=== PATIENT | male | born 1955 | race Caucasian/White ===

== ENCOUNTER 2017-10-08 16:11 | Emergency (ER) | payer MEDICAID, SELFPAY ==
[2017-10-08 16:13] VITALS: BP 161/89; PULSE 81; RESP 14; TEMP 36.9; O2SAT 96; BMI 25.0
--- NOTE | 2017-10-08 17:02 | ED.DCSUM_ITS ---
- ER Visit Summary Date of Service: 10/08/17 Chief Complaint: Wound check History of Present Illness: The patient is a 61 M evaluation of bump lateral to left nose yesterday, enlarging, tender. No drainage. No fevers. No history of diabetes. Concerned due to history of MRSA to his right arm in the past. Penicillin allergy. No other complaints. Physical Examination: General: Alert and oriented ?3, no acute distress HEENT: Normocephalic, atraumatic. His redness throughout his face with sparing around ocular region scaly lesions which is chronic per patient. There is a nodule fluctuance 1 cm lateral left nasal region, tender to palpation. Moist mucosa membranes Neck: supple, nontender. Cardiovascular: Regular rate and rhythm, no murmurs Respiratory: Normal breath sounds, symmetric, no distress Abdomen: Soft, nontender, nondistended Extremities: Nontender, no edema, pulses intact ?4 Neuro: no focal neurological deficits. Test Results: [] Emergency Department Course and Treatment: Patient chronic erythema of his face. Nodule is new with fluctuance. History of MRSA, started on Bactrim. Due to flexion discuss needle decompression for which she agreed. 18-gauge was used and sterile conditions, start blood return with no exudates. He tolerated it well. Wound care discussed. He will continue Bactrim and follow-up with his PCP. Return if any worsening symptoms. All questions were answered. Treatment Plan: [] Disposition: Discharge Impression: 1. Facial boil status post needle decompression This note was generated with [employer] dictation software. It may contain incorrect words, spelling, and punctuation that were not noted in review of the chart prior to signing ED Disposition - Plan for ED Patient: Disposition: Home or Assisted Living Chief Complaint: Wound Check Diagnosis: Boil Instructions: ED Abscess IandD Prescriptions: Smz/Tmp Ds [Bactrim Ds] 1 tablet PO BID #20 tablet Referrals: David Garvin [Primary Care Provider] - 3-5 Days
[2017-10-08] MEDS: Smz/Tmp Ds Tablet 1 TABLET PO (17:24)
[2017-10-08] MEDS: Lidocaine/Epi/Tetracaine 50 ML 1 APPLIC TOPICAL (17:24)
[2017-10-08 18:03] VITALS: BP 147/89; PULSE 91; RESP 16; O2SAT 99
== END 2017-10-08 18:04 | disposition home or self-care (01) ==
PROVIDERS: Emergency Provider Emergency Medicine; Family Provider Physician Assistant; PCP Physician Assistant
DX: J34.0 Abscess, furuncle and carbuncle of nose (principal); Z98.890 Other specified postprocedural states; Z86.14 Personal history of Methicillin resistant Staphylococcus aureus infection; J44.9 Chronic obstructive pulmonary disease, unspecified; Z72.0 Tobacco use
CPT/HCPCS: 10060; 99283

== ENCOUNTER 2017-12-21 14:42 | Emergency (ER) | payer MEDICAID, SELFPAY ==
[2017-12-21 14:43] VITALS: BP 179/100; PULSE 76; RESP 16; TEMP 36.7; O2SAT 97; BMI 24.4
--- NOTE | 2017-12-21 15:01 | ED.VISSUMM ---
- ER Visit Summary Date of Service: 12/21/17 Chief Complaint: Atraumatic bilateral low back pain History of Present Illness: The patient is a 62 M who presents with atraumatic bilateral low back pain that started 3 days ago. He denies bowel bladder dysfunction. Denies radicular pain. No saddle anesthesia or paresthesia. Denies foot drop or weakness in his thigh muscles going up or down steps. Any type of movement exacerbates his pain. He has no preference regarding sitting or standing. He commented that rising from a sitting position or going to a sitting position or standing position cause some discomfort. He denies fever, chills night sweats. He denies any GI symptoms. He denies any symptoms. Please read written note for complete detail Physical Examination: Blood pressure is elevated 179 100. HEENT exam is unremarkable. Heart is regular without murmur, gallop or rub. S1 and S2 are normal. Lungs are clear to auscultation with good movement of air bilaterally. Abdomen is soft nontender no palpable cell mass or abdominal bruit. There is no guarding or rebound tenderness. There is no CVA tenderness noted. There is no evident patient of the pelvis. There is no inguinal lymphadenopathy. There is no evidence of hernia. Straight leg test is negative bilaterally. DTRs of the patella and ankle are 2+ and symmetric. There is no clonus or Babinski sign noted. EHL is intact. He has normal sensation. Movement exacerbates his pain. He has palpable DP and PT pulse, 2+. Test Results: None are indicated Emergency Department Course and Treatment: Rest, ice, NSAID and short course of [place]. Treatment Plan: Prescription for [place] and follow-up with his primary care provider Danielito Cedillo for blood pressure reading assessment since it is elevated and he has no history of blood pressure and the fact that he is asymptomatic. Disposition: Discharged to home Impression: 1. Bilateral low back pain lumbar sacral strain 2. History of degenerative disc disease 3. Elevated blood pressure asymptomatic in nonhypertensive patient This note was generated with [employer] dictation software. It may contain incorrect words, spelling, and punctuation that were not noted in review of the chart prior to signing ED Disposition - Plan for ED Patient: Disposition: Home or Assisted Living Chief Complaint: Back Instructions: ED Sprain Strain Lumbar, ED Hypertension Poss Prescriptions: Hydrocodone Bitart/Apap 5-325 [[place] 5MG-325MG] 1 tab PO Q6H PRN PRN 3 Days #10 tab PRN Reason: Pain Referrals: Danielito Dowd [Primary Care Provider] - 1 Week
[2017-12-21 15:11] VITALS: BP 149/89; RESP 16
--- NOTE | 2017-12-21 15:16 | ED.RN ---
REVIEWED D/C INSTRUCTIONS, FOLLOW UP CARE, PRESCRIPTION, AND S/S THAT WOULD WARRANT RETURN TO THE ED WITH PT. PT VERBALIZED AN UNDERSTANDING AND DENIES FURTHER QUESTIONS FOR THIS RN. PT SKIN P/W/D, RESP EVEN AND UNLABORED, PT A&O X 3, NO DISTRESS NOTED. PT AMBULATED OUT OF ED, GAIT STEADY.
== END 2017-12-21 15:17 | disposition home or self-care (01) ==
PROVIDERS: Emergency Provider Emergency Medicine; Family Provider Nurse Practitioner Family; PCP Nurse Practitioner Family
DX: S39.012A Strain of muscle, fascia and tendon of lower back, initial encounter (principal); X58.XXXA Exposure to other specified factors, initial encounter; Y93.9 Activity, unspecified; Y92.9 Unspecified place or not applicable; R03.0 Elevated blood-pressure reading, without diagnosis of hypertension; E78.00 Pure hypercholesterolemia, unspecified; J44.9 Chronic obstructive pulmonary disease, unspecified; Z87.891 Personal history of nicotine dependence
CPT/HCPCS: 99282

== ENCOUNTER 2018-01-01 19:58 | Emergency (ER) | payer MEDICAID, SELFPAY ==
[2018-01-01 19:59] VITALS: BP 132/87; PULSE 80; RESP 16; TEMP 36.7; O2SAT 97; BMI 23.7
--- NOTE | 2018-01-01 20:16 | ED.RN ---
WHILE IN TRIAGE PT BECAME PALE AND DIAPHORETIC, C/O LIGHTHEADEDNESS, RINGING IN EARS, THEN PASSED OUT. PT WAS OUT FOR ABOUT 1 MIN, AND HAS AUDIBLE RESPIRATIONS WITH CHEST RISE. PT THEN WOKE. PT THEN ASSISTED TO BED IN 2ND TRIAGE ROOM. O2 APPLIED. PT ORIENTED x3, DROWSY.
[2018-01-01 20:40] VITALS: BP 129/99; PULSE 68; RESP 20; O2SAT 93
--- NOTE | 2018-01-01 22:02 | ED.DCSUM_ITS ---
- ER Visit Summary Date of Service: 01/01/18 Chief Complaint: Left thumb laceration History of Present Illness: The patient is a 62 M sizes left thumb on a knife while trying to repair his motorcycle. Notes his last tetanus was 7 years ago. He is right-handed. Physical Examination: Afebrile vital signs are stable He is neurovascular intact distal to the injury of the left thumb. There is a 1.5 cm linear laceration of the lateral aspect of the thumb. There is a 2.5 cm laceration over the medial aspect of the left thumb. The medial laceration demonstrates a arterial on the skin that is having arterial bleeding. Emergency Department Course and Treatment: The small arterial was tied off using 5-0 Vicryl suture. Once bleeding control was obtained the thumb was digitally blocked using 1% lidocaine. The lateral laceration was washed with Shur-Clens and explored. This was closed using 3 simple interrupted 4-0 simple interrupted Ethilon sutures. The medial laceration was irrigated and explored and washed. It was closed using 5 4-0 simple interrupted Ethilon sutures. Post suturing the thumb was reassessed he continues to be neurovascularly intact distally. There is no obvious joint or bone involvement that I could see. Tendon function is normal. Patient will follow up with primary care 10- 14 days for suture removal. Return if worsening or concerns Impression: 1. 2.5 cm and 1.5 cm left thumb laceration with repair This note was generated with [employer] dictation software. It may contain incorrect words, spelling, and punctuation that were not noted in review of the chart prior to signing ED Disposition - Plan for ED Patient: Disposition: Home or Assisted Living Chief Complaint: Laceration Instructions: ED Laceration Hand Prescriptions: Cephalexin [Keflex] 500 mg PO Q6 #28 cap Referrals: Danielito Dowd, HAF[employer]-C [Primary Care Provider] - 10-14 Days suture removal Additional Instructions: Return if worsening or concerns.
[2018-01-01 22:12] VITALS: BP 127/71; PULSE 84; RESP 16; O2SAT 98
== END 2018-01-01 22:14 | disposition home or self-care (01) ==
PROVIDERS: Emergency Provider Emergency Medicine; Family Provider Nurse Practitioner Family; PCP Nurse Practitioner Family
DX: S61.012A Laceration without foreign body of left thumb without damage to nail, initial encounter (principal); W26.0XXA Contact with knife, initial encounter; Y93.89 Activity, other specified; Y92.9 Unspecified place or not applicable; E78.00 Pure hypercholesterolemia, unspecified; J44.9 Chronic obstructive pulmonary disease, unspecified; Z72.0 Tobacco use; Z79.899 Other long term (current) drug therapy
CPT/HCPCS: 12002; 99284

== ENCOUNTER → 2018-02-08 20:04 | Outpatient (CLI) | payer MEDICAID, SELFPAY | PROVIDERS: Family Provider Nurse Practitioner Family; PCP Nurse Practitioner Family; Visit Provider Nurse Practitioner Family | DX: G47.10 Hypersomnia, unspecified (principal); J43.9 Emphysema, unspecified | CPT/HCPCS: 95810 ==

== ENCOUNTER → 2018-03-03 19:56 | Outpatient (CLI) | payer MEDICAID, SELFPAY | PROVIDERS: Family Provider Nurse Practitioner Family; PCP Nurse Practitioner Family; Visit Provider Nurse Practitioner Family | DX: G47.33 Obstructive sleep apnea (adult) (pediatric) (principal) | CPT/HCPCS: 95811 ==

== ENCOUNTER 2018-05-18 16:44 | Emergency (ER) | payer MEDICAID, SELFPAY ==
[2018-05-18 16:45] VITALS: BP 167/107; PULSE 90; RESP 18; TEMP 37.1; O2SAT 98; BMI 23.1
--- NOTE | 2018-05-18 17:26 | ED.VISSUMM ---
- ER Visit Summary Date of Service: 05/18/18 Chief Complaint: [Back pain] History of Present Illness: The patient is a 62 M [presents the emergency department complaint of back pain that started this morning around 9 AM. Patient does have a history of chronic back pain issues that he has had for years. Patient states that about 3 times a year he will get a flareup but for the most part typically he can manage his pain at home with Tylenol. Patient denies any pain radiating down his legs. He denies any change in bowel or bladder function. He denies any weakness in extremities. He denies any fall or trauma. He is not on any heavy lifting. Patient denies urinary symptoms. He denies any fever.] Physical Examination: [HEENT-PERRLA, EOMI. Cranial nerves II through XII grossly intact. TMs clear. Mucous membranes moist. No adenopathy. Cardiovascular-regular rate and rhythm without murmur or ectopy Lungs-clear to auscultation, chest wall stable without crepitus or subcu emphysema Abdomen-normoactive bowel sounds, soft, nontender, no rebound or rigidity, no peritoneal signs. Back exam-patient does have tenderness palpation over the left lower lumbar paraspinal musculature into the left iliac crest. Patient also has some mild tenderness over the right lumbar paraspinal musculature. No significant tenderness in the midline of the lumbar spine. Patient has negative straight leg raises. Deep tendon reflexes are plus 2 out of 4 bilaterally at the patella and Achilles. Patient has normal L5 extension bilaterally. Extremities-intact ?4, normal range of motion, normal pulses, atraumatic] Test Results: [None indicated] Emergency Department Course and Treatment: [Patient was given a prescription for [place] and Flexeril. Patient advised to follow-up with his primary care physician.] Treatment Plan: [Follow-up with primary care physician and given a prescription for [place] and Flexeril.] Disposition: [Discharged home in stable condition] Impression: [Acute exacerbation of chronic back pain] This note was generated with [employer] software. It may contain incorrect words, spelling, and punctuation that were not noted in review of the chart prior to signing ED Disposition - Plan for ED Patient: Chief Complaint: Back Referrals: Danielito Dowd, H[facility]-C [Primary Care Provider] -
--- NOTE | 2018-05-18 17:28 | ED.DEP ---
ED Disposition - Plan for ED Patient: Chief Complaint: Back Instructions: ED Spasm Back No Trauma, ED Neck Back Pain General Prescriptions: Hydrocodone/Acetaminophen [[place] 5-325 Tablet] 1 - 2 ea PO 4X/DAY PRN PRN 3 Days #12 tab PRN Reason: Pain Cyclobenzaprine [Flexeril] 10 mg PO TID PRN #20 tab PRN Reason: Muscle Spasm Referrals: Danielito Dowd, [employer] [Primary Care Provider] - 3-5 Days
[2018-05-18 17:40] VITALS: BP 167/107; PULSE 70; RESP 16; O2SAT 99
== END 2018-05-18 17:43 | disposition home or self-care (01) ==
LOC: ED 17:32
PROVIDERS: Emergency Provider Emergency Medicine; Family Provider Nurse Practitioner Family; PCP Nurse Practitioner Family
DX: M54.5 Low back pain (principal); G89.29 Other chronic pain; F32.9 Major depressive disorder, single episode, unspecified; F41.9 Anxiety disorder, unspecified; J44.9 Chronic obstructive pulmonary disease, unspecified; Z79.899 Other long term (current) drug therapy; Z72.0 Tobacco use
CPT/HCPCS: 99282

== ENCOUNTER → 2018-05-27 13:04 | Outpatient (CLI) | payer MEDICAID, SELFPAY | PROVIDERS: Family Provider Nurse Practitioner Family; PCP Nurse Practitioner Family; Visit Provider Nurse Practitioner Family | DX: G47.33 Obstructive sleep apnea (adult) (pediatric) (principal) | CPT/HCPCS: 98960; G0463 ==

== ENCOUNTER → 2018-06-01 16:04 | Outpatient (CLI) | payer MEDICAID, SELFPAY ==
--- NOTE | 2018-06-01 16:16 | RAD_ITS ---
STUDY: X-RAY - LUMBAR SPINE REASON FOR EXAM: Male, 62 years old. Pain. TECHNIQUE: 3 view(s) of the lumbar spine were obtained. COMPARISON: 12/16/2016 FINDINGS: Normal lumbar lordosis. There is no substantial scoliosis. There is a normal alignment of the vertebrae. Spondylosis and degenerative disc disease especially at L4-L5 and L5-S1. Findings have progressed since 12/16/2016. There is no demonstrated fracture. The soft tissue structures are unremarkable. RAD/Lumbar Spine 2 or 3 Views IMPRESSION: No acute abnormality. Multilevel lower lumbar spine degenerative changes worse than 12/16/2016. Electronically Signed: Lalit Phan MD at 23:58 EDT , Service support ,
--- NOTE | 2018-06-01 16:23 | RAD_ITS ---
STUDY: X-RAY - THORACIC SPINE REASON FOR EXAM: Male, 62 years old. Pain. TECHNIQUE: 3 view(s) of the thoracic spine were obtained. COMPARISON: None. FINDINGS: Normal kyphosis of the thoracic spine. There is no substantial scoliosis. Normal thoracic vertebrae and endplates. Normal disc space heights. The soft tissue structures are unremarkable. RAD/Thoracic Spine 2 Views IMPRESSION: Unremarkable for age. Electronically Signed: Lalit Phan MD at 23:57 EDT , Service support ,
== END ==
PROVIDERS: Family Provider Nurse Practitioner Family; PCP Nurse Practitioner Family; Referring Provider Nurse Practitioner Family; Visit Provider Nurse Practitioner Family
DX: M47.897 Other spondylosis, lumbosacral region (principal); M51.37 Other intervertebral disc degeneration, lumbosacral region
CPT/HCPCS: 72070; 72100

== ENCOUNTER → 2018-06-08 08:49 | Outpatient (CLI) | payer MEDICAID, SELFPAY ==
--- NOTE | 2018-06-08 14:11 | PFTCOMP_ITS ---
COMPLETE PULMONARY FUNCTION TEST INTERPRETATION Brief HPI: Patient is a 62 year old male, currently under the care of Elida Hoyos, who presents to [facility] for complete pulmonary function tests secondary to diagnosis of dyspnea. Respiratory therapist reports good effort and reproducible results. Patient did take maintenance medication 5 hours before testing. Interpretation: Forced expiration spirometry shows no large airways obstructive ventilatory defect with an FEV1 of 82% predicted. There is no significant bronchodilator response by strict ATS criteria. Spirograms are of good quality and plateau slowly, indicating slowly emptying areas of the lungs. The respiratory flow volume loop shows decreased expiratory flow rates at high lung volumes consistent with small airways obstruction. Lung volumes by body plethysmography show a normal total lung capacity at 6.99 L, 96% predicted. All other lung volumes are within normal limits. Diffusion capacity by carbon monoxide is normal at 103% predicted. The airway resistance is normal. No previous pulmonary function tests were available for review. Impression: These pulmonary function tests are grossly within normal limits. There are some subtle signs of possible small airways obstruction.
== END ==
PROVIDERS: Family Provider Nurse Practitioner Family; PCP Nurse Practitioner Family; Referring Provider Nurse Practitioner Acute Care; Visit Provider Nurse Practitioner Acute Care
DX: R06.00 Dyspnea, unspecified (principal)
CPT/HCPCS: 94060; 94726; 94729

== ENCOUNTER 2018-06-10 15:55 | Outpatient (CLI) | payer MEDICAID, SELFPAY ==
[2018-06-10 16:38] LABS: Absolute Lymphocyte Count 2.67 X10^3/ul (0.83-4.51); Absolute Neutrophil Count 4.4 X10^3/uL (2.0-7.7); Basophil# 0.03 X10^3/uL; Basophil% 0.4 % (0-1); Eosinophil# 0.19 X10^3/uL; Eosinophils% 2.3 % (0-5); Hematocrit 44.1 % (40-54); Hemoglobin 15.3 g/dl (13.0-16.5); Lymphocyte # 2.67 X10^3/ul (4.0); Lymphocyte % 32.9 % (19-41); Mean Corp Hgb Conc 34.7 g/gl (32-36); Mean Corpuscular Hgb 34.9 pg (27.0-32.0); Mean Corpuscular Volume 100.5 fL (80-94); Mean Platelet Vol. 8.8 fl (6.2-12.0); Monocyte# 0.83 X10^3/uL; Monocyte% 10.2 % (0-10); Neutrophil # 4.38 X10^3/uL (2.7-7.7); Platelet Count 255 K/mm3 (150-450); RBC Distribution Width CV 12.3 % (11.6-14.6); RBC Distribution Width SD 44.8 fl (35.1-43.9); Red Blood Count 4.39 M/mm3 (4.6-6.2); White Blood Count 8.1 K/mm3 (4.4-11.0)
[2018-06-10 16:45] LABS: AST(SGOT) 22 U/L (15-37); Alanine Aminotransfer ALT/SGPT 37 U/L (16-61); Albumin, Serum 3.8 g/dL (3.2-5.0); Alkaline Phosphatase 99 U/L (45-117); Anion Gap 6 (5-15); BUN 16 mg/dL (7-18); BUN/Creat Ratio 19.8 RATIO (10-20); Calcium,Total 8.8 mg/dL (8.5-10.1); Chloride 105 mmol/L (98-107); Creatinine, Serum 0.81 mg/dL (0.70-1.30); EST Glomerular Filtration Rate 102 mL/min (>60); Est Glom Filt Rate - Afr Amer 123 mL/min (>60); Globulin 3.7 g/dL (2.2-4.2); Glucose 86 mg/dL (74-106); Potassium 3.9 mmol/L (3.5-5.1); Protein, Total 7.5 g/dL (6.4-8.2); Sodium Level 139 mmol/L (136-145)
[2018-06-10 16:46] LABS: POSITIVE COUNT NO; POSITIVE DIFFERENTIAL NO; POSITIVE MORPHOLOGY NO
== END 2018-07-09 12:24 ==
DX: I10 Essential (primary) hypertension (principal)
CPT/HCPCS: 36415; 80053; 85025

== ENCOUNTER 2018-07-03 18:25 | Emergency (ER) | payer MEDICAID, SELFPAY ==
[2018-07-03 18:26] VITALS: BP 140/76; PULSE 79; RESP 14; TEMP 36.4; O2SAT 98; BMI 11.2
--- NOTE | 2018-07-03 18:58 | ED.VISSUMM ---
- ER Visit Summary Date of Service: 07/03/18 Chief Complaint: Right thumb wound History of Present Illness: The patient is a 62 M who noted a small area of skin avulsion of the proximal right thumb couple days ago. Patient denies known injury. He has had some serosanguineous type drainage from the area. His primary concern is that he had a similar lesion that appeared on his left hand a couple years ago that turned into MRSA infection and required surgical debridement. He has not had fever or chills. Physical Examination: Vital signs unremarkable. Patient sitting upright in bed no acute distress. He is nontoxic appearing. Heart is regular rate and rhythm without murmur. Lung sounds are clear. The right upper extremity examination was a 3 mm round area of skin avulsion on the proximal right thumb with serosanguineous drainage. No palpable abscess is noted. There is no tenderness along the tendon. Full range of motion is noted. Normal cap refill and sensation are noted. Test Results: [] Emergency Department Course and Treatment: Wound culture was obtained. Patient be treated with Bactrim and Keflex. Treatment Plan: [] Disposition: Discharge Impression: Right thumb wound with history of MRSA This note was generated with [employer] dictation software. It may contain incorrect words, spelling, and punctuation that were not noted in review of the chart prior to signing ED Disposition - Plan for ED Patient: Disposition: Home or Assisted Living Chief Complaint: Wound Check Instructions: ED Wound Check Laceration FU Infec Prescriptions: Cephalexin [Keflex] 500 mg PO Q6 #40 capsule Smz/Tmp Ds [Bactrim Ds] 1 tablet PO BID #20 tablet Referrals: Danielito Dowd NP-C [Primary Care Provider] - 5-7 Days
[2018-07-03 19:10] VITALS: RESP 18
[2018-07-03] MEDS: Smz/Tmp Ds Tablet 1 TABLET PO (19:10)
[2018-07-03] MEDS: Cephalexin 250 MG Capsule 500 MG PO (19:10)
== END 2018-07-03 19:11 | disposition home or self-care (01) ==
PROVIDERS: Emergency Provider Emergency Medicine; PCP Nurse Practitioner Family
DX: S60.391A Other superficial injuries of right thumb, initial encounter (principal); X58.XXXA Exposure to other specified factors, initial encounter; Y93.9 Activity, unspecified; Z86.14 Personal history of Methicillin resistant Staphylococcus aureus infection; J44.9 Chronic obstructive pulmonary disease, unspecified; Z72.0 Tobacco use
CPT/HCPCS: 87070; 87205; 99283

== ENCOUNTER 2018-07-06 10:19 | Inpatient (IN) | payer MEDICAID, SELFPAY ==
[2018-07-06] VITALS (8 sets, daily range): BP systolic 128–161; BP diastolic 77–93; PULSE 84–119; RESP 16–18; TEMP 36.6–37.7; O2SAT 93–98; BMI 24.4
--- NOTE | 2018-07-06 10:20 | TISS_PTH ---
PATIENT: YUNG VILA LOC: MS2 U#:[id number] AGE/SX: 62/M ROOM: [id number] RE07/06/[address]: Dr. Oliver Murillo MD : [id number] BED: 1 DIS: 07/08/2018 SPEC #: [id number] RECD: 07/07/18 09:17 STATUS: MARÍA NOLAN #: [id number] PIOTR: 07/06/18 10:[address]: Oliver Murillo DEPT: SURGICAL PATHOLOGY RECD BY: Nataliia Stoddard ENTERED: 07/07/18 11:19 SP TYPE: Tissue Bx SARAH DR: MD Danielito Navas, [employer] Tissues: Skin of thumb, NOS Procedures: Special Stain Group I Surgery Specimen Level IV AFB Stain (control) GMS Stain (control) HEADER OPERATION: Incision, drainage MRSA abscess, thumb PRE-OP DIAGNOSIS: Proximal right thumb MRSA abscess TISSUE SUBMITTED: Tissue, right thumb MICROSCOPIC DIAGNOSIS Tissue right thumb: Pieces of skin with underlying tissue with acute and chronic inflammation and abscess formation. Special stains for acid fast bacilli and fungi are negative for organisms; matched controls are appropriate. AGA:lance 07/08/18 MICROSCOPIC DESCRIPTION Slides are reviewed. GROSS DESCRIPTION Received in fixative is one container labeled with the patient's name and designated tissue right thumb. The specimen consists of four variable size pieces of lopez-brown skin with underlying tissue measuring in aggregate 3.5 x 3.5 x 0.5 cm. A focal area of ulceration is noted. No mass lesion is identified. The entire specimen is submitted in two cassettes. / AGA:lance 07/07/18 TC:2 CPT: 54763, 41384 x2
--- NOTE | 2018-07-06 10:51 | EKG12_ITS ---
Test Reason : CELLULITIS Blood Pressure : / mmHG Vent. Rate : 087 BPM Atrial Rate : 087 BPM P-R Int : 172 ms QRS Dur : 086 ms QT Int : 330 ms P-R-T Axes : 080 -30 078 degrees QTc Int : 397 ms Normal sinus rhythm with sinus arrhythmia Left axis deviation Septal infarct (cited on or before 07-APR-2015) Abnormal ECG Confirmed by PILLO RM, JAKE ([id number]), communications editor JULISA WEN ([id number]) on 07/09/2018 2:24:33 PM Referred By: Oliver Murillo Confirmed By:JAKE FERRO MD
--- NOTE | 2018-07-06 10:53 | RAD_ITS ---
STUDY: X-RAY - RIGHT HAND REASON FOR EXAM: Male, 62 years old. Cellulitis. TECHNIQUE: 3 view(s) of the hand. COMPARISON: None. FINDINGS: Normal radiocarpal articulation. Normal distal radioulnar joint. Normal visualized carpal bones. Normal carpal articulations Normal carpometacarpal articulation of the thumb. Normal second through fifth carpometacarpal joints. Normal metacarpi. Normal metacarpophalangeal joint of the thumb. Normal interphalangeal joint of the thumb. Normal proximal and distal phalanges of the thumb. Normal metacarpophalangeal joints of the second through fifth fingers. Normal proximal and distal interphalangeal joints of the second through fifth fingers. Normal phalanges of the second through fifth fingers. Soft tissue swelling. RAD/Hand Min 3 Views IMPRESSION: Soft tissue swelling. Electronically Signed: Alex Salcedo MD at 11:37 EST Tel [phone], Service support ,
[2018-07-06] MEDS: 0.9% Normal Saline 1,000 ML 150 ML IV (11:16)
[2018-07-06 11:25] LABS: Absolute Lymphocyte Count 1.51 X10^3/ul (0.83-4.51); Absolute Neutrophil Count 11.4 X10^3/uL (2.0-7.7); Basophil# 0.02 X10^3/uL; Basophil% 0.1 % (0-1); Eosinophil# 0.07 X10^3/uL; Eosinophils% 0.5 % (0-5); Hematocrit 42.3 % (40-54); Hemoglobin 14.9 g/dl (13.0-16.5); Lymphocyte # 1.51 X10^3/ul (4.0); Lymphocyte % 10.5 % (19-41); Mean Corp Hgb Conc 35.2 g/gl (32-36); Mean Corpuscular Hgb 35.1 pg (27.0-32.0); Mean Corpuscular Volume 99.8 fL (80-94); Mean Platelet Vol. 8.6 fl (6.2-12.0); Monocyte# 1.39 X10^3/uL; Monocyte% 9.6 % (0-10); Neutrophil # 11.41 X10^3/uL (2.7-7.7); Neutrophil % 79.2 % (47-70); Platelet Count 246 K/mm3 (150-450); RBC Distribution Width CV 12.8 % (11.6-14.6); RBC Distribution Width SD 46.2 fl (35.1-43.9); Red Blood Count 4.24 M/mm3 (4.6-6.2); White Blood Count 14.4 K/mm3 (4.4-11.0)
[2018-07-06 11:27] LABS: POSITIVE COUNT NO; POSITIVE DIFFERENTIAL NO; POSITIVE MORPHOLOGY NO
[2018-07-06 11:35] LABS: Anion Gap 9 (5-15); BUN 18 mg/dL (7-18); BUN/Creat Ratio 22.9 RATIO (10-20); Calcium,Total 9.1 mg/dL (8.5-10.1); Chloride 106 mmol/L (98-107); Creatinine, Serum 0.79 mg/dL (0.70-1.30); EST Glomerular Filtration Rate 105 mL/min (>60); Est Glom Filt Rate - Afr Amer 127 mL/min (>60); Estimated Creatinine Clearance 106.76 ml/min; Glucose 94 mg/dL (74-106); Potassium 4.4 mmol/L (3.5-5.1); Sodium Level 138 mmol/L (136-145)
--- NOTE | 2018-07-06 11:59 | ED.VISSUMM ---
- ER Visit Summary Date of Service: 07/06/18 Chief Complaint: Right thumb pain and swelling in spite of outpatient treatment History of Present Illness: The patient is a 62 M who is right-handed. Was seen on July 03 for injury that occurred June 30 dorsal surface right thumb. He was treated with cephalexin and Bactrim. He states he missed 1 dose of cephalexin otherwise he is taking all the medicines prescribed. He presents because of increased pain, swelling and pain with movement. He has history of extensor tenosynovitis left hand. Dr. Murillo care for him at that time. He does report drainage from the thumb. There is no history rheumatic fever, heart murmur, SPE or mitral valve prolapse. He is on no immunosuppressive medication. He is a smoker. He does not have history of diabetes. He reports he had a half a sandwich and a couple coffee at 8 AM. He has had nothing to eat or drink since. Physical Examination: Vital signs noted and remarkable for elevated blood pressure 147/92 and heart rate of 113. HEENT exam is unremarkable. Heart is regular without murmur, gallop or rub. S1 and S2 are normal. Lungs are clear to auscultation with good movement of air bilaterally. Examination of the right upper extremity reveals mucopurulent erythematous abscess/cellulitis dorsal surface of the right thumb over the proximal phalanx, distal phalanx and part of the distal first metacarpal bone. There is no lymphangitis. There is no epitrochlear excellent lymphadenopathy. The thumb is swollen limited range of motion and passive flexion causes exquisite pain. There is pain to palpation over the extensor pollicis longus tendon. Sensations intact. Capillary refill is normal. Test Results: X-ray of the hand was obtained to evaluate for foreign body. None was noted and there is no evidence of osteomyelitis. White count is 14.4 thousand with 79 segs no bands. Basic metabolic panel is unremarkable. Emergency Department Course and Treatment: Blood work was obtained EKG for preoperative clearance. EKG reveals a sinus rhythm with respiratory variance. AR interval is normal. QRS durations normal. [place] to left. Decreased anterior force. Concerned this represents MRSA patient was treated with 25 mg/kg of vancomycin and Case was discussed with Dr. salgado who plans to take patient to the operating room later today. He requested admission to the hospitalist service since he has older with medical problems. Treatment Plan: IV antibiotics and incision and drainage in the OR Disposition: MedSurg/OR Impression: 1. Tenosynovitis extensor pollicis longus 2. Abscess/cellulitis right thumb and hand failed outpatient therapy 3. History of hypertension 4. History of obstructive sleep apnea This note was generated with [employer] software. It may contain incorrect words, spelling, and punctuation that were not noted in review of the chart prior to signing ED Disposition - Plan for ED Patient: Chief Complaint: Cellulitis Referrals: Danielito Dowd, HAFSA-C [Primary Care Provider] -
--- NOTE | 2018-07-06 16:24 | PCM.HP.BLA ---
History and Physical Date of Admission: 07/06/18 This is a 62-year-old gentleman who presented to the ED with a 4-5 day history of increasing redness, pain, and swelling and skin compromise with some necrosis on the dorsal proximal aspect right thumb and some purulent drainage. He initially came to the ED on 07/03/18. The symptoms were less. He was given Keflex and Bactrim antibiotics. When the symptoms worsened, he came to the ED today. He had a similar abscess three years ago on the dorsum of his left hand that I drained. It showed MRSA at that time. His abscess today is suspicious for MRSA. His WBC was 14.4. He was given a dose of Vancomycin in the ED. It was recommended to the patient to be admitted to the hospital for IV antibiotics and to proceed with operative intervention with incision and drainage and excisional debridement of this abscess. PAST MEDICAL HISTORY: Coronary artery disease, hypertension, back pain, anxiety, depression, COPD, osteoporosis, hyperlipidemia, kidney stones, MRSA. SURGICAL HISTORY: Includes multiple laparotomies for adhesions as well as for intestinal perforation with bowel resection. Incision and drainage and excisional debridement abscess dorsum left hand with involvement of extensor tendon sheaths index finger, long finger, and ring finger - 06/28/15. MEDICATIONS: Metoprolol, Losartan, Keflex, Bactrim. ALLERGIES: Penicillin. SOCIAL HISTORY: The patient is a smoker. The patient drinks occasionally. He had alcohol abuse in the past. FAMILY HISTORY: Positive for alcoholism, lung disease, anxiety, depression, cancer and suicide. REVIEW OF SYSTEMS: GENERAL: Has some fatigue. Denies fevers, denies weight loss, had alcohol abuse in the past. Has history of MRSA. EARS, NOSE AND THROAT: Denies nasal congestion, denies sore throat. EYES: Denies cataracts, denies glaucoma. ENDOCRINE: Denies excessive thirst, urination. Has hyperlipidemia. INTEGUMENTARY: Has worsening abscess dorsum of right thumb at proximal aspect with skin compromise with necrosis. MUSCULOSKELETAL: Has osteoporosis. Has joint pain, joint stiffness, muscle weakness, back pain and arthritis. NEUROLOGICAL: Denies headaches, denies lightheadedness. Denies numbness in his fingers. CARDIOVASCULAR: Has some chest pain, has heart disease, has hypertension. Denies shortness of breath with exertion. Denies lightheadedness. Has some fatigue. PSYCHIATRIC: Has some anxiety, has some depression. RESPIRATORY: Has some shortness of breath, has COPD. The patient is a smoker. Denies cough. GASTROINTESTINAL: Denies nausea, vomiting, diarrhea or constipation. Had intestinal perforation in the with bowel resection. Has multiple surgeries for adhesions. HEMATOLOGIC: Has anemia. Denies abnormal bruising. GENITOURINARY: Denies hematuria. Denies urinary frequency. Has history of kidney stones. PHYSICAL EXAMINATION: HEENT: Pupils are equal, round and reactive to light. Extraocular muscles are intact. Throat is clear. NECK: Supple and nontender. No cervical adenopathy. LUNGS: Clear to auscultation. HEART: Regular rate and rhythm. ABDOMEN: Soft and nontender. EXTREMITIES: Full range of motion. No axillary adenopathy. The patient is right hand dominant. On the dorsal proximal aspect right thumb is an area of redness, swelling, tenderness. There is an opening proximally at the level of the MP joint with purulent drainage. There is surrounding skin compromise with some skin necrosis. Measures 5 x 2 cm. Patient can flex and extend his thumb but with some difficulty secondary to pain and swelling. The patient is able to oppose his thumb to the index and long fingers. There is difficulty with the ring and small fingers secondary to pain and swelling. No sensory deficits noted. Fingers are warm with good capillary refill. Radial pulses are palpable. No axillary adenopathy noted. NEUROLOGICAL: Cranial nerves II through XII are grossly intact. IMPRESSION: 1. 5 cm abscess dorsal proximal aspect right thumb. 2. Skin compromise and necrosis. 3. Methicillin-resistant Staphylococcus aureus. 4. Smoker. PLAN: Recommend incision and drainage and excisional debridement of this abscess dorsum of right thumb. If it extends down to the tendon, then drainage of the tendon sheath may be necessary as well. Surgery is recommended to be done urgently today to minimize worsening of the infection. Some of the compromised and necrotic skin will be debrided. The wound will be left open and pack with a Silver dressing. We will encourage range of motion exercises to minimize stiffness. At the time of surgery, we will send tissue to microbiology for culture as well as to pathology for analysis to rule out carcinoma. With his history of MRSA, I suspect MRSA and will continue Vancomycin. The patient was encouraged to stop smoking as it may have deleterious effects on wound healing. The patient was informed of the risks and complications of the procedure including alternatives of surgery. These were discussed with him personally. He voices understanding and wishes to proceed with the surgery urgently today to minimize worsening of the infection that could involve the whole hand and forearm. Some of the risks that were discussed included, but were not inclusive of failure to diagnose including symptom relief, pain, infection, numbness, stiffness, loss of digit, RSD, need for further surgery, contracture and wound healing problems. He is aware of these possibilities and wishes to proceed. If there is a delay in the healing process postoperatively then we can consider delayed closure with skin grafting. Surgery will be done under general anesthesia and tourniquet control. Code Visit Inpatient E&M: 70866 Init Hosp L3 - -57 ICD-10 - L02.511, I96, A49.02, F17.200
[2018-07-06] MEDS: oxyCODONE 5 MG Tablet 10 MG PO ×2 (17:27→21:43)
[2018-07-06] MEDS: Lactated Ringers 1,000 ML 60 ML IV (17:27)
[2018-07-06] MEDS: HYDROmorphone 1 MG/ML Syringe IV (18:33)
--- NOTE | 2018-07-06 19:37 | PCM.RX.CS ---
Consult Pharmacy has been consulted to manage selected antiobiotic: Vancomycin Type of Consult: New start Suspected Infection: Skin/Soft tissue Labs: Sodium 138 mmol/L (136-145) 07/06/18 11:16 Potassium 4.4 mmol/L (3.5-5.1) 07/06/18 11:16 Chloride 106 mmol/L (98-107) 07/06/18 11:16 Carbon Dioxide 23.0 mmol/L (21.0-32.0) 07/06/18 11:16 Anion Gap 9 (5-15) 07/06/18 11:16 BUN 18 mg/dL (7-18) 07/06/18 11:16 Creatinine 0.79 mg/dL (0.70-1.30) 07/06/18 11:16 Est GFR (MDRD) Af Amer 127 mL/min (>60) 07/06/18 11:16 Est GFR (MDRD) Non-Af 105 mL/min (>60) 07/06/18 11:16 BUN/Creatinine Ratio 22.9 RATIO (10-20) H 07/06/18 11:16 Glucose 94 mg/dL (74-106) 07/06/18 11:16 Weight used for dosin.9 kg Estimated Creatinine Clearance: 107 ML/MIN Goal Trough: 15-20 mcg/mL Pharmacy Plan for Drug Dosing: Load with vancomycin 2000mg IV x1, then continue with 1000mg IV q8h (per [facility] Pharmacist-Managed IV Vancomycin Dosing Protocol). Obtain trough before the 4th total dose. Pharmacy Service will continue to monitor and adjust dosing as required. Follow-Up Labs: Trough Vancomycin Labs to be done on [date and time ordered]: 07/07/18 at 17:30
--- NOTE | 2018-07-06 19:40 | PHA.PHARE_ITS ---
Consult Pharmacy has been consulted to manage selected antiobiotic: Vancomycin Type of Consult: New start Suspected Infection: Skin/Soft tissue Labs: Sodium 138 mmol/L (136-145) 07/06/18 11:16 Potassium 4.4 mmol/L (3.5-5.1) 07/06/18 11:16 Chloride 106 mmol/L (98-107) 07/06/18 11:16 Carbon Dioxide 23.0 mmol/L (21.0-32.0) 07/06/18 11:16 Anion Gap 9 (5-15) 07/06/18 11:16 BUN 18 mg/dL (7-18) 07/06/18 11:16 Creatinine 0.79 mg/dL (0.70-1.30) 07/06/18 11:16 Est GFR (MDRD) Af Amer 127 mL/min (>60) 07/06/18 11:16 Est GFR (MDRD) Non-Af 105 mL/min (>60) 07/06/18 11:16 BUN/Creatinine Ratio 22.9 RATIO (10-20) H 07/06/18 11:16 Glucose 94 mg/dL (74-106) 07/06/18 11:16 Weight used for dosin.9 kg Estimated Creatinine Clearance: 107 ML/MIN Goal Trough: 15-20 mcg/mL Pharmacy Plan for Drug Dosing: Load with vancomycin 2000mg IV x1, then continue with 1000mg IV q8h (per [facility] Pharmacist-Managed IV Vancomycin Dosing Protocol). Obtain trough before the 4th total dose. Pharmacy Service will continue to monitor and adjust dosing as required. Follow-Up Labs: Trough Vancomycin Labs to be done on [date and time ordered]: 07/07/18 at 17:30
[2018-07-06] MEDS: Docusate Sodium 100 MG Capsule PO (21:43)
[2018-07-06 21:51] LABS: Probe Check PASS; Staph aureus DNA By PCR POSITIVE (Negative)
[2018-07-06 21:52] LABS: M R Staph aureus DNA By PCR POSITIVE (Negative)
[2018-07-07] VITALS (7 sets, daily range): BP systolic 129–167; BP diastolic 66–97; PULSE 91–103; RESP 16–18; TEMP 36.4–37; O2SAT 94–98
[2018-07-07] MEDS: Vancomycin IV 1,000 MG/200 ML BAG 200 MG IV ×3 (02:15→17:36)
[2018-07-07] MEDS: HYDROmorphone 1 MG/ML Syringe IV ×4 (02:15→19:46)
[2018-07-07 06:09] LABS: Hematocrit 37.6 % (40-54); Hemoglobin 12.5 g/dl (13.0-16.5); Mean Corp Hgb Conc 33.2 g/gl (32-36); Mean Corpuscular Hgb 33.5 pg (27.0-32.0); Mean Corpuscular Volume 100.8 fL (80-94); Mean Platelet Vol. 8.7 fl (6.2-12.0); Platelet Count 233 K/mm3 (150-450); RBC Distribution Width CV 13.1 % (11.6-14.6); RBC Distribution Width SD 48.2 fl (35.1-43.9); Red Blood Count 3.73 M/mm3 (4.6-6.2); White Blood Count 12.1 K/mm3 (4.4-11.0)
[2018-07-07 06:18] LABS: Anion Gap 8 (5-15); BUN 19 mg/dL (7-18); BUN/Creat Ratio 23.1 RATIO (10-20); Calcium,Total 8.8 mg/dL (8.5-10.1); Chloride 103 mmol/L (98-107); Creatinine, Serum 0.82 mg/dL (0.70-1.30); EST Glomerular Filtration Rate 100 mL/min (>60); Est Glom Filt Rate - Afr Amer 121 mL/min (>60); Estimated Creatinine Clearance 102.85 ml/min; Glucose 153 mg/dL (74-106); Potassium 4.2 mmol/L (3.5-5.1); Sodium Level 137 mmol/L (136-145)
[2018-07-07 06:24] LABS: Scan Indicated on CBC? Y/N NO
[2018-07-07] MEDS: oxyCODONE 5 MG Tablet 10 MG PO ×4 (06:25→22:26)
[2018-07-07] MEDS: Lactated Ringers 1,000 ML 60 ML IV (06:26)
[2018-07-07] MEDS: Metoprolol(XL)Succ 25 MG Tablet PO (08:24)
[2018-07-07] MEDS: Docusate Sodium 100 MG Capsule PO ×2 (08:24→20:53)
--- NOTE | 2018-07-07 09:09 | NURSING ---
PATIENT STATED HE HAD OWN MEDS IN ROOM AND TOOK IS COREG 25MG THIS MORNING. EDUCATED PT TO NOT TAKE HOME MEDS DUE TO NURSES WILL BE ADMINISTERING, PT STATES UNDERSTANDING.
--- NOTE | 2018-07-07 09:51 | OP.PN_ITS ---
Immediate Post-Op Note Date of Procedure: 07/06/18 Primary Surgeon/Physician: Oliver Murillo unarmed security officer: None Pre-Operative Diagnosis: 1. 5 cm abscess dorsal proximal aspect right thumb. 2. Skin compromise and necrosis. 3. Methicillin-resistant Staphylococcus aureus. 4. Smoker. Post-Operative Diagnosis: 1. 5 cm necrotizinig abscess dorsal proximal aspect right thumb. 2. Skin compromise and necrosis. 3. Methicillin-resistant Staphylococcus aureus. 4. Smoker. 5. Early tenosynovitis extensor pollicis longus (EPL) tendon right thumb. Surgery/Procedure Performed:: Surgical preparation dorsal proximal aspect right thumb with incision and drainage and excisional debridement necrotizing MRSA abscess with some skin necrosis and extensor tenosynovitis (13.75 cm2). Description of Surgical Findings:: This is a 62-year-old gentleman who presented to the ED with a 4-5 day history of increasing redness, pain, and swelling and skin compromise with some necrosis on the dorsal proximal aspect right thumb and some purulent drainage. He initially came to the ED on 07/03/18. The symptoms were less. He was given Keflex and Bactrim antibiotics. When the symptoms worsened, he came to the ED today. He had a similar abscess three years ago on the dorsum of his left hand that I drained. It showed MRSA at that time. His abscess today is suspicious for MRSA. His WBC was 14.4. He was given a dose of Vancomycin in the ED. It was recommended to the patient to be admitted to the hospital for IV antibiotics and to proceed with operative intervention with incision and drainage and excisional debridement of this abscess. Urgent operative intervention today was recommended to minimize worsening of the infection. Today the patient underwent surgical preparation dorsal proximal aspect right thumb with incision and drainage and excisional debridement MRSA abscess with some skin necrosis and extensor tenosynovitis (13.75 cm2). Size of defect dorsal proximal aspect right thumb - 5.5 x 2.5 x 1 cm. Estimated Blood Loss: 25 ml. Specimen's removed: 1. Abscess dorsal proximal aspect right thumb to Pathology and Microbiology. 2. MRSA Wound DNA by PCR. Drains: None. Type of Anesthesia:: General - Admit VTE Documentation VTE Present on Admission: No VTE Mechan Device Prophylaxis: SCD's VTE Pharm Prophylaxis ordered?: No
--- NOTE | 2018-07-07 10:15 | CASEMGMT ---
RN SHAYY Face to Face with patient for initial transition planning/care coordination assessment. RN CM introduced self and role at [facility]. Patient lying in bed, alert and oriented. Patient willing to participate in assessment and is able to answer all questions appropriately. Care providers, pharmacy, and demographics verified. Patient wishes to discharge home, depending on course of treatment may need HHC. Patient states he has no further needs or concerns at this time. CM to follow for discharge planning needs that may arise. PCP: Ivone Specialists: Gonzalo covering and lining supervisor Preferred Pharmacy: [facility] Insurance: [facility] Community plan Prescription Benefit: [facility] Community Plan Living Will/HPOA: None LNOK: Friends Living Arrangements: Patient lives alone in 2nd floor apt. Independent at home and able to navigate stairs. 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 Transportation: Self DME/HHC: Patient has CPap at home. Disposition Plan: Patient to discharge home with follow-up plans in place. States he thinks he can do IV ATBs himself if needed. Will monitor for need for HHC and IV ATBs Abby KELLEY, RN, CM
--- NOTE | 2018-07-07 11:07 | NURSING ---
call placed to access rep to notify of need for picc line placement
[2018-07-07] MEDS: proMETHazine 25 MG Tablet PO (12:42)
--- NOTE | 2018-07-07 14:59 | PCM.PN.SRG ---
Subjective: Postop #1 Patient is resting comfortably. Had some discomfort with the dressing change. Needed IV analgesia. - Physical Exam General: Alert, Oriented x3 HEENT: PERRLA, EOMI Oral: Moist Mucosa Neck: Supple Abdomen: Soft, Non-Distended Skin: Ulcer/ Wound - right thumb wound is stable. No bleeding. Mild swelling. No further evidence of infection. Redressed with Aquacel Silver. Needed IV analgesia. Neurological: Cranial nerves II-XII grossly intact Psych/Mental Status: Normal Affect, Appropriate Vital Signs Temp Pulse Resp BP Pulse Ox 98.6 F 91 18 164/86 H 96 07/07/18 13:54 07/07/18 13:54 07/07/18 13:54 07/07/18 13:54 07/07/18 13:54 Oxygen Delivery Method Room Air Weight: 185 lb 0.014 oz Body Mass Index (BMI) 24.4 Intake and Output for Last 24 Hours 07/05/18 07/06/18 07/07/18 23:59 23:59 23:59 Intake Total 1018 / 1018 3074 / 3074 Balance 1018 / 1018 3074 / 3074 Microbiology Past 72 Hours 07/06/18 17:43 Gram Stain - Final Tissue - Other Wound Culture - Preliminary No growth-Final to follow Laboratory Tests Past 24 Hrs 07/06/18 07/07/18 07/07/18 17:43 05:25 05:25 WBC 12.1 H RBC 3.73 L Hgb 12.5 L Hct 37.6 L MCV 100.8 H MCH 33.5 H MCHC 33.2 RDW 13.1 RDW Differential 48.2 H Plt Count 233 MPV 8.7 Sodium 137 Potassium 4.2 Chloride 103 Carbon Dioxide 26.0 Anion Gap 8 BUN 19 H Creatinine 0.82 Estim Creat Clear Calc 102.85 Est GFR (MDRD) Af Amer 121 Est GFR (MDRD) Non-Af 100 BUN/Creatinine Ratio 23.1 H Glucose 153 H Calcium 8.8 Prealbumin 17.0 L S.aureus Protein A PCR POSITIVE H MRSA (PCR) POSITIVE H Medical Necessity - Tobacco Use Smoking Status: Current every day smoker Assessment/Plan All Active Problems (Last Reviewed 06/23/18 @ 07:54 by Rozina Fischer) Tenosynovitis of thumb (Acute) Skin necrosis (Acute) Abscess of right thumb (Acute) SANDRITA (obstructive sleep apnea) (Acute) Chest pain (Acute) Abnormal ECG (Acute) MRSA (methicillin resistant Staphylococcus aureus) (Acute) tenosynovitis left hand (Acute) Cutaneous abscess of left hand (Acute) Dyspnea (Acute) 1. 5 cm necrotizing abscess dorsal proximal aspect right thumb. 2. Skin compromise and necrosis. 3. Methicillin-resistant Staphylococcus aureus. 4. Smoker. 5. Early tenosynovitis extensor pollicis longus (EPL) tendon right thumb. 6. s/p surgical preparation dorsal proximal aspect right thumb with incision and drainage and excisional debridement necrotizing MRSA abscess with some skin necrosis and extensor tenosynovitis (13.75 cm2). Continue IV Vanconycin. Operative cultures are negative thus far. MRSA Wound DNA by PCR was positive for MRSA. Continue daily dressing changes with Aquacel Silver. 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 Prealbumin was 17.0. Encourage nutrtional supplementation with protein to help the healing process. Depending on the wound and the cultures, may need IV antibiotics. At discharge, followup in my office next week. If there is a plateau in the healing process may proceed with delayed closure with skin grafting. Encourage range of motion exercises to minimize stiffness.
--- NOTE | 2018-07-07 15:00 | OP.PCM_ITS ---
Report of Operation Date of Procedure: 07/06/18 Pre-Operative Diagnosis: 1. 5 cm abscess dorsal proximal aspect right thumb. 2. Skin compromise and necrosis. 3. Methicillin-resistant Staphylococcus aureus. 4. Smoker. Post-Operative Diagnosis: 1. 5 cm necrotizing abscess dorsal proximal aspect right thumb. 2. Skin compromise and necrosis. 3. Methicillin-resistant Staphylococcus aureus. 4. Smoker. 5. Early tenosynovitis extensor pollicis longus (EPL) tendon right thumb. Surgery/Procedure Performed:: Surgical preparation dorsal proximal aspect right thumb with incision and drainage and excisional debridement necrotizing MRSA abscess with some skin necrosis and extensor tenosynovitis (13.75 cm2). Description of Surgical Findings:: This is a 62-year-old gentleman who presented to the ED with a 4-5 day history of increasing redness, pain, and swelling and skin compromise with some necrosis on the dorsal proximal aspect right thumb and some purulent drainage. He initially came to the ED on 07/03/18. The symptoms were less. He was given Keflex and Bactrim antibiotics. When the symptoms worsened, he came to the ED today. He had a similar abscess three years ago on the dorsum of his left hand that I drained. It showed MRSA at that time. His abscess today is suspicious for MRSA. His WBC was 14.4. He was given a dose of Vancomycin in the ED. It was recommended to the patient to be admitted to the hospital for IV antibiotics and to proceed with operative intervention with incision and drainage and excisional debridement of this abscess. Urgent operative intervention today was recommended to minimize worsening of the infection. Patient was informed of the risks and complications of the procedure including alternatives to surgery. These were discussed with the patient personally. Patient voices understanding and wishes to proceed. Some of the risks and complications that were discussed included but were not inclusive of failure to diagnose including symptom relief, pain, infection, numbness, stiffness, loss of digit, RSD (CRPS), need for further surgery, contracture, and wound healing problems. Size of defect dorsal proximal aspect right thumb - 5.5 x 2.5 x 1 cm. licensing engineer: None Type of Anesthesia:: General Specimen's removed: 1. Abscess dorsal proximal aspect right thumb to Pathology and Microbiology. 2. MRSA Wound DNA by PCR. Drains: None. Estimated Blood Loss (mL): 25 ml. Description of Procedure: Patient was taken to OR in supine position and was placed under general anesthesia. The right hand and forearm were prepped and draped in the usual fashion. A tourniquet was placed on the forearm in case it needs to be elevated. Initially during drainage of infection, I leave the tourniquet down. SCD's were placed for DVT prophylaxis. Perioperative antibiotics were given intravenously. Using xylocaine with epinephrine, the base of the right thumb was infiltrated for postop pain relief. After waiting 5 minutes for the anesthetic to take effect, I proceeded with incision and drainage under loupe magnification. I made a zig zag incision on the dorsum right thumb extending from distal aspect of proximal phalanx down to the distal aspect of the metacarpal. Dissection was carried down to the tendon sheath. Extensive necrotizing process was seen in the subcutaneous tissue. Widespread thickened pus was seen throughout the incision area. Some of the overlying skin flaps were necrotic from the pressure from the infection and excisional debridement was done until bleeding skin edges were seen. The necrotizing process extended down to the tendon sheath. Incision was made and the underlying extensor tendon (EPL) was seen and there was no evidence of purulence in the tendon sheath area. The surrounding tissue was inflamed and not purulent. I extended the incision proximally onto the metacarpal level and no pus was seen at this level. The wound was then copiously irrigated with saline. The tissue appeared clean and viable after irrigation. The necrotic tissue and skin and the purulence was sent to Pathology for analysis to rule out carcinoma and to Microbiology for culture. A positive culture may necessitate antibiotic modification. Will also send MRSA Wound DNA by PCR to look for MRSA which I suspect. The proximal incision at the metacarpal level at the intersection of the zig and the zag was approximated with 5-0 Nylon vertical mattress interrupted sutures. The size of the defect dorsum right thumb after incision and drainage and excisional debridement was 5.5 x 2.5 x 1 cm or 13.75 cm2. The incision proximal to the sutures was 1.5 cm. Hemostasis was obtained with electrocautery. I didn't have to elevate the tourniquet for the drainage of the infection. I dressed the wound with Mepitel nonadherent dressing followed by 4x4 gauze and Betadine followed by dry gauze and 2 inch Hans wrap followed by a compression DERIC wrap. Patient tolerated the procedure well and was sent to PACU in satisfactory condition. Patient will be sent upstairs for continued postop care. Will begin Aquacel Silver dressings tomorrow. I suspect MRSA. He may need senior care IV antibiotics based on the healing of the wound. If there is a plateau in the healing process, can proceed with delayed closure with skin grafting. Encourage range of motion exercises to minimize stiffness. Grafts/Implants Used: None. - Complications None. - Admit VTE Documentation VTE Present on Admission: No VTE Mechan Device Prophylaxis: SCD's VTE Pharm Prophylaxis ordered?: No Code Visit Surgery Charges CPT - 78553 ICD-10 - L02.511, I96, M79.89, M65.9, A49.02, F17.200 35359 S61.001A, I96, M79.89, L02.511, M65.9, A49.02, F17.200
[2018-07-07 18:14] LABS: Vancomycin, Trough Level 10.3 ug/mL (5.0-15.0)
--- NOTE | 2018-07-07 20:13 | PHA.PHARE_ITS ---
Consult Pharmacy has been consulted to manage selected antiobiotic: Vancomycin Type of Consult: Follow-up Suspected Infection: Skin/Soft tissue Prior Doses of Antibiotics Received/Current Regimen: VANCOMYCIN 1000MG IV Q8HRS: 07/07 @0215, 1001, 1736 Labs: Sodium 137 mmol/L (136-145) 07/07/18 05:25 Potassium 4.2 mmol/L (3.5-5.1) 07/07/18 05:25 Chloride 103 mmol/L (98-107) 07/07/18 05:25 Carbon Dioxide 26.0 mmol/L (21.0-32.0) 07/07/18 05:25 Anion Gap 8 (5-15) 07/07/18 05:25 BUN 19 mg/dL (7-18) H 07/07/18 05:25 Creatinine 0.82 mg/dL (0.70-1.30) 07/07/18 05:25 Est GFR (MDRD) Af Amer 121 mL/min (>60) 07/07/18 05:25 Est GFR (MDRD) Non-Af 100 mL/min (>60) 07/07/18 05:25 BUN/Creatinine Ratio 23.1 RATIO (10-20) H 07/07/18 05:25 Glucose 153 mg/dL (74-106) H 07/07/18 05:25 Vancomycin Trough 10.3 ug/mL (5.0-15.0) 07/07/18 17:30 Microbiology: Microbiology 07/06/18 17:43 Tissue - Other Gram Stain - Final 07/06/18 17:43 Tissue - Other Wound Culture - Preliminary No growth-Final to follow Goal Trough: 15-20 mcg/mL Pharmacy Plan for Drug Dosing: The patient had a trough drawn prior to the 4th total dose of vancomycin which resulted in a value of 10.3 (drawn 7.5hrs from last dose). The patient's cultures show no growth to date, WBC count is decreasing, and the patient has remained afebrile since starting vancomycin. With that in mind, as well as the patient being older and already being on a q8h frequency, would hesitate to increase his vancomycin at this time, since his trough is above 10 after only 3 doses of vancomycin. Will plan on drawing another trough in 24hours. If the trou gh is still low at that time, would consider increasing the dose then. PLAN/RECOMMENDATIONS 1. Continue vancomycin 1000mg IV Q8hrs 2. Trough scheduled 07/08 @1730 to reassess dosing at that time 3. Pharmacy will continue to monitor and make changes as needed
[2018-07-07] MEDS: hydrALAZINE 20 MG/ML Vial 5 MG IV (20:54)
[2018-07-08] MEDS: Ondansetron 4 MG/2 ML Vial IV ×2 (01:17→11:38)
[2018-07-08] MEDS: 0.9% NaCl Peripheral Flush Adult/Peds IV ×4 (01:18→11:38)
[2018-07-08] MEDS: Vancomycin IV 1,000 MG/200 ML BAG 200 MG IV ×2 (01:22→09:34)
[2018-07-08 02:08] VITALS: BP 159/83; PULSE 84; RESP 18; TEMP 36.4; O2SAT 97
[2018-07-08] MEDS: oxyCODONE 5 MG Tablet 10 MG PO ×3 (02:39→11:38)
[2018-07-08] MEDS: proMETHazine 25 MG Tablet PO ×2 (02:44→08:14)
[2018-07-08 06:12] LABS: Hematocrit 38.4 % (40-54); Hemoglobin 12.8 g/dl (13.0-16.5); Mean Corp Hgb Conc 33.3 g/gl (32-36); Mean Corpuscular Hgb 34.3 pg (27.0-32.0); Mean Corpuscular Volume 102.9 fL (80-94); Mean Platelet Vol. 8.9 fl (6.2-12.0); Platelet Count 274 K/mm3 (150-450); RBC Distribution Width CV 12.8 % (11.6-14.6); RBC Distribution Width SD 47.3 fl (35.1-43.9); Red Blood Count 3.73 M/mm3 (4.6-6.2); White Blood Count 11.9 K/mm3 (4.4-11.0)
[2018-07-08 06:17] LABS: Anion Gap 8 (5-15); BUN 21 mg/dL (7-18); BUN/Creat Ratio 32.9 RATIO (10-20); Calcium,Total 8.9 mg/dL (8.5-10.1); Chloride 102 mmol/L (98-107); Creatinine, Serum 0.64 mg/dL (0.70-1.30); EST Glomerular Filtration Rate 134 mL/min (>60); Est Glom Filt Rate - Afr Amer 162 mL/min (>60); Estimated Creatinine Clearance 131.78 ml/min; Glucose 111 mg/dL (74-106); Potassium 4.1 mmol/L (3.5-5.1); Sodium Level 138 mmol/L (136-145)
[2018-07-08 06:36] LABS: Scan Indicated on CBC? Y/N NO
[2018-07-08 07:53] VITALS: BP 160/99; PULSE 85; RESP 16; TEMP 36.5; O2SAT 96
[2018-07-08 07:56] VITALS: PULSE 85
[2018-07-08] MEDS: Docusate Sodium 100 MG Capsule PO (07:56)
[2018-07-08] MEDS: Losartan Potassium 25 MG Tablet PO (07:56)
[2018-07-08] MEDS: Gabapentin 300 MG Capsule PO (07:56)
[2018-07-08] MEDS: Metoprolol(XL)Succ 25 MG Tablet PO (07:56)
--- NOTE | 2018-07-08 12:49 | PCM.PN.SRG ---
Subjective: Postop #2 Patient is resting comfortably. Tolerated the Silver dressing change without problem. - Physical Exam General: Alert, Oriented x3 HEENT: PERRLA, EOMI Oral: Moist Mucosa Neck: Supple Abdomen: Soft, Non-Distended Skin: Ulcer/ Wound - right thumb wound is stable. Swelling slowly resolving. No further evidence of infection. Redressed with Aquacel Silver. Lymphatic: - - no axillary adenopathy. Neurological: Cranial nerves II-XII grossly intact Psych/Mental Status: Normal Affect, Appropriate Vital Signs Temp Pulse Resp BP Pulse Ox 97.7 F L 85 16 160/99 H 96 07/08/18 07:53 07/08/18 07:56 07/08/18 07:53 07/08/18 07:53 07/08/18 07:53 Oxygen Delivery Method Room Air Weight: 185 lb 0.014 oz Body Mass Index (BMI) 24.4 Intake and Output for Last 24 Hours 07/06/18 07/07/18 07/08/18 23:59 23:59 23:59 Intake Total 1018 / 1018 4407 / 4407 1749 / 1749 Balance 1018 / 1018 4407 / 4407 1749 / 1749 Microbiology Past 72 Hours 07/06/18 17:43 Gram Stain - Final Tissue - Other Wound Culture - Preliminary No growth-Final to follow Laboratory Tests Past 24 Hrs 07/07/18 07/08/18 07/08/18 17:30 05:18 05:18 WBC 11.9 H RBC 3.73 L Hgb 12.8 L Hct 38.4 L MCV 102.9 H MCH 34.3 H MCHC 33.3 RDW 12.8 RDW Differential 47.3 H Plt Count 274 MPV 8.9 Sodium 138 Potassium 4.1 Chloride 102 Carbon Dioxide 28.0 Anion Gap 8 BUN 21 H Creatinine 0.64 L Estim Creat Clear Calc 131.78 Est GFR (MDRD) Af Amer 162 Est GFR (MDRD) Non-Af 134 BUN/Creatinine Ratio 32.9 H Glucose 111 H Calcium 8.9 Vancomycin Trough 10.3 Medical Necessity - Tobacco Use Smoking Status: Current every day smoker Assessment/Plan All Active Problems (Last Reviewed 06/23/18 @ 07:54 by Rozina Fischer) Open wound of right thumb (Acute) Tenosynovitis of thumb (Acute) Skin necrosis (Acute) Abscess of right thumb (Acute) SANDRITA (obstructive sleep apnea) (Acute) Chest pain (Acute) Abnormal ECG (Acute) MRSA (methicillin resistant Staphylococcus aureus) (Acute) tenosynovitis left hand (Acute) Cutaneous abscess of left hand (Acute) Dyspnea (Acute) 1. 5 cm necrotizing abscess dorsal proximal aspect right thumb. 2. Skin compromise and necrosis. 3. Methicillin-resistant Staphylococcus aureus. 4. Smoker. 5. Early tenosynovitis extensor pollicis longus (EPL) tendon right thumb. 6. s/p surgical preparation dorsal proximal aspect right thumb with incision and drainage and excisional debridement necrotizing MRSA abscess with some skin necrosis and extensor tenosynovitis (13.75 cm2). Operative cultures are negative thus far. MRSA Wound DNA by PCR was positive for MRSA. Wound looks clean after the operative debridement. Will send home on Doxycycline. Continue daily dressing changes with Aquacel Silver. 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 Prealbumin was 17.0. Encourage nutritional supplementation with protein to help the healing process. Discharge home today. Followup office Thursday for a dressing change. If there is a plateau in the healing process may proceed with delayed closure with skin grafting. Encourage range of motion exercises to minimize stiffness. May set up OT at discharge for range of motion exercises, strengthening, and edema management. Thumb splinting with abduction may be necessary as well. Wrote script for Doxycycline for 14 days and 2 refills. Wrote script for Percocet for pain (40 tabs) and Neurontin for burning nerve pain, twice a day (60 tabs). Wrote script for Phenergan for nausea (30 tabs) and a refill.
--- NOTE | 2018-07-08 13:25 | PCM.DC ---
You will use the following diet at home:: No restrictions, Other - encourage nutritional supplementation with protein to help the healing process. Discharge Activity: May not drive while taking narcotic pain medications., May Shower - at the time of the silver dressing changes., - - keep right hand elevated. no heavy lifting with right hand. encourage range of motion exercises to minimize stiffness. May shower in (days): 1 - at the time of the dressing changes. May resume sexual activity in: No Restrictions Weight Bearing Status: Weight bearing as tolerated Lifting Restrictions: 10 lbs. Keep extremity elevated above heart level: Right Arm Call your doctor if your incision/area has: Continuous Slow Oozing, Sudden Increased Bleeding, Increased Pain/ Swelling, Increased Redness, Foul Smelling Discharge, Swelling at the incision site Call your doctor if you observe: Fever of 101 or Higher, Coldness, Increased Pain, Shortness of breath, Chest pain, Calf discomfort, Uncontrolled pain Suture Line Care: - - daily Aquacel Silver dressing changes. Change Dressing in (Days):: 1 - daily Aquacel silver dressing changes followed by gauze and eleanor wrap. Cleanse incision/area with: Soap & Water - may cleanse the wound with soap and water at the time of the dressing change. Allergies/Adverse Reactions: Allergies Penicillins Allergy (Verified 07/06/18 10:20) Shortness of breath Medications to take at Discharge Metoprolol(XL)Succ [Toprol Xl (Beta Eufemia)] 25 mg PO DAILY 01/01/18 Losartan Potassium 25 mg PO DAILY 07/03/18 Doxycycline [Vibramycin] 100 mg PO BID #28 cap 07/08/18 Gabapentin [Neurontin] 300 mg PO BIDCM #60 cap 07/08/18 Gauze Bandage [Band-Aid Rolled Gauze] 1 ea TP .QDAILY #30 bandage 07/08/18 Gauze Bandage [Gauze Pad] 1 ea TP .QDAILY #30 bandage 07/08/18 Oxycodone HCl/Acetaminophen [Percocet 5/325] 1 - 2 tab PO 4X/DAY PRN PRN 5 Days #40 tab 07/08/18 Silver/Hydrocolloid Dressing [Aquacel-Ag W-Hydrofiber Dress] 1 ea TP .QDAILY #15 bandage 07/08/18 proMETHazine tablet [Phenergan tablet] 25 mg PO 4X/DAY PRN PRN #30 tab 07/08/18 The following prescriptions were given: Gauze Bandage [Band-Aid Rolled Gauze] 1 ea TP .QDAILY #30 bandage Gauze Bandage [Gauze Pad] 1 ea TP .QDAILY #30 bandage Oxycodone HCl/Acetaminophen [Percocet 5/325] 1 - 2 tab PO 4X/DAY PRN PRN 5 Days #40 tab PRN Reason: Pain proMETHazine tablet [Phenergan tablet] 25 mg PO 4X/DAY PRN PRN #30 tab PRN Reason: NAUSEA/VOMITING Silver/Hydrocolloid Dressing [Aquacel-Ag W-Hydrofiber Dress] 1 ea TP .QDAILY #15 bandage Doxycycline [Vibramycin] 100 mg PO BID #28 cap Gabapentin [Neurontin] 300 mg PO BIDCM #60 cap Primary Care Physician: Danielito Dowd, DEICER TESTER-C [Primary Care Provider] - Test Results: Test results from this visit will be discussed in further detail at your follow-up appointment, if applicable. Please Follow Up With: Oliver Murillo MD When: thursday07/12/18. call [phone] for appt. Proposed Discharge Date: 07/08/18
--- NOTE | 2018-07-08 13:29 | DCINST_ITS ---
You will use the following diet at home:: No restrictions, Other - encourage nutritional supplementation with protein to help the healing process. Discharge Activity: May not drive while taking narcotic pain medications., May Shower - at the time of the silver dressing changes., - - keep right hand elevated. no heavy lifting with right hand. encourage range of motion exercises to minimize stiffness. May shower in (days): 1 - at the time of the dressing changes. May resume sexual activity in: No Restrictions Weight Bearing Status: Weight bearing as tolerated Lifting Restrictions: 10 lbs. Keep extremity elevated above heart level: Right Arm Call your doctor if your incision/area has: Continuous Slow Oozing, Sudden Increased Bleeding, Increased Pain/ Swelling, Increased Redness, Foul Smelling Discharge, Swelling at the incision site Call your doctor if you observe: Fever of 101 or Higher, Coldness, Increased Pain, Shortness of breath, Chest pain, Calf discomfort, Uncontrolled pain Suture Line Care: - - daily Aquacel Silver dressing changes. Change Dressing in (Days):: 1 - daily Aquacel silver dressing changes followed by gauze and eleanor wrap. Cleanse incision/area with: Soap & Water - may cleanse the wound with soap and water at the time of the dressing change. Allergies/Adverse Reactions: Allergies Penicillins Allergy (Verified 07/06/18 10:20) Shortness of breath Medications to take at Discharge Metoprolol(XL)Succ [Toprol Xl (Beta Eufemia)] 25 mg PO DAILY 01/01/18 Losartan Potassium 25 mg PO DAILY 07/03/18 Doxycycline [Vibramycin] 100 mg PO BID #28 cap 07/08/18 Gabapentin [Neurontin] 300 mg PO BIDCM #60 cap 07/08/18 Gauze Bandage [Band-Aid Rolled Gauze] 1 ea TP .QDAILY #30 bandage 07/08/18 Gauze Bandage [Gauze Pad] 1 ea TP .QDAILY #30 bandage 07/08/18 Oxycodone HCl/Acetaminophen [Percocet 5/325] 1 - 2 tab PO 4X/DAY PRN PRN 5 Days #40 tab 07/08/18 Silver/Hydrocolloid Dressing [Aquacel-Ag W-Hydrofiber Dress] 1 ea TP .QDAILY #15 bandage 07/08/18 proMETHazine tablet [Phenergan tablet] 25 mg PO 4X/DAY PRN PRN #30 tab 07/08/18 The following prescriptions were given: Gauze Bandage [Band-Aid Rolled Gauze] 1 ea TP .QDAILY #30 bandage Gauze Bandage [Gauze Pad] 1 ea TP .QDAILY #30 bandage Oxycodone HCl/Acetaminophen [Percocet 5/325] 1 - 2 tab PO 4X/DAY PRN PRN 5 Days #40 tab PRN Reason: Pain proMETHazine tablet [Phenergan tablet] 25 mg PO 4X/DAY PRN PRN #30 tab PRN Reason: NAUSEA/VOMITING Silver/Hydrocolloid Dressing [Aquacel-Ag W-Hydrofiber Dress] 1 ea TP .QDAILY #15 bandage Doxycycline [Vibramycin] 100 mg PO BID #28 cap Gabapentin [Neurontin] 300 mg PO BIDCM #60 cap Primary Care Physician: Danielito Dowd, OCEANOGRAPHIC METEOROLOGIST-C [Primary Care Provider] - Test Results: Test results from this visit will be discussed in further detail at your follow- up appointment, if applicable. Please Follow Up With: Olievr Murillo MD When: thursday07/12/18. call [phone] for appt. Proposed Discharge Date: 07/08/18
[2018-07-08 14:28] VITALS: BP 127/71; PULSE 87; RESP 18; TEMP 36.8; O2SAT 94
--- NOTE | 2018-07-08 21:43 | PCM.DC.SUM ---
Discharge Date and Diagnosis Date of Admission: 07/06/18 Date of Discharge: 07/08/18 - Primary Discharge Diagnosis Necrotizing abscess dorsal proximal aspect right thumb. Skin compromise and necrosis. MRSA infection. Early tenosynovitis extensor pollicis longus (EPL) tendon right thumb. - Secondary Discharge Diagnosis Nephrolithiasis COPD (chronic obstructive pulmonary disease) HLD (hyperlipidemia) Back pain Smoker Anxiety and depression Hospital Course and Treatment Imaging Results: Hand X-Ray 07/06/18 10:53 IMPRESSION: Soft tissue swelling. Electronically Signed: Alex Salcedo MD at 11:37 EST Tel [phone], Service support , CONSULTATIONS None. Operations: - - 07/06/18 - Surgical preparation dorsal proximal aspect right thumb with incision and drainage and excisional debridement necrotizing MRSA abscess with some skin necrosis and extensor tenosynovitis (13.75 cm2). Procedures: None Summary of Care Provided: This is a 62-year-old gentleman who presented to the ED with a 4-5 day history of increasing redness, pain, and swelling and skin compromise with some necrosis on the dorsal proximal aspect right thumb and some purulent drainage. He initially came to the ED on 07/03/18. The symptoms were less. He was given Keflex and Bactrim antibiotics. When the symptoms worsened, he came to the ED today. He had a similar abscess three years ago on the dorsum of his left hand that I drained. It showed MRSA at that time. His abscess today is suspicious for MRSA. His WBC was 14.4. He was given a dose of Vancomycin in the ED. It was recommended to the patient to be admitted to the hospital for IV antibiotics and to proceed with operative intervention with incision and drainage and excisional debridement of this abscess. Urgent operative intervention today was recommended to minimize worsening of the infection. Today the patient underwent surgical preparation dorsal proximal aspect right thumb with incision and drainage and excisional debridement MRSA abscess with some skin necrosis and extensor tenosynovitis (13.75 cm2). He tolerated the procedure well. Postop the wound looked good with healthy tissue and no further evidence of infection. The WBC improved from 14.4 to 11.9. He was able to tolerate the Silver dressing change with po analgesia on the second postop day. Initial MRSA Wound DNA by PCR was positive for MRSA. He was treated perioperatively with Vancomycin. With the improvement in the wound and after aggressive operative debridement, it was felt he could be discharged on po Doxycycline for the MRSA. Will followup in the office in 1-2 weeks. If the wound clinically looks worse at that time, would readmit him for IV antibiotics in preparation for a [facility] since it would be difficult for him to give himself the antibiotics because the wound is on his right thumb and he lives alone. He is aware of that possibility. He will try the Silver dressing changes himself at discharge. If he has trouble, he would come to the office three times a week and the dressing changes would be done at the office. On the second postop day he was tolerating po analgesia and was discharged home. Wrote script for Doxycycline for 14 days (28 tabs) and 2 refills. Wrote scripts for Neurontin for nerve pain (60 tabs) and for Phenergan for nausea (30 tabs) and a refill. Wrote script for Percocet for pain (40 tabs). - Physical Exam Vital Signs Temp Pulse Resp BP Pulse Ox 98.2 F 87 18 127/71 H 94 07/08/18 14:28 07/08/18 14:28 07/08/18 14:28 07/08/18 14:28 07/08/18 14:28 Oxygen Delivery Method Room Air Weight: 185 lb 0.014 oz Body Mass Index (BMI) 24.4 Intake and Output for Last 24 Hours 07/06/18 07/07/18 07/08/18 23:59 23:59 23:59 Intake Total 1018 / 1018 4407 / 4407 1749 / 1749 Balance 1018 / 1018 4407 / 4407 1749 / 1749 Microbiology Past 72 Hours 07/06/18 17:43 Gram Stain - Final Tissue - Other Wound Culture - Preliminary No growth-Final to follow Laboratory Tests Past 24 Hrs 07/08/18 07/08/18 05:18 05:18 WBC 11.9 H RBC 3.73 L Hgb 12.8 L Hct 38.4 L MCV 102.9 H MCH 34.3 H MCHC 33.3 RDW 12.8 RDW Differential 47.3 H Plt Count 274 MPV 8.9 Sodium 138 Potassium 4.1 Chloride 102 Carbon Dioxide 28.0 Anion Gap 8 BUN 21 H Creatinine 0.64 L Estim Creat Clear Calc 131.78 Est GFR (MDRD) Af Amer 162 Est GFR (MDRD) Non-Af 134 BUN/Creatinine Ratio 32.9 H Glucose 111 H Calcium 8.9 Discharge Diet: No Restrictions, - - encourage nutritional supplementation with protein to help the healing process. Discharge Activity: May not drive while taking narcotic pain medications., May Shower - at the time of the silver dressing changes., - - keep right hand elevated. no heavy lifting with right hand. encourage range of motion exercises to minimize stiffness. May shower in (days): 1 - at the time of the dressing changes. May resume sexual activity in: No Restrictions Weight Bearing Status: Weight bearing as tolerated Keep extremity elevated above heart level: Right Arm Call your doctor if your incision/area has: Continuous Slow Oozing, Sudden Increased Bleeding, Increased Pain/ Swelling, Increased Redness, Foul Smelling Discharge, Swelling at the incision site Call your doctor if you observe: Fever of 101 or Higher, Coldness, Increased Pain, Shortness of breath, Chest pain, Calf discomfort, Uncontrolled pain Suture Line Care: - - daily Aquacel Silver dressing changes. Change Dressing in (Days):: 1 - daily Aquacel silver dressing changes followed by gauze and eleanor wrap. Cleanse incision/area with: Soap & Water - may cleanse the wound with soap and water at the time of the dressing change. Home Medications: Medications to take at Discharge Metoprolol(XL)Succ [Toprol Xl (Beta Eufemia)] 25 mg PO DAILY 01/01/18 Losartan Potassium 25 mg PO DAILY 07/03/18 Doxycycline [Vibramycin] 100 mg PO BID #28 cap 07/08/18 Gabapentin [Neurontin] 300 mg PO BIDCM #60 cap 07/08/18 Gauze Bandage [Band-Aid Rolled Gauze] 1 ea TP .QDAILY #30 bandage 07/08/18 Gauze Bandage [Gauze Pad] 1 ea TP .QDAILY #30 bandage 07/08/18 Oxycodone HCl/Acetaminophen [Percocet 5/325] 1 - 2 tab PO 4X/DAY PRN PRN 5 Days #40 tab 07/08/18 Silver/Hydrocolloid Dressing [Aquacel-Ag W-Hydrofiber Dress] 1 ea TP .QDAILY #15 bandage 07/08/18 proMETHazine tablet [Phenergan tablet] 25 mg PO 4X/DAY PRN PRN #30 tab 07/08/18 Following Prescrptions Were Given to Patient: Gauze Bandage [Band-Aid Rolled Gauze] 1 ea TP .QDAILY #30 bandage Gauze Bandage [Gauze Pad] 1 ea TP .QDAILY #30 bandage Oxycodone HCl/Acetaminophen [Percocet 5/325] 1 - 2 tab PO 4X/DAY PRN PRN 5 Days #40 tab PRN Reason: Pain proMETHazine tablet [Phenergan tablet] 25 mg PO 4X/DAY PRN PRN #30 tab PRN Reason: NAUSEA/VOMITING Silver/Hydrocolloid Dressing [Aquacel-Ag W-Hydrofiber Dress] 1 ea TP .QDAILY #15 bandage Doxycycline [Vibramycin] 100 mg PO BID #28 cap Gabapentin [Neurontin] 300 mg PO BIDCM #60 cap Primary Care Physician: Danielito Dowd, CONCRETE MIXER LOADER TRUCK MOUNTED-C [Primary Care Provider] - Please Follow Up With: Oliver Murillo MD When: thursday07/12/18. call [phone] for appt. Disposition: Home Minutes spent on discharge:: 35 Patient Condition:: Stable Medical Necessity - Tobacco Use Smoking Status: Current every day smoker Meaningful Use Info Meaningful Use Diagnoses (Choose all that apply): None applicable
--- NOTE | 2018-07-09 16:39 | CASEMGMT ---
RN CM Discharge Follow-up Phone Call: AUGUSTIN: Yevgeniy Strata: 4 Call Date: 07/09/18 Discharge Date: 07/08/18 Time of Call: [id number] Duration: 0 ? Admitting Diagnosis: Finger abscess This RN CM attempted to contact pt for discharge follow-up. No answer received and voicemail not set up. Elijah Sampson RN
--- OUTSIDE RECORDS SUMMARY | 2018-08-18 02:56 | XMS RPT_ITS ---
:1955 Author Organization OH[employer] Support Name Relationship Address Phone [address] [employer] Unavailable [address] + [place] [address] [address] + [place] [address] + [place] [address] Un[address] + [place] [address] Unavailable [address] + [place] [address] [address] + [place] [address] + [place] [address] + [place] [address] + [place] [address] + [place] [address] + [place] [address] + [place] [address] + [place] [address] + [place] [address] + [place] [address] + [place] [address] + [place] [address] + [place] [address] + [place] [address] + [place] [address] [address] + [place] [address] Care Team Providers Name Role Phone DANIELITO DOWD CNP Attending Unavailable DANIELITO DOWD CNP Primary Care Unavailable Oliver Murillo Attending Unavailable Danielito Dowd AIRCRAFT ENGINE [employer]LINDER MECHANIC-C Referring Unavailable Fabiola Flynn Attending Unavailable Danielito Dowd AIRCRAFT ENGINE [employer]LIND[employer] MECH[employer]IC-C Referring Unavailable David Garvin Primary Care Unavailable Mike Angela Attending Unavailable Tremayne Irvin Attending Unavailable DANIELITO DOWD Primary Care Unavailable James Diamond Attending Unavailable Danielito Dowd AIRCRAFT ENGINE [employer]LIND[employer] MECHANIC-C Primary Care Unavailable Danielito Dowd AIRCRAFT ENGINE CYLINDER MECHANIC-C Attending Unavailable Danielito Dowd AIRCRAFT ENGINE CYLINDER MECHANIC-C Primary Care Unavailable Danielito Dowd AIRCRAFT ENGINE CYLINDER MECHANIC-C Attending Unavailable Danielito Dowd AIRCRAFT ENGINE CYLINDER MECHANIC-C Primary Care Unavailable Elida Hoyos Attending Unavailable Danielito Dowd AIRCRAFT ENGINE CYLINDER MECHANIC-C Referring Unavailable Danielito Dowd AIRCRAFT ENGINE CYLINDER MECHANIC-C Primary Care Unavailable Luis Miguel Herron Attending Unavailable Danielito Dowd AIRCRAFT ENGINE CYLINDER MECHANIC-C Attending Unavailable Danielito Dowd AIRCRAFT ENGINE CYLINDER MECHANIC-C Primary Care Unavailable Danielito Dowd AIRCRAFT ENGINE CYLINDER MECHANIC-C Attending Unavailable Danielito Dowd AIRCRAFT ENGINE CYLINDER MECHANIC-C Referring Unavailable Danielito Dowd AIRCRAFT ENGINE CYLINDER MECHANIC-C Primary Care Unavailable Elida Hoyos Attending Unavailable Elida Hoyos Referring Unavailable Danielito Dowd AIRCRAFT ENGINE CYLINDER MECHANIC-C Primary Care Unavailable Danielito Wiseman Attending Unavailable Danielito Wiseman Referring Unavailable Danielito Wiseman Primary Care Unavailable Octaviano Matthews Attending Unavailable Elida Hoyos Referring Unavailable Jadiel Sánchez D.O. Attending Unavailable Danielito Dowd AIRCRAFT ENGINE [employer]INDER MECHANIC-C Referring Unavailable Tomkins, Danielito Primary Care Unavailable Karli Dinero Attending Unavailable Tomkins, Danielito Primary Care Unavailable Slaby, Oliver Attending Unavailable Slaby, Oliver Referring Unavailable Slaby, Oliver Admitting Unavailable Slaby, Oliver Admitting Unavailable Slaby, Oliver Attending Unavailable Slaby, Oliver Referring Unavailable Tomkins, Danielito Primary Care Unavailable Slaby, Oliver Consulting Unavailable Slaby, Oliver Admitting Unavailable Slaby, Oliver Attending Unavailable Slaby, Oliver Referring Unavailable Tomkins, Danielito Primary Care Unavailable Slaby, Oliver Consulting Unavailable Slaby, Oliver Attending Unavailable [place], Danielito Beck AIRCRAFT ENGINE CYLINDER MECHANIC-C Referring Unavailable Slaby, Oliver Admitting Unavailable Slaby, Oliver Attending Unavailable Slaby, Oliver Referring Unavailable Tomkins, Danielito Primary Care Unavailable Slaby, Oliver Consulting Unavailable PROBLEMS PROBLEMS DATE TYPE CONDITION / CODE ATTENDING STATUS SOURCE 07/20/2018 Unknown L02.511 - Cutaneous Slabivis Oliver Active [facility] abscess of right Community hand / Hospital L02.511(ICD-10) Repository 07/20/2018 Unknown S61.001A - SlabyOliver Active [facility] Unspecified open Community wound of right thumb Hospital without damage to Repository nail, initial encounter / S61.001A(ICD-10) 07/20/2018 Unknown I96 - Gangrene, not SlabOliver langston Active [facility] elsewhere classified Community / I96(ICD-10) Hospital Repository 07/20/2018 Unknown M79.89 - Other Slabivis Oliver Active [facility] specified soft Community tissue disorders / Hospital M79.89(ICD-10) Repository 07/20/2018 Unknown M65.9 - Synovitis SlabivisOliver Active [facility] and tenosynovitis, Community unspecified / Hospital M65.9(ICD-10) Repository 07/20/2018 Unknown A49.02 - Methicillin SlabyOliver Active [facility] resistant [facility] Staphylococcus Hospital aureus infection, Repository unspecified site / A49.02(ICD-10) 07/20/2018 Unknown F17.200 - Nicotine Slaby, Oliver Active [facility] dependence, Community unspecified, Hospital uncomplicated / Repository F17.200(ICD-10) 07/13/2018 Unknown G89.18 - Other acute SlabivisOliver Active [facility] postprocedural pain Community / G89.18(ICD-10) Hospital Repository 07/12/2018 Unknown I10 - Essential Tomkins, Active [facility] (primary) Danielito [facility] hypertension / Hospital I10(ICD-10) Repository 06/18/2018 Unknown R06.00 - Dyspnea, ByronOctaviano jackson Active [facility] unspecified / [facility] R06.00(ICD-10) Hospital Repository 06/01/2018 Unknown M54.9 - Dorsalgia, [place], Active [facility] unspecified / Danielito Bcek AIRCRAFT ENGINE CYLINDER MECHANIC-Treasure [facility] M54.9(ICD-10) Hospital Repository 03/16/2018 Unknown G47.33 - Obstructive Hoyos, Active [facility] sleep apnea (adult) [facility] (pediatric) / Hospital G47.33(ICD-10) Repository 12/21/2017 Unknown M54.5 - Low back Irvin, Tremayne Active [facility] pain / M54.5(ICD-10) [facility] Repository PROCEDURES PROCEDURES No Procedure Records FoundRESULTS RESULTS OPERATIVE REPORT Observed: 07/15/2018 Status: F Source: [place] 11:59 AM [facility] REPOSITORY [facility] Medical Records Department [address] [place] [address] Operative Report 07/06/18 1900 MR#: [id number] Acct: [id number] Name: GENE VILA Rep #: [id number] : 1955 62 From: Oliver Murillo MD PCP: DAVIS Bruce Status: DIS IN Y [place] [id number] Report of Operation Date of Procedure: 07/06/18 Pre-Operative Diagnosis: 1. 5 cm abscess dorsal proximal aspect right thumb. 2. Skin compromise and necrosis. 3. Methicillin-resistant Staphylococcus aureus. 4. Smoker. Post-Operative Diagnosis: 1. 5 cm necrotizing abscess dorsal proximal aspect right thumb. 2. Skin compromise and necrosis. 3. Methicillin-resistant Staphylococcus aureus. 4. Smoker. 5. Early tenosynovitis extensor pollicis longus (EPL) tendon right thumb. Surgery/Procedure Performed:: Surgical preparation dorsal proximal aspect right thumb with incision and drainage and excisional debridement necrotizing MRSA abscess with some skin necrosis and extensor tenosynovitis (13.75 cm2). Description of Surgical Findings:: This is a 62-year-old gentleman who presented to the ED with a 4-5 day history of increasing redness, pain, and swelling and skin compromise with some necrosis on the dorsal proximal aspect right thumb and some purulent drainage. He initially came to the ED on 07/03/18. The symptoms were less. He was given Keflex and Bactrim antibiotics. When the symptoms worsened, he came to the ED today. He had a similar abscess three years ago on the dorsum of his left hand that I drained. It showed MRSA at that time. His abscess today is suspicious for MRSA. His WBC was 14.4. He was given a dose of Vancomycin in the ED. It was recommended to the patient to be admitted to the hospital for IV antibiotics and to proceed with operative intervention with incision and drainage and excisional debridement of this abscess. Urgent operative intervention today was recommended to minimize worsening of the infection. Patient was informed of the risks and complications of the procedure including alternatives to surgery. These were discussed with the patient personally. Patient voices understanding and wishes to proceed. Some of the risks and complications that were discussed included but were not inclusive of failure to diagnose including symptom relief, pain, infection, numbness, stiffness, loss of digit, RSD (CRPS), need for further surgery, contracture, and wound healing problems. Size of defect dorsal proximal aspect right thumb - 5.5 x 2.5 x 1 cm. 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 Abscess dorsal proximal aspect right thumb to Pathology and Microbiology. 2. MRSA Wound DNA by PCR. Drains: None. Estimated Blood Loss (mL): 25 ml. Description of Procedure: Patient was taken to OR in supine position and was placed under general anesthesia. The right hand and forearm were prepped and draped in the usual fashion. A tourniquet was placed on the forearm in case it needs to be elevated. Initially during drainage of infection, I leave the tourniquet down. SCD's were placed for DVT prophylaxis. Perioperative antibiotics were given intravenously. Using xylocaine with epinephrine, the base of the right thumb was infiltrated for postop pain relief. After waiting 5 minutes for the anesthetic to take effect, I proceeded with incision and drainage under loupe magnification. I made a zig zag incision on the dorsum right thumb extending from distal aspect of proximal phalanx down to the distal aspect of the metacarpal. Dissection was carried down to the tendon sheath. Extensive necrotizing process was seen in the subcutaneous tissue. Widespread thickened pus was seen throughout the incision area. Some of the overlying skin flaps were necrotic from the pressure from the infection and excisional debridement was done until bleeding skin edges were seen. The necrotizing process extended down to the tendon sheath. Incision was made and the underlying extensor tendon (EPL) was seen and there was no evidence of purulence in the tendon sheath area. The surrounding tissue was inflamed and not purulent. I extended the incision proximally onto the metacarpal level and no pus was seen at this level. The wound was then copiously irrigated with saline. The tissue appeared clean and viable after irrigation. The necrotic tissue and skin and the purulence was sent to Pathology for analysis to rule out carcinoma and to Microbiology for culture. A positive culture may necessitate antibiotic modification. Will also send MRSA Wound DNA by PCR to look for MRSA which I suspect. The proximal incision at the metacarpal level at the intersection of the zig and the zag was approximated with 5-0 Nylon vertical mattress interrupted sutures. The size of the defect dorsum right thumb after incision and drainage and excisional debridement was 5.5 x 2.5 x 1 cm or 13.75 cm2. The incision proximal to the sutures was 1.5 cm. Hemostasis was obtained with electrocautery. I didn't have to elevate the tourniquet for the drainage of the infection. I dressed the wound with Mepitel nonadherent dressing followed by 4x4 gauze and Betadine followed by dry gauze and 2 inch Hans wrap followed by a compression DERIC wrap. Patient tolerated the procedure well and was sent to PACU in satisfactory condition. Patient will be sent upstairs for continued postop care. Will begin Aquacel Silver dressings tomorrow. I suspect MRSA. He may need halfway IV antibiotics based on the healing of the wound. If there is a plateau in the healing process, can proceed with delayed closure with skin grafting. Encourage range of motion exercises to minimize stiffness. Grafts/Implants Used: None. - Complications None. - Admit VTE Documentation VTE Present on Admission: No VTE Mechan Device Prophylaxis: SCD's VTE Pharm Prophylaxis ordered?: No Code Visit Surgery Charges CPT - 31052 ICD-10 - L02.511, I96, M79.89, M65.9, A49.02, F17.200 61221 S61.001A, I96, M79.89, L02.511, M65.9, A49.02, F17.200 07/15/18 1159 <Electronically signed by Oliver Murillo MD> Date Oliver Murillo MD CC: AIRCRAFT ENGINE CYLINDER MECHANIC-C Danielito Dowd; Oliver Murillo MD; Danielito Wiseman MD Signed PLASTIC SURGERY Observed: 07/15/2018 Status: F Source: [place] VISIT REPORT 11:03 AM [facility] REPOSITORY [facility]astic [facility] Re[facility] Surgery [address] [place] [address] OFFICE VISIT Date of Service: 07/12/18 MR#: [id number] Acct: [id number] Name: GENE VILA Rep #: [id number] : 1955 Provider: Oliver Murillo MD Age/Sex: 62/M Location: [facility] Status: Signed Intake Vital Signs07/12/18 Body Mass Index (BMI) 24.4 07/12/18 Height 6 ft 1 in 07/12/18 Weight: 187 lb 6 oz Intake Visit Reasons: post op surgery 07/06/18 Windows Architect Required: No Accompanied by: None Is patient in pain?: Yes (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,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 ) Pain scale (1-10): 6 Allergies Penicillins Allergy (Verified 07/06/18 10:20) Shortness of breath Medications Metoprolol(XL)Succ [Toprol Xl (Beta Eufemia)] 25 mg PO DAILY 01/01/18 [History Confirmed 07/06/18] Losartan Potassium 25 mg PO DAILY 07/03/18 [History Confirmed 07/06/18] Doxycycline [Vibramycin] 100 mg PO BID #28 cap 07/08/18 [Rx] Gabapentin [Neurontin] 300 mg PO BIDCM #60 cap 07/08/18 [Rx] Gauze Bandage [Band-Aid Rolled Gauze] 1 ea TP .QDAILY #30 bandage 07/08/18 [Rx] Gauze Bandage [Gauze Pad] 1 ea TP .QDAILY #30 bandage 07/08/18 [Rx] Silver/Hydrocolloid Dressing [Aquacel-Ag W-Hydrofiber Dress] 1 ea TP .QDAILY #15 bandage 07/08/18 [Rx] proMETHazine tablet [Phenergan tablet] 25 mg PO 4X/DAY PRN PRN #30 tab 07/08/18 [Rx] oxycodone-acetaminophen 5 mg-325 mg tablet 1 tab PO 4X/DAY PRN 7 Days #30 tab 07/12/18 [Rx Confirmed 07/12/18] PFSH Medical History Chest pain (Acute) Nephrolithiasis (Chronic) COPD (chronic obstructive pulmonary disease) (Chronic) Smoking greater than 30 pack years (Chronic) HLD (hyperlipidemia) (Chronic) Back pain (Chronic) Abnormal ECG (Acute) MRSA (methicillin resistant Staphylococcus aureus) (Acute) Smoker (Chronic) tenosynovitis left hand (Acute) Cutaneous abscess of left hand (Acute) Dyspnea (Acute) Anxiety and depression (Chronic) Depression (Acute) Diverticulitis (Acute) Osteoarthritis (Acute) Osteoporosis (Acute) Sleep apnea (Acute) HTN (hypertension) (Chronic) Surgical History History of cataract surgery (Acute) History of gastrointestinal surgery (Acute) Family History Father COPD (chronic obstructive pulmonary disease) Alcoholism Mother Cancer Social History Smoking Status: Current every day smoker alcohol intake: never substance use type: does not use HPI post op surgery 07/06/18: Details: Postop visit from his recent surgery on 07/06/18 where he underwent surgical preparation dorsal proximal aspect right thumb with incision and drainage and excisional debridement necrotizing MRSA abscess with some skin necrosis and extensor tenosynovitis (13.75 cm2). Comes in today with complaints of right thumb pain. Right thumb wound is clean. No evidence of further infection. Some granulation tissue seen. Measures little smaller at 5 x 2 cm. Using a #3 curette, I sharply debrided the wound down into the subcutaneous tissue as an excisional debridement. Good bleeding seen. He tolerated it well. Hemostasis obtained with gentle pressure. Wound was redressed with Silver dressing. He can make a fist. He can oppose his thumb with some difficulty to the small finger. Encouraged him to do range of motion exercises to minimize stiffness. Wound cultures were positive for MRSA. Continue Doxycycline. Continue daily silver dressing changes. Wear DERIC wrap, especially while at work. Will order OT for silastic splint (thumb abduction) and range of motion exercises, strengthening, and edema management. Discussed with the patient the importance of thumb range of motion to minimize risk of adduction contracture of the thumb. Preventative OT will help to minimize that risk. Renewed his Percocet for pain (30 tabs). Followup one week. Assessment AND Plan Problems 1. Abscess of right thumb L02.511 2. Open wound of right thumb S61.001A 3. Necrotizing soft tissue infection M79.89 4. Skin necrosis I96 5. MRSA (methicillin resistant Staphylococcus aureus) A49.02 6. Tenosynovitis of thumb M65.9 7. Smoker F17.200 Orders Referrals: Medications New: oxycodone-acetaminophen 5-325 mg 1 tab PO 4X/DAY 7 days PRN 30 ta DAVIS Headley (Percocet) bs 0RF pain Coding Level of Care Code Global Post Op Diagnoses Abscess of right thumb L02.511 Open wound of right thumb S61.001A Necrotizing soft tissue infection M79.89 Skin necrosis I96 MRSA (methicillin resistant Staphylococcus aureus) A49.02 Tenosynovitis of thumb M65.9 Smoker F17.200 07/14/18 2121 <Electronically signed by Oliver Murillo MD> Date Oliver Murillo MD 07/15/18 1103<Electronically signed by Fabiola CANNNO> Cosigner Signature: Date (if applicable) Fabiola Flynn CC: DISCHARGE SUMMARY Observed: 07/12/2018 Status: F Source: [place] 12:33 AM [facility] REPOSITORY [facility] Medical Records Department [address] [place] [address] Discharge Summary 07/08/18 2143 MR#: [id number] Acct: [id number] Name: GENE VILA Rep #: [id number] : 1955 62 From: Oliver Murillo MD PCP: Danielito Dowd, AIRCRAFT ENGINE CYLINDER MECHANIC-C Status: DIS IN Y Location: [facility] [id number] Discharge Date and Diagnosis Date of Admission: 07/06/18 Date of Discharge: 07/08/18 - Primary Discharge Diagnosis Necrotizing abscess dorsal proximal aspect right thumb. Skin compromise and necrosis. MRSA infection. Early tenosynovitis extensor pollicis longus (EPL) tendon right thumb. - Secondary Discharge Diagnosis Nephrolithiasis COPD (chronic obstructive pulmonary disease) HLD (hyperlipidemia) Back pain Smoker Anxiety and depression Hospital Course and Treatment Imaging Results: Hand X-Ray 07/06/18 10:53 IMPRESSION: Soft tissue swelling. Electronically Signed: Alex Salcedo MD at 11:37 EST Tel [phone], Service support , CONSULTATIONS None. Operations: - - 07/06/18 - Surgical preparation dorsal proximal aspect right thumb with incision and drainage and excisional debridement necrotizing MRSA abscess with some skin necrosis and extensor tenosynovitis (13.75 cm2). Procedures: None Summary of Care Provided: This is a 62-year-old gentleman who presented to the ED with a 4-5 day history of increasing redness, pain, and swelling and skin compromise with some necrosis on the dorsal proximal aspect right thumb and some purulent drainage. He initially came to the ED on 07/03/18. The symptoms were less. He was given Keflex and Bactrim antibiotics. When the symptoms worsened, he came to the ED today. He had a similar abscess three years ago on the dorsum of his left hand that I drained. It showed MRSA at that time. His abscess today is suspicious for MRSA. His WBC was 14.4. He was given a dose of Vancomycin in the ED. It was recommended to the patient to be admitted to the hospital for IV antibiotics and to proceed with operative intervention with incision and drainage and excisional debridement of this abscess. Urgent operative intervention today was recommended to minimize worsening of the infection. Today the patient underwent surgical preparation dorsal proximal aspect right thumb with incision and drainage and excisional debridement MRSA abscess with some skin necrosis and extensor tenosynovitis (13.75 cm2). He tolerated the procedure well. Postop the wound looked good with healthy tissue and no further evidence of infection. The WBC improved from 14.4 to 11.9. He was able to tolerate the Silver dressing change with po analgesia on the second postop day. Initial MRSA Wound DNA by PCR was positive for MRSA. He was treated perioperatively with Vancomycin. With the improvement in the wound and after aggressive operative debridement, it was felt he could be discharged on po Doxycycline for the MRSA. Will followup in the office in 1-2 weeks. If the wound clinically looks worse at that time, would readmit him for IV antibiotics in preparation for a short stay at an [facility] for the antibiotics since it would be difficult for him to give himself the antibiotics because the wound is on his right thumb and he lives alone. He is aware of that possibility. He will try the Silver dressing changes himself at discharge. If he has trouble, he would come to the office three times a week and the dressing changes would be done at the office. On the second postop day he was tolerating po analgesia and was discharged home. Wrote script for Doxycycline for 14 days (28 tabs) and 2 refills. Wrote scripts for Neurontin for nerve pain (60 tabs) and for Phenergan for nausea (30 tabs) and a refill. Wrote script for Percocet for pain (40 tabs). - Physical Exam Vital Signs Temp Pulse Resp BP Pulse Ox 98.2 F 87 18 127/71 H 94 07/08/18 14:28 07/08/18 14:28 07/08/18 14:28 07/08/18 14:28 07/08/18 14:28 Oxygen Delivery Method Room Air Weight: 185 lb 0.014 oz Body Mass Index (BMI) 24.4 Intake and Output for Last 24 Hours Intake Total 1018 / 1018 4407 / 4407 1749 / 1749 Balance 1018 / 1018 4407 / 4407 1749 / 1749 Microbiology Past 72 Hours 07/06/18 17:43 Gram Stain - Final Tissue - Other Wound Culture - Preliminary Laboratory Tests Past 24 Hrs WBC 11.9 H RBC 3.73 L Hgb 12.8 L Hct 38.4 L MCV 102.9 H Discharge Diet: No Restrictions, - - encourage nutritional supplementation with protein to help the healing process. Discharge Activity: May not drive while taking narcotic pain medications., May Shower - at the time of the silver dressing changes., - - keep right hand elevated. no heavy lifting with right hand. encourage range of motion exercises to minimize stiffness. May shower in (days): 1 - at the time of the dressing changes. May resume sexual activity in: No Restrictions Weight Bearing Status: Weight bearing as tolerated Keep extremity elevated above heart level: Right Arm Call your doctor if your incision/area has: Continuous Slow Oozing, Sudden Increased Bleeding, Increased Pain/ Swelling, Increased Redness, Foul Smelling Discharge, Swelling at the incision site Call your doctor if you observe: Fever of 101 or Higher, Coldness, Increased Pain, Shortness of breath, Chest pain, Calf discomfort, Uncontrolled pain Suture Line Care: - - daily Aquacel Silver dressing changes. Change Dressing in (Days):: 1 - daily Aquacel silver dressing changes followed by gauze and deric wrap. Cleanse incision/area with: Soap AND Water - may cleanse the wound with soap and water at the time of the dressing change. Home Medications: Medications to take at Discharge Metoprolol(XL)Succ [Toprol Xl (Beta Eufemia)] 25 mg PO DAILY 01/01/18 Losartan Potassium 25 mg PO DAILY 07/03/18 Doxycycline [Vibramycin] 100 mg PO BID #28 cap 07/08/18 Gabapentin [Neurontin] 300 mg PO BIDCM #60 cap 07/08/18 Gauze Bandage [Band-Aid Rolled Gauze] 1 ea TP .QDAILY #30 bandage 07/08/18 Gauze Bandage [Gauze Pad] 1 ea TP .QDAILY #30 bandage 07/08/18 Oxycodone HCl/Acetaminophen [Percocet 5/325] 1 - 2 tab PO 4X/DAY PRN PRN 5 Days #40 tab 07/08/18 Silver/Hydrocolloid Dressing [Aquacel-Ag W-Hydrofiber Dress] 1 ea TP .QDAILY #15 bandage 07/08/18 proMETHazine tablet [Phenergan tablet] 25 mg PO 4X/DAY PRN PRN #30 tab 07/08/18 Following Prescrptions Were Given to Patient: Gauze Bandage [Band-Aid Rolled Gauze] 1 ea TP .QDAILY #30 bandage Gauze Bandage [Gauze Pad] 1 ea TP .QDAILY #30 bandage Oxycodone HCl/Acetaminophen [Percocet 5/325] 1 - 2 tab PO 4X/DAY PRN PRN 5 Days #40 tab PRN Reason: Pain proMETHazine tablet [Phenergan tablet] 25 mg PO 4X/DAY PRN PRN #30 tab PRN Reason: NAUSEA/VOMITING Silver/Hydrocolloid Dressing [Aquacel-Ag W-Hydrofiber Dress] 1 ea TP .QDAILY #15 bandage Doxycycline [Vibramycin] 100 mg PO BID #28 cap Gabapentin [Neurontin] 300 mg PO BIDCM #60 cap Primary Care Physician: Danielito Dowd, AIRCRAFT ENGINE [employer]LIND[employer] MECHANIC-C [Primary Care Provider] - Please Follow Up With: Oliver Murillo MD When: thursday07/12/18. call [phone] for appt. Disposition: Home Minutes spent on discharge:: 35 Patient Condition:: Stable Medical Necessity - Tobacco Use Smoking Status: Current every day smoker Meaningful Use Info Meaningful Use Diagnoses (Choose all that apply): None applicable 07/12/18 0033 <Electronically signed by Oliver Murillo MD> Date Oliver Murillo MD Cosigner Signature (if applicable): Date CC: AIRCRAFT ENGINE [employer]LIND[employer] MECHANIC-C Danielito Dowd; Oliver Murillo MD; Danielito Wiseman MD Signed 12 LEAD ELECTROCARDIOGRAM Observed: 07/09/2018 Status: F Source: [place] 2:24 PM [facility] REPOSITORY [facility] [address] [place] [address] 12 Lead EKG 07/06/18 1108 MR#: [id number] Acct: [id number] Name: GENE VILA Denys Rep #: [id number] : 1955 62 From: Dawit Bradley MD Attending Dr: Oliver Murillo MD Status: DIS IN Ordering Dr: Tremayne Irvin MD Date: 07/06/18 [place] [facility] [place] M C Admitted: 07/06/18 Test Reason : CELLULITIS Blood Pressure : / mmHG Vent. Rate : 087 BPM Atrial Rate : 087 BPM P-R Int : 172 ms QRS Dur : 086 ms QT Int : 330 ms P-R-T Axes : 080 -30 078 degrees QTc Int : 397 ms Normal sinus rhythm with sinus arrhythmia Left axis deviation Septal infarct (cited on or before 07-APR-2015) Abnormal ECG Confirmed by DAWIT BRADLEY MD ([id number]), greeting card editor JULISA WEN ([id number]) on 07/09/2018 2:24:33 PM Referred By: Oliver Murillo Confirmed By:DAWIT BRADLEY MD 07/09/18 1424 Date Dawit Bradley MD CC: AIRCRAFT ENGINE [employer]INDER MECH[employer]IC-C Danielito Dowd; Oliver Murillo MD; Danielito Wiseman MD; Tremayne Irvin MD Signed DISCHARGE INSTRUCTION Observed: 07/08/2018 Status: F Source: [place] 1:29 PM [facility] REPOSITORY [facility] Medical Records Department [address] [place] [address] Instructions for Home/Discharge Instructions 07/08/18 1325 MR#: [id number] Acct: [id number] Name: GENE VILA Rep #: [id number] : 1955 62 From: Oliver Murillo MD PCP: ROXANNA BruceC Status: ADM IN You will use the following diet at home:: No restrictions, Other - encourage nutritional supplementation with protein to help the healing process. Discharge Activity: May not drive while taking narcotic pain medications., May Shower - at the time of the silver dressing changes., - - keep right hand elevated. no heavy lifting with right hand. encourage range of motion exercises to minimize stiffness. May shower in (days): 1 - at the time of the dressing changes. May resume sexual activity in: No Restrictions Weight Bearing Status: Weight bearing as tolerated Lifting Restrictions: 10 lbs. Keep extremity elevated above heart level: Right Arm Call your doctor if your incision/area has: Continuous Slow Oozing, Sudden Increased Bleeding, Increased Pain/ Swelling, Increased Redness, Foul Smelling Discharge, Swelling at the incision site Call your doctor if you observe: Fever of 101 or Higher, Coldness, Increased Pain, Shortness of breath, Chest pain, Calf discomfort, Uncontrolled pain Suture Line Care: - - daily Aquacel Silver dressing changes. Change Dressing in (Days):: 1 - daily Aquacel silver dressing changes followed by gauze and deric wrap. Cleanse incision/area with: Soap AND Water - may cleanse the wound with soap and water at the time of the dressing change. Allergies/Adverse Reactions: Allergies Penicillins Allergy (Verified 07/06/18 10:20) Shortness of breath Medications to take at Discharge Metoprolol(XL)Succ [Toprol Xl (Beta Eufemia)] 25 mg PO DAILY 01/01/18 Losartan Potassium 25 mg PO DAILY 07/03/18 Doxycycline [Vibramycin] 100 mg PO BID #28 cap 07/08/18 Gabapentin [Neurontin] 300 mg PO BIDCM #60 cap 07/08/18 Gauze Bandage [Band-Aid Rolled Gauze] 1 ea TP .QDAILY #30 bandage 07/08/18 Gauze Bandage [Gauze Pad] 1 ea TP .QDAILY #30 bandage 07/08/18 Oxycodone HCl/Acetaminophen [Percocet 5/325] 1 - 2 tab PO 4X/DAY PRN PRN 5 Days #40 tab 07/08/18 Silver/Hydrocolloid Dressing [Aquacel-Ag W-Hydrofiber Dress] 1 ea TP .QDAILY #15 bandage 07/08/18 proMETHazine tablet [Phenergan tablet] 25 mg PO 4X/DAY PRN PRN #30 tab 07/08/18 The following prescriptions were given: Gauze Bandage [Band-Aid Rolled Gauze] 1 ea TP .QDAILY #30 bandage Gauze Bandage [Gauze Pad] 1 ea TP .QDAILY #30 bandage Oxycodone HCl/Acetaminophen [Percocet 5/325] 1 - 2 tab PO 4X/DAY PRN PRN 5 Days #40 tab PRN Reason: Pain proMETHazine tablet [Phenergan tablet] 25 mg PO 4X/DAY PRN PRN #30 tab PRN Reason: NAUSEA/VOMITING Silver/Hydrocolloid Dressing [Aquacel-Ag W-Hydrofiber Dress] 1 ea TP .QDAILY #15 bandage Doxycycline [Vibramycin] 100 mg PO BID #28 cap Gabapentin [Neurontin] 300 mg PO BIDCM #60 cap Primary Care Physician: Danielito Dowd, AIRCRAFT ENGINE CYLINDER MECHANIC-C [Primary Care Provider] - Test Results: Test results from this visit will be discussed in further detail at your follow-up appointment, if applicable. Please Follow Up With: Oliver Murillo MD When: thursday07/12/18. call [phone] for appt. Proposed Discharge Date: 07/08/18 07/08/18 1329 <Electronically signed by Oliver Murillo MD> Date Oliver Murillo MD CC: AIRCRAFT ENGINE [employer]INDER MECHANIC-C Danielito Dowd; Danielito Wiseman MD BASIC METABOLIC Collected: 07/08/2018 Status: F Source: [place] PROFILE (BMP) 5:18 AM [facility] REPOSITORY TYPE CODE TESTS RESULT OUT OF RANGE REFERENCE UNITS LAB L501.0100 74-106 mg/dL High GLU 111 Result Comment: Fasting Glucose result from 100 to 125 mg/dL suggests IMPAIRED HOMEOSTASIS per A.D.A. criteria. Please note revised GLUCOSE reference range effective 2017. LAB L501.1000 7-18 mg/dL High BUN 21 LAB L501.1100 0.70-1.30 mg/dL Low CREAT,SERUM 0.64 Result Comment: The validity of the calculated GFR AND GFRAA in patients over 70 years has not been determined. Clinical correlation is essential. LAB L501.1110 >60 mL/min Normal EST GFR 134 Result Comment: Non- GFR Calc LAB L501.1115 >60 mL/min Normal EST GFR - AA 162 Result Comment: GFR Calc LAB L501.1255 ml/min Normal Estimated CRCL 131.78 LAB L501.1300 10-20 RATIO High BUN/CRE 32.9 LAB L501.2200 8.5-10 mg/dL .1 CA Normal 8.9 LAB L501.5300 136-14 mmol/L 5 NA Normal 138 LAB L501.5600 3.5-5. mmol/L 1 K Normal 4.1 LAB L501.5900 98-107 mmol/L CL Normal 102 LAB L501.6100 21.0-3 mmol/L 2.0 CO2 Normal 28.0 LAB L501.6200 5-15 GAP Normal 8 Performed By: #### L500.2500 #### [facility] [address] [place], [address] CBC-COMPLETE BLOOD CNT Collected: 07/08/2018 Status: F Source: [place] NO DIFF 5:18 AM [facility] REPOSITORY TYPE CODE TESTS RESULT OUT OF RANGE REFERENCE UNITS LAB L100.1000 4.4-11.0 K/mm3 High WBC 11.9 LAB L100.1200 4.6-6.2 M/mm3 Low RBC 3.73 LAB L100.1300 13.0-16.5 g/dl Low HGB 12.8 LAB L100.1400 40-54 % Low HCT 38.4 LAB L100.1500 80-94 fL High MCV 102.9 LAB L100.1600 27.0-32.0 pg High MCH 34.3 LAB L100.1700 32-36 g/gl Normal MCHC 33.3 LAB L100.1810 11.6-14.6 % Normal RDW CV 12.8 LAB L100.1820 35.1-43.9 fl High RDW SD 47.3 LAB L100.1900 150-450 K/mm3 Normal PLT 274 LAB L100.2000 6.2-12.0 fl Normal MPV 8.9 Performed By: #### L100.0500 #### [facility] [address] [place], [place], [address] HISTORY AND PHYSICAL Observed: 07/08/2018 Status: F Source: [place] EXAM 12:51 AM [facility] REPOSITORY [facility] Medical Records Department [address] [place] [address] History and Physical 07/06/18 1624 MR#: [id number] Acct: [id number] Name: GENE VILA Rep #: [id number] : 1955 62 From: Oliver Murillo MD PCP: Danielito Dowd, AIRCRAFT ENGINE [employer]LINDER MECHANIC-C Status: ADM IN Y Location: MS2 AE352-4 History and Physical Date of Admission: 07/06/18 This is a 62-year-old gentleman who presented to the ED with a 4-5 day history of increasing redness, pain, and swelling and skin compromise with some necrosis on the dorsal proximal aspect right thumb and some purulent drainage. He initially came to the ED on 07/03/18. The symptoms were less. He was given Keflex and Bactrim antibiotics. When the symptoms worsened, he came to the ED today. He had a similar abscess three years ago on the dorsum of his left hand that I drained. It showed MRSA at that time. His abscess today is suspicious for MRSA. His WBC was 14.4. He was given a dose of Vancomycin in the ED. It was recommended to the patient to be admitted to the hospital for IV antibiotics and to proceed with operative intervention with incision and drainage and excisional debridement of this abscess. PAST MEDICAL HISTORY: Coronary artery disease, hypertension, back pain, anxiety, depression, COPD, osteoporosis, hyperlipidemia, kidney stones, MRSA. SURGICAL HISTORY: Includes multiple laparotomies for adhesions as well as for intestinal perforation with bowel resection. Incision and drainage and excisional debridement abscess dorsum left hand with involvement of extensor tendon sheaths index finger, long finger, and ring finger - 06/28/15. MEDICATIONS: Metoprolol, Losartan, Keflex, Bactrim. ALLERGIES: Penicillin. SOCIAL HISTORY: The patient is a smoker. The patient drinks occasionally. He had alcohol abuse in the past. FAMILY HISTORY: Positive for alcoholism, lung disease, anxiety, depression, cancer and suicide. REVIEW OF SYSTEMS: GENERAL: Has some fatigue. Denies fevers, denies weight loss, had alcohol abuse in the past. Has history of MRSA. EARS, NOSE AND THROAT: Denies nasal congestion, denies sore throat. EYES: Denies cataracts, denies glaucoma. ENDOCRINE: Denies excessive thirst, urination. Has hyperlipidemia. INTEGUMENTARY: Has worsening abscess dorsum of right thumb at proximal aspect with skin compromise with necrosis. MUSCULOSKELETAL: Has osteoporosis. Has joint pain, joint stiffness, muscle weakness, back pain and arthritis. NEUROLOGICAL: Denies headaches, denies lightheadedness. Denies numbness in his fingers. CARDIOVASCULAR: Has some chest pain, has heart disease, has hypertension. Denies shortness of breath with exertion. Denies lightheadedness. Has some fatigue. PSYCHIATRIC: Has some anxiety, has some depression. RESPIRATORY: Has some shortness of breath, has COPD. The patient is a smoker. Denies cough. GASTROINTESTINAL: Denies nausea, vomiting, diarrhea or constipation. Had intestinal perforation in the with bowel resection. Has multiple surgeries for adhesions. HEMATOLOGIC: Has anemia. Denies abnormal bruising. GENITOURINARY: Denies hematuria. Denies urinary frequency. Has history of kidney stones. PHYSICAL EXAMINATION: HEENT: Pupils are equal, round and reactive to light. Extraocular muscles are intact. Throat is clear. NECK: Supple and nontender. No cervical adenopathy. LUNGS: Clear to auscultation. HEART: Regular rate and rhythm. ABDOMEN: Soft and nontender. EXTREMITIES: Full range of motion. No axillary adenopathy. The patient is right hand dominant. On the dorsal proximal aspect right thumb is an area of redness, swelling, tenderness. There is an opening proximally at the level of the MP joint with purulent drainage. There is surrounding skin compromise with some skin necrosis. Measures 5 x 2 cm. Patient can flex and extend his thumb but with some difficulty secondary to pain and swelling. The patient is able to oppose his thumb to the index and long fingers. There is difficulty with the ring and small fingers secondary to pain and swelling. No sensory deficits noted. Fingers are warm with good capillary refill. Radial pulses are palpable. No axillary adenopathy noted. NEUROLOGICAL: Cranial nerves II through XII are grossly intact. IMPRESSION: 1. 5 cm abscess dorsal proximal aspect right thumb. 2. Skin compromise and necrosis. 3. Methicillin-resistant Staphylococcus aureus. 4. Smoker. PLAN: Recommend incision and drainage and excisional debridement of this abscess dorsum of right thumb. If it extends down to the tendon, then drainage of the tendon sheath may be necessary as well. Surgery is recommended to be done urgently today to minimize worsening of the infection. Some of the compromised and necrotic skin will be debrided. The wound will be left open and pack with a Silver dressing. We will encourage range of motion exercises to minimize stiffness. At the time of surgery, we will send tissue to microbiology for culture as well as to pathology for analysis to rule out carcinoma. With his history of MRSA, I suspect MRSA and will continue Vancomycin. The patient was encouraged to stop smoking as it may have deleterious effects on wound healing. The patient was informed of the risks and complications of the procedure including alternatives of surgery. These were discussed with him personally. He voices understanding and wishes to proceed with the surgery urgently today to minimize worsening of the infection that could involve the whole hand and forearm. Some of the risks that were discussed included, but were not inclusive of failure to diagnose including symptom relief, pain, infection, numbness, stiffness, loss of digit, RSD, need for further surgery, contracture and wound healing problems. He is aware of these possibilities and wishes to proceed. If there is a delay in the healing process postoperatively then we can consider delayed closure with skin grafting. Surgery will be done under general anesthesia and tourniquet control. Code Visit Inpatient E AND M: 58885 Init Hosp L3 - -57 ICD-10 - L02.511, I96, A49.02, F17.200 07/08/18 0051 <Electronically signed by Oliver Murillo MD> Date Oliver Murillo MD Cosigner Signature: Date (if applicable) CC: AIRCRAFT ENGINE CYLINDER MECHANIC-C Danielito Dowd; Oliver Murillo MD; Danielito Wiseman MD Signed VANCOMYCIN, TROUGH Collected: 07/07/2018 Status: F Source: [place] LEVEL 5:30 PM [facility] REPOSITORY Order Comment: Comments: DRAW TROUGH 30 MIN PRIOR TO DOSE AT 18:00 Time Medication is to be Given? 1800 TYPE CODE TESTS RESULT OUT OF RANGE REFERENCE UNITS LAB L501.8820 5.0-15.0 ug/mL Normal VANCO, TROUGH 10.3 Result Comment: VANCOMYCIN STANDARED DRUG THERAPY TROUGH LEVEL: 5.0 - 15.0 mg/L VANCOMYCIN HIGH INTENSITY THERAPY TROUGH LEVEL: 15.0 - 20.0 mg/L High Intensity therapy recommended for serious life threatening infections include: - Meningitis -Endocarditis -Pneumonia (Ventilator/Healtcare Associated) -Sepsis PLEASE CONTACT PHARMACY SERVICES (#[id number]) FOR INTERPRETATION OF RESULTS. Performed By: #### L501.8820 #### [facility] [address] [place], [place], [address] BASIC METABOLIC Collected: 07/07/2018 Status: F Source: [place] PROFILE (BMP) 5:25 AM [facility] REPOSITORY TYPE CODE TESTS RESULT OUT OF RANGE REFERENCE UNITS LAB L501.0100 74-106 mg/dL High GLU 153 Result Comment: Fasting Glucose result greater than or equal to 126 mg/dL suggests DIABETES MELLITUS per A.D.A. criteria. Please note revised GLUCOSE reference range effective 2017. LAB L501.1000 7-18 mg/dL High BUN 19 LAB L501.1100 0.70-1.30 mg/dL Normal CREAT,SERUM 0.82 Result Comment: The validity of the calculated GFR AND GFRAA in patients over 70 years has not been determined. Clinical correlation is essential. LAB L501.1110 >60 mL/min Normal EST GFR 100 Result Comment: Non- GFR Calc LAB L501.1115 >60 mL/min Normal EST GFR - AA 121 Result Comment: GFR Calc LAB L501.1255 ml/min Normal Estimated CRCL 102.85 LAB L501.1300 10-20 RATIO High BUN/CRE 23.1 LAB L501.2200 8.5-10 mg/dL .1 CA Normal 8.8 LAB L501.5300 136-14 mmol/L 5 NA Normal 137 LAB L501.5600 3.5-5. mmol/L 1 K Normal 4.2 LAB L501.5900 98-107 mmol/L CL Normal 103 LAB L501.6100 21.0-3 mmol/L 2.0 CO2 Normal 26.0 LAB L501.6200 5-15 GAP Normal 8 Performed By: #### L500.2500, L506.0500 #### [facility] [address] [place], [place], [address] PREALBUMIN Collected: 07/07/2018 Status: F Source: [place] 5:25 AM [facility] REPOSITORY TYPE CODE TESTS RESULT OUT OF REFERENCE UNITS RANGE LAB L506.0500 20.0-40.0 mg/dL Low PREALBUMIN 17.0 Performed By: #### L500.2500, L506.0500 #### [facility] [address] [place], [place], [address] CBC-COMPLETE BLOOD CNT Collected: 07/07/2018 Status: F Source: [place] NO DIFF 5:25 AM [facility] REPOSITORY TYPE CODE TESTS RESULT OUT OF RANGE REFERENCE UNITS LAB L100.1000 4.4-11.0 K/mm3 High WBC 12.1 LAB L100.1200 4.6-6.2 M/mm3 Low RBC 3.73 LAB L100.1300 13.0-16.5 g/dl Low HGB 12.5 LAB L100.1400 40-54 % Low HCT 37.6 LAB L100.1500 80-94 fL High MCV 100.8 LAB L100.1600 27.0-32.0 pg High MCH 33.5 LAB L100.1700 32-36 g/gl Normal MCHC 33.2 LAB L100.1810 11.6-14.6 % Normal RDW CV 13.1 LAB L100.1820 35.1-43.9 fl High RDW SD 48.2 LAB L100.1900 150-450 K/mm3 Normal PLT 233 LAB L100.2000 6.2-12.0 fl Normal MPV 8.7 Performed By: #### L100.0500 #### [facility] [address] [place], [place], [address] MRSA WOUND DNA BY Collected: 07/06/2018 Status: F Source: [place] PCR 5:43 PM [facility] REPOSITORY Order Comment: Has pt arrived? Y Comments: RIGHT THUMB Specimen Source? RIGHT THUMB TYPE CODE TESTS RESULT OUT OF REFERENCE UNITS RANGE LAB L8200.1100 Negative High MRSA POSITIVE RESULT Result Comment: RESULTS CALLED TO ASHLEY 07/06/18 Jeremias Strickland. REPORT READ BACK BY SAME. LAB L8200.1150 Negative High SA RESULT POSITIVE Performed By: #### L8200.1075 #### [facility] [address] [place], [place], [address] Observed: 07/06/2018 Status: F Source: [place] CULTURE, DEEP WOUND 5:43 PM [facility] REPOSITORY Order Date: 03/11/17 List Antibiotics Last 48 Hours? VANCOMYCIN Has pt arrived? Y Copy of report sent to Infection Control Printer [id number] 07/10/18 0710 TWYLA. Comments: RIGHT THUMB Gram Stain Gram Stain No organisms seen Wound Culture Isolated from broth media only. ORGANISM 1: Meth. resistant Staph. aureus Amount Growth Growth Meth. resistant Staph. aureus: REACTION Benzylpenicillin NF 0.25 R Cefoxitin *NF + Clindamycin $$ <=0.25 S Inducable Clindamycin Res[place] - Erythromycin $ <=0.25 S Gentamicin $ <=0.5 S Levofloxacin $ <=0.12 S Linezolid $$$$ 1 S Oxacillin NF >=4 R Tigecycline $$$$ <=0.12 S Rifampin $$ <=0.5 S Tetracycline NF <=1 S Trimethoprim/Sulfametho $ <=10 S Vancomycin $ 1 S (NF) indicates non-formulary drug at [facility]. Approval by Infectious Disease Specialist required before non-formulary drugs may be ordered and/or dispensed. * CLSI guidelines does not recommend testing of cephalosporins. This interpretation is deduced from Beta-lactam/penicillin results. Cult, Anaerobic No anaerobic bacteria isolated. Performed By: #### M100.1500 #### [facility] [address] [place], [address] EMERGENCY DEPARTMENT Observed: 07/06/2018 Status: F Source: [place] SUMMARY 12:05 PM [facility] REPOSITORY [facility] Medical Records Department [address] [place] [address] Emergency Department Summary 07/06/18 1159 MR#: [id number] Acct: [id number] Name: GENE VILA Rep #: [id number] : 1955 62 From: Tremayne Irvin MD PCP: DAVIS Bruce Status: REG ER - ER Visit Summary Date of Service: 07/06/18 Chief Complaint: Right thumb pain and swelling in spite of outpatient treatment History of Present Illness: The patient is a 62 M who is right- handed. Was seen on July 03 for injury that occurred June 30 dorsal surface right thumb. He was treated with cephalexin and Bactrim. He states he missed 1 dose of cephalexin otherwise he is taking all the medicines prescribed. He presents because of increased pain, swelling and pain with movement. He has history of extensor tenosynovitis left hand. Dr. Murillo care for him at that time. He does report drainage from the thumb. There is no history rheumatic fever, heart murmur, SPE or mitral valve prolapse. He is on no immunosuppressive medication. He is a smoker. He does not have history of diabetes. He reports he had a half a sandwich and a couple coffee at 8 AM. He has had nothing to eat or drink since. Physical Examination: Vital signs noted and remarkable for elevated blood pressure 147/92 and heart rate of 113. HEENT exam is unremarkable. Heart is regular without murmur, gallop or rub. S1 and S2 are normal. Lungs are clear to auscultation with good movement of air bilaterally. Examination of the right upper extremity reveals mucopurulent erythematous abscess/cellulitis dorsal surface of the right thumb over the proximal phalanx, distal phalanx and part of the distal first metacarpal bone. There is no lymphangitis. There is no epitrochlear excellent lymphadenopathy. The thumb is swollen limited range of motion and passive flexion causes exquisite pain. There is pain to palpation over the extensor pollicis longus tendon. Sensations intact. Capillary refill is normal. Test Results: X-ray of the hand was obtained to evaluate for foreign body. None was noted and there is no evidence of osteomyelitis. White count is 14.4 thousand with 79 segs no bands. Basic metabolic panel is unremarkable. Emergency Department Course and Treatment: Blood work was obtained EKG for preoperative clearance. EKG reveals a sinus rhythm with respiratory variance. AL interval is normal. QRS durations normal. [place] to left. Decreased anterior force. Concerned this represents MRSA patient was treated with 25 mg/kg of vancomycin and Case was discussed with Dr. salgado who plans to take patient to the operating room later today. He requested admission to the hospitalist service since he has older with medical problems. Treatment Plan: IV antibiotics and incision and drainage in the OR Disposition: MedSurg/OR Impression: 1. Tenosynovitis extensor pollicis longus 2. Abscess/cellulitis right thumb and hand failed outpatient therapy 3. History of hypertension 4. History of obstructive sleep apnea This note was generated with [employer] dictation software. It may contain incorrect words, spelling, and punctuation that were not noted in review of the chart prior to signing ED Disposition - Plan for ED Patient: Chief Complaint: Cellulitis Referrals: Danielito Dowd, AIRCRAFT ENGINE CYLINDER MECHANIC-C [Primary Care Provider] - What to do if you have Problems For any increased pain, shortness of breath, bleeding, nausea or vomiting, chest pain, or any unexpected problems, contact your Primary Care Provider. Call [facility] ([phone]) or report to the closest Emergency Room. Call 911 if necessary. 07/06/18 1205 <Electronically signed by Tremayne Irvin MD> Date Tremayne Irvin MD Cosigner Signature (If Indicated): Date CC: AIRCRAFT ENGINE CY[employer]IND[employer] MECHANIC-C Danielito Dowd; Oliver Murillo MD; Danielito Wiseman MD CBC W/DIFF, AUTOMATED Collected: 07/06/2018 Status: F Source: [place] 11:16 AM [facility] REPOSITORY TYPE CODE TESTS RESULT OUT OF RANGE REFERENCE UNITS LAB L100.1000 4.4-11.0 K/mm3 High WBC 14.4 LAB L100.1200 4.6-6.2 M/mm3 Low RBC 4.24 LAB L100.1300 13.0-16.5 g/dl Normal HGB 14.9 LAB L100.1400 40-54 % Normal HCT 42.3 LAB L100.1500 80-94 fL High MCV 99.8 LAB L100.1600 27.0-32.0 pg High MCH 35.1 LAB L100.1700 32-36 g/gl Normal MCHC 35.2 LAB L100.1810 11.6-14.6 % Normal RDW CV 12.8 LAB L100.1820 35.1-43.9 fl High RDW SD 46.2 LAB L100.1900 150-450 K/mm3 Normal PLT 246 LAB L100.2000 6.2-12.0 fl Normal MPV 8.6 LAB L100.2100 47-70 % High NEUT% 79.2 LAB L100.2200 19-41 % Low LY% 10.5 LAB L100.2300 0-10 % Normal MONO% 9.6 LAB L100.2400 0-5 % Normal EO% 0.5 LAB L100.2500 0-1 % Normal BASO% 0.1 LAB L100.2550 0.0-0.9 % Normal IM GRAN % 0.100 Result Comment: IG% - Immature Granulocytes (promyelocytes, myelocytes and metamyelocytes) > 1% indicates that a LEFT SHIFT is Present. LAB L100.2620 2.0-7.7 X10 3/uL High Absolute Neut 11.4 LAB L100.2720 0.83-4.51 X10 3/ul Normal Absolute Lymph 1.51 Performed By: #### L100.0100 #### [facility] Laboratory [address] [place], [address] BASIC METABOLIC Collected: 07/06/2018 Status: F Source: [place] PROFILE ([facility]) 11:16 AM [facility] REPOSITORY TYPE CODE TESTS RESULT OUT OF RANGE REFERENCE UNITS LAB L501.0100 74-106 mg/dL Normal GLU 94 Result Comment: Please note revised GLUCOSE reference range effective 2017. LAB L501.1000 7-18 mg/dL Normal BUN 18 LAB L501.1100 0.70-1.30 mg/dL Normal CREAT,SERUM 0.79 Result Comment: The validity of the calculated GFR AND GFRAA in patients over 70 years has not been determined. Clinical correlation is essential. LAB L501.1110 >60 mL/min Normal EST GFR 105 Result Comment: Non- GFR Calc LAB L501.1115 >60 mL/min Normal EST GFR - AA 127 Result Comment: GFR Calc LAB L501.1255 ml/min Normal Estimated CRCL 106.76 LAB L501.1300 10-20 RATIO High BUN/CRE 22.9 LAB L501.2200 8.5-10 mg/dL .1 CA Normal 9.1 LAB L501.5300 136-14 mmol/L 5 NA Normal 138 LAB L501.5600 3.5-5. mmol/L 1 K Normal 4.4 LAB L501.5900 98-107 mmol/L CL Normal 106 LAB L501.6100 21.0-3 mmol/L 2.0 CO2 Normal 23.0 LAB L501.6200 5-15 GAP Normal 9 Performed By: #### L500.2500 #### [facility] [address] [place], [address] HAND MIN 3 VIEWS Observed: 07/06/2018 Status: F Source: [place] 10:54 AM [facility] REPOSITORY [facility] Imaging Services [address] [place] [address] Hand Min 3 Views MR#: [id number] Acct: [id number] Name: GENE VILA Denys Rep #: [id number] : 1955 M 62 From: Alex Salcedo MD PCP: DAVIS Bruce Status: REG ER Study: Hand Min 3 Views Date of Exam: 07/06/18 Exam# [id number] Ordering Dr: Tremayne Irvin MD STUDY: X-RAY - RIGHT HAND REASON FOR EXAM: Male, 62 years old. Cellulitis. TECHNIQUE: 3 view(s) of the hand. COMPARISON: None. FINDINGS: Normal radiocarpal articulation. Normal distal radioulnar joint. Normal visualized carpal bones. Normal carpal articulations Normal carpometacarpal articulation of the thumb. Normal second through fifth carpometacarpal joints. Normal metacarpi. Normal metacarpophalangeal joint of the thumb. Normal interphalangeal joint of the thumb. Normal proximal and distal phalanges of the thumb. Normal metacarpophalangeal joints of the second through fifth fingers. Normal proximal and distal interphalangeal joints of the second through fifth fingers. Normal phalanges of the second through fifth fingers. Soft tissue swelling. RAD/Hand Min 3 Views IMPRESSION: Soft tissue swelling. Electronically Signed: Alex Salcedo MD at 11:37 EST Tel [phone], Service support , CC: DAVIS Dowd; Tremayne Irvin MD Heat And Vent Aircraft Mechanic: Signed TISSUE BIOPSY Observed: 07/06/2018 Status: F Source: [place] 10:20 AM [facility] REPOSITORY Patient: GENE VILA : 1955 (62/M) Acct Num: [id number] Phys: Chidi RM,Oliver Unit Num: [id number] Loc: MS2 [id number] Specimen: [id number] Received: 07/07/18916 Spec Type: Tissue Bx TISSUES 1 TISSUES: Skin of thumb, NOS GROSS DESCRIPTION Received in fixative is one container labeled with the patient's name and designated tissue right thumb. The specimen consists of four variable size pieces of lopez-brown skin with underlying tissue measuring in aggregate 3.5 x 3.5 x 0.5 cm. A focal area of ulceration is noted. No mass lesion is identified. The entire specimen is submitted in two cassettes. / SJ:lance 07/07/18 TC:2 CPT: 27935, 41585 x2 HEADER OPERATION: Incision, drainage MRSA abscess, thumb PRE-OP DIAGNOSIS: Proximal right thumb MRSA abscess TISSUE SUBMITTED: Tissue, right thumb MICROSCOPIC DESCRIPTION Slides are reviewed. MICROSCOPIC DIAGNOSIS Tissue right thumb: Pieces of skin with underlying tissue with acute and chronic inflammation and abscess formation. Special stains for acid fast bacilli and fungi are negative for organisms; matched controls are appropriate. SJ:lance 07/08/18 Signed Nima Abdi 07/08/18 <signature on file> Performed By: #### PTISS #### [facility] Laboratory [address] [place], [address] EMERGENCY DEPARTMENT Observed: 07/04/2018 Status: F Source: [place] SUMMARY 1:48 AM [facility] REPOSITORY [facility] Medical Records Department [address] [place] [address] Emergency Department Summary 07/03/18 1858 MR#: [id number] Acct: [id number] Name: GENE VILA Rep #: [id number] : 1955 62 From: Karli Dinero MD PCP: DAVIS Bruce Status: DEP ER - ER Visit Summary Date of Service: 07/03/18 Chief Complaint: Right thumb wound History of Present Illness: The patient is a 62 M who noted a small area of skin avulsion of the proximal right thumb couple days ago. Patient denies known injury. He has had some serosanguineous type drainage from the area. His primary concern is that he had a similar lesion that appeared on his left hand a couple years ago that turned into MRSA infection and required surgical debridement. He has not had fever or chills. Physical Examination: Vital signs unremarkable. Patient sitting upright in bed no acute distress. He is nontoxic appearing. Heart is regular rate and rhythm without murmur. Lung sounds are clear. The right upper extremity examination was a 3 mm round area of skin avulsion on the proximal right thumb with serosanguineous drainage. No palpable abscess is noted. There is no tenderness along the tendon. Full range of motion is noted. Normal cap refill and sensation are noted. Test Results: [] Emergency Department Course and Treatment: Wound culture was obtained. Patient be treated with Bactrim and Keflex. Treatment Plan: [] Disposition: Discharge Impression: Right thumb wound with history of MRSA This note was generated with [employer] dictation software. It may contain incorrect words, spelling, and punctuation that were not noted in review of the chart prior to signing ED Disposition - Plan for ED Patient: Disposition: Home or Assisted Living Chief Complaint: Wound Check Instructions: ED Wound Check Laceration FU Infec Prescriptions: Cephalexin [Keflex] 500 mg PO Q6 #40 capsule Smz/Tmp Ds [Bactrim Ds] 1 tablet PO BID #20 tablet Referrals: Danielito Dowd NP-C [Primary Care Provider] - 5- 7 Days What to do if you have Problems For any increased pain, shortness of breath, bleeding, nausea or vomiting, chest pain, or any unexpected problems, contact your Primary Care Provider. Call [facility] [employer] [facility] ([phone]) or report to the closest Emergency Room. Call 911 if necessary. 07/04/18 0148 <Electronically signed by Karli Dinero MD> Date Karli Dinero MD Cosigner Signature (If Indicated): Date CC: AIRCRAFT ENGINE CYLINDER MECHANIC-C Danielito Dowd; Danielito Wiseman MD DISCHARGE INSTRUCTION Observed: 07/03/2018 Status: F Source: [place] 7:00 PM [facility] REPOSITORY [facility] Medical Records Department [address] [place] [address] Discharge Instruction 07/03/18 1858 MR#: [id number] Acct: [id number] Name: GENE VILA Rep #: [id number] : 1955 62 From: Karli Dinero MD PCP: DAVIS Bruce Status: REG ER ED Disposition - Plan for ED Patient: Disposition: Home or Assisted Living Chief Complaint: Wound Check Instructions: ED Wound Check Laceration FU Infec Prescriptions: Cephalexin [Keflex] 500 mg PO Q6 #40 capsule Smz/Tmp Ds [Bactrim Ds] 1 tablet PO BID #20 tablet Referrals: Danielito Dowd NP-C [Primary Care Provider] - 5- 7 Days What to do if you have Problems For any increased pain, shortness of breath, bleeding, nausea or vomiting, chest pain, or any unexpected problems, contact your Primary Care Provider. Call [facility] ([phone]) or report to the closest Emergency Room. Call 911 if necessary. 07/03/18 1900 <Electronically signed by Karli Dinero MD> Date Karli Dinero MD Cosigner Signature (If Indicated): Date CC: DAVIS Dowd; Danielito Wiseman MD Observed: 07/03/2018 Status: F Source: [place] CULTURE, WOUND 7:00 PM [facility] REPOSITORY Gram Stain Gram Stain Rare White Blood Cells No Epithelial cells No organisms seen Wound Culture No growth aerobically. Performed By: #### M100.1400 #### [facility] [address] [place], [place], [address] NM MYOCARDIAL SPECT Observed: 06/29/2018 Status: F Source: [place] STRESS/REST 8:00 AM [facility] REPOSITORY ORIGINAL NM MYOCARDIAL SPECT STRESS/REST CLINICAL STATEMENT:CHEST PAIN TECHNIQUE: Stress Protocol:Octaviano Time Exercised:7:49minutes Predicted Max HR:156 Max HR Achieved:136 Percent Max HR:87% Peak Systolic BP:190/108 mmHg Rate-Pressure product: 37853 Radiopharmaceutical(rest): Tc-99m Sestamibi IV Dose:10.1 mCi Radiopharmaceutical(stress): Tc-99m Sestamibi IV Dose:28.4 mCi SPECT acquisition:SPECT reconstruction and reorientation into short axis, vertical and horizontal long axis planes Quantitative LVEF assessment COMPARISON:None REPORT:LEFT ventricle appears normal in size on both stress and rest images. On the resting images, there is reduced radiotracer uptake in the inferior, inferoseptal and apical region as well as mid to distal anteroseptal region. On the stress images, there is mild improvement i n the radiotracer uptake in the inferior, inferoseptal as well as basal to mid anteroseptal region as compared to the resting images. Rest of the myocardium has homogenous radiotracer uptake. Gated SPECT imaging reveal normal wall motion and normal end- systolic brightening and thickening of all myocardial segments. Calculated LVEF 60%. LEFT ventricle end-diastolic volume 100 mL. Tid ratio 0.88. IMPRESSION: 1. No evidence of inducible ischemia or prior myocardial infarction. 2. Normal wall motion and normal LEFT ventricle systolic function, calculated LVEF 60%. 3. Inferior diaphragmatic and soft tissue attenuation artifact noted. 4. No prior study available for comparison. Interpreted By: Sav Lan Preliminary Report By: Sav Lan Electronically Signed By: Sav Lan Dictated Date: 06/29/2018 1:46:59 PM Prelim Date: 06/29/2018 1:46:59 PM Sign Date: 06/29/2018 1:52:34 PM PULMONARY VISIT REPORT Observed: 06/23/2018 Status: F Source: [place] 8:40 AM [facility] REPOSITORY [facility] [address] [place] [address] OFFICE VISIT Date of Service: 06/23/18 MR#: [id number] Acct: [id number] Name: GENE VILA Rep #: [id number] : 1955 Provider: Jadiel Sánchez D.O. Age/Sex: 62/M Location: [facility] [place].PMW Status: Signed Assessment AND Plan 1. SANDRITA (obstructive sleep apnea) G47.33 Plan The patient's compliance with use of nocturnal CPAP therapy has been suboptimal at best. I spent a great deal of time discussing the importance of compliance with the use of nocturnal CPAP therapy. The patient is agreeable to the idea of increasing his compliance in the upcoming future. Recommend continuing to monitor the patient's nocturnal compliance report at his follow-up office visit. 2. Nicotine dependence, cigarettes, uncomplicated F17.210 Plan The patient continues to smoke cigarettes daily, but seems motivated to quit smoking. He is currently utilizing Chantix. His most recent pulmonary function testing was grossly within normal limits without evidence of COPD. Therefore, I recommended that the patient discontinue his Asmanex and Incruse, in order to evaluate his symptoms without the aforementioned medications being on board. His residual shortness of breath will be reassessed at his follow-up office visit off of his current maintenance inhalers. Plan Detail Other Medications Discontinued: Follow Up 6 Weeks (CSM) HPI HPI Comments Details: The patient is a 62-year-old male who presents to the clinic today for a routine scheduled follow-up office visit. If you recall, the patient initially presented to our office for evaluation of daytime hypersomnolence. The patient underwent a diagnostic polysomnogram in February 2018 which revealed evidence of obstructive sleep apnea with an overall apnea hypotonea index of 15 events per hour. A titration polysomnogram was then completed, for which it was recommended that the patient be placed on nasal CPAP with a pressure support of 8 cm of water. Pulmonary function testing was completed in May 2018 was grossly within normal limits. Patient does have a greater than 96-ujoy-maty smoking history and continues to smoke 0.75 packs of cigarettes daily. The patient's nocturnal compliance report was personally reviewed at today's office visit. Over the last 30 days, he has a demonstrated compliance rate of 53%. The patient has a residual AHI noted to be 0.9 without significant air leaks noted. Today, patient reports that he feels as if his breathing quality has improved in light of being started on antihypertensive medications by his primary care provider. He readily admits to poor compliance with the use of his nocturnal CPAP therapy. He states that he often falls asleep without turning on his CPAP and that his use has been inconsistent due to his erratic sleep pattern. However, he does report that when he utilizes his nocturnal Pap therapy several nights consistently, he does notice an appreciable difference upon awakening in the morning. He denies fevers, chills or night sweats. He does report an occasional morning cough that has been productive of clear sputum. He is currently prescribed Asmanex and Incruse. In addition, he is utilizing Chantix in an attempt to quit smoking completely. Intake Vital Signs06/23/18 Height 6 ft 1 in 06/23/18 Weight: 185 lb Intake Visit Reasons: 3 M FU [facility] Vendor: DEMETRIUS Accompanied by: Self Allergies Penicillins Allergy (Verified 06/23/18 07:53) Shortness of breath Medications Albuterol Inhaler [Ventolin Hfa (SP)] 1 puff INHALATION Q6H PRN PRN 01/16/17 [History Confirmed 06/23/18] Umeclidinium Brm/Vilanterol Tr [Anoro Ellipta 62.5-25 Mcg INH] 1 puff INHALATION DAILY 12/21/17 [History Confirmed 06/23/18] Metoprolol(XL)Succ [Toprol Xl (Beta Eufemia)] 25 mg PO DAILY 01/01/18 [History Confirmed 06/23/18] duloxetine 30 mg capsule,delayed release 30 mg PO QDAY 03/16/18 [History Confirmed 06/23/18] mometasone 220 mcg (60 doses) breath activated powder inhaler INHALATION 60 Days #1 03/16/18 [History Confirmed 06/23/18] Cyclobenzaprine [Flexeril] 10 mg PO TID PRN #20 tab 05/18/18 [Rx Confirmed 06/23/18] varenicline 1 mg tablet 1 mg PO BID #56 tab 06/21/18 [Rx Confirmed 06/23/18] [facility] Medical History Chest pain (Acute) Nephrolithiasis (Chronic) COPD (chronic obstructive pulmonary disease) (Chronic) Smoking greater than 30 pack years (Chronic) HLD (hyperlipidemia) (Chronic) Back pain (Chronic) Abnormal ECG (Acute) MRSA (methicillin resistant Staphylococcus aureus) (Acute) Smoker (Chronic) tenosynovitis left hand (Acute) Cutaneous abscess of left hand (Acute) Dyspnea (Acute) Anxiety and depression (Chronic) Depression (Acute) Diverticulitis (Acute) Osteoarthritis (Acute) Osteoporosis (Acute) Sleep apnea (Acute) HTN (hypertension) (Chronic) Surgical History History of cataract surgery (Acute) History of gastrointestinal surgery (Acute) Family History Father COPD (chronic obstructive pulmonary disease) Alcoholism Mother Cancer Social History Smoking Status: Heavy Smoker (>10/day) alcohol intake: never substance use type: does not use Review of Systems Const CONSTITUTIONAL: Negative anorexia, body ache, chills, daytime sleepiness, fever(s), night sweats, oral thrush, stops breathing during sleep, weight loss, sleeping in chair, fatigue, weight loss, weight gain, frequent colds, seasonal allergies, other, headache(s) or orthopnea EETM Ear Nose Throat Mouth: Positive hearing normal; negative hard of hearing, hoarseness, dry mouth in morning, change in vision, itchy eyes, eye pain, swallowing Difficulty, ear pain, nose bleed, headache(s), mouth pain, nasal congestion, nasal discharge, post nasal drip, sinus pain, sinus pressure, sore throat or other Cardio Cardiovascular: Negative chest pain, chest pain at rest, chest pain with activity, irregular heart rhythm, edema, shortness of breath when lying down, palpitations, murmur or other Resp Respiratory: Positive as per HPI, shortness of breath shortness of breath: Positive with activity and cough cough: Positive productive color: Positive thick and white; negative pain with cough, wheezing, chest congestion, chest tightness, pain on inspiration, inhalers, increase use of rescue inhalers, snoring, apnea or other Gastro Gastrointestional: Negative bloody stools, change in appetite, difficulty swallowing, reflux, hematemesis, melena stool, loose stool, constipation or other Genitourinary: Negative blood in urine, nocturia, pain with urination or other Musc Musculoskeletal: Negative body pain, back pain, neck pain or other Skin/Breast Skin/Breast: Negative dry skin, itching, rash, unusual bruising, breast lump or other Neuro Neurological: Negative restless legs, confusion, weakness or other Psych Psychocological: Negative abnormal sleep pattern, anxiety, thoughts of hurting self/others, hopelessness or other Lymph Lymphatic: Negative easy bleeding, easy bruising, swollen lymph nodes or other Exam Const Constitutional: Positive conversant, cooperative, in no acute respiratory distress, well developed, well nourished, good hygiene and smells of smoke Head Head: Positive normocephalic and atraumatic; negative cyanosis of lips/distal nose Eyes Eye: Positive clear conjunctiva; negative nystagmus or scleral abnormality Ears Ear: Positive hearing normal and external ears normal; negative hard of hearing Nose Nose: Positive external nose normal; negative epistaxis Mouth Mouth: Positive oral mucosae normal and posterior oropharynx is adequate; negative no lesions or post nasal drip Mallampati Score: II: Mallampati Score Neck Neck: Positive normal visual inspection and trachea midline; negative lymphadenopathy Chest Wall Chest: Positive symmetric chest movement Normal AP diameter. Resp lung sounds: Positive clear to auscultation and good air exchange; negative wheezes, rhonchi or rales Cardio Cardiac: Positive regular rate, regular rhythm, S1 normal and S2 normal; negative rub, gallop or murmur GI GI: Positive normal bowel sounds Soft without distention Genitourinary: Positive deferred Musc Musculoskeletal: Positive steady gait Skin Pulmonary Skin Exam: Positive intact; negative lesion, ulcers, dermal atrophy or rash Pulses Pulse: Yes Pedal pulses present: Extremities Extremities: No clubbing, No cyanosis, No edema Neuro Neurologic: Yes conversant, Yes no focal neuro deficits, Yes cooperative Lymph Lymphatic: No lymphadenopathy Psych Appearance: Positive grossly normal Mental Status: Positive mental status grossly normal Mood: Positive congruent mood Affect: Positive normal affect Coding Level of Care Code Off vis,est,level 3 Diagnoses SANDRITA (obstructive sleep apnea) G47.33 Nicotine dependence, cigarettes, uncomplicated F17.210 06/23/18 0840 <Electronically signed by Jadiel Sánchez DO> Date Jadiel Sánchez DO Cosigner Signature: Date (if applicable) CC: AIRCRAFT ENGINE CYLINDER MECHANIC-C Danielito Dowd COMPREHENSIVE METABOLIC Collected: 06/10/2018 Status: F Source: [place] 4:04 PM [facility] REPOSITORY TYPE CODE TESTS RESULT OUT OF RANGE REFERENCE UNITS LAB L501.0100 74-106 mg/dL Normal GLU 86 Result Comment: Please note revised GLUCOSE reference range effective 2017. LAB L501.1000 7-18 mg/dL Normal BUN 16 LAB L501.1100 0.70-1.30 mg/dL Normal CREAT,SERUM 0.81 Result Comment: The validity of the calculated GFR AND GFRAA in patients over 70 years has not been determined. Clinical correlation is essential. LAB L501.1110 >60 mL/min Normal EST GFR 102 Result Comment: Non- GFR Calc LAB L501.1115 >60 mL/min Normal EST GFR - AA 123 Result Comment: GFR Calc LAB L501.1300 10-20 RATIO Normal BUN/CRE 19.8 LAB L501.1500 6.4-8.2 g/dL T Normal PROT 7.5 LAB L501.1800 3.2-5.0 g/dL Normal ALB 3.8 LAB L501.1950 2.2-4.2 g/dL Normal GLOB 3.7 LAB L501.2000 0.9-2.4 RATIO Normal A/G 1.0 LAB L501.2200 8.5-10.1 mg/dL CA Normal 8.8 LAB L501.4100 15-37 U/L Normal AST 22 LAB L501.4305 45-117 U/L Normal ALK P 99 LAB L501.4405 16-61 U/L Normal ALT 37 LAB L501.4600 0.20-1.00 mg/dL T Normal BILI 0.50 LAB L501.5300 136-145 mmol/L NA Normal 139 LAB L501.5600 3.5-5.1 mmol/L K Normal 3.9 LAB L501.5900 98-107 mmol/L CL Normal 105 LAB L501.6100 21.0-32.0 mmol/L Normal CO2 28.0 LAB L501.6200 5-15 Normal GAP 6 Performed By: #### L500.4050 #### [facility] [address] [place], [address] CBC W/DIFF, AUTOMATED Collected: 06/10/2018 Status: F Source: [place] 4:04 PM [facility] REPOSITORY TYPE CODE TESTS RESULT OUT OF RANGE REFERENCE UNITS LAB L100.1000 4.4-11.0 K/mm3 Normal WBC 8.1 LAB L100.1200 4.6-6.2 M/mm3 Low RBC 4.39 LAB L100.1300 13.0-16.5 g/dl Normal HGB 15.3 LAB L100.1400 40-54 % Normal HCT 44.1 LAB L100.1500 80-94 fL High MCV 100.5 LAB L100.1600 27.0-32.0 pg High MCH 34.9 LAB L100.1700 32-36 g/gl Normal MCHC 34.7 LAB L100.1810 11.6-14.6 % Normal RDW CV 12.3 LAB L100.1820 35.1-43.9 fl High RDW SD 44.8 LAB L100.1900 150-450 K/mm3 Normal PLT 255 LAB L100.2000 6.2-12.0 fl Normal MPV 8.8 LAB L100.2100 47-70 % Normal NEUT% 54.0 LAB L100.2200 19-41 % Normal LY% 32.9 LAB L100.2300 0-10 % High MONO% 10.2 LAB L100.2400 0-5 % Normal EO% 2.3 LAB L100.2500 0-1 % Normal BASO% 0.4 LAB L100.2550 0.0-0.9 % Normal IM GRAN % 0.200 Result Comment: IG% - Immature Granulocytes (promyelocytes, myelocytes and metamyelocytes) > 1% indicates that a LEFT SHIFT is Present. LAB L100.2620 2.0-7.7 X10 3/uL Normal Absolute Neut 4.4 LAB L100.2720 0.83-4.51 X10 3/ul Normal Absolute Lymph 2.67 Performed By: #### L100.0100 #### [facility] [address] [facility] [place], [address] PULMONARY FUNCTION Observed: 06/08/2018 Status: F Source: [place] REPORT COMP 3:05 PM [facility] REPOSITORY [facility] Pulmonary Services/Neurology [address] [place] [address] MR#: [id number] Acct: [id number] Name: CADENCEGENE Rep #: [id number] : 1955 62 From: Octaviano Matthews MD Referring Dr: Elida Hoyos AIRCRAFT ENGINE CYLINDER MECHANIC Status: REG CLI Ordering Dr: Date: Location: [facility] Sex: M C COMPLETE PULMONARY FUNCTION TEST INTERPRETATION Brief HPI: Patient is a 62 year old male, currently under the care of Elida Hoyos, who presents to [facility] for complete pulmonary function tests secondary to diagnosis of dyspnea. Respiratory therapist reports good effort and reproducible results. Patient did take maintenance medication 5 hours before testing. Interpretation: Forced expiration spirometry shows no large airways obstructive ventilatory defect with an FEV1 of 82% predicted. There is no significant bronchodilator response by strict ATS criteria. Spirograms are of good quality and plateau slowly, indicating slowly emptying areas of the lungs. The respiratory flow volume loop shows decreased expiratory flow rates at high lung volumes consistent with small airways obstruction. Lung volumes by body plethysmography show a normal total lung capacity at 6.99 L, 96% predicted. All other lung volumes are within normal limits. Diffusion capacity by carbon monoxide is normal at 103% predicted. The airway resistance is normal. No previous pulmonary function tests were available for review. Impression: These pulmonary function tests are grossly within normal limits. There are some subtle signs of possible small airways obstruction. 06/08/18 4482 <Electronically signed by Octaviano Matthews MD> Date Octaviano Matthews MD CC: AIRCRAFT ENGINE CYLINDER MECHANICWendy Dowd; Octaviano Matthews MD; Elida Hoyos Date Dictated: 06/08/181408 Date Transcribed: 06/08/181408 Heat And Vent Aircraft Mechanic: FEDERICO Signed THORACIC SPINE 2 Observed: 06/01/2018 Status: F Source: [place] VIEWS 4:16 PM [facility] REPOSITORY [facility] Imaging Services [address] [place] [address] Thoracic Spine 2 Views MR#: [id number] Acct: [id number] Name: CADENCEGENE Mcfarlane Rep #: [id number] : 1955 M 62 From: Lalit Phan MD PCP: DAVIS Bruce Status: REG CLI Study: Thoracic Spine 2 Views Date of Exam: 06/01/18 Exam# [id number] Ordering Dr: Danielito Dowd STUDY: X-RAY - THORACIC SPINE REASON FOR EXAM: Male, 62 years old. Pain. TECHNIQUE: 3 view(s) of the thoracic spine were obtained. COMPARISON: None. FINDINGS: Normal kyphosis of the thoracic spine. There is no substantial scoliosis. Normal thoracic vertebrae and endplates. Normal disc space heights. The soft tissue structures are unremarkable. RAD/Thoracic Spine 2 Views IMPRESSION: Unremarkable for age. Electronically Signed: Lalit Phan MD at 23:57 EDT , Service support , CC: AIRCRAFT ENGINE CYLINDER MECHANICWendy Dowd Heat And Vent Aircraft Mechanic: Signed LUMBAR SPINE 2 OR 3 Observed: 06/01/2018 Status: F Source: [place] VIEWS 4:16 PM [facility] REPOSITORY [facility] Imaging Services [address] [place] [address] Lumbar Spine 2 or 3 Views MR#: [id number] Acct: [id number] Name: CADENCEGENE Denys Rep #: [id number] : 1955 M 62 From: Lalit Phan MD PCP: DAVIS Bruce Status: REG CLI Study: Lumbar Spine 2 or 3 Views Date of Exam: 06/01/18 Exam# [id number] Ordering Dr: Danielito Dowd AIRCRAFT ENGINE CYLINDER MECHANIC-C STUDY: X-RAY - LUMBAR SPINE REASON FOR EXAM: Male, 62 years old. Pain. TECHNIQUE: 3 view(s) of the lumbar spine were obtained. COMPARISON: 12/16/2016 FINDINGS: Normal lumbar lordosis. There is no substantial scoliosis. There is a normal alignment of the vertebrae. Spondylosis and degenerative disc disease especially at L4- L5 and L5-S1. Findings have progressed since 12/16/2016. There is no demonstrated fracture. The soft tissue structures are unremarkable. RAD/Lumbar Spine 2 or 3 Views IMPRESSION: No acute abnormality. Multilevel lower lumbar spine degenerative changes worse than 12/16/2016. Electronically Signed: Lalit Phan MD at 23:58 EDT , Service support , CC: AIRCRAFT ENGINE CYLINDER MECHANIC-C Danielito Dowd Heat And Vent Aircraft Mechanic: Signed DISCHARGE INSTRUCTION Observed: 05/18/2018 Status: F Source: [place] 5:29 PM [facility] REPOSITORY [facility] Medical Records Department [address] [place] [address] Discharge Instruction 05/18/18 1728 MR#: [id number] Acct: [id number] Name: GENE VILA Rep #: [id number] : 1955 62 From: Luis Miguel Herron DO PCP: DAVIS Bruce Status: PRE ER ED Disposition - Plan for ED Patient: Chief Complaint: Back Instructions: ED Spasm Back No Trauma, ED Neck Back Pain General Prescriptions: Hydrocodone/Acetaminophen [Blue [place] 5-325 Tablet] 1 - 2 ea PO 4X/DAY PRN PRN 3 Days #12 tab PRN Reason: Pain Cyclobenzaprine [Flexeril] 10 mg PO TID PRN #20 tab PRN Reason: Muscle Spasm Referrals: Danielito Dowd NP-C [Primary Care Provider] - 3- 5 Days What to do if you have Problems For any increased pain, shortness of breath, bleeding, nausea or vomiting, chest pain, or any unexpected problems, contact your Primary Care Provider. Call [facility] ([phone]) or report to the closest Emergency Room. Call 911 if necessary. 05/18/18 1729 <Electronically signed by Luis Miguel Herron DO> Date Luis Miguel Herron DO Cosigner Signature (If Indicated): Date CC: DAVIS Dowd EMERGENCY DEPARTMENT Observed: 05/18/2018 Status: F Source: [place] SUMMARY 5:28 PM [facility] Medical Records Department [address] [place] [address] Emergency Department Summary 05/18/18 1726 MR#: [id number] Acct: [id number] Name: GENE VILA Rep #: [id number] : 1955 62 From: Luis Miguel Herron DO PCP: DAVIS Bruce Status: PRE ER - ER Visit Summary Date of Service: 05/18/18 Chief Complaint: [Back pain] History of Present Illness: The patient is a 62 M [presents the emergency department complaint of back pain that started this morning around 9 AM. Patient does have a history of chronic back pain issues that he has had for years. Patient states that about 3 times a year he will get a flareup but for the most part typically he can manage his pain at home with Tylenol. Patient denies any pain radiating down his legs. He denies any change in bowel or bladder function. He denies any weakness in extremities. He denies any fall or trauma. He is not on any heavy lifting. Patient denies urinary symptoms. He denies any fever.] Physical Examination: [HEENT-PERRLA, EOMI. Cranial nerves II through XII grossly intact. TMs clear. Mucous membranes moist. No adenopathy. Cardiovascular-regular rate and rhythm without murmur or ectopy Lungs-clear to auscultation, chest wall stable without crepitus or subcu emphysema Abdomen-normoactive bowel sounds, soft, nontender, no rebound or rigidity, no peritoneal signs. Back exam-patient does have tenderness palpation over the left lower lumbar paraspinal musculature into the left iliac crest. Patient also has some mild tenderness over the right lumbar paraspinal musculature. No significant tenderness in the midline of the lumbar spine. Patient has negative straight leg raises. Deep tendon reflexes are plus 2 out of 4 bilaterally at the patella and Achilles. Patient has normal L5 extension bilaterally. Extremities-intact 4, normal range of motion, normal pulses, atraumatic] Test Results: [None indicated] Emergency Department Course and Treatment: [Patient was given a prescription for Blue [place] and Flexeril. Patient advised to follow-up with his primary care physician.] Treatment Plan: [Follow-up with primary care physician and given a prescription for [place] and Flexeril.] Disposition: [Discharged home in stable condition] Impression: [Acute exacerbation of chronic back pain] This note was generated with [employer] dictation software. It may contain incorrect words, spelling, and punctuation that were not noted in review of the chart prior to signing ED Disposition - Plan for ED Patient: Chief Complaint: Back Referrals: Danielito Dowd, HAFSA-C [Primary Care Provider] - What to do if you have Problems For any increased pain, shortness of breath, bleeding, nausea or vomiting, chest pain, or any unexpected problems, contact your Primary Care Provider. Call [employer] [facility] ([phone]) or report to the closest Emergency Room. Call 911 if necessary. 05/18/18 1728 <Electronically signed by Luis Miguel Herron DO> Date Luis Miguel Herron DO Cosigner Signature (If Indicated): Date CC: DAVIS Dowd PULMONARY VISIT REPORT Observed: 03/16/2018 Status: F Source: [place] 10:01 AM [facility] REPOSITORY [facility] [address] [place] [address] OFFICE VISIT Date of Service: 03/16/18 MR#: [id number] Acct: [id number] Name: GENE VILA Rep #: [id number] : 1955 Provider: Elida Hoyos Age/Sex: 62/M Location: [facility] [place].[facility] Status: Signed Assessment AND Plan 1. SANDRITA (obstructive sleep apnea) G47.33 Plan New. Titration study completed but therapy has yet to be initiated. Lengthy discussion about the pathophysiology of obstructive sleep apnea. The patient understands that initially the goal is to wear the device at least 4 hours nightly. He also understands that ultimately he is to wear it any time spent sleeping. He has been encouraged to contact the office with any difficulties acclimating to the device. Follow-up with Dr. Sánchez in 3 months. Orders Orders: 2. Chronic obstructive pulmonary disease, unspecified COPD type J44.9 Plan Plan for complete pulmonary function test to accurately identify and quantify COPD. Patient's inhaler regimen may need altered slightly, this was discussed and anticipate changes after PFTs are obtained. He has been encouraged to contact the office with any symptoms of a COPD exacerbation. 3. Smoking greater than 30 pack years F17.210 Plan Continues to smoke 1 pack per day. 12 minute [id number]-oc-loar conversation regarding smoking cessation. The patient is agreeable to trying Chantix again. After discussing the psychological addiction to cigarettes and the need for developing a plan, the patient reports that he feels as though he may be able to be successful this time. Plan to use Chantix and tootsie pops/dum dum suckers when triggers occur. Follow- up in 3 months. Orders Orders: Plan Detail Other Orders Orders: Other Medications New: Follow Up 3 Months (DMBinh) HPI Sleep concern: Chief Complaint: Daytime hypersomnia HPI Comments Details: This patient presents to the office today for initial consultation regarding newly identified obstructive sleep apnea. The patient is ambulatory and currently on room air. Currently, he experiences persistent daytime hypersomnia. He is not feeling rested. He naps daily for anywhere between 30 minutes and 2 hours. He has episodes of nocturia. He has a dry mouth in the morning. He has been noted to snore. He reports that his primary care physician was concerned about hypertension and the link between obstructive sleep apnea, therefore sent him for a polysomnogram. He also reports that he has had spirometry done in the office in the past. He has been diagnosed with COPD and continues to smoke 1 pack per day. He is currently on in Marvin daily, Asmanex twice daily and is using his rescue inhaler several times each day. He does report that the use of the rescue inhaler does provide him with temporary relief of his shortness of breath. He is experiencing shortness of breath on exertion, and reports that he is more short of breath when working outdoors. He has occasional wheezing and chest tightness. He denies any cough, sputum production or hemoptysis. He denies any chest pain or palpitations. He also denies any lower extremity edema. He has not experienced any fever, chills or body aches. See complete review of systems. He reports that in the past he has tried cold turkey to quit smoking. That lasted about 48 hours. He has also tried Chantix, which was unsuccessful. He did not have any ill side effects from the Chantix, did report vivid dreams but did not have nightmares. Polysomnogram completed on February 08, 2018 is interpreted as showing mild to moderate obstructive sleep apnea. The overall AHI was found to be 15 events per hour, noted to be 11.9 events in the REM stage of sleep a significantly higher with an average of 94.3 events per hour in the supine position. A CPAP titration was recommended. 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 Required: No Accompanied by: None Is patient in pain?: No Allergies Penicillins Allergy (Verified 01/01/18 20:00) Shortness of breath Medications Albuterol Inhaler [Ventolin Hfa (SP)] 1 puff INHALATION Q6H PRN PRN 01/16/17 [History Confirmed 01/01/18] Umeclidinium Brm/Vilanterol Tr [Anoro Ellipta 62.5-25 Mcg INH] 1 puff INHALATION DAILY 12/21/17 [History Confirmed 01/01/18] Cephalexin [Keflex] 500 mg PO Q6 #28 cap 01/01/18 [Rx] Metoprolol(XL)Succ [Toprol Xl (Beta Eufemia)] 25 mg PO DAILY 01/01/18 [History Confirmed 01/01/18] duloxetine 30 mg capsule,delayed release 30 mg PO QDAY 03/16/18 [History Confirmed 03/16/18] mometasone 220 mcg (60 doses) breath activated powder inhaler INHALATION 60 Days #1 03/16/18 [History Confirmed 03/16/18] varenicline 0.5 mg (11)-1 mg (42) tablets in a dose pack See Label Instructions PO PER PKG DIR #53 tab 03/16/18 [Rx Confirmed 03/16/18] PFSH Medical History Chest pain (Acute) Nephrolithiasis (Chronic) COPD (chronic obstructive pulmonary disease) (Chronic) Smoking greater than 30 pack years (Chronic) HLD (hyperlipidemia) (Chronic) Back pain (Chronic) Abnormal ECG (Acute) MRSA (methicillin resistant Staphylococcus aureus) (Acute) Smoker (Chronic) tenosynovitis left hand (Acute) Cutaneous abscess of left hand (Acute) Dyspnea (Acute) Anxiety and depression (Chronic) Depression (Acute) Diverticulitis (Acute) Osteoarthritis (Acute) Osteoporosis (Acute) Sleep apnea (Acute) HTN (hypertension) (Chronic) Surgical History History of cataract surgery (Acute) History of gastrointestinal surgery (Acute) Family History Father COPD (chronic obstructive pulmonary disease) Alcoholism Mother Cancer Social History Smoking Status: Heavy Smoker (>10/day) alcohol intake: never substance use type: does not use Review of Systems Const CONSTITUTIONAL: Positive fatigue; negative anorexia, body ache, chills, daytime sleepiness, fever(s), night sweats, oral thrush, stops breathing during sleep, weight loss, sleeping in chair, weight loss, weight gain, frequent colds, seasonal allergies, other, headache(s) or orthopnea EETM Ear Nose Throat Mouth: Positive hearing normal; negative hard of hearing, hoarseness, dry mouth in morning, change in vision, itchy eyes, eye pain, swallowing Difficulty, ear pain, nose bleed, headache(s), mouth pain, nasal congestion, nasal discharge, post nasal drip, sinus pain, sinus pressure, sore throat or other Cardio Cardiovascular: Negative chest pain, chest pain at rest, chest pain with activity, irregular heart rhythm, edema, shortness of breath when lying down, palpitations, murmur or other Resp Respiratory: Positive shortness of breath shortness of breath: Positive with activity, wheezing (occasional wheezing) and apnea; negative as per HPI, pain with cough, chest congestion, cough, chest tightness, pain on inspiration, inhalers, increase use of rescue inhalers, snoring or other Gastro Gastrointestional: Positive reflux; negative bloody stools, change in appetite, difficulty swallowing, hematemesis, melena stool, loose stool, constipation or other Genitourinary: Negative blood in urine, nocturia, pain with urination or other Musc Musculoskeletal: Negative body pain, back pain, neck pain or other Skin/Breast Skin/Breast: Negative dry skin, itching, rash, unusual bruising, breast lump or other Neuro Neurological: Negative restless legs, confusion, weakness or other Psych Psychocological: Negative abnormal sleep pattern, anxiety, thoughts of hurting self/others, hopelessness or other Lymph Lymphatic: Negative easy bleeding, easy bruising, swollen lymph nodes or other Exam Const Constitutional: Positive conversant, cooperative, in no acute respiratory distress, healthy appearing, well developed, well nourished and good hygiene Head Head: Positive normocephalic, atraumatic and other; negative cyanosis of lips/distal nose Eyes Eye: Positive clear conjunctiva; negative nystagmus or scleral abnormality Ears Ear: Positive hearing normal and external ears normal; negative hard of hearing Nose Nose: Negative epistaxis Mouth Mouth: Positive other (micronathy), oral mucosae normal and no lesions; negative post nasal drip or malodorous breath Mallampati Score: I: Mallampati Score Neck Neck: Positive normal visual inspection, full ROM and trachea midline; negative lymphadenopathy, JVD or tender Chest Wall Chest: Positive normal inspection of the chest and symmetric chest movement; negative increased A/P diameter Resp lung sounds: Positive clear to auscultation, good air exchange, normal expiratory time and normal respiratory effort; negative diminished, wheezes, rhonchi, rales, dullness to percussion or wheeze present on forced exhalation Cardio Cardiac: Negative murmur GI GI: Positive normal to inspection and normal bowel sounds; negative distended Genitourinary: Positive deferred Musc Musculoskeletal: Positive steady gait and ROM normal; negative kyphosis or scoliosis Skin Pulmonary Skin Exam: Negative rash Neuro Neurologic: Yes conversant Lymph Lymphatic: No lymphadenopathy Psych Appearance: Positive grossly normal, eye contact and well kempt Mental Status: Positive mental status grossly normal Affect: Positive normal affect Office Procedures Smoking Cessation Time Spent greater than 10 minutes: Yes Coding Level of Care Code Off vis,new,level 4 Diagnoses SANDRITA (obstructive sleep apnea) G47.33 Chronic obstructive pulmonary disease, unspecified COPD type J44.9 COPD type: unspecified COPD Smoking greater than 30 pack years F17.210 Additional Codes Time Spent - greater than 10 minutes: Yes ([id number]) 03/16/18 1001 <Electronically signed by Elida CANNON> Date Elida CANNON Cosigner Signature: Date (if applicable) CC: DAVIS Dowd EMERGENCY DEPARTMENT Observed: 01/02/2018 Status: F Source: [place] SUMMARY 1:26 AM [facility] REPOSITORY [facility] Medical Records Department [address] [place] [address] Emergency Department Summary 01/01/18 2201 MR#: [id number] Acct: [id number] Name: GENE VILA Rep #: [id number] : 1955 62 From: James Diamond DO PCP: DAVIS Bruce Status: DEP ER - ER Visit Summary Date of Service: 01/01/18 Chief Complaint: Left thumb laceration History of Present Illness: The patient is a 62 M sizes left thumb on a knife while trying to repair his motorcycle. Notes his last tetanus was 7 years ago. He is right-handed. Physical Examination: Afebrile vital signs are stable He is neurovascular intact distal to the injury of the left thumb. There is a 1.5 cm linear laceration of the lateral aspect of the thumb. There is a 2.5 cm laceration over the medial aspect of the left thumb. The medial laceration demonstrates a arterial on the skin that is having arterial bleeding. Emergency Department Course and Treatment: The small arterial was tied off using 5-0 Vicryl suture. Once bleeding control was obtained the thumb was digitally blocked using 1% lidocaine. The lateral laceration was washed with Shur-Clens and explored. This was closed using 3 simple interrupted 4-0 simple interrupted Ethilon sutures. The medial laceration was irrigated and explored and washed. It was closed using 5 4-0 simple interrupted Ethilon sutures. Post suturing the thumb was reassessed he continues to be neurovascularly intact distally. There is no obvious joint or bone involvement that I could see. Tendon function is normal. Patient will follow up with primary care 10-14 days for suture removal. Return if worsening or concerns Impression: 1. 2.5 cm and 1.5 cm left thumb laceration with repair This note was generated with [employer] dictation software. It may contain incorrect words, spelling, and punctuation that were not noted in review of the chart prior to signing ED Disposition - Plan for ED Patient: Disposition: Home or Assisted Living Chief Complaint: Laceration Instructions: ED Laceration Hand Prescriptions: Cephalexin [Keflex] 500 mg PO Q6 #28 cap Referrals: Danielito Dowd NP-C [Primary Care Provider] - 10- 14 Days suture removal Additional Instructions: Return if worsening or concerns. What to do if you have Problems For any increased pain, shortness of breath, bleeding, nausea or vomiting, chest pain, or any unexpected problems, contact your Primary Care Provider. Call [facility] ([phone]) or report to the closest Emergency Room. Call 911 if necessary. 01/02/18 0126 <Electronically signed by James Diamond DO> Date James Diamond DO Cosigner Signature (If Indicated): Date CC: DAVIS Dowd EMERGENCY DEPARTMENT Observed: 12/21/2017 Status: F Source: [place] SUMMARY 3:06 PM [facility] REPOSITORY [facility] Medical Records Department [address] [place] [address] Emergency Department Summary 12/21/17 1501 MR#: [id number] Acct: [id number] Name: CADENCEGENE Rep #: [id number] : 1955 62 From: Tremayne Irvin MD PCP: Danielito Dowd Status: REG ER - ER Visit Summary Date of Service: 12/21/17 Chief Complaint: Atraumatic bilateral low back pain History of Present Illness: The patient is a 62 M who presents with atraumatic bilateral low back pain that started 3 days ago. He denies bowel bladder dysfunction. Denies radicular pain. No saddle anesthesia or paresthesia. Denies foot drop or weakness in his thigh muscles going up or down steps. Any type of movement exacerbates his pain. He has no preference regarding sitting or standing. He commented that rising from a sitting position or going to a sitting position or standing position cause some discomfort. He denies fever, chills night sweats. He denies any GI symptoms. He denies any symptoms. Please read written note for complete detail Physical Examination: Blood pressure is elevated 179 100. HEENT exam is unremarkable. Heart is regular without murmur, gallop or rub. S1 and S2 are normal. Lungs are clear to auscultation with good movement of air bilaterally. Abdomen is soft nontender no palpable cell mass or abdominal bruit. There is no guarding or rebound tenderness. There is no CVA tenderness noted. There is no evident patient of the pelvis. There is no inguinal lymphadenopathy. There is no evidence of hernia. Straight leg test is negative bilaterally. DTRs of the patella and ankle are 2+ and symmetric. There is no clonus or Babinski sign noted. EHL is intact. He has normal sensation. Movement exacerbates his pain. He has palpable DP and PT pulse, 2+. Test Results: None are indicated Emergency Department Course and Treatment: Rest, ice, NSAID and short course of Blue Springs. Treatment Plan: Prescription for Blue [place] and follow-up with his primary care provider Danielito Cedillo for blood pressure reading assessment since it is elevated and he has no history of blood pressure and the fact that he is asymptomatic. Disposition: Discharged to home Impression: 1. Bilateral low back pain lumbar sacral strain 2. History of degenerative disc disease 3. Elevated blood pressure asymptomatic in nonhypertensive patient This note was generated with [employer] dictation software. It may contain incorrect words, spelling, and punctuation that were not noted in review of the chart prior to signing ED Disposition - Plan for ED Patient: Disposition: Home or Assisted Living Chief Complaint: Back Instructions: ED Sprain Strain Lumbar, ED Hypertension Poss Prescriptions: Hydrocodone Bitart/Apap 5-325 [Blue [place] 5MG-325MG] 1 tab PO Q6H PRN PRN 3 Days #10 tab PRN Reason: Pain Referrals: Danielito Dowd [Primary Care Provider] - 1 Week What to do if you have Problems For any increased pain, shortness of breath, bleeding, nausea or vomiting, chest pain, or any unexpected problems, contact your Primary Care Provider. Call [facility] ([phone]) or report to the closest Emergency Room. Call 911 if necessary. 12/21/17 1508 <Electronically signed by Tremayne Irvin MD> Date Tremayne Irvin MD Cosigner Signature (If Indicated): Date CC: Danielito Dowd EMERGENCY DEPARTMENT Observed: 10/08/2017 Status: F Source: [place] SUMMARY 5:54 PM [facility] REPOSITORY [facility] Medical Records Department [address] [place] [address] Emergency Department Summary 10/08/17 1701 MR#: [id number] Acct: [id number] Name: GENE VILA Rep #: [id number] : 1955 61 From: Mike Pradhan PCP: David Garvin Status: REG ER - ER Visit Summary Date of Service: 10/08/17 Chief Complaint: Wound check History of Present Illness: The patient is a 61 M evaluation of bump lateral to left nose yesterday, enlarging, tender. No drainage. No fevers. No history of diabetes. Concerned due to history of MRSA to his right arm in the past. Penicillin allergy. No other complaints. Physical Examination: General: Alert and oriented 3, no acute distress HEENT: Normocephalic, atraumatic. His redness throughout his face with sparing around ocular region scaly lesions which is chronic per patient. There is a nodule fluctuance 1 cm lateral left nasal region, tender to palpation. Moist mucosa membranes Neck: supple, nontender. Cardiovascular: Regular rate and rhythm, no murmurs Respiratory: Normal breath sounds, symmetric, no distress Abdomen: Soft, nontender, nondistended Extremities: Nontender, no edema, pulses intact 4 Neuro: no focal neurological deficits. Test Results: [] Emergency Department Course and Treatment: Patient chronic erythema of his face. Nodule is new with fluctuance. History of MRSA, started on Bactrim. Due to flexion discuss needle decompression for which she agreed. 18-gauge was used and sterile conditions, start blood return with no exudates. He tolerated it well. Wound care discussed. He will continue Bactrim and follow-up with his PCP. Return if any worsening symptoms. All questions were answered. Treatment Plan: [] Disposition: Discharge Impression: 1. Facial boil status post needle decompression This note was generated with [employer] software. It may contain incorrect words, spelling, and punctuation that were not noted in review of the chart prior to signing ED Disposition - Plan for ED Patient: Disposition: Home or Assisted Living Chief Complaint: Wound Check Diagnosis: Boil Instructions: ED Abscess IandD Prescriptions: Smz/Tmp Ds [Bactrim Ds] 1 tablet PO BID #20 tablet Referrals: David Garvin [Primary Care Provider] - 3-5 Days What to do if you have Problems For any increased pain, shortness of breath, bleeding, nausea or vomiting, chest pain, or any unexpected problems, contact your Primary Care Provider. Call [facility] ([phone]) or report to the closest Emergency Room. Call 911 if necessary. 10/08/17 9626 <Electronically signed by Mike Pradhan> Date Mike Pradhan Cosigner Signature (If Indicated): Date CC: David Garvin ALLERGIES ALLERGIES DATE TYPE / CODE NAME / CODE REACTION SEVERITY SOURCE 07/22/2018 Drug Penicillins/ Shortness of Unknown [facility] Allergy/4160 [id number]([facility] [address]36(SNOMED XNORM) Repository CT) ENCOUNTERS ENCOUNTERS ADMIT/DISCHARGE ACCOUNT NUMBER ADMITTING ENCOUNTER LOCATION SOURCE CLASS 07/22/2018/07/22/20 [id number] Ambulatory BMSBuilding: Adrian 18 BMS.[facility] Repository 07/12/2018/07/12/20 [id number] Ambulatory BMSBuilding: Adrian 18 [facility] Repository 07/06/2018/07/08/20 [id number] Ambulatory BMSBuilding: Adrian 18 [facility] Repository 07/06/2018/07/08/20 [id number] Oliver Murillo Inpatient Avery Adrian 18 Encounter [facility] ding:JN1Drle Repository : TV056Jqh: 1 07/06/2018 [id number] Oliver Murillo Ambulatory BMSBuilding: Avery BMS.[facility] Repository 07/06/2018 [id number] Oliver Murillo Ambulatory BMSBuilding: Adrian BMS.[facility] Repository 07/06/2018 [id number] Oliver Murillo [facility] 07/03/2018/07/03/20 [id number] Emergency [address] ding:ED Repository 06/29/2018/06/29/20 [id number] Ambulatory BBuilding:CV [address] Repository 06/23/2018/06/23/20 [id number] Ambulatory BMSBuilding: Avery 18 BMS.[facility] Repository 06/10/2018/07/09/20 [id number] Ambulatory [address] ding:LAB Repository 06/08/2018 [id number] Ambulatory [facility] ding:PSN Repository 06/08/2018 [id number] Ambulatory BMSBuilding: Avery [facility] Repository 06/01/2018 [id number] Ambulatory [facility] ding:RAD Repository 05/27/2018 [id number] Ambulatory [facility] ding:SL Repository 05/18/2018/05/18/20 [id number] Emergency [address] ding:ED Repository 03/16/2018/03/16/20 [id number] Ambulatory BMSBuilding: Adrian 18 BMS.[facility] Repository 03/03/2018 [id number] Ambulatory [facility] ding:SL Repository 02/08/2018 [id number] Ambulatory [facility] ding:SL Repository 01/01/2018/01/02/20 [id number] Emergency [address] ding:ED Repository 12/21/2017/12/22/19 [id number] Emergency [address] ding:ED Repository 10/08/2017/10/09/19 [id number] Emergency Adrian Adrian 18 [facility] ding:ED Repository PAYERS PAYERS ENCOUNTER GUARANTOR PAYER 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 SOURCE 07/22/2018 GENE Mcfarlane Primary Insurance:[facility] GENE D Avery [id number] E COMMUNITY PLANPolicy MELLINGERDOB: [facility] NO STAPT Number: [id number] [id number] Repository [address]Egx: (330) Date:3696-35-15NO [phone] () [address] [place], [place] [address]WP: 07/22/2018 Secondary NOT GIVENUNK Avery Insurance:SELF PAY [facility] Number: Effective Repository Date:2018-07-22 07/12/2018 GENE Mcfarlane Primary Insurance:[facility] GENE D Avery [id number] E [facility] PLANPolicy [facility] Number: [id number], [place] [id number] Repository 95[address]Dno: (330) Date:8398-75-41UR [phone] () [address] [place] [address] 10969YD: 07/12/2018 Secondary NOT GIVENUNK Adrian Insurance:SELF PAY [facility] Number: Effective Repository Date:2018-07-12 07/06/2018 GENE Mcfarlane Primary Insurance:[facility] GENE Mcfarlane Adrian [id number] E [facility] PLANPolicy MELLINGERDOB: [facility] NO STAPT Number: [id number], [place] [id number] Repository [address]Ome: (330) Date:8255-32-21HV [phone] () [address] [place] [address] 61277OF: 07/06/2018 Secondary NOT GIVENUNK Avery Insurance:SELF PAY [facility] Number: Effective Repository Date:2018-07-06 07/06/2018 GENE Mcfarlane Primary Insurance:[facility] GENE D Adrian [id number] E [facility] PLANPolicy MELLINGERDOB: [facility] NO STAPT Number: [id number], [place] [id number] Repository 44793Qxu: (330) Date:1936-24-75RX [phone] () [address] [place] [address] 71940HG: 07/06/2018 Secondary NOT GIVENUNK Avery Insurance:SELF PAY [facility] Effective Repository Date:2018-07-06 07/06/2018 GENE Mcfarlane Primary Insurance:[facility] GENE D Adrian [id number] E COMMUNITY PLANPolicy MELLINGERDOB: Community NO STAPT Number: [id number], [place] [id number] Repository 06612Xkk: (330) Date:2881-23-37UV [phone] () [address] [place] [address] 61880LM: 07/06/2018 Secondary NOT GIVENUNK Avery Insurance:SELF PAY [facility] Number: Effective Repository Date:2018-07-06 07/06/2018 GENE Mcfarlane Primary Insurance:[facility] GENE D Adrian [id number] E COMMUNITY PLANPolicy MELLINGERDOB: Community NO STAPT Number: [id number], [place] [id number] Repository 32075Rrr: (330) Date:1505-58-75UQ [phone] () [address] [place] [address] 22190YC: 07/06/2018 Secondary NOT GIVENUNK Avery Insurance:SELF PAY [facility] Number: Effective Repository Date:2018-07-06 07/06/2018 GENE Mcfarlane Primary Insurance:[facility] GENE D Adrian [id number] E COMMUNITY PLANPolicy MELLINGERDOB: Community NO STAPT Number: [id number], [place] [id number] Repository 71397Vko: (330) Date:0984-50-24QI [phone] () [address] [place] [address] 74428BI: 07/06/2018 Secondary NOT GIVENUNK Adrian Insurance:SELF PAY [facility] Number: Effective Repository Date:2018-07-06 07/03/2018 GENE Mcfarlane Primary Insurance:[facility] GENE D Adrian [id number] E COMMUNITY PLANPolicy MELLINGERDOB: William MCDOWELL Number: [id number], [place] [id number] Repository 89784Mpx: (330) Date:9113-45-65HK [phone] () [address] [place] [address] 24522DP: 07/03/2018 Secondary NOT GIVENUNK Adrian Insurance:SELF PAY [facility] Number: Effective Repository Date:2018-07-03 06/29/2018 GENE Primary [facility] MELLINGERDOB: [facility] [id number] [facility] [id number] Repository ROSA NO [facility] Number: [place] [id number] [place], [place] [address]Kbn: (330) Date:2018-06-29 67603Dqg: () 0172-50-23Qifl [phone] Name:HARSHAO Olivia ()Tel: [address] [place] [address] [phone] () 76956SG: 06/23/2018 GENE Mcfarlane Primary Insurance:[facility] GENE Denys PRICEINGER353 E [facility] MELLINGERDOB: William MCDOWELL Number: [id number], [place] [id number] Repository 31155Khi: (330) Date:3812-93-34ZR [phone] () [address] [place] [address] 47496GB: 06/23/2018 Secondary NOT GIVENUNK Avery Insurance:SELF PAY [facility] Number: Effective Repository Date:2018-06-16 06/10/2018 GENE D Primary Insurance:[facility] GENE D Avery [id number] E [facility] PLANPolicy MELLINGERDOB: William MCDOWELL Number: [id number], [place] [id number] Repository 51365Kdn: (330) Date:7166-73-32KG [phone] () [address] [place] [address] 41131MB: 06/10/2018 Secondary NOT GIVENUNK Adrian Insurance:SELF PAY [facility] Number: Effective Repository Date:2018-06-10 06/08/2018 GENE Mcfarlane Primary Insurance:[facility] GENE D Adrian [id number] E COMMUNITY PLANPolicy MELLINGERDOB: Community NO STAPT Number: [id number], [place] [id number] Repository 28540Xsg: (330) Date:3101-59-26EY [phone] () [address] [place] [address] 63947RE: 06/08/2018 Secondary NOT GIVENUNK Avery Insurance:SELF PAY [facility] Number: Effective Repository Date:2018-03-16 06/08/2018 GENE Mcfarlane Primary Insurance:[facility] GENE D Avery [id number] E COMMUNITY PLANPolicy MELLINGERDOB: [facility] NO STAPT Number: [id number], [place] [id number] Repository 62035Ubr: 330) Date:9707-44-08CK [phone] () [address] [place] [address] 61560WW: 06/08/2018 Secondary NOT GIVENUNK Avery Insurance:SELF PAY [facility] Number: Effective Repository Date:2018-06-08 06/01/2018 GENE Mcfarlane Primary Insurance:[facility] GENE D Adrian [id number] 1/2 COMMUNITY PLANPolicy MELLINGERDOB: Community E [address] STAPT Number: [id number], [place] [id number] Repository 37854Lgf: 330) Date:5349-77-85NC [phone] () [address] [place] [address] 17096QJ: 06/01/2018 Secondary NOT GIVENUNK Adrian Insurance:SELF PAY [facility] Number: Effective Repository Date:2018-06-01 05/27/2018 GENE Mcfarlane Primary Insurance:[facility] GENE D Avery [id number] 1/2 COMMUNITY PLANPolicy MELLINGERDOB: Community E [address]APT Number: [id number], [place] [id number] Repository 45041Baj: (330) Date:3190-72-98HZ [phone] () [address] [place] [address] 67558ON: 05/27/2018 Secondary NOT GIVENUNK Adrian Insurance:SELF PAY [facility] Number: Effective Repository Date:2018-05-19 05/18/2018 GENE D Primary Insurance:[facility] GENE D Avery [id number] 1/2 COMMUNITY PLANPolicy MELLINGERDOB: Community E [address]APT Number: [id number], [place] [id number] Repository 20163Lca: (330) Date:8557-82-73ZV [phone] () [address] [place] [address] 16993IY: 05/18/2018 Secondary NOT GIVENUNK Avery Insurance:SELF PAY [facility] Number: Effective Repository Date:2018-05-18 03/16/2018 GENE D Primary Insurance:[facility] GENE D Avery [id number] 1/2 COMMUNITY PLANPolicy MELLINGERDOB: Community E [address]APT Number: [id number], [place] [id number] Repository 87780Yqv: (330) Date:8771-96-25SG [phone] () [address] [place] [address] 43873KT: 03/16/2018 Secondary NOT GIVENUNK Adrian Insurance:SELF PAY [facility] Number: Effective Repository Date:2018-03-09 03/03/2018 GENE D Primary Insurance:[facility] GENE D Avery [id number] 1/2 COMMUNITY PLANPolicy MELLINGERDOB: Community E [address]APT Number: [id number], [place] [id number] Repository 87624Avq: (330) Date:7393-47-34EM [phone] () [address] [place] [address] 24376CI: 03/03/2018 Secondary NOT GIVENUNK Adrian Insurance:SELF PAY [facility] Number: Effective Repository Date:2018-02-22 02/08/2018 GENE Mcfarlane Primary Insurance:[facility] GENE D Avery [id number] 1/2 COMMUNITY PLANPolicy MELLINGERDOB: Community E [address]APT Number: [id number], [place] [id number] Repository 71971Uhq: (330) Date:3098-60-44JX [phone] () [address] [place], [place] [address]757[address]WP: 02/08/2018 Secondary NOT GIVENUNK Avery Insurance:SELF PAY [facility] Number: Effective Repository Date:2018-01-26 01/01/2018 Gene Mcfarlane Primary Insurance:[facility] Gene D Adrian [id number] COMMUNITY PLANPolicy MellingerDOB: [facility] E NO STAPT Number: [id number], [place] [id number] Repository 80169Uuj: (330) Date:5471-80-63DE [phone] () [address] [place], [place] [address]WP: 01/01/2018 Secondary NOT GIVENUNK Adrian Insurance:SELF PAY [facility] Number: Effective Repository Date:2018-01-01 12/21/2017 Gene Mcfarlane Primary Insurance:[facility] Gene D Avery [id number] 1/2 COMMUNITY PLANPolicy MellingerDOB: Community E [address] Number: [id number], [place] [id number] Repository 25097Nrp: (330) Date:5439-77-77HW [phone] () [address] [place] [address] 41462FL: 12/21/2017 Secondary NOT GIVENUNK Adrian Insurance:SELF PAY [facility] Number: Effective Repository Date:2017-12-21 10/08/2017 Gene Mcfarlane Primary Insurance:[facility] Gene D Avery [id number] 1/2 COMMUNITY PLANPolicy MellingerDOB: Community E [address]APT Number: [id number], [place] [id number] Repository 27825Uvl: (330) Date:7062-96-42BL [phone] () [place], [place] [address]UA: 10/08/2017 Secondary NOT GIVENUNK Avery Insurance:SELF PAY [facility]: Effective Repository Date:2017-10-08
--- OUTSIDE RECORDS SUMMARY | 2018-08-18 05:09 | XMS RPT_ITS ---
:1955 Author Organization OHIP Support Name Relationship Address Phone [address] Unavailable [address] + [place] [address] + [place] [address] + [place] [address] Un[address] + [place] [address] Un[address] + [place] [address] + [place] [address] + [place] [address] + [place] [address] Un[address] + [place] [address]available [address] + [place] [address] Un[address] + [place] [address] + [place] [address] + [place] [address] + [place] [address] + [place] [address] + [place] [address] + [place] [address] + [place] [address] + [place] [address] + [place] [address] + [place] [address] Care Team Providers Name Role Phone DANIELITO DOWD CNP Attending Unavailable DANIELITO DOWD CNP Primary Care Unavailable Oliver Murillo Attending Unavailable Danielito Dowd MECHANICAL ORDNANCE ASSEMBLER-C Referring Unavailable Fabiola Flynn Attending Unavailable Danielito oDwd MECHANICAL ORDNANCE ASSEMBLER-C Referring Unavailable David Garvin Primary Care Unavailable Mike Angela Attending Unavailable Tremayne Irvin Attending Unavailable DANIELITO DOWD Primary Care Unavailable James Diamond Attending Unavailable Danielito Dowd MECHANICAL ORDNANCE ASSEMBLER-C Primary Care Unavailable Danielito Dowd MECHANICAL ORDNANCE ASSEMBLER-C Attending Unavailable Danielito Dowd MECHANICAL ORDNANCE ASSEMBLER-C Primary Care Unavailable Danielito Dowd MECHANICAL ORDNANCE ASSEMBLER-C Attending Unavailable Danielito Dowd MECHANICAL ORDNANCE ASSEMBLER-C Primary Care Unavailable Elida Hoyos Attending Unavailable Danielito Dowd MECHANICAL ORDNANCE ASSEMBLER-C Referring Unavailable Danielito Dowd MECHANICAL ORDNANCE ASSEMBLER-C Primary Care Unavailable Luis Miguel Herron Attending Unavailable Danielito Dowd MECHANICAL ORDNANCE ASSEMBLER-C Attending Unavailable Danielito Dowd MECHANICAL ORDNANCE ASSEMBLER-C Primary Care Unavailable Danielito Dowd MECHANICAL ORDNANCE ASSEMBLER-C Attending Unavailable Danielito Dowd MECHANICAL ORDNANCE ASSEMBLER-C Referring Unavailable Danielito Dowd MECHANICAL ORDNANCE ASSEMBLER-C Primary Care Unavailable Elida Hoyos Attending Unavailable Elida Hoyos Referring Unavailable Danielito Dowd MECHANICAL ORDNANCE ASSEMBLER-C Primary Care Unavailable Danielito Wiseman Attending Unavailable Danielito Wiseman Referring Unavailable Danielito Wiseman Primary Care Unavailable Octaviano Matthews Attending Unavailable Elida Hoyos Referring Unavailable Jadiel Sánchez D.O. Attending Unavailable Danielito Dowd MECHANICAL ORDNANCE ASSEMBLER-C Referring Unavailable Tomkins, Danielito Primary Care Unavailable [...] Oliver Consulting Unavailable Slaby, Oliver Attending Unavailable [place], Danielito Beck MECHANICAL ORDNANCE ASSEMBLER-C Referring Unavailable Slaby, Oliver Admitting Unavailable Slaby, Oliver Attending Unavailable Slaby, Oliver Referring Unavailable Tomkins, Danielito Primary Care Unavailable Slaby, Oliver Consulting Unavailable PROBLEMS PROBLEMS DATE TYPE CONDITION / CODE ATTENDING STATUS SOURCE 07/20/2018 Unknown L02.511 - Cutaneous Slabivis Oliver Active [place] abscess of right Community hand / Hospital L02.511(ICD-10) Repository 07/20/2018 Unknown S61.001A - SlabyOliver Active [place] Unspecified open Community wound of right thumb Hospital without damage to Repository nail, initial encounter / S61.001A(ICD-10) 07/20/2018 Unknown I96 - Gangrene, not SlabOliver langston Active [place] elsewhere classified Community / I96(ICD-10) Hospital Repository 07/20/2018 Unknown M79.89 - Other Slabivis Oliver Active [place] specified soft Community tissue disorders / Hospital M79.89(ICD-10) Repository 07/20/2018 Unknown M65.9 - Synovitis SlabivisOliver Active [place] and tenosynovitis, Community unspecified / Hospital M65.9(ICD-10) Repository 07/20/2018 Unknown A49.02 - Methicillin SlabyOliver Active [place] resistant Community Staphylococcus Hospital aureus infection, Repository unspecified site / A49.02(ICD-10) 07/20/2018 Unknown F17.200 - Nicotine Slaby, Oliver Active [place] dependence, Community unspecified, Hospital uncomplicated / Repository F17.200(ICD-10) 07/13/2018 Unknown G89.18 - Other acute SlabivisOliver Active [place] postprocedural pain Community / G89.18(ICD-10) Hospital Repository 07/12/2018 Unknown I10 - Essential Tomkins, Active [place] (primary) Danielito [facility] hypertension / Hospital I10(ICD-10) Repository 06/18/2018 Unknown R06.00 - Dyspnea, ByronOctaviano jackson Active [place] unspecified / [facility] R06.00(ICD-10) Hospital Repository 06/01/2018 Unknown M54.9 - Dorsalgia, [place], Active [facility] unspecified / Danielito Beck MECHANICAL ORDNANCE ASSEMBLER-Treasure [facility] M54.9(ICD-10) Hospital Repository 03/16/2018 Unknown G47.33 - Obstructive Hoyos, Active [place] sleep apnea (adult) [facility] (pediatric) / Hospital G47.33(ICD-10) Repository 12/21/2017 Unknown M54.5 - Low back Irvin, Tremayne Active [place] pain / M54.5(ICD-10) [facility] Repository PROCEDURES PROCEDURES No Procedure Records FoundRESULTS RESULTS OPERATIVE REPORT Observed: 07/15/2018 Status: F Source: [place] 11:59 AM [facility] Medical Records Department [address] [place] [address] Operative Report 07/06/18 1900 MR#: [id number] Acct: [id number] Name: GENE VILA Rep #: [id number] : 1955 62 From: Oliver Murillo MD PCP: DAVIS Bruce Status: DIS IN Y Location: [facility] DR834-6 Report of Operation Date of Procedure: 07/06/18 [...] - 5.5 x 2.5 x 1 cm. drag seiner: None Type of Anesthesia:: General Specimen's removed: [...] tomorrow. I suspect MRSA. He may need assisted IV antibiotics based on the healing of [...] No Code Visit Surgery Charges CPT - 90884 ICD-10 - L02.511, I96, M79.89, M65.9, A49.02, F17.200 85607 S61.001A, I96, M79.89, L02.511, M65.9, A49.02, F17.200 07/15/18 1159 <Electronically signed by Oliver Murillo MD> Date Oliver Murillo MD CC: MECHANICAL ORDNANCE ASSEMBLER-C Danielito Dowd; Oliver Murillo MD; Danielito Wiseman MD Signed PLASTIC SURGERY Observed: 07/15/2018 Status: F Source: [place] VISIT REPORT 11:03 AM [facility] [address] [place] [address] OFFICE VISIT Date of Service: 07/12/18 MR#: [id number] Acct: [id number] Name: GENE VILA Rep #: [id number] : 1955 Provider: Oliver Murillo MD Age/Sex: 62/M Location: [facility] Status: Signed Intake Vital Signs07/12/18 Body Mass Index (BMI) 24.4 07/12/18 Height 6 ft 1 in 07/12/18 Weight: 187 lb 6 oz Intake Visit Reasons: post op surgery 07/06/18 Embroidery Assistant Required: No Accompanied by: None Is patient [...] Murillo MD 07/15/18 1103<Electronically signed by Fabiola CANNON> Cosigner Signature: Date (if applicable) Fabiola Flynn CC: DISCHARGE SUMMARY Observed: 07/12/2018 Status: F Source: [place] 12:33 AM [facility] Medical Records Department [address] [place] [address] Discharge Summary 07/08/18 2143 MR#: [id number] Acct: [id number] Name: GENE VILA Rep #: [id number] : 1955 62 From: Oliver Murillo MD PCP: Danielito Dowd, MECHANICAL ORDNANCE ASSEMBLER-C Status: DIS IN Y Location: MS2 IC793-5 Discharge Date and Diagnosis Date of Admission: [...] Alex Salcedo MD at 11:37 EST Tel [phone], Service support , CONSULTATIONS None. Operations: - [...] preparation for a short stay at an [facility] for the antibiotics since it would be [...] #60 cap Primary Care Physician: Danielito Dowd, MECHANICAL ORDNANCE ASSEMBLER-C [Primary Care Provider] - Please Follow Up With: Oliver Murillo MD When: thursday07/12/18. call [phone] for appt. Disposition: Home Minutes spent on discharge:: 35 Patient Condition:: Stable Medical Necessity - Tobacco Use Smoking Status: Current every day smoker Meaningful Use Info Meaningful Use Diagnoses (Choose all that apply): None applicable 07/12/18 0033 <Electronically signed by Oliver Murillo MD> Date Oliver Murillo MD Cosigner Signature (if applicable): Date CC: MECHANICAL ORDNANCE ASSEMBLER-C Danielito Dowd; Oliver Murillo MD; Danielito Wiseman MD Signed 12 LEAD ELECTROCARDIOGRAM Observed: 07/09/2018 Status: F Source: [place] 2:24 PM [facility] Cardiovascular Services [address] [place] [address] 12 Lead EKG 07/06/18 1108 MR#: [id number] Acct: [id number] Name: GENE VILA Denys Rep #: [id number] : 1955 62 From: Dawit Bradley MD Attending Dr: Oliver Murillo MD Status: DIS IN Ordering Dr: Tremayne Irvin MD Date: 07/06/18 Location: [facility] Sex: M C Admitted: 07/06/18 Test Reason [...] ECG Confirmed by DAWIT BRADLEY MD ([id number]), editor news JULISA WEN ([id number]) on 07/09/2018 2:24:33 PM Referred By: Oliver Murillo Confirmed By:DAWIT BRADLEY MD 07/09/18 1424 Date Dawit Bradley MD CC: MECHANICAL ORDNANCE ASSEMBLER-C Danielito Dowd; Oliver Murillo MD; Danielito Wiseman MD; Tremayne Irvin MD Signed DISCHARGE INSTRUCTION Observed: 07/08/2018 Status: F Source: [place] 1:29 PM [facility] Medical Records Department [address] [place] [address] Instructions for Home/Discharge Instructions 07/08/18 1325 MR#: [id number] Acct: [id number] Name: GENE VILA Rep #: [id number] : 1955 62 From: Oliver Murillo MD [...] #60 cap Primary Care Physician: Danielito Dowd, MECHANICAL ORDNANCE ASSEMBLER-C [Primary Care Provider] - Test Results: Test results from this visit will be discussed in further detail at your follow-up appointment, if applicable. Please Follow Up With: Oliver Murillo MD When: thursday07/12/18. call [phone] for appt. Proposed Discharge Date: 07/08/18 07/08/18 1329 <Electronically signed by Oliver Murillo MD> Date Oliver Murillo MD CC: MECHANICAL ORDNANCE ASSEMBLER-C Danielito Dowd; Danielito Wiseman MD BASIC METABOLIC Collected: 07/08/2018 Status: F Source: [place] PROFILE (BMP) 5:18 AM [facility] TYPE CODE TESTS RESULT OUT OF [...] Normal 8 Performed By: #### L500.2500 #### [facility] [address] [place], [address] CBC-COMPLETE BLOOD CNT Collected: 07/08/2018 Status: F Source: [place] NO DIFF 5:18 AM [facility] TYPE CODE TESTS RESULT OUT OF [...] MPV 8.9 Performed By: #### L100.0500 #### [facility] [address] [facility] [address] [place], [place], [address] HISTORY AND PHYSICAL Observed: 07/08/2018 Status: F Source: [place] EXAM 12:51 AM [facility] Medical Records Department [address] [place] [address] History and Physical 07/06/18 1624 MR#: [id number] Acct: [id number] Name: GENE VILA Rep #: [id number] : 1955 62 From: Oliver Murillo MD PCP: Danielito Dowd, MECHANICAL ORDNANCE ASSEMBLER-C Status: ADM IN Y Location: MS2 WI530-9 History and Physical Date of Admission: 07/06/18 [...] control. Code Visit Inpatient E AND M: 66044 Init Hosp L3 - -57 ICD-10 - L02.511, I96, A49.02, F17.200 07/08/18 0051 <Electronically signed by Oliver Murillo MD> Date Oliver Murillo MD Cosigner Signature: Date (if applicable) CC: MECHANICAL ORDNANCE ASSEMBLER-C Danielito Dowd; Oliver Murillo MD; Danielito Wiseman MD Signed VANCOMYCIN, TROUGH Collected: 07/07/2018 Status: F Source: [place] LEVEL 5:30 PM [facility] Order Comment: Comments: DRAW TROUGH 30 [...] (Ventilator/Healtcare Associated) -Sepsis PLEASE CONTACT PHARMACY SERVICES (#[id number]) FOR INTERPRETATION OF RESULTS. Performed By: #### L501.8820 #### [facility] [address] [place], [place], [address] BASIC METABOLIC Collected: 07/07/2018 Status: F Source: [place] PROFILE (BMP) 5:25 AM [facility] TYPE CODE TESTS RESULT OUT OF [...] 8 Performed By: #### L500.2500, L506.0500 #### [facility] [address] [place], [place], [address] PREALBUMIN Collected: 07/07/2018 Status: F Source: [place] 5:25 AM [facility] TYPE CODE TESTS RESULT OUT OF REFERENCE UNITS RANGE LAB L506.0500 20.0-40.0 mg/dL Low PREALBUMIN 17.0 Performed By: #### L500.2500, L506.0500 #### [facility] [address] [place], [place], [address] CBC-COMPLETE BLOOD CNT Collected: 07/07/2018 Status: F Source: [place] NO DIFF 5:25 AM [facility] TYPE CODE TESTS RESULT OUT OF [...] MPV 8.7 Performed By: #### L100.0500 #### [facility] [address] [place], [place], [address] MRSA WOUND DNA BY Collected: 07/06/2018 Status: F Source: [place] PCR 5:43 PM [facility] Order Comment: Has pt arrived? Y Comments: RIGHT THUMB Specimen Source? RIGHT THUMB TYPE CODE TESTS RESULT OUT OF REFERENCE UNITS RANGE LAB L8200.1100 Negative High MRSA POSITIVE RESULT Result Comment: RESULTS CALLED TO ASHLEY 07/06/18 Jeremias Strickland. REPORT READ BACK BY SAME. LAB L8200.1150 Negative High SA RESULT POSITIVE Performed By: #### L8200.1075 #### [facility] [address] [place], [place], [address] Observed: 07/06/2018 Status: F Source: [place] CULTURE, DEEP WOUND 5:43 PM [facility] REPOSITORY Order Date: 03/11/17 List Antibiotics Last 48 Hours? VANCOMYCIN Has pt arrived? Y Copy of report sent to Infection Control Printer [id number] 07/10/18 0707 TWYLA. Comments: RIGHT THUMB Gram Stain Gram [...] 1 S (NF) indicates non-formulary drug at [facility]. Approval by Infectious Disease Specialist required before non-formulary drugs may be ordered and/or dispensed. * CLSI guidelines does not recommend testing of cephalosporins. This interpretation is deduced from Beta-lactam/penicillin results. Cult, Anaerobic No anaerobic bacteria isolated. Performed By: #### M100.1500 #### [facility] [address] [place], [address] EMERGENCY DEPARTMENT Observed: 07/06/2018 Status: F Source: [place] SUMMARY 12:05 PM [facility] Medical Records Department [address] [place] [address] Emergency Department Summary 07/06/18 1159 MR#: [id number] Acct: [id number] Name: GENE VILA Rep #: [id number] : 1955 62 From: Tremayne Irvin MD [...] reveals a sinus rhythm with respiratory variance. WA interval is normal. QRS durations normal. Onida to left. Decreased anterior force. Concerned this [...] sleep apnea This note was generated with Groopt dictation software. It may contain incorrect words, spelling, and punctuation that were not noted in review of the chart prior to signing ED Disposition - Plan for ED Patient: Chief Complaint: Cellulitis Referrals: Danielito Dowd, MECHANICAL ORDNANCE ASSEMBLER-C [Primary Care Provider] - What to do if you have Problems For any increased pain, shortness of breath, bleeding, nausea or vomiting, chest pain, or any unexpected problems, contact your Primary Care Provider. Call [facility] ([phone]) or report to the closest Emergency Room. Call 911 if necessary. 07/06/18 1205 <Electronically signed by Tremayne Irvin MD> Date Tremayne Irvin MD Cosigner Signature (If Indicated): Date CC: MECHANICAL ORDNANCE ASSEMBLER-C Danielito Dowd; Oliver Murillo MD; Danielito Wiseman MD CBC W/DIFF, AUTOMATED Collected: 07/06/2018 Status: F Source: [place] 11:16 AM [facility] TYPE CODE TESTS RESULT OUT OF [...] Lymph 1.51 Performed By: #### L100.0100 #### [facility] [address] [place], [address] BASIC METABOLIC Collected: 07/06/2018 Status: F Source: [place] PROFILE ([facility]) 11:16 AM [facility] TYPE CODE TESTS RESULT OUT OF [...] Normal 9 Performed By: #### L500.2500 #### [facility] [address] [place], [address] HAND MIN 3 VIEWS Observed: 07/06/2018 Status: F Source: [place] 10:54 AM [facility] Imaging Services [address] [place] [address] Hand Min 3 Views MR#: [id number] Acct: [id number] Name: GENE VILA Denys Rep #: [id number] : 1955 M 62 From: Alex Salcedo MD PCP: DAVIS Bruce Status: REG ER Study: Hand Min 3 Views Date of Exam: 07/06/18 Exam# [id number] Ordering Dr: Tremayne Irvin MD STUDY: X-RAY [...] Alex Salcedo MD at 11:37 EST Tel [phone], Service support , CC: DAVIS Dowd; Tremanye Irvin MD Manager Security And Safety: Signed TISSUE BIOPSY Observed: 07/06/2018 Status: F Source: [place] 10:20 AM [facility] Patient: GENE VILA : 1955 (62/M) Acct Num: [id number] Phys: Chidi RM,Oliver Unit Num: [id number] Loc: MS2 DR591-3 Specimen: [id number] Received: 07/07/18916 Spec Type: Tissue Bx TISSUES [...] two cassettes. / SJ:lance 07/07/18 TC:2 CPT: 53746, 48246 x2 HEADER OPERATION: Incision, drainage MRSA abscess, [...] on file> Performed By: #### PTISS #### [facility] [address] [place], [address] EMERGENCY DEPARTMENT Observed: 07/04/2018 Status: F Source: [place] SUMMARY 1:48 AM [facility] Medical Records Department [address] [place] [address] Emergency Department Summary 07/03/18 1858 MR#: [id number] Acct: [id number] Name: GENE VILA Rep #: [id number] : 1955 62 From: Karli Dinero MD [...] of MRSA This note was generated with Groopt dictation software. It may contain incorrect words, [...] problems, contact your Primary Care Provider. Call [employer] [facility] ([phone]) or report to the closest Emergency Room. Call 911 if necessary. 07/04/18 0148 <Electronically signed by Karli Dinero MD> Date Karli Dinero MD Cosigner Signature (If Indicated): Date CC: MECHANICAL ORDNANCE ASSEMBLER-C Danielito Dowd; Danielito Wiseman MD DISCHARGE INSTRUCTION Observed: 07/03/2018 Status: F Source: [place] 7:00 PM [facility] Medical Records Department [address] [place] [address] Discharge Instruction 07/03/18 1858 MR#: [id number] Acct: [id number] Name: GENE VILA Rep #: [id number] : 1955 62 From: Karli Dinero MD [...] your Primary Care Provider. Call [facility] ([phone]) or report to the closest Emergency Room. Call 911 if necessary. 07/03/18 1900 <Electronically signed by Karli Dinero MD> Date Karli Dinero MD Cosigner Signature (If Indicated): Date CC: DAVIS Dowd; aDnielito Wiseman MD Observed: 07/03/2018 Status: F Source: [place] CULTURE, WOUND 7:00 PM [facility] Gram Stain Gram Stain Rare White Blood Cells No Epithelial cells No organisms seen Wound Culture No growth aerobically. Performed By: #### M100.1400 #### [facility] [address] [place], [place], [address] NM MYOCARDIAL SPECT Observed: 06/29/2018 Status: F Source: [place] STRESS/REST 8:00 AM [facility] REPOSITORY ORIGINAL NM MYOCARDIAL SPECT STRESS/REST CLINICAL STATEMENT:CHEST PAIN TECHNIQUE: Stress Protocol:Octaviano Time Exercised:7:49minutes Predicted Max HR:156 Max HR Achieved:136 Percent Max HR:87% Peak Systolic BP:190/108 mmHg Rate-Pressure product: 47523 Radiopharmaceutical(rest): Tc-99m Sestamibi IV Dose:10.1 mCi Radiopharmaceutical(stress): [...] VISIT REPORT Observed: 06/23/2018 Status: F Source: [place] 8:40 AM [facility] [address] [place] [address] OFFICE VISIT Date of Service: 06/23/18 MR#: [id number] Acct: [id number] Name: GENE VILA Rep #: [id number] : 1955 Provider: Jadiel Sánchez D.O. Age/Sex: 62/M Location: [facility] Status: Signed Assessment AND Plan 1. SANDRITA [...] limits. Patient does have a greater than 43-iyqh-vifq smoking history and continues to smoke 0.75 [...] Intake Visit Reasons: 3 M [place] [facility] [place]: DEMETRIUS Accompanied by: Self Allergies Penicillins [...] BID #56 tab 06/21/18 [Rx Confirmed 06/23/18] [facility] Medical History Chest pain (Acute) Nephrolithiasis (Chronic) [...] DO Cosigner Signature: Date (if applicable) CC: MECHANICAL ORDNANCE ASSEMBLER-C Danielito Dowd COMPREHENSIVE METABOLIC Collected: 06/10/2018 Status: F Source: [place] FERRARO 4:04 PM [facility] TYPE CODE TESTS RESULT OUT OF [...] GAP 6 Performed By: #### L500.4050 #### [facility] [address] [place], [address] CBC W/DIFF, AUTOMATED Collected: 06/10/2018 Status: F Source: [place] 4:04 PM [facility] TYPE CODE TESTS RESULT OUT OF [...] Lymph 2.67 Performed By: #### L100.0100 #### [facility] [address] [place], [address] PULMONARY FUNCTION Observed: 06/08/2018 Status: F Source: [place] REPORT COMP 3:05 PM [facility] Pulmonary Services/Neurology [address] [place] [address] MR#: [id number] Acct: [id number] Name: CADENCEGENE Rep #: [id number] : 1955 62 From: Octaviano Matthews MD Referring Dr: Elida Hoyos MECHANICAL ORDNANCE ASSEMBLER Status: REG CLI Ordering Dr: Date: Location: [facility] Sex: M C COMPLETE PULMONARY FUNCTION TEST INTERPRETATION Brief HPI: Patient is a 62 year old male, currently under the care of Elida Hoyos, who presents to [facility] for complete pulmonary function tests secondary to [...] signs of possible small airways obstruction. 06/08/18 5851 <Electronically signed by Octaviano Matthews MD> Date Octaviano Matthews MD CC: MECHANICAL ORDNANCE ASSEMBLERWendy oDwd; Octaviano Matthews MD; Elida Hoyos Date Dictated: 06/08/181408 Date Transcribed: 06/08/181408 Manager Security And Safety: FEDERICO Signed THORACIC SPINE 2 Observed: 06/01/2018 Status: F Source: [place] VIEWS 4:16 PM [facility] Imaging Services [address] [place] [address] Thoracic Spine 2 Views MR#: [id number] Acct: [id number] Name: CADENCEGENE Mcfarlane Rep #: [id number] : 1955 M 62 From: Lalit Phan MD PCP: DAVIS Bruce Status: REG CLI Study: Thoracic Spine 2 Views Date of Exam: 06/01/18 Exam# [id number] Ordering Dr: Danielito Dowd STUDY: X-RAY - [...] 23:57 EDT , Service support , CC: MECHANICAL ORDNANCE ASSEMBLERWendy Dowd Manager Security And Safety: Signed LUMBAR SPINE 2 OR 3 Observed: 06/01/2018 Status: F Source: [place] VIEWS 4:16 PM [facility] REPOSITORY [facility] Imaging Services [address] [place] [address] Lumbar Spine 2 or 3 Views MR#: [id number] Acct: [id number] Name: CADENCEGENE Denys Rep #: [id number] : 1955 M 62 From: Lalit Phan MD PCP: DAVIS Bruce Status: REG CLI Study: Lumbar Spine 2 or 3 Views Date of Exam: 06/01/18 Exam# [id number] Ordering Dr: Danielito Dowd MECHANICAL ORDNANCE ASSEMBLER-C STUDY: X-RAY - LUMBAR SPINE REASON FOR [...] 23:58 EDT , Service support , CC: MECHANICAL ORDNANCE ASSEMBLER-C Danielito Dowd Manager Security And Safety: Signed DISCHARGE INSTRUCTION Observed: 05/18/2018 Status: F Source: [place] 5:29 PM [facility] REPOSITORY [facility] Medical Records Department [address] [place] [address] Discharge Instruction 05/18/18 1728 MR#: [id number] Acct: [id number] Name: GENE VILA Rep #: [id number] : 1955 62 From: Luis Miguel Herron DO PCP: DAVIS Bruce Status: PRE ER ED Disposition - Plan for ED Patient: Chief Complaint: Back Instructions: ED Spasm Back No Trauma, ED Neck Back Pain General Prescriptions: Hydrocodone/Acetaminophen [Ple[place]ville 5-325 Tablet] 1 - 2 ea PO [...] your Primary Care Provider. Call [facility] ([phone]) or report to the closest Emergency Room. Call 911 if necessary. 05/18/18 1729 <Electronically signed by Luis Miguel Herron DO> Date Luis Miguel Herron DO Cosigner Signature (If Indicated): Date CC: DAVIS Dowd EMERGENCY DEPARTMENT Observed: 05/18/2018 Status: F Source: [place] SUMMARY 5:28 PM [facility] Medical Records Department [address] [place] [address] Emergency Department Summary 05/18/18 1726 MR#: [id number] Acct: [id number] Name: GENE VILA Rep #: [id number] : 1955 62 From: Luis Miguel Herron [...] Treatment: [Patient was given a prescription for [place] and Flexeril. Patient advised to follow-up with his primary care physician.] Treatment Plan: [Follow-up with primary care physician and given a prescription for [place] and Flexeril.] Disposition: [Discharged home in stable condition] Impression: [Acute exacerbation of chronic back pain] This note was generated with Groopt dictation software. It may contain incorrect words, [...] problems, contact your Primary Care Provider. Call [employer] [facility] ([phone]) or report to the closest Emergency Room. Call 911 if necessary. 05/18/18 1728 <Electronically signed by Luis Miguel Herron DO> Date Luis Miguel Herron DO Cosigner Signature (If Indicated): Date CC: DAVIS Dowd PULMONARY VISIT REPORT Observed: 03/16/2018 Status: F Source: [place] 10:01 AM [facility] [address] [place] [address] OFFICE VISIT Date of Service: 03/16/18 MR#: [id number] Acct: [id number] Name: GENE VILA Rep #: [id number] : 1955 Provider: Elida Hoyos Age/Sex: 62/M Location: [facility] Status: Signed Assessment AND Plan 1. SANDRITA [...] smoke 1 pack per day. 12 minute [id number] conversation regarding smoking cessation. The patient is [...] 4 oz Intake Visit Reasons: Sleep problems Embroidery Assistant Required: No Accompanied by: None Is patient [...] Spent - greater than 10 minutes: Yes ([id number]) 03/16/18 1001 <Electronically signed by Elida CANNON> Date Elida CANNON Cosigner Signature: Date (if applicable) CC: DAVIS Dowd EMERGENCY DEPARTMENT Observed: 01/02/2018 Status: F Source: [place] SUMMARY 1:26 AM [facility] Medical Records Department [address] [place] [address] Emergency Department Summary 01/01/18 2201 MR#: [id number] Acct: [id number] Name: GENE VILA Rep #: [id number] : 1955 62 From: James Diamond DO [...] with repair This note was generated with Groopt dictation software. It may contain incorrect words, [...] your Primary Care Provider. Call [facility] ([phone]) or report to the closest Emergency Room. Call 911 if necessary. 01/02/18 0126 <Electronically signed by James Diamond DO> Date James Daimond DO Cosigner Signature (If Indicated): Date CC: DAVIS Dowd EMERGENCY DEPARTMENT Observed: 12/21/2017 Status: F Source: [place] SUMMARY 3:06 PM [facility] Medical Records Department [address] [place] [address] Emergency Department Summary 12/21/17 1501 MR#: [id number] Acct: [id number] Name: CADENCEGENE Rep #: [id number] : 1955 62 From: Tremayne Irvin MD [...] Rest, ice, NSAID and short course of Pleasantville. Treatment Plan: Prescription for Ple[place]ville and follow-up with his primary care provider [...] nonhypertensive patient This note was generated with Groopt dictation software. It may contain incorrect words, spelling, and punctuation that were not noted in review of the chart prior to signing ED Disposition - Plan for ED Patient: Disposition: Home or Assisted Living Chief Complaint: Back Instructions: ED Sprain Strain Lumbar, ED Hypertension Poss Prescriptions: Hydrocodone Bitart/Apap 5-325 [Pleasantville 5MG-325MG] 1 tab PO Q6H PRN PRN 3 Days #10 tab PRN Reason: Pain Referrals: Danielito Dowd [Primary Care Provider] - 1 Week What to do if you have Problems For any increased pain, shortness of breath, bleeding, nausea or vomiting, chest pain, or any unexpected problems, contact your Primary Care Provider. Call [facility] ([phone]) or report to the closest Emergency Room. Call 911 if necessary. 12/21/17 1503 <Electronically signed by Tremayne Irvin MD> Date Tremayne Irvin MD Cosigner Signature (If Indicated): Date CC: Danielito Dowd EMERGENCY DEPARTMENT Observed: 10/08/2017 Status: F Source: [place] SUMMARY 5:54 PM [facility] Medical Records Department [address] [place] [address] Emergency Department Summary 10/08/17 1701 MR#: [id number] Acct: [id number] Name: GENE VILA Rep #: [id number] : 1955 61 From: Mike Pradhan PCP: [...] needle decompression This note was generated with Verve Mobileation software. It may contain incorrect words, spelling, [...] your Primary Care Provider. Call [facility] ([phone]) or report to the closest Emergency Room. Call 911 if necessary. 10/08/17 1332 <Electronically signed by Mike Pradhan> Date Mike Pradhan Cosigner Signature (If Indicated): Date CC: David Garvin ALLERGIES ALLERGIES DATE TYPE / CODE NAME / CODE REACTION SEVERITY SOURCE 07/22/2018 Drug Penicillins/ Shortness of Unknown [facility] Allergy/4160 [id number]([facility] 71958(SNOMED XNORM) Repository CT) ENCOUNTERS ENCOUNTERS ADMIT/DISCHARGE ACCOUNT NUMBER ADMITTING ENCOUNTER LOCATION SOURCE CLASS 07/22/2018/07/22/20 [id number] Ambulatory BMSBuilding: [place] 18 [facility] Repository 07/12/2018/07/12/20 [id number] Ambulatory BMSBuilding: [place] 18 [facility] Repository 07/06/2018/07/08/20 [id number] Ambulatory BMSBuilding: [place] 18 [facility] Repository 07/06/2018/07/08/20 [id number] Oliver Murillo Inpatient [place] 18 Encounter [facility] ding:[id number] Repository : QH609Syl: 1 07/06/2018 [id number] Oliver Murillo Ambulatory BMSBuilding: [place] BMS.CF.[facility] Repository 07/06/2018 [id number] Oliver Murillo Ambulatory BMSBuilding: [place] BMS.CF.[facility] Repository 07/06/2018 [id number] Oliver Murillo [facility]MS[facility] [place] [facility] 07/03/2018/07/03/20 [id number] Emergency [address] ding:ED Repository 06/29/2018/06/29/20 [id number] Ambulatory BBuilding:CV [address] Repository 06/23/2018/06/23/20 [id number] Ambulatory BMSBuilding: [place] 18 [facility] Repository 06/10/2018/07/09/20 [id number] Ambulatory [address] ding:LAB Repository 06/08/2018 [id number] Ambulatory [facility] ding:PSN Repository 06/08/2018 [id number] Ambulatory BMSBuilding: [place] [facility] Repository 06/01/2018 [id number] Ambulatory [facility] ding:RAD Repository 05/27/2018 [id number] Ambulatory [facility] ding:SL Repository 05/18/2018/05/18/20 [id number] Emergency [address] ding:ED Repository 03/16/2018/03/16/20 [id number] Ambulatory BMSBuilding: [place] 18 BMS[facility] Repository 03/03/2018 [id number] Ambulatory [facility] ding:SL Repository 02/08/2018 [id number] Ambulatory [facility] ding:SL Repository 01/01/2018/01/02/20 [id number] Emergency [address] ding:ED Repository 12/21/2017/12/22/19 [id number] Emergency [address] ding:ED Repository 10/08/2017/10/09/19 [id number] Emergency [place] [facility] ding:ED Repository PAYERS PAYERS ENCOUNTER GUARANTOR PAYER SUBSCRIBER SOURCE 07/22/2018 GENE Mcfarlane Primary Insurance:[facility] GENE D [place] [id number] E COMMUNITY PLANPolicy MELLINGERDOB: [facility] NO STAPT Number: [id number], [place] [id number] Repository 912[address]Bwt: (330) Date:0785-68-46GF [phone] () [address] [place], [place] [address]WP: 07/22/2018 Secondary NOT GIVENUNK [place] Insurance:SELF PAY [facility] Number: Effective Repository Date:2018-07-22 07/12/2018 GENE Mcfarlane Primary Insurance:[facility] GENE D [place] [id number] E [facility] PLANPolicy [facility]ERD[facility] Number: [id number], [place] [id number] Repository 15703Eno: (330) Date:6251-41-26WN [phone] () [address] [place] [address] 24607ZV: 07/12/2018 Secondary NOT GIVENUNK [place] Insurance:SELF PAY [facility] Number: Effective Repository Date:2018-07-12 07/06/2018 GENE Mcfarlane Primary Insurance:[facility] GENE Mcfarlane [place] [id number] E [facility] PLANPolicy MELLINGERDOB: [facility] NO STAPT Number: [id number], [place] [id number] Repository 25[address]Uqf: (330) Date:5057-39-91AR [phone] () [address] [place] [address] 49435UD: 07/06/2018 Secondary NOT GIVENUNK [place] Insurance:SELF PAY [facility] Number: Effective Repository Date:2018-07-06 07/06/2018 GENE Mcfarlane Primary Insurance:[facility] GENE D [place] [id number] E [facility] PLANPolicy MELLINGERDOB: [facility] NO STAPT Number: [id number], [place] [id number] Repository 6[address]Ttg: (330) Date:2172-71-66BQ [phone] () [address] [place] [address] 67833WI: 07/06/2018 Secondary NOT GIVENUNK [place] Insurance:SELF PAY [facility] Number: Effective Repository Date:2018-07-06 07/06/2018 GENE Mcfarlane Primary Insurance:[facility] GENE D [place] [id number] E COMMUNITY PLANPolicy MELLINGERDOB: Community NO STAPT Number: [id number], [place] [id number] Repository 07939Lhl: (330) Date:8591-19-40MP [phone] () [address] [place] [address] 90840YX: 07/06/2018 Secondary NOT GIVENUNK [place] Insurance:SELF PAY [facility] Number: Effective Repository Date:2018-07-06 07/06/2018 GENE Mcfarlane Primary Insurance:[facility] GENE D [place] [id number] E COMMUNITY PLANPolicy MELLINGERDOB: Community NO STAPT Number: [id number], [place] [id number] Repository 388[address]Qkn: (330) Date:8990-93-13YN [phone] () [address] [place] [address] 77959LH: 07/06/2018 Secondary NOT GIVENUNK [place] Insurance:SELF PAY [facility] Number: Effective Repository Date:2018-07-06 07/06/2018 GENE Mcfarlane Primary Insurance:[facility] GENE D [place] [id number] E COMMUNITY PLANPolicy MELLINGERDOB: Community NO STAPT Number: [id number], [place] [id number] Repository 54907Sfo: (330) Date:8356-47-00SE [phone] () [address] [place] [address] 57746XS: 07/06/2018 Secondary NOT GIVENUNK [place] Insurance:SELF PAY [facility] Number: Effective Repository Date:2018-07-06 07/03/2018 GENE Mcfarlane Primary Insurance:[facility] GENE D [place] [id number] E COMMUNITY PLANPolicy MELLINGERDOB: William MCDOWELL Number: [id number], [place] [id number] Repository 57571Ssx: (330) Date:0883-36-15OX [phone] () [address] [place] [address] 22933ZZ: 07/03/2018 Secondary NOT GIVENUNK [place] Insurance:SELF PAY [facility] Number: Effective Repository Date:2018-07-03 06/29/2018 GENE Primary [facility] MELLINGERDOB: Insurance:[facility] [id number] [facility] [id number] Repository ROS[place] NO [facility] Number: [place] [id number] [place], [place] [address]Baz: (330) Date:2018-06-29 53468Faz: () [id number] [phone] Name:HARSHAO Olivia ()Tel: [address] [place] [address] [phone] () 68237KC: 06/23/2018 GENE Mcfarlane Primary Insurance:[facility] GNEE Denys PRICEINGER353 E [facility] MELLINGERDOB: William MCDOWELL Number: [id number], [place] [id number] Repository 6[address]Afa: (330) Date:5110-00-27IN [phone] () [address] [place] [address] 23169GI: 06/23/2018 Secondary NOT GIVENUNK [place] Insurance:SELF PAY [facility] Number: Effective Repository Date:2018-06-16 06/10/2018 GENE D Primary Insurance:[facility] GENE D [place] [id number] E [facility] PLANPolicy MELLINGERDOB: William MCDOWELL Number: [id number], [place] [id number] Repository 116[address]Pzp: (330) Date:0821-26-81ZT [phone] () [address] [place] [address] 15052AF: 06/10/2018 Secondary NOT GIVENUNK [place] Insurance:SELF PAY [facility] Number: Effective Repository Date:2018-06-10 06/08/2018 GENE Mcfarlane Primary Insurance:[facility] GENE D [place] [id number] E COMMUNITY PLANPolicy MELLINGERDOB: Community NO STAPT Number: [id number], [place] [id number] Repository 515[address]Xkd: (330) Date:6084-06-62KE [phone] () [address] [place] [address] 70319DS: 06/08/2018 Secondary NOT GIVENUNK [place] Insurance:SELF PAY [facility] Number: Effective Repository Date:2018-03-16 06/08/2018 GENE Mcfarlane Primary Insurance:[facility] GEEN D [place] [id number] E COMMUNITY PLANPolicy MELLINGERDOB: [facility] NO STAPT Number: [id number], [place] [id number] Repository 24472Pzw: 330) Date:3254-29-22DG [phone] () [address] [place] [address] 08135MN: 06/08/2018 Secondary NOT GIVENUNK [place] Insurance:SELF PAY [facility] Number: Effective Repository Date:2018-06-08 06/01/2018 GENE Mcfarlane Primary Insurance:[facility] GENE D [place] [id number] 1/2 COMMUNITY PLANPolicy MELLINGERDOB: Community E [address]T Number: [id number], [place] [id number] Repository 336[address]Tbw: 330) Date:5712-52-80NS [phone] () [address] [place] [address] 44018HL: 06/01/2018 Secondary NOT GIVENUNK [place] Insurance:SELF PAY [facility] Number: Effective Repository Date:2018-06-01 05/27/2018 GENE Mcfarlane Primary Insurance:[facility] GENE D [place] [id number] 1/2 COMMUNITY PLANPolicy MELLINGERDOB: Community E [address] Number: [id number], [place] [id number] Repository 97[address]Ggy: (330) Date:2512-01-02IP [phone] () [address] [place] [address] 71135DD: 05/27/2018 Secondary NOT GIVENUNK [place] Insurance:SELF PAY [facility] Number: Effective Repository Date:2018-05-19 05/18/2018 GENE D Primary Insurance:[facility] GENE D [place] [id number] 1/2 COMMUNITY PLANPolicy MELLINGERDOB: Community E [address] Number: [id number], [place] [id number] Repository 60188Zlb: (330) Date:0736-55-33RM [phone] () [address] [place] [address] 25888LR: 05/18/2018 Secondary NOT GIVENUNK [place] Insurance:SELF PAY [facility] Number: Effective Repository Date:2018-05-18 03/16/2018 GENE D Primary Insurance:[facility] GENE D [place] [id number] 1/2 COMMUNITY PLANPolicy MELLINGERDOB: Community E [address] Number: [id number], [place] [id number] Repository 22281Grx: (330) Date:9537-90-31IY [phone] () [address] [place] [address] 47666LI: 03/16/2018 Secondary NOT GIVENUNK [place] Insurance:SELF PAY [facility] Number: Effective Repository Date:2018-03-09 03/03/2018 GENE D Primary Insurance:[facility] GENE D [place] [id number] 1/2 COMMUNITY PLANPolicy MELLINGERDOB: Community E [address] Number: [id number], [place] [id number] Repository 31261Jms: (330) Date:1110-15-17KP [phone] () [address] [place] [address] 61385YB: 03/03/2018 Secondary NOT GIVENUNK [place] Insurance:SELF PAY [facility] Number: Effective Repository Date:2018-02-22 02/08/2018 GENE Mcfarlane Primary Insurance:[facility] GENE D [place] [id number] 1/2 COMMUNITY PLANPolicy MELLINGERDOB: Community E [address] Number: [id number], [place] [id number] Repository 615[address]Jxm: (330) Date:7914-83-12EB [phone] () [address] [place], [place] [address]WP: 02/08/2018 Secondary NOT GIVENUNK [place] Insurance:SELF PAY [facility] Number: Effective Repository Date:2018-01-26 01/01/2018 Gene Mcfarlane Primary Insurance:[facility] Gene D [place] [id number] COMMUNITY PLANPolicy MellingerDOB: [facility] E NO STAPT Number: [id number], [place] [id number] Repository 060[address]Bhh: (330) Date:2821-37-23SK [phone] () [address] [place], [place] [address]WP: 01/01/2018 Secondary NOT GIVENUNK [place] Insurance:SELF PAY [facility] Number: Effective Repository Date:2018-01-01 12/21/2017 Gene Mcfarlane Primary Insurance:[facility] Gene D [place] [id number] 1/2 COMMUNITY PLANPolicy MellingerDOB: Community E [address] Number: [id number], [place] [id number] Repository 384[address]Tfv: (330) Date:3500-57-74QQ [phone] () [address] [place] [address] 98872WB: 12/21/2017 Secondary NOT GIVENUNK [place] Insurance:SELF PAY [facility] Number: Effective Repository Date:2017-12-21 10/08/2017 Gene Mcfarlane Primary Insurance:[facility] Gene D [place] [id number] 1/2 COMMUNITY PLANPolicy MellingerDOB: Community E [address] Number: [id number], [place] [id number] Repository 65[address]Ctb: (330) Date:5971-54-35MI [phone] () [address], [place] [address]SP: 10/08/2017 Secondary NOT GIVENUNK [place] Insurance:SELF PAY [facility] Number: Effective Repository Date:2017-10-08
== END 2018-07-08 15:00 | disposition home or self-care (01) | DRG 361 ==
LOC: ED 12:10 → SDC 12:43 → MS2 12:46 → SDC 16:52
PROVIDERS: Admitting Provider Surgery; Emergency Provider Emergency Medicine; PCP Nurse Practitioner Family; Referring Provider Surgery; Visit Provider Surgery
PROC: 0J9J0ZZ Drainage of Right Hand Subcutaneous Tissue and Fascia, Open Approach (ICD-10-PCS; principal; 2018-07-06 10:10)
DX: L02.511 Cutaneous abscess of right hand (principal); B95.62 Methicillin resistant Staphylococcus aureus infection as the cause of diseases classified elsewhere; I96 Gangrene, not elsewhere classified; M65.841 Other synovitis and tenosynovitis, right hand; J44.9 Chronic obstructive pulmonary disease, unspecified; E78.5 Hyperlipidemia, unspecified; F17.200 Nicotine dependence, unspecified, uncomplicated; F41.9 Anxiety disorder, unspecified; F32.9 Major depressive disorder, single episode, unspecified; I25.10 Atherosclerotic heart disease of native coronary artery without angina pectoris; I10 Essential (primary) hypertension
CPT/HCPCS: 36415; 73130; 80048; 80202; 84134; 85025; 85027; 87070; 87075; 87077; 87102; 87186; 87205; 87206; 87640; 88305; 88312; 93005; 97802; 99281; 99283; 99406; J7030; J7040; J7120; A4216; J2405

== ENCOUNTER 2018-07-28 14:20 | Outpatient (RCR) | payer MEDICAID, SELFPAY ==
[2018-07-22 16:04] VITALS: BMI 24.4
--- NOTE | 2018-07-28 15:26 | HP.OTEVAL_ITS ---
Patient's Visit Information YUNG VILA is a 62 year old M, referred to Occupational Therapy by Oliver Murillo MD, with a diagnosis of Cutaneous Abscess, synovitis, thumb wound. Date of Evaluation: 07/28/18 Occupational Therapist: Migdalia Garica, MARIA TERESA/Andrew, CHT - Subjective Subjective: pt. arrives and states that he had a pall point size swelling in thumb around thanksgiving 07/01/2018. pt. was admitted for sx the thursday after thanksgiving 07/06/2018. pt. arrives wearing wound wrapping over the wound on dorsal aspect of R thumb. - Pain R hand 4 Pain Intensity Range: 0, 1, 2, 3, 4, 5, 6, 7 - Objective Objective/Observation: pt. has wound on the dorsal aspec of the thumb that is 3 in. long and 1 in. wide. pt. has silver dressing resting on top of the wound. Edges of wound clean - ROM IP: 0/32 R Radial Abduction: WNL Palmar Abduction: WNL ROM Comments: pt. had some pain during the ROM measurements. client demo good ROM with open wound. Pain with ROM - Strength Quill Machine Tender: NT d/t wound on the dorsal aspect of thumb Lateral Pinch: NT d/t wound on the dorsal aspect of thumb Tripod Pinch: NT d/t wound on the dorsal aspect of thumb - Quick DASH-Disab of Arm,Shoulder& Hand Quick DASH Score: 31.6650 - Goals Goal:: Patient will increase overall regulator assembler strength by 20 lbs. by completing strengthening exercises and stretches in order to complete BADL?s and IADL?s. Patient will improve lateral and tripod grasps by 10 lbs. by completing strengthening and stretching exercises in order to complete BADL?s and IADL?s. Goal:: Patient will increase ROM in IP joint of R thumb by 10 degrees by completing strengthening and stretching exercises in order to complete BADL?s and IADL?s. Goal:: Patient will have decreased swelling and report overall decrease in pain of <4 in order to complete BADL?s and IADL?s. Goal:: patient will report completion of and demo understanding of HEP for increased I with BADL's and IADL's. - Rehabilitation General Assessment: patient presents today with cutaneous abscess, synovitis, th umb wound after having spontaneous swelling in the R hand. pt. had sx to remove the abscess on 07/05/2018. requested that pt. complete ROM exercises to prevent thumb from having a adduction contracture. pt. presents with decreased strength, ROM, increased swelling/pain, healing wound, and decreased ability to complete BADL's and IADL's. pt. will benefit from OT services 1x/wk for 5 wks. to monitor healing of the wound and cont. ROM and start strengthening. Today, pt. educated about ROM exercises to complete at home, debridement of the wound and edema management. Rehabilitation Potential: Good - Anticipated Interventions Anticipated Interventions: A/AAROM/PROM, Strengthening, Edema Control, Scar Care, Triggerpoint Release, Modalities, Orthoses, ADL Training, Home Program - Visit Plan Frequency: 1x/Week Duration: 5 weeks TEXT: Thank you for the opportunity to evaluate your patient. For Medicare and Medicare HMO plans, please review the plan of care and approve it. It will need to be FAXED BACK to us at [phone] for Medicare purposes. Please let me know if there are questions or concerns regarding this plan of care. Physician Signature: _Date:
--- NOTE | 2018-12-01 14:41 | HP.OTDCNRP_ITS ---
HP - Discharge Summary - Patient Information YUNG VILA was seen in my office for initial evaluation on 07/28/18. The following Plan of Care was established for this patient: Initial Frequency: 1x/Week Initial Duration: 5 weeks - Anticipated Interventions Anticipated Interventions: A/AAROM/PROM, Strengthening, Edema Control, Scar Care, Triggerpoint Release, Modalities, Orthoses, ADL Training, Home Program This patient was last seen in our office 07/28/18. Pertinent comments regarding their Occupational therapy will appear below: pt seen for initial OT eval only- pt did not schedule any further apts and is d /c at this time. At this point I will be discontinuing this patient from occupational therapy. I would be happy to see this patient again in the future if found appropriate by the physician. Thank you! Migdalia Garcia, OTR/L, CHT
== END 2018-07-28 19:00 | disposition home or self-care (01) ==
LOC: OT 14:20
PROVIDERS: PCP Nurse Practitioner Family; Referring Provider Surgery; Visit Provider Surgery
DX: L02.511 Cutaneous abscess of right hand (principal); M65.9 Synovitis and tenosynovitis, unspecified; S61.001D Unspecified open wound of right thumb without damage to nail, subsequent encounter; A49.02 Methicillin resistant Staphylococcus aureus infection, unspecified site
CPT/HCPCS: 97166

== ENCOUNTER 2018-09-23 22:27 | Emergency (ER) | payer MEDICAID, SELFPAY ==
[2018-09-09 15:33] VITALS: BMI 24.4
[2018-09-23 22:28] VITALS: BP 188/105; PULSE 84; RESP 14; TEMP 36.8; O2SAT 99; BMI 23.1
--- NOTE | 2018-09-23 22:46 | EKG12_ITS ---
Test Reason : HTN Blood Pressure : / mmHG Vent. Rate : 069 BPM Atrial Rate : 069 BPM P-R Int : 200 ms QRS Dur : 094 ms QT Int : 364 ms P-R-T Axes : 011 -31 041 degrees QTc Int : 390 ms Normal sinus rhythm Left axis deviation Septal infarct , age undetermined Abnormal ECG Confirmed by PILLO RM, JAKE ([id number]), assignment editor ROBERT OLMSTEAD ([id number]) on 09/28/2018 10:56:58 AM Referred By: AFSHAN Confirmed By:JAKE FERRO MD
--- NOTE | 2018-09-23 22:52 | ED.VISSUMM ---
- ER Visit Summary Date of Service: 09/23/18 Chief Complaint: Hypertension History of Present Illness: The patient is a 62 M with known history of hypertension on losartan and metoprolol XL. Patient states he had recent hand surgery with Dr. Murillo. When he was going for his appointments his systolic blood pressure was noted to be in the 150s. They would question whether he had any symptoms with this. Patient states tonight he checked his blood pressure local pharmacy it was in the 170s systolic. He reports having some mild lightheadedness. He had a headache earlier this morning that is now resolved. He did take an extra dose of his Toprol XL approximately an hour prior to arrival. Physical Examination: Vital signs include a blood pressure of 188/105. Heart rate is 84. Patient sitting upright in bed no acute distress. Head neck examination unremarkable. Heart is regular rate and rhythm without murmur. Lung sounds are clear. Abdomen is soft nontender. Extremity examination significant only for a healed recent surgical site to the right thumb. Neuro exam is unremarkable. Test Results: EKG is sinus at 69 with no sign of acute ischemia. CBC and chemistry studies normal. Urinalysis normal with no proteinuria. Two-view chest x-ray shows no active disease. Emergency Department Course and Treatment: Repeat blood pressure is 149/87. At this time patient has no complaints. He will keep track of his blood pressure throughout the weekend. He was advised that if his systolic pressure is over 170 he can go ahead and take another dose of his Toprol like he did this evening. He will follow-up with his doctor next week regarding his blood pressure. Treatment Plan: [] Disposition: Discharge Impression: Hypertension, improved This note was generated with oneDrum dictation software. It may contain incorrect words, spelling, and punctuation that were not noted in review of the chart prior to signing ED Disposition - Plan for ED Patient: Disposition: Home or Assisted Living Instructions: ED HTN Established Referrals: Danielito Dowd, HAFSA-C [Primary Care Provider] - 5-7 Days
[2018-09-23 23:00] VITALS: PULSE 72; RESP 18; O2SAT 97
[2018-09-23 23:01] VITALS: BP 149/87
[2018-09-23 23:02] LABS: Bacteria 0 SEEN /hpf (None Seen); Mucous, Urine 0 SEEN /hpf (<or=2+); Red Blood Cells-Urine 0 SEEN /hpf (0-5); Squamous Epithelial Cells - UA 0 SEEN /hpf (0-5); White Blood Cells 0 SEEN /hpf (0-5)
--- NOTE | 2018-09-23 23:05 | RAD_ITS ---
STUDY: X-RAY CHEST REASON FOR EXAM: Male, 62 years old. Hypertension and dizziness. TECHNIQUE: PA and lateral views of the chest. COMPARISON: 11/06/2016. FINDINGS: There is mild elevation of the right hemidiaphragm. The lungs are clear and expanded. There is no demonstrated pleural abnormality. Normal size heart. Normal mediastinum and farooq. Normal visualized pulmonary arteries. There is atherosclerotic tortuosity of the aortic arch and descending thoracic aorta. Normal visualized thoracic spine. Normal visualized ribs, clavicles, and shoulders. There is no demonstrated abnormality of the visualized soft tissue structures of the upper abdomen. RAD/Chest PA and Lateral IMPRESSION: No active pulmonary disease. Electronically Signed: Gumaro Benson MD at 23:20 EST Tel , Service support ,
[2018-09-23 23:06] LABS: Absolute Lymphocyte Count 2.47 X10^3/ul (0.83-4.51); Absolute Neutrophil Count 2.9 X10^3/uL (2.0-7.7); Basophil# 0.03 X10^3/uL; Basophil% 0.5 % (0-1); Eosinophils% 3.1 % (0-5); Hematocrit 40.8 % (40-54); Hemoglobin 14.1 g/dl (13.0-16.5); Lymphocyte # 2.47 X10^3/ul (4.0); Lymphocyte % 38.1 % (19-41); Mean Corp Hgb Conc 34.6 g/gl (32-36); Mean Corpuscular Hgb 34.1 pg (27.0-32.0); Mean Corpuscular Volume 98.8 fL (80-94); Mean Platelet Vol. 8.5 fl (6.2-12.0); Monocyte# 0.85 X10^3/uL; Monocyte% 13.1 % (0-10); Neutrophil # 2.93 X10^3/uL (2.7-7.7); Platelet Count 234 K/mm3 (150-450); RBC Distribution Width CV 12.4 % (11.6-14.6); RBC Distribution Width SD 43.9 fl (35.1-43.9); Red Blood Count 4.13 M/mm3 (4.6-6.2); White Blood Count 6.5 K/mm3 (4.4-11.0)
[2018-09-23 23:09] LABS: POSITIVE COUNT NO; POSITIVE DIFFERENTIAL NO; POSITIVE MORPHOLOGY NO
[2018-09-23 23:12] LABS: Color, Urine Yellow (Yellow); Glucose, Dipstick Normal (Normal); Ketone-Dipstick Negative (Negative); Leukocyte Esterase-Dipstick Negative /ul (Negative); Nitrite-Dipstick Negative (Negative); Occult Blood-Urine Negative /ul (Negative); Protein-Dipstick Negative (Negative); Urine Bilirubin Dipstick Negative (Negative); Urine Clarity Clear (Clear); Urine Urobilinogen Normal (Normal); Urine pH 6.5 (5.0 - 8.0)
[2018-09-23 23:27] LABS: Anion Gap 8 (5-15); BUN 14 mg/dL (7-18); BUN/Creat Ratio 20.9 RATIO (10-20); Calcium,Total 8.6 mg/dL (8.5-10.1); Chloride 107 mmol/L (98-107); Creatinine, Serum 0.67 mg/dL (0.70-1.30); EST Glomerular Filtration Rate 126 mL/min (>60); Est Glom Filt Rate - Afr Amer 153 mL/min (>60); Glucose 91 mg/dL (74-106); Potassium 3.5 mmol/L (3.5-5.1); Sodium Level 141 mmol/L (136-145)
[2018-09-23 23:45] VITALS: BP 164/96; PULSE 70; RESP 16; O2SAT 97
== END 2018-09-23 23:46 | disposition home or self-care (01) ==
PROVIDERS: Emergency Provider Emergency Medicine; Family Provider Nurse Practitioner Family; PCP Nurse Practitioner Family
DX: I10 Essential (primary) hypertension (principal); Z72.0 Tobacco use
CPT/HCPCS: 71046; 80048; 81001; 85025; 93005; 99283; A4216

== ENCOUNTER → 2019-02-04 06:48 | Outpatient (CLI) | payer MEDICAID, SELFPAY ==
[2018-10-27 08:24] VITALS: BMI 23.1
[2019-02-04 07:23] LABS: Absolute Lymphocyte Count 2.82 X10^3/ul (0.83-4.51); Absolute Neutrophil Count 3.2 X10^3/uL (2.0-7.7); Basophil# 0.05 X10^3/uL; Basophil% 0.7 % (0-1); Eosinophil# 0.46 X10^3/uL; Eosinophils% 6.5 % (0-5); Hemoglobin 14.3 g/dl (13.0-16.5); Lymphocyte # 2.82 X10^3/ul (4.0); Lymphocyte % 39.8 % (19-41); Mean Corpuscular Hgb 34.4 pg (27.0-32.0); Mean Platelet Vol. 8.7 fl (6.2-12.0); Monocyte% 8.5 % (0-10); Neutrophil # 3.15 X10^3/uL (2.7-7.7); Neutrophil % 44.4 % (47-70); Platelet Count 227 K/mm3 (150-450); RBC Distribution Width CV 12.7 % (11.6-14.6); RBC Distribution Width SD 46.2 fl (35.1-43.9); Red Blood Count 4.16 M/mm3 (4.6-6.2); White Blood Count 7.1 K/mm3 (4.4-11.0)
[2019-02-04 07:24] LABS: POSITIVE COUNT NO; POSITIVE DIFFERENTIAL NO; POSITIVE MORPHOLOGY NO
[2019-02-04 07:43] LABS: ALB/GLOB Ratio 1.1 RATIO (0.9-2.4); AST(SGOT) 21 U/L (15-37); Alanine Aminotransfer ALT/SGPT 34 U/L (16-61); Albumin, Serum 3.7 g/dL (3.2-5.0); Alkaline Phosphatase 101 U/L (45-117); Anion Gap 9 (5-15); BUN 21 mg/dL (7-18); BUN/Creat Ratio 26.8 RATIO (10-20); Calcium,Total 8.7 mg/dL (8.5-10.1); Chloride 109 mmol/L (98-107); Cholesterol 190 mg/dL (200); Creatinine, Serum 0.78 mg/dL (0.70-1.30); EST Glomerular Filtration Rate 106 mL/min (>60); Est Glom Filt Rate - Afr Amer 128 mL/min (>60); Globulin 3.4 g/dL (2.2-4.2); Glucose 94 mg/dL (74-106); High Density Lipoprotein 42 mg/dL; PSA,Total - Annual Screen 0.76 ng/mL (0.00-4.00); Potassium 3.8 mmol/L (3.5-5.1); Protein, Total 7.1 g/dL (6.4-8.2); Sodium Level 145 mmol/L (136-145); Triglycerides 173 mg/dL; Very Low Density Lipoprotein 35 mg/dL (5-40)
== END ==
PROVIDERS: Family Provider Nurse Practitioner Family; PCP Nurse Practitioner Family; Referring Provider Nurse Practitioner Family; Visit Provider Nurse Practitioner Family
DX: Z13.6 Encounter for screening for cardiovascular disorders (principal); Z12.5 Encounter for screening for malignant neoplasm of prostate; I10 Essential (primary) hypertension
CPT/HCPCS: 36415; 80053; 80061; 84153; 85025; G0103

== ENCOUNTER → 2019-10-28 06:47 | Outpatient (CLI) | payer MEDICARE, SELFPAY ==
[2018-10-27 08:24] VITALS: BMI 23.1
--- NOTE | 2019-10-29 05:31 | PFTCOMP_ITS ---
COMPLETE PULMONARY FUNCTION TEST INTERPRETATION Brief HPI: Patient is a 63 year old male, currently under the care of Danielito Dowd, who presents to [facility] for complete pulmonary function tests secondary to diagnosis of dyspnea. Respiratory therapist reports good effort and reproducible results. Interpretation: Forced expiration spirometry shows no large airways obstructive ventilatory defect with an FEV1 of 81% predicted. There is no significant bronchodilator response by strict ATS criteria. Spirograms are of good quality and plateau normally. The respiratory flow volume loop shows a normal pattern. Lung volumes by body plethysmography show a normal total lung capacity at 8.2 L, 112% predicted. All other lung volumes are within normal limits. Diffusion capacity by carbon monoxide is normal at 88% predicted. The airway resistance is elevated. Compared to previous pulmonary function tests from 06/08/2018, there is been a significant improvement in total lung capacity. Impression: These findings are grossly within normal limits and show improvement compared to 2018.
== END ==
PROVIDERS: PCP Nurse Practitioner Family; Referring Provider Nurse Practitioner Family; Visit Provider Nurse Practitioner Family
DX: J43.9 Emphysema, unspecified (principal); R06.02 Shortness of breath
CPT/HCPCS: 94060; 94726; 94729

== ENCOUNTER → 2020-05-04 08:29 | Outpatient (CLI) | payer MEDICARE, SELFPAY ==
[2018-10-27 08:24] VITALS: BMI 23.1
[2020-05-04 09:07] LABS: Hematocrit 40.9 % (40-54); Mean Corp Hgb Conc 34.2 g/dL (32-36); Mean Corpuscular Hgb 34.4 pg (27.0-32.0); Mean Corpuscular Volume 100.5 fL (80-94); Mean Platelet Vol. 8.8 fl (6.2-12.0); Platelet Count 249 K/mm3 (150-450); RBC Distribution Width SD 44.8 fl (35.1-43.9); Red Blood Count 4.07 M/mm3 (4.6-6.2); White Blood Count 6.3 K/mm3 (4.4-11.0)
[2020-05-04 09:44] LABS: ALB/GLOB Ratio 0.9 RATIO (0.9-2.4); AST(SGOT) 28 U/L (15-37); Alanine Aminotransfer ALT/SGPT 53 U/L (16-61); Albumin, Serum 3.6 g/dL (3.2-5.0); Alkaline Phosphatase 117 U/L (45-117); Anion Gap 5 (5-15); BUN 15 mg/dL (7-18); BUN/Creat Ratio 19.6 RATIO (10-20); Calcium,Total 8.9 mg/dL (8.5-10.1); Chloride 108 mmol/L (98-107); Cholesterol 199 mg/dL (200); Creatinine, Serum 0.77 mg/dL (0.70-1.30); EST Glomerular Filtration Rate 108 mL/min (>60); Est Glom Filt Rate - Afr Amer 130 mL/min (>60); Globulin 3.8 g/dL (2.2-4.2); Glucose 86 mg/dL (74-106); High Density Lipoprotein 43 mg/dL; PSA,Total - Annual Screen 0.83 ng/mL (0.00-4.00); Potassium 4.2 mmol/L (3.5-5.1); Protein, Total 7.4 g/dL (6.4-8.2); Sodium Level 139 mmol/L (136-145); Triglycerides 164 mg/dL; Very Low Density Lipoprotein 33 mg/dL (5-40)
== END ==
PROVIDERS: PCP Nurse Practitioner Family; Referring Provider Nurse Practitioner Family; Visit Provider Nurse Practitioner Family
DX: Z13.220 Encounter for screening for lipoid disorders (principal); Z12.5 Encounter for screening for malignant neoplasm of prostate; I10 Essential (primary) hypertension
CPT/HCPCS: 36415; 80053; 80061; 84153; 85027; G0103

== ENCOUNTER → 2020-10-31 08:08 | Outpatient (CLI) | payer MEDICARE, SELFPAY ==
[2018-10-27 08:24] VITALS: BMI 23.1
[2020-10-31 08:38] LABS: Hematocrit 41.3 % (40-54); Hemoglobin 14.3 g/dL (13.0-16.5); Mean Corp Hgb Conc 34.6 g/dL (32-36); Mean Corpuscular Hgb 35.5 pg (27.0-32.0); Mean Corpuscular Volume 102.5 fL (80-94); Platelet Count 230 K/mm3 (150-450); RBC Distribution Width CV 12.9 % (11.6-14.6); RBC Distribution Width SD 48.7 fl (35.1-43.9); Red Blood Count 4.03 M/mm3 (4.6-6.2); White Blood Count 5.8 K/mm3 (4.4-11.0)
[2020-10-31 10:03] LABS: ALB/GLOB Ratio 1.2 RATIO (0.9-2.4); AST(SGOT) 24 U/L (15-37); Alanine Aminotransfer ALT/SGPT 51 U/L (16-61); Alkaline Phosphatase 104 U/L (45-117); Anion Gap 4 (5-15); BUN 20 mg/dL (7-18); BUN/Creat Ratio 23.9 RATIO (10-20); Calcium,Total 9.1 mg/dL (8.5-10.1); Chloride 107 mmol/L (98-107); Cholesterol 196 mg/dL (200); Creatinine, Serum 0.84 mg/dL (0.70-1.30); EST Glomerular Filtration Rate 97 mL/min (>60); Est Glom Filt Rate - Afr Amer 118 mL/min (>60); Globulin 3.3 g/dL (2.2-4.2); Glucose 88 mg/dL (74-106); High Density Lipoprotein 47 mg/dL; Potassium 4.1 mmol/L (3.5-5.1); Protein, Total 7.3 g/dL (6.4-8.2); Sodium Level 138 mmol/L (136-145); Triglycerides 122 mg/dL; Very Low Density Lipoprotein 24 mg/dL (5-40)
== END ==
PROVIDERS: PCP Nurse Practitioner Family; Referring Provider Nurse Practitioner Family; Visit Provider Nurse Practitioner Family
DX: I10 Essential (primary) hypertension (principal); E78.5 Hyperlipidemia, unspecified
CPT/HCPCS: 36415; 80053; 80061; 85027

== ENCOUNTER 2020-11-25 13:24 | Emergency (ER) | payer MEDICARE, SELFPAY ==
[2018-10-27 08:24] VITALS: BMI 23.1
[2020-11-25 13:24] VITALS: BP 142/108; PULSE 69; RESP 14; TEMP 36.9; O2SAT 97; BMI 24.3
--- NOTE | 2020-11-25 13:38 | RAD_ITS ---
STUDY: X-RAY - RIGHT SHOULDER REASON FOR EXAM: Male, 64 years old. no trauma, pain x one week TECHNIQUE: 2 view(s) of the shoulder. COMPARISON: None. FINDINGS: There is mild degenerative arthrosis of the glenohumeral articulation. There is degenerative arthrosis of the acromioclavicular joint without inferior osseous spur formation. Normal acromion. Normal humeral head and visualized proximal humerus. The soft tissue structures are unremarkable. Normal visualized pulmonary apex. RAD/Shoulder min 2 Views IMPRESSION: Mild glenohumeral joint and AC joint arthrosis with no evidence of acute osseous injury. Electronically Signed: Arjun Awad DO at 14:03 EDT , Service support ,
--- NOTE | 2020-11-25 14:08 | ED.VISSUMM ---
- ER Visit Summary Date of Service: 11/25/20 Chief Complaint: Right shoulder pain History of Present Illness: The patient is a 64 M presenting with right shoulder pain. Patient states this started approximately 1 week ago. He states he lifts weights frequently at the [facility]. He does not recall a specific injury but believes he may have injured himself while lifting weights. He complains of persistent pain in his right shoulder with range of motion. He denies other complaints. Physical Examination: Vitals are stable. Patient is afebrile. Alert no acute distress. HEENT exam is unremarkable. Neck is supple. Lungs are clear and equal bilaterally. Heart is regular rate and rhythm. Abdomen is soft nontender nondistended. Extremities diffuse right shoulder tenderness with painful range of motion. No erythema or warmth. Neurovascularly intact distally. No focal neurologic deficit. Normal strength and sensation. Skin is warm and dry. Remainder of exam is unremarkable. Emergency Department Course and Treatment: Right shoulder x-ray shows mild glenohumeral joint and AC joint arthrosis with no evidence of acute osseous injury. Patient was given a sling and advised range of motion exercises. He was given prescription for Wiley. Advised to follow-up with his primary care physician. Advised return to the ED for worsening complaints. Disposition: Discharge home Impression: Right shoulder sprain This note was generated with [employer] dictation software. It may contain incorrect words, spelling, and punctuation that were not noted in review of the chart prior to signing ED Disposition - Plan for ED Patient: Instructions: ED Shoulder Sprain Prescriptions: Hydrocodone Bitart/Apap 5-325 [[place] 5MG-325MG] 1 tablet PO Q6H PRN PRN 3 Days #10 tab PRN Reason: Pain Prescription Printed Referrals: Danielito Dowd WELDING EQUIPMENT SALES REPRESENTATIVE, WELDING EQUIPMENT SALES REPRESENTATIVE-C [Primary Care Provider] -
--- NOTE | 2020-11-25 14:31 | DCINST.ED_ITS ---
ED Disposition - Plan for ED Patient: Instructions: ED Shoulder Sprain Prescriptions: Hydrocodone Bitart/Apap 5-325 [[place] 5MG-325MG] 1 tablet PO Q6H PRN PRN 3 Days #10 tab PRN Reason: Pain Prescription Printed Referrals: Danielito Dowd SACK FILLER, SACK FILLER-C [Primary Care Provider] -
--- NOTE | 2020-11-25 14:31 | ED.DEP ---
ED Disposition - Plan for ED Patient: Instructions: ED Shoulder Sprain Prescriptions: Hydrocodone Bitart/Apap 5-325 [[place] 5MG-325MG] 1 tablet PO Q6H PRN PRN 3 Days #10 tab PRN Reason: Pain Prescription Printed Referrals: Danielito Dowd REHABILITATION CENTER MANAGER, REHABILITATION CENTER MANAGER-C [Primary Care Provider] -
== END 2020-11-25 14:44 | disposition home or self-care (01) ==
LOC: ED 13:44
PROVIDERS: Emergency Provider Emergency Medicine; PCP Nurse Practitioner Family
DX: S43.401A Unspecified sprain of right shoulder joint, initial encounter (principal); X58.XXXA Exposure to other specified factors, initial encounter; Y93.9 Activity, unspecified; Y92.9 Unspecified place or not applicable; Y99.9 Unspecified external cause status; M19.011 Primary osteoarthritis, right shoulder
CPT/HCPCS: 73030; 99283

== ENCOUNTER 2021-04-01 15:45 | Emergency (ER) | payer MEDICARE, SELFPAY ==
[2021-04-01 15:47] VITALS: BP 140/84; PULSE 73; RESP 18; TEMP 36; O2SAT 98; BMI 24.9
--- NOTE | 2021-04-01 16:15 | RAD_ITS ---
STUDY: X-RAY - LUMBAR SPINE REASON FOR EXAM: Male, 65 years old. LIFTING INJURY TECHNIQUE: 3 view(s) of the lumbar spine were obtained. COMPARISON: None FINDINGS: Normal lumbar lordosis. There is no substantial scoliosis. There is a normal alignment of the vertebrae. There is multilevel endplate spondylosis of the lumbar vertebrae. There is multi-level degenerative disc disease with multi-level disc space narrowing. Findings most pronounced at L4-L5 and L5-S1. There is no demonstrated fracture. The soft tissue structures are unremarkable. RAD/Lumbar Spine 2 or 3 Views IMPRESSION: Prominent degenerative changes. No definite acute abnormality. Electronically Signed: Lalit Phan MD at 16:34 EDT , Service support ,
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
[2021-04-01 17:52] VITALS: BP 162/92; PULSE 63; RESP 16; O2SAT 99
[2021-04-01] MEDS: Ketorolac 30 MG/ML Syringe IM (17:52)
[2021-04-01] MEDS: predniSONE 20 MG Tablet 40 MG PO (17:53)
== END 2021-04-01 18:22 | disposition home or self-care (01) ==
PROVIDERS: Emergency Provider Emergency Medicine; PCP Nurse Practitioner Family
DX: M54.5 Low back pain (principal); I10 Essential (primary) hypertension; J44.9 Chronic obstructive pulmonary disease, unspecified; E78.5 Hyperlipidemia, unspecified; M81.0 Age-related osteoporosis without current pathological fracture; M19.90 Unspecified osteoarthritis, unspecified site; F17.210 Nicotine dependence, cigarettes, uncomplicated; Z79.899 Other long term (current) drug therapy
CPT/HCPCS: 72100; 96372; 99283

== ENCOUNTER → 2021-04-30 10:48 | Outpatient (CLI) | payer MEDICARE, SELFPAY ==
[2021-04-30 11:49] LABS: Hematocrit 45.5 % (40-54); Hemoglobin 15.4 g/dL (13.0-16.5); Mean Corp Hgb Conc 33.8 g/dL (32-36); Mean Corpuscular Volume 100.4 fL (80-94); Mean Platelet Vol. 8.7 fl (6.2-12.0); Platelet Count 264 K/mm3 (150-450); RBC Distribution Width CV 11.9 % (11.6-14.6); RBC Distribution Width SD 44.2 fl (35.1-43.9); Red Blood Count 4.53 M/mm3 (4.6-6.2); White Blood Count 7.2 K/mm3 (4.4-11.0)
[2021-04-30 12:18] LABS: ALB/GLOB Ratio 0.9 RATIO (0.9-2.4); AST(SGOT) 22 U/L (15-37); Alanine Aminotransfer ALT/SGPT 48 U/L (16-61); Albumin, Serum 3.6 g/dL (3.2-5.0); Alkaline Phosphatase 111 U/L (45-117); Anion Gap 3 (5-15); BUN 21 mg/dL (7-18); BUN/Creat Ratio 28.5 RATIO (10-20); Calcium,Total 8.7 mg/dL (8.5-10.1); Chloride 107 mmol/L (98-107); Cholesterol 243 mg/dL (200); Creatinine, Serum 0.74 mg/dL (0.70-1.30); EST Glomerular Filtration Rate 113 mL/min (>60); Est Glom Filt Rate - Afr Amer 136 mL/min (>60); Globulin 3.8 g/dL (2.2-4.2); Glucose 88 mg/dL (74-106); High Density Lipoprotein 47 mg/dL; Potassium 4.1 mmol/L (3.5-5.1); Protein, Total 7.4 g/dL (6.4-8.2); Sodium Level 138 mmol/L (136-145); Triglycerides 210 mg/dL; Very Low Density Lipoprotein 42 mg/dL (5-40)
[2021-04-30 12:46] LABS: Vitamin B12 > 2000 pg/mL (211-911)
== END ==
PROVIDERS: PCP Nurse Practitioner Family; Referring Provider Nurse Practitioner Family; Visit Provider Nurse Practitioner Family
DX: I10 Essential (primary) hypertension (principal); E78.5 Hyperlipidemia, unspecified; D53.9 Nutritional anemia, unspecified; E53.8 Deficiency of other specified B group vitamins
CPT/HCPCS: 36415; 80053; 80061; 82607; 85027

== ENCOUNTER 2021-11-24 22:25 | Inpatient (IN) | payer MEDICARE, SELFPAY ==
[2021-11-24] VITALS (7 sets, daily range): BP systolic 123–187; BP diastolic 81–113; PULSE 73–82; RESP 11–17; TEMP 36.4; O2SAT 97–100; BMI 24.5
--- NOTE | 2021-11-24 22:35 | RAD_ITS ---
STUDY: PORTABLE AP UPRIGHT CHEST X-RAY--2 VIEWS OF 2232 HOURS ON 11/24/2021 REASON FOR EXAM: 65-year-old male with chest pain. TECHNIQUE: 2 view portable AP upright chest x-ray series was performed to utilize all of this patient''s extensive chest. COMPARISON: None. FINDINGS: The lungs are clear and expanded. There is no demonstrated pleural abnormality. Mildly prominent costochondral cartilages. Normal size heart. Normal mediastinum and farooq. Normal visualized pulmonary arteries. Normal visualized aortic arch and descending thoracic aorta. Normal visualized thoracic spine. Normal visualized ribs, clavicles, and shoulders. There is no demonstrated abnormality of the visualized soft tissue structures of the upper abdomen. Air is noted in the stomach. There is no significant interval change since previous study of 09/23/2018. RAD/Chest 1 View (Portable) IMPRESSION: 1. No active cardiopulmonary disease. 2. No significant interval change since previous study of 09/23/2018 Electronically Signed: Celesitno Myers MD at 0:18 EDT ,
--- NOTE | 2021-11-24 22:35 | EKG12_ITS ---
Test Reason : CP Blood Pressure : / mmHG Vent. Rate : 076 BPM Atrial Rate : 076 BPM P-R Int : 220 ms QRS Dur : 118 ms QT Int : 376 ms P-R-T Axes : 071 065 100 degrees QTc Int : 423 ms Sinus rhythm with 1st degree A-V block Septal infarct , age undetermined Inferior injury pattern with possible posterior extension ACUTE ND / STEMI Consider right ventricular involvement in acute inferior infarct Abnormal ECG Confirmed by KAITLYN RM, RODERICK ([id number]), assistant production editor SILVIA GRADY ([id number]) on 11/27/2021 8:51:43 AM Referred By: Shanelle Puente Confirmed By:RODERICK SAHNI MD
--- NOTE | 2021-11-24 22:38 | ED.VIS.CHEST ---
HPI History of Present Illness Chief Complaint: Chest Pain Informant: patient Onset/Context/Timing Onset: Weeks Timing: Intermittent Quality: Positive for Pressure and Sharp Location: Substernal Worsened By: Breathing Relieved By: Nothing Associated Symptoms: Positive for Diaphoresis and Dyspnea; Negative for Nausea and Vomiting Narrative Narrative: Patient presents with chest pain that has been intermittent over the last week. Patient states it has been constant for the last hour to hour and a half. Patient states it is over the substernal area. Patient describes it as sharp and pressure-like. Patient denies any radiation of the pain. Patient admits to some diaphoresis. Patient admits to some pain with breathing. Patient denies any nausea or vomiting. Patient is a smoker. Patient has a history of hypertension. CVD Risk Factors: Positive for Hypertension, Hypercholesterolemia and Smoking; Negative for Diabetes and Family History 1' </=55 PFSH [facility] Medical History (Updated 11/24/21 @ 23:[address] Jalen Rios DO) Abnormal ECG Anxiety and depression Back pain Chest pain COPD (chronic obstructive pulmonary disease) Cutaneous abscess of left hand Depression Diverticulitis Dyspnea HLD (hyperlipidemia) HTN (hypertension) MRSA (methicillin resistant Staphylococcus aureus) Nephrolithiasis Osteoarthritis Osteoporosis Sleep apnea Smoker Smoking greater than 30 pack years tenosynovitis left hand Home Medications metoprolol succinate 50 mg PO DAILY 01/01/18 [History Last Taken 07/06/18 08:00 25 MG] losartan 25 mg PO DAILY 07/03/18 [History Last Taken 07/06/18 08:00 25 MG] albuterol sulfate 90 mcg/actuation aerosol inhaler 2 puff INHALATION Q4H PRN g 10/27/18 [History Last Taken Unknown] varenicline 1 mg tablet 1 mg PO BID #56 tab 01/14/19 [Rx Last Taken Unknown] Allergy/AdvReac Type Severity Reaction Status Date / Time Penicillins Allergy Shortness Verified 11/24/21 22:33 of breath Family History Father COPD (chronic obstructive pulmonary disease) Alcoholism Mother Cancer Surgical History History of cataract surgery History of gastrointestinal surgery Social History Smoking Status: Current every day smoker tobacco type: cigarettes Tobacco: How many years used: 40 alcohol intake: never substance use type: does not use ROS ROS ED Constitutional Constitutional ED: Denies chills or fever(s) Eyes Eyes: Denies blurry vision or change in vision ENT ENT ED: Denies rhinorrhea or sore throat Cardiovascular Cardiovascular: Reports chest pain; Denies palpitations Respiratory/Chest Respiratory/Chest: Reports dyspnea; Denies cough Gastrointestinal Gastrointestinal: Denies abdominal pain, nausea or vomiting Genitourinary Genitourinary ED: Denies dysuria or hematuria Musculoskeletal Musculoskeletal: Denies back pain or neck pain Integumentary Denies abscess or rash Neurologic Neurologic: Denies headache(s) or weakness Allergic/Immunologic Allergic/Immunologic ED: Denies mouth swelling or urticaria EXAM Physical Exam Const Vital Signs: 11/24/21 22:26 11/24/21 22:29 11/24/21 22:33 Temperature 97.6 F L Temperature Source Temporal Pulse Rate 77 75 Respiratory Rate 14 12 16 Blood Pressure 139/81 H 187/113 H 123/87 H Blood Pressure Mean 100 99 Pulse Ox 98 98 Oxygen Delivery Method Room Air Room Air Positive well nourished and well developed General Appearance ED: well developed HEENT normocephalic and atraumatic Eyes PERRL and EOMs intact bilaterally Neck supple and no JVD Chest Wall palpation of chest normal Resp normal respiratory effort and clear to auscultation bilaterally Effort and Inspection: Negative for respiratory distress Cardio regular rate, regular rhythm and no murmurs GI normal to inspection, nondistended, normoactive bowel sounds, soft to palpation, non-tender and non-distended Extremity normal to inspection General Extremety ED: Negative for edema or tenderness General Extremity: Negative for edema Neuro oriented x3, CN's II-XII intact bilaterally and no sensory deficits noted Sensorium / Orientation: awake and alert Motor Exam: strength 5/5 throughout Psych mental status grossly normal Heart Score History: Highly Suspicious ECG: Significant ST-Depression (There is ST elevation in the inferior leads with reciprocal ST depression in the anterior leads.) Age: >/= 65 years Risk Factors: 1 or 2 Risk Factors Score: 7 MDM MDM MDM Narrative Medical decision making narrative: EKG was obtained. On my interpretation, there is a sinus rhythm with a first-degree AV block. There is ST elevation in leads II, III, and aVF. There are reciprocal changes in leads I, aVL, V1, V2, V3, and V4. Because of this, STEMI alert was called. Case was discussed with Dr. Puente STEMI doctor on-call. He recommends giving the patient Brilinta and heparin. Patient was given aspirin as well. Patient was given a dose of morphine. Patient did develop ventricular fibrillation and was defibrillated at 200 J. CPR was initiated. Patient woke up after this. Patient will be transferred to the cardiac Room [facility]. Prior to transferring the patient to the cardiac [facility], patient had a second episode of ventricular fibrillation. Patient was defibrillated again with 200 J and immediately woke up. CBC shows a leukocytosis of 15.6. PT with INR and PTT were within normal limits. Basic metabolic profile was essentially within normal limits. High-sensitivity troponin was normal at 12. Portable chest x-ray was obtained. There is 1 view. On my interpretation, there is no acute cardiopulmonary process. Patient was transferred to the [facility] in stable condition. Patient understands and is agreeable with the plan. All questions were answered. Lab Data Attestation: I reviewed the patient's lab results. Labs: Laboratory Results - last 24 hr 11/24/21 11/24/21 11/24/21 22:30 22:30 22:30 WBC 15.6 H RBC 4.51 L Hgb 15.9 Hct 44.4 MCV 98.4 H MCH 35.3 H MCHC 35.8 RDW Std Deviation 46.4 H RDW Coeff of Eva 12.8 Plt Count 255 MPV 9.2 Immature Gran % (Auto) 0.300 Neut % (Auto) 66.6 Lymph % (Auto) 23.8 [place] % (Auto) 7.7 Eos % (Auto) 1.3 Baso % (Auto) 0.3 Absolute Neuts (auto) 10.4 H Absolute Lymphs (auto) 3.71 Nucleated RBC % 0 PT 13.1 INR 1.0 APTT 28.5 Sodium 136 Potassium 3.9 Chloride 106 Carbon Dioxide 21.0 Anion Gap 9 BUN 19 H Creatinine 0.82 Estim Creat Clear Calc 98.79 Est GFR (MDRD) Af Amer 121 Est GFR (MDRD) Non-Af 100 BUN/Creatinine Ratio 23.3 H Glucose 146 H Calcium 9.0 Troponin I High Sens 12 Radiography Chest X-Ray - ED: 1 View, Read by ED Physician and No Acute Disease EKG Initial EKG: Attestation: I personally reviewed and interpreted this EKG as follows: Interpretation: Sinus Rhythm (76), S-T Elevation (Leads II, III, and aVF) and S-T Depression (Leads I, aVL, V1 through V4) Critical Care Time Critical Care Time: Yes Critical care time (excluding procedures): 30-74 minutes (34), Discussing w/Patient &/or Family/Dockmaster, Discussing w/Consultants, Arranging Admission or Transfer and Performing Direct Patient Care at Bedside Discharge Plan Dx/Rx/DC Orders Clinical Impression: Acute ST elevation myocardial infarction (STEMI), Cardiac arrest Disposition Disposition: Acute Care Hospital [facility] Discharge Date/Time: 11/24/21 23:07
[2021-11-24] MEDS: Morphine 4 MG/ML Syringe IV (22:39)
[2021-11-24 22:41] LABS: Absolute Lymphocyte Count 3.71 X10^3/uL (0.83-4.51); Absolute Neutrophil Count 10.4 X10^3/uL (2.0-7.7); Basophil# 0.05 X10^3/uL; Basophil% 0.3 % (0-1); Eosinophil# 0.21 X10^3/uL; Eosinophils% 1.3 % (0-5); Hematocrit 44.4 % (40-54); Hemoglobin 15.9 g/dL (13.0-16.5); Lymphocyte # 3.71 X10^3/ul (0.83-4.51); Lymphocyte % 23.8 % (19-41); Mean Corp Hgb Conc 35.8 g/dL (32-36); Mean Corpuscular Hgb 35.3 pg (27.0-32.0); Mean Corpuscular Volume 98.4 fL (80-94); Mean Platelet Vol. 9.2 fl (6.2-12.0); Monocyte% 7.7 % (0-10); NRBC Flagged by Analyzer 0 % (0-5); Neutrophil # 10.37 X10^3/uL (2.7-7.7); Neutrophil % 66.6 % (47-70); Platelet Count 255 K/mm3 (150-450); RBC Distribution Width CV 12.8 % (11.6-14.6); RBC Distribution Width SD 46.4 fl (35.1-43.9); Red Blood Count 4.51 M/mm3 (4.6-6.2); White Blood Count 15.6 K/mm3 (4.4-11.0)
--- NOTE | 2021-11-24 22:42 | PCM.HP.STD ---
HPI - General General Date of Admission: 11/24/21 HPI Narrative YUNG VILA, is a 65 M with a significant history of hypertension; hyperlipidemia and tobacco abuse who presents to the emergency department with 1 week history of progressively worsening substernal chest pain that got worse on the day of presentation. His chest pain is substernal. He described it as burning. It radiates to bilateral arms. Associated with her symptoms is nausea; and diaphoresis. Taking a deep breath aggravates the chest pain. He denies any ameliorating factors to the chest pain. At the emergency department patient was found to have a STEMI. STEMI alert was called and patient was wheeled to this [facility] for vascularization of his coronary arteries. Whiles at the emergency department patient was defibrillated 2 times for cardiac arrest with ventricular fibrillation. With the first cardiac arrest he had about 3 chest compressions. [facility] Medical History Abnormal ECG Anxiety and depression Back pain Chest pain COPD (chronic obstructive pulmonary disease) Cutaneous abscess of left hand Depression Diverticulitis Dyspnea HLD (hyperlipidemia) HTN (hypertension) MRSA (methicillin resistant Staphylococcus aureus) Nephrolithiasis Osteoarthritis Osteoporosis Sleep apnea Smoker Smoking greater than 30 pack years tenosynovitis left hand Home Medications metoprolol succinate 50 mg PO DAILY 01/01/18 [History Last Taken 07/06/18 08:00 25 MG] losartan 25 mg PO DAILY 07/03/18 [History Last Taken 07/06/18 08:00 25 MG] albuterol sulfate 90 mcg/actuation aerosol inhaler 2 puff INHALATION Q4H PRN g 10/27/18 [History Last Taken Unknown] varenicline 1 mg tablet 1 mg PO BID #56 tab 01/14/19 [Rx Last Taken Unknown] Allergy/AdvReac Type Severity Reaction Status Date / Time Penicillins Allergy Shortness Verified 11/24/21 22:33 of breath Family History Father COPD (chronic obstructive pulmonary disease) Alcoholism Mother Cancer Surgical History History of cataract surgery History of gastrointestinal surgery Social History Smoking Status: Current every day smoker tobacco type: cigarettes Tobacco: How many years used: 40 alcohol intake: never substance use type: does not use ROS ROS Narrative Pertinent positives and pertinent negatives as noted in HPI. All other systems were reviewed and are negative. Vital Signs Vital Signs Vital Signs: 11/24/21 22:26 11/24/21 22:33 Temperature 97.6 F L Temperature Source Temporal Pulse Rate 77 75 Respiratory Rate 14 16 Blood Pressure 139/81 H 123/87 H Blood Pressure Mean 100 99 Pulse Ox 98 98 Oxygen Delivery Method Room Air Room Air Weight Weight: 84.3 kg Body Mass Index (BMI) 24.5 Physical Exam Narrative Physical exam: General: Patient in distress secondary to chest pain; diaphoretic Head: Normocephalic, atraumatic, no tenderness Eyes: Vision is grossly intact. EOMI ENT, no trauma, moist mucous membranes, no rhinorrhea Neck: Nontender, full range of motion, no spinal tenderness, deformities, step-off CVS: Regular rate and rhythm. S1-S2 present. No murmur, gallop or rub. Respiratory : clear to auscultation bilaterally, chest wall nontender, no wheezing Abdomen: Soft, nontender, nondistended, normal bowel sounds, no masses : Deferred Back: Nontender, no CVA tenderness, no midline spinal tenderness, deformities, step-offs Extremities: Nontender full range of motion, no trauma Skin: Normal color, no trauma, abrasions Neuro: Alert, oriented, cranial nerves II through XII grossly intact. Psychiatry: Appears anxious. Not depressed. Results Lab / Micro Data Result Diagrams: 11/24/21 22:30 11/24/21 22:30 Assessment & Plan Assessment/Plan (1) STEMI (ST elevation myocardial infarction): QUALIFIERS: Involved coronary artery: unspecified coronary artery Qualified Code(s): I21.3 - ST elevation (STEMI) myocardial infarction of unspecified site (2) Cardiac arrest: PLAN: STEMI Received a full dose aspirin; Brilinta at the emergency department. Actual CXR image was independently visualized. No acute cardiopulmonary process was noted. Actual EKG tracing was independently visualized. EKG tracing showed ST elevations in inferior leads and reciprocal changes. Initial Hyzine troponin the ED was 21. Received aspirin, Brilinta and heparin at the emergency department. Morphine as needed for pain ordered We will check lipid panel. Lipid panel on 04/30/2021 reviewed showed triglycerides of 210; cholesterol 243; LDL cholesterol of 154 and VDL cholesterol of 42; HDL cholesterol was 47. Taken to [facility] and revascularize. See notes from [facility]. Aspirin, and Brilinta ordered by sales advisor statin: Started on high intensity statin. Anti-P2Y12 Receptor antibody: Brilinta as above. Glycoprotein IIb/IIIa inhibitors: Integrilin per cardiology orders Home Cozaar continued. On home metoprolol 50 mg daily. Placed on metoprolol titrate 25 mg twice daily. Noted to have leukocytosis with white count of 15.6, likely reactive. Trend CBC and BMP Hypertension Blood pressure is not within goal Cozaar and metoprolol as above. Trend blood pressure and adjust blood pressure medications. Cardiac arrest Cardiac arrest x2 at emergency department. Status post about 3 chest compression and de-fibrillation for first cardiac arrest. Second cardiac arrest with only defibrillation. Taken to [facility] and revascularize. Admit to CCU on telemetry. Tobacco abuse Counseled DVT prophylaxis: Heparin per cardiology orders Charges/Coding Visit Charges Inpatient E&M: 87775 Init Hosp L3
--- NOTE | 2021-11-24 22:43 | ED.RN ---
Pt went into vfib at 2243, shocked at 200 immediately, 2 chest compressions, pt regained consciousness.
[2021-11-24] MEDS: Ondansetron 4 MG/2 ML Vial IV (22:44)
[2021-11-24 22:46] LABS: Prothrombin Time (Protime)PT. 13.1 SECONDS (11.7-14.9)
[2021-11-24] MEDS: Heparin Injection (Vial) 5,000 UNIT/ML VIAL 4000 UNIT IV (22:46)
[2021-11-24] MEDS: TICAGRELOR 90 MG TABLET 180 MG PO (22:46)
[2021-11-24 22:47] LABS: Partial Thromboplast Time 28.5 Seconds (24.1-36.2)
[2021-11-24] MEDS: Aspirin 81 MG TAB.CHEW 324 MG PO (22:47)
[2021-11-24] MEDS: fentaNYL 100 MCG/2 ML Ampul 25 MCG IV (22:53)
--- NOTE | 2021-11-24 22:56 | ED.RN ---
vfib 2253, shocked immediately at 200, pt regained consciousness.
--- NOTE | 2021-11-24 22:59 | ED.RN ---
3,581 dollars, deanna, luu locked in safe.
--- NOTE | 2021-11-24 23:00 | ED.RN ---
calls made to daughter Luz ElenaFLOR left to call ER
[2021-11-24 23:01] LABS: Anion Gap 9 (5-15); BUN 19 mg/dL (7-18); BUN/Creat Ratio 23.3 RATIO (10-20); Chloride 106 mmol/L (98-107); Creatinine, Serum 0.82 mg/dL (0.70-1.30); EST Glomerular Filtration Rate 100 mL/min (>60); Est Glom Filt Rate - Afr Amer 121 mL/min (>60); Estimated Creatinine Clearance 98.79 ml/min; Glucose 146 mg/dL (74-106); Potassium 3.9 mmol/L (3.5-5.1); Sodium Level 136 mmol/L (136-145); Troponin-I HS 12 pg/mL (3.0-78.0)
[2021-11-25] VITALS (32 sets, daily range): BP systolic 115–165; BP diastolic 56–111; PULSE 54–110; RESP 12–18; TEMP 36.3–36.8; O2SAT 94–100; BMI 23.9
--- NOTE | 2021-11-25 00:11 | CON.PCM.CA_ITS ---
Assessment & Plan Assessment/Plan (1) Acute ST elevation myocardial infarction (STEMI): QUALIFIERS: Involved coronary artery: right coronary artery Qualified Code(s): I21.11 - ST elevation (STEMI) myocardial infarction involving right coronary artery PLAN: Patient was treated with drug-eluting stents to the RCA. He is doing well at the end of the procedure. We will keep him on aspirin, Brilinta, beta-vernon and statin. He will be admitted to the CCU for further management (2) Cardiac arrest: PLAN: In the setting of an IN. He will be monitored in the CCU. HPI Consult Data Date of Consult: 11/25/21 HPI Narrative HPI Narrative: YUNG VILA, is a 65 M who presents with chest pain. Chest pain has been going on for about 2 days. Initially it was on and off and prior to presentation it became constant. In the emergency room he was found to have inferior ST elevation IN and a STEMI alert was called. He also had V. fib ar rest that responded to defibrillation. He did not have to be intubated and is alert and awake. He underwent emergent coronary angiography which revealed 99% stenosis in the mid RCA and an 80 to 90% stenosis in the distal RCA. Both of these were treated with drug-eluting stents. Patient's chest pain improved significantly at the end of the procedure. Review of systems: All systems reviewed. All else is negative except as in HPI. [facility] Medical History (Updated 11/25/21 @ 00:[address] Roxie Puente MD) Abnormal ECG Anxiety and depression Back pain Chest pain COPD (chronic obstructive pulmonary disease) Cutaneous abscess of left hand Depression Diverticulitis Dyspnea HLD (hyperlipidemia) HTN (hypertension) MRSA (methicillin resistant Staphylococcus aureus) Nephrolithiasis Osteoarthritis Osteoporosis Sleep apnea Smoker Smoking greater than 30 pack years tenosynovitis left hand Home Medications metoprolol succinate 50 mg PO DAILY 01/01/18 [History Last Taken 07/06/18 08:00 25 MG] losartan 25 mg PO DAILY 07/03/18 [History Last Taken 07/06/18 08:00 25 MG] albuterol sulfate 90 mcg/actuation aerosol inhaler 2 puff INHALATION Q4H PRN g 10/27/18 [History Last Taken Unknown] varenicline 1 mg tablet 1 mg PO BID #56 tab 01/14/19 [Rx Last Taken Unknown] Allergy/AdvReac Type Severity Reaction Status Date / Time Penicillins Allergy Shortness Verified 11/24/21 22:33 of breath Family History Father COPD (chronic obstructive pulmonary disease) Alcoholism Mother Cancer Surgical History History of cataract surgery History of gastrointestinal surgery Social History Smoking Status: Current every day smoker tobacco type: cigarettes Tobacco: How many years used: 40 alcohol intake: never substance use type: does not use Physical Exam Const alert and oriented x3 Orientation / Consciousness: awake HEENT normocephalic Eyes no scleral icterus Resp normal respiratory effort Cardio regular rate and regular rhythm Extremity no pedal edema Neuro oriented x3 Psych mental status grossly normal Risk Stratification Risk Stratification Applicable: No Charges/Coding Visit Charges Inpatient E&M: 56427 Init Hosp L3 Objective Data Vital Signs: Vital Signs Temp Pulse Resp BP Pulse Ox 97.6 F L 73 11 L 176/104 H 100 11/24/21 23:01 11/24/21 23:01 11/24/21 23:01 11/24/21 23:01 11/24/21 23:01 Oxygen Flow Rate (L/min) 15 Oxygen Delivery Method Non-Rebreather Weight: 185 lb 13.595 oz Body Mass Index (BMI) 24.5 Lab / Micro Data Result Diagrams: 11/24/21 22:30 11/24/21 22:30 Labs: Laboratory Results - last 24 hr 11/24/21 22:30: WBC 15.6 H, RBC 4.51 L, Hgb 15.9, Hct 44.4, MCV 98.4 H, MCH 35.3 H, MCHC 35.8, RDW Std Deviation 46.4 H, RDW Coeff of Eva 12.8, Plt Count 255, MPV 9.2, Immature Gran % (Auto) 0.300, Neut % (Auto) 66.6, Lymph % (Auto) 23.8, [place] % (Auto) 7.7, Eos % (Auto) 1.3, Baso % (Auto) 0.3, Absolute Neuts (auto) 10.4 H, Absolute Lymphs (auto) 3.71, Nucleated RBC % 0 04/17/22 22:30: PT 13.1, INR 1.0, APTT 28.5 11/24/21 22:30: Sodium 136, Potassium 3.9, Chloride 106, Carbon Dioxide 21.0, Anion Gap 9, BUN 19 H, Creatinine 0.82, Estim Creat Clear Calc 98.79, Est GFR (MDRD) Af Amer 121, Est GFR (MDRD) Non-Af 100, BUN/Creatinine Ratio 23.3 H, Glucose 146 H, Calcium 9.0, Troponin I High Sens 12 Cardiology Labs/Tests 11/24/21 22:30: WBC 15.6 H, RBC 4.51 L, Hgb 15.9, Hct 44.4, MCV 98.4 H, MCH 35.3 H, MCHC 35.8, Plt Count 255, MPV 9.2, Immature Gran % (Auto) 0.300, Neut % (Auto) 66.6, Lymph % (Auto) 23.8, [place] % (Auto) 7.7, Eos % (Auto) 1.3, Baso % (Auto) 0.3, Absolute Neuts (auto) 10.4 H, Nucleated RBC % 0 11/24/21 22:30: PT 13.1, INR 1.0, APTT 28.5 11/24/21 22:30: Sodium 136, Potassium 3.9, Chloride 106, Carbon Dioxide 21.0, Anion Gap 9, BUN 19 H, Creatinine 0.82, Est GFR (MDRD) Af Amer 121, Est GFR (MDRD) Non-Af 100, BUN/Creatinine Ratio 23.3 H, Glucose 146 H, Calcium 9.0 Rhythm: EKG: ECHO: Stress Test: Cardiac Cath: PCI: CT Surgery: Holter monitor: EPS: PPM: CXR: Chest CT Scan:
--- NOTE | 2021-11-25 00:30 | EKG12_ITS ---
Test Reason : POST PCI/STEMI Blood Pressure : / mmHG Vent. Rate : 083 BPM Atrial Rate : 083 BPM P-R Int : 210 ms QRS Dur : 094 ms QT Int : 366 ms P-R-T Axes : 086 026 -60 degrees QTc Int : 430 ms Sinus rhythm with 1st degree A-V block with Fusion complexes Low voltage QRS Septal infarct , age undetermined ST & T wave abnormality, consider inferior ischemia Abnormal ECG Confirmed by KAITLYN RM, RODERICK ([id number]), video editor SILVIA GRADY ([id number]) on 11/27/2021 9:01:52 AM Referred By: Shanelle Puente Confirmed By:RODERICK SAHNI MD
[2021-11-25] MEDS: 0.9% Normal Saline 1,000 ML 60 ML IV ×2 (00:40→03:47)
--- NOTE | 2021-11-25 00:46 | CL.I_ITS ---
Patient Name: YUNG VILA Study Date: 11/24/2021 Performing: Rojelio Puente MD Ht: 73 inches 185 cm : 1955 Wt: 185.4 lbs 84 kg Age: 65 Gender: male BSA: 2.08 PROCEDURE(S) PERFORMED [id number])[facility] [id number])AMI, ROBERTO OR PTCA, ARTERY/GRAFT, SINGLE VESSEL CLINICAL PROFILE AND CO-MORBIDITIES Indications: ACS <= 24 hrs Heart Failure: None Stress/Imaging Stress/Image Study Performed: No CAD Presentations: STEMI. Symptom onset Date/Time: 11/24/21 Time Not Available Other: cardiac arre st CONCLUSIONS CAD as described. Successful PCI of mid and distal RCA with ROBERTO RECOMMENDATIONS DESCRIPTION OF PROCEDURE The patient arrived to the procedure lab. The risks and benefits of the procedure as well as a full d escription of our services here and lack of surgical backup were fully explained to the patient and/o r their significant other prior to the catheterization. The Timeout was completed, verifying the lvei ect patient and procedure. The patient's procedural site was prepped and draped in the usual fashion. Local anesthetic was given subcutaneously to right radial region with Lidocaine 2%. Using a modified Seldinger technique, arterial access was obtained via the right radial artery, a 6Fr sheath was inse rted.. Left Coronary Artery selective angiography was performed in multiple views using a 5 Fr. JL3. 5 catheter JR4 Guide catheter was inserted and engaged into the RCA. BMW Guide wire was advanced to the RCA. Emerge 2.50x12 Balloon catheter was inserted. PTCA balloon inflated at 6 atms for 8 secs. PTCA ballo on inflated at 6 atms for 8 secs. Angiogram performed post balloon dilatation. Orsiro 3.5x30 Drug Elu ting stent was inserted. Angiogram performed post stent deployment. Orsiro 3.5x9 Drug Eluting stent w as inserted. Angiogram performed post stent deployment. The arterial sheath was pulled and a TR Ban d was applied for hemostasis w/11ml air CORONARY ANGIOGRAPHY DOMINANCE: Right Dominant LEFT MAIN: Mild luminal irregularities LEFT ANTERIOR DESCENDING ARTERY: MID LAD: 30 % Stenosis CIRCUMFLEX ARTERY: Mild luminal irregularities RIGHT CORONARY ARTERY: MID RCA: 99 % Stenosis DISTAL RCA: 80 % Stenosis INTERVENTION INFORMATION LESION SITE: RCA (Mid) Lesion Complexity: High/C, chronic total occlusion: No, lesion at bifurcation: No, thrombus present: Yes, lesion length: 27 mm, culprit lesion: Yes, Previously treated lesion: No Pre Stenosis: 99 % Pre intervention DANIEL flow: 2 PROCEDURE: Drug Eluting Stent with pre and post dilatation Post Stenosis: 0 % Post intervention DANIEL flow: 3 Lesion Devices: Cardinal 6 Fr JR4 100cm Guide Catheter [place] .014 BMW [place] Straight 190cm Felipe Sci EMERGE MR 2.50x12 BALLOON LESION SITE: RCA (Distal) Lesion Complexity: High/C, chronic total occlusion: No, lesion at bifurcation: No, thrombus present: No, lesion length: 7 mm, culprit lesion: Yes Pre Stenosis: 80 % Pre intervention DANIEL flow: 3 PROCEDURE: Drug Eluting Stent Post Stenosis: 0 % Post intervention DANIEL flow: 3 Lesion Devices: Cardinal 6 Fr JR4 100cm Guide Catheter [place] .014 [employer] [place] Straight 190cm [facility] MR ROBERTO 3.5x9 COMPLICATIONS No Complications PROCEDURE MEDICATIONS Oxygen: via non-rebreather mask Atropine 1mg/10ml 0.5 amp @ 11/24/2021 23:44:33 Heparin given IA 11/24/2021 23:32:36 Nitro 100 mcg IC 11/24/2021 23:48:42 Nitro 100 mcg IC 11/24/2021 23:48:42 Verapamil 2.5mg, Ntg 100mcgs, 3000 units of Heparin given IA 11/24/2021 23:32:36 IV Bolus: .9 NaCl 450 ml total 11/25/2021 00:08:36 SUMMARY OF HEMODYNAMIC DATA Time AIR REST ECG 23:17:30 AO 135/81 (104) SA 23:34:33 Signed By Rojelio Puente MD On 11/25/2021 00:44:54 Rojelio Puente MD
--- NOTE | 2021-11-25 01:00 | NURSING ---
Pt denies needing staff to call family. States he texted his daughter to let her know what is going on.
[2021-11-25] MEDS: Morphine 2 MG/ML Syringe IV ×4 (01:19→21:39)
[2021-11-25] MEDS: 0.9% Saline Lock 10 ML Syringe IV ×4 (01:20→21:41)
[2021-11-25 01:21] LABS: Hematocrit 41.3 % (40-54); Hemoglobin 14.5 g/dL (13.0-16.5); Mean Corp Hgb Conc 35.1 g/dL (32-36); Mean Corpuscular Hgb 34.4 pg (27.0-32.0); Mean Corpuscular Volume 97.9 fL (80-94); Mean Platelet Vol. 8.9 fl (6.2-12.0); Platelet Count 236 K/mm3 (150-450); RBC Distribution Width SD 46.2 fl (35.1-43.9); Red Blood Count 4.22 M/mm3 (4.6-6.2); White Blood Count 11.5 K/mm3 (4.4-11.0)
[2021-11-25 05:09] LABS: ALB/GLOB Ratio 1.1 RATIO (0.9-2.4); AST(SGOT) 123 U/L (15-37); Alanine Aminotransfer ALT/SGPT 45 U/L (16-61); Albumin, Serum 3.5 g/dL (3.2-5.0); Alkaline Phosphatase 84 U/L (45-117); Anion Gap 6 (5-15); BUN 14 mg/dL (7-18); Calcium,Total 8.3 mg/dL (8.5-10.1); Chloride 106 mmol/L (98-107); Creatinine, Serum 0.74 mg/dL (0.70-1.30); EST Glomerular Filtration Rate 113 mL/min (>60); Est Glom Filt Rate - Afr Amer 136 mL/min (>60); Estimated Creatinine Clearance 81.01 ml/min; Globulin 3.1 g/dL (2.2-4.2); Glucose 117 mg/dL (74-106); Potassium 3.9 mmol/L (3.5-5.1); Protein, Total 6.6 g/dL (6.4-8.2); Sodium Level 138 mmol/L (136-145)
[2021-11-25] MEDS: Acetaminophen 325 MG Tablet 650 MG PO ×3 (05:13→18:05)
[2021-11-25 05:17] LABS: Absolute Lymphocyte Count 1.54 X10^3/uL (0.83-4.51); Basophil# 0.02 X10^3/uL; Basophil% 0.2 % (0-1); Eosinophil# 0.02 X10^3/uL; Eosinophils% 0.2 % (0-5); Hemoglobin 14.2 g/dL (13.0-16.5); Lymphocyte # 1.54 X10^3/ul (0.83-4.51); Lymphocyte % 14.5 % (19-41); Mean Corp Hgb Conc 34.6 g/dL (32-36); Mean Corpuscular Volume 98.1 fL (80-94); Mean Platelet Vol. 9.3 fl (6.2-12.0); Monocyte# 1.02 X10^3/uL; Monocyte% 9.6 % (0-10); NRBC Flagged by Analyzer 0 % (0-5); Neutrophil % 75.1 % (47-70); Platelet Count 237 K/mm3 (150-450); RBC Distribution Width CV 12.9 % (11.6-14.6); RBC Distribution Width SD 46.2 fl (35.1-43.9); Red Blood Count 4.18 M/mm3 (4.6-6.2); White Blood Count 10.6 K/mm3 (4.4-11.0)
[2021-11-25 05:47] LABS: Cholesterol 131 mg/dL (200); High Density Lipoprotein 44 mg/dL; Triglycerides 152 mg/dL; Very Low Density Lipoprotein 30 mg/dL (5-40)
--- NOTE | 2021-11-25 07:22 | PCM.PN.HOSP ---
Subjective Subjective Patient is a 65-year-old who presented with chest pain EKG in the ED demonstrated acute inferior ST segment elevation [place]. Patient apparently went into V. fib arrest and did respond to defibrillation underwent emergency left catheterization with PCI with ROBERTO to the mid RCA lesion Objective Data Objective Data Vital Signs: Vital Signs Temp Pulse Resp BP Pulse Ox 98.2 F 61 16 115/71 98 11/25/21 04:00 11/25/21 07:00 11/25/21 07:00 11/25/21 07:00 11/25/21 07:08 Oxygen Flow Rate (L/min) 2 Oxygen Delivery Method Nasal Cannula Weight: 82.2 kg Body Mass Index (BMI) 23.9 Intake & Output: Intake and Output for Last 24 Hours 11/23/21 11/24/21 11/25/21 23:59 23:59 23:59 Intake Total 259 / 259 Output Total 935 / 935 Balance -676 / -676 Lab / Micro Data Result Diagrams: 11/25/21 04:35 11/25/21 04:35 Labs: Laboratory Results - last 24 hr 11/24/21 22:30: WBC 15.6 H, RBC 4.51 L, Hgb 15.9, Hct 44.4, MCV 98.4 H, MCH 35.3 H, MCHC 35.8, RDW Std Deviation 46.4 H, RDW Coeff of Eva 12.8, Plt Count 255, MPV 9.2, Immature Gran % (Auto) 0.300, Neut % (Auto) 66.6, Lymph % (Auto) 23.8, [place] % (Auto) 7.7, Eos % (Auto) 1.3, Baso % (Auto) 0.3, Absolute Neuts (auto) 10.4 H, Absolute Lymphs (auto) 3.71, Nucleated RBC % 0 11/24/21 22:30: PT 13.1, INR 1.0, APTT 28.5 11/24/21 22:30: Sodium 136, Potassium 3.9, Chloride 106, Carbon Dioxide 21.0, Anion Gap 9, BUN 19 H, Creatinine 0.82, Estim Creat Clear Calc 98.79, Est GFR (MDRD) Af Amer 121, Est GFR (MDRD) Non-Af 100, BUN/Creatinine Ratio 23.3 H, Glucose 146 H, Calcium 9.0, Troponin I High Sens 12 11/25/21 01:15: WBC 11.5 H, RBC 4.22 L, Hgb 14.5, Hct 41.3, MCV 97.9 H, MCH 34.4 H, MCHC 35.1, RDW Std Deviation 46.2 H, RDW Coeff of Eva 13.0, Plt Count 236, MPV 8.9 11/25/21 04:35: WBC Cancelled, Corrected WBC Cancelled, RBC Cancelled, Hgb Cancelled, Hct Cancelled, MCV Cancelled, MCH Cancelled, MCHC Cancelled, RDW Std Deviation Cancelled, RDW Coeff of Eva Cancelled, Plt Count Cancelled, MPV Cancelled, Diff Path Review Cancelled 11/25/21 04:35: Sodium 138, Potassium 3.9, Chloride 106, Carbon Dioxide 26.0, Anion Gap 6, BUN 14, Creatinine 0.74, Estim Creat Clear Calc 81.01, Est GFR (MDRD) Af Amer 136, Est GFR (MDRD) Non-Af 113, BUN/Creatinine Ratio 19.0, Glucose 117 H, Calcium 8.3 L, Total Bilirubin 0.60, AST 123 H, ALT 45, Alkaline Phosphatase 84, Total Protein 6.6, Albumin 3.5, Globulin 3.1, Albumin/Globulin Ratio 1.1 11/25/21 04:35: WBC 10.6, RBC 4.18 L, Hgb 14.2, Hct 41.0, MCV 98.1 H, MCH 34.0 H, MCHC 34.6, RDW Std Deviation 46.2 H, RDW Coeff of Eva 12.9, Plt Count 237, MPV 9.3, Immature Gran % (Auto) 0.400, Neut % (Auto) 75.1 H, Lymph % (Auto) 14.5 L, [place] % (Auto) 9.6, Eos % (Auto) 0.2, Baso % (Auto) 0.2, Absolute Neuts (auto) 8.0 H, Absolute Lymphs (auto) 1.54, Nucleated RBC % 0 11/25/21 04:35: Triglycerides 152, Cholesterol 131, LDL Cholesterol 57, VLDL Cholesterol 30, HDL Cholesterol 44 Radiography Diagnostic Testing: Radiology Impression Chest X-Ray 11/24/21 22:35 IMPRESSION: 1. No active cardiopulmonary disease. 2. No significant interval change since previous study of 09/23/2018 Electronically Signed: Celestino Myers MD at 0:18 EDT , Physical Exam Narrative GENERAL: cooperative HEENT: Atraumatic; EYES; Anicteric, Normal Conjunctiva NECK; supple, normal thyroid, RESPIRATORY: Diminished to auscultation CARDIOVASCULAR: Regular S1 S2, GI: soft, normoactive bowel sounds, : No Renal angle tenderness; EXTREMITIES: No edema, no clubbing, MUSCULOSKELETAL: no muscle wasting NEURO: Awake; no lateralizing signs. SKIN: No Rash PSYCH; Flat affect. Assessment & Plan Assessment/Plan (1) STEMI (ST elevation myocardial infarction): QUALIFIERS: Involved coronary artery: unspecified coronary artery Qualified Code(s): I21.3 - ST elevation (STEMI) myocardial infarction of unspecified site (2) Cardiac arrest: PLAN: Patient is a 65-year-old who presented with chest pain EKG in the ED demonstrated acute inferior ST segment elevation [place]. Patient apparently went into V. fib arrest and did respond to defibrillation underwent emergency left catheterization with PCI with ROBERTO to the mid RCA lesion 1. Acute STEMI ? EKG demonstrated inferior ST segment elevation [place]. Patient underwent emergency catheterization with PCI with ROBERTO to mid RCA lesion ? Patient currently on recommended medications including dual antiplatelet therapy beta-blockers, statin therapy with cardiology on consult 2. V. fib arrest ? Patient responded to defibrillation 3. Hypertension - Blood pressure controlled, home medications continued with dose adjustment as needed 4. Tobacco dependence - Counseled on cessation, offered nicotine patch for tobacco cravings 5. DVT prophylaxis ? SQ Lovenox Charges/Coding Visit Charges Inpatient E&M: 95559 Subs Hosp L3
[2021-11-25] MEDS: Aspirin 81 MG TAB.CHEW PO (08:53)
[2021-11-25] MEDS: TICAGRELOR 90 MG TABLET PO ×2 (08:54→21:37)
[2021-11-25] MEDS: Metoprolol Tartrate 25 MG Tablet 12.5 MG PO ×2 (08:54→21:37)
[2021-11-25] MEDS: Losartan Potassium 25 MG Tablet PO (08:54)
--- NOTE | 2021-11-25 08:54 | CRPHASE1 ---
Patient Communication PHII Cardiac Rehab Discussed with Patient:: Yes Guide to Cardiac Rehab Given to Patient:: Yes Cardiac Rehab Facility Choice List Given to Patient:: Yes Choice Program [facility] CR PHII:: Communication Given to CR Choice Program Other:: Communication Given to CR Uniform Attendant:: Roxie Puente Refer Phase II Cardiac Rehab:: Yes Sessions:: 36 sessions - 3 days/wk, 12 weeks Cardiac Rehabilitation Info Cardiac Rehabilitation Program Information: Cardiac Rehabilitation is important for patients like you who are recovering from a heart problem. Cardiac rehabilitation programs are recognized as integral to the continued care of the patient with coronary heart disease. The cardiac rehabilitation program is designed to optimize a patient's physical, psychological, and social functioning. Health post acute care nurse practitioner work in cardiac rehabilitation programs and assist you with getting the treatments you need to get stronger and healthier - like exercise, healthy eating habits, and medications. Cardiac rehabilitation has been show to help people with heart problems live longer and have better life enjoyment than people who do not go to cardiac rehabilitation. Please contact the Cardiac Rehabilitation Program at [facility] at in two weeks if you have not heard from them.
--- NOTE | 2021-11-25 08:55 | CRPH1.INST_ITS ---
General Education CAD and cardiac anatomy and function:: Patient communicates acknowledgment Explanation of diagnoses and procedures:: Patient communicates acknowledgment Sign/Symptoms of NV:: Patient communicates acknowledgment Antiplatelet therapy: Patient communicates acknowledgment Smoking Patient Nicotine/Smoking Risk Factors Are:: Cigarettes Recommendations Include:: Smoking cessation strategies/Smoking packet, Participation in a smoking cessation program Nicotine/Smoking Response Code:: Patient communicates acknowledgment Dyslipidemia Patient Dyslipidemia Risk Factors Are:: Total Cholesterol, Triglycerides, HDL, LDL Recommendations Include:: Lipid profile provided, Reviewed NCEP/ATP guidelines, Therapeutic Lifestyle Change dietary guidelines Dyslipidemia Response Code:: Patient communicates acknowledgment Overweight/Obesity Patient Overweight/Obesity Risk Factors Are:: BMI Normal [24-29 & > 65 years old] Recommendations Include:: Weight loss of 5-10%, Reduced calorie diet, Exercise 5-7 times/week Overweight/Obesity:: Patient communicates acknowledgment Hypertension Recommendations Include:: Maintain BP <130/85, DASH dietary guidelines, D ecrease/maintain normal body weight, Moderation of ETOH Hypertension:: Patient communicates acknowledgment Diabetes Patient Diabetes Risk Factors Are:: No documented hx of diabetes Metabolic Syndrome Patient Metabolic Syndrome Risk Factors Are [3 of 5]:: Fasting blood sugar > 100 mg/dL, Waist circumference > 35 [female] or 40 [male], Hypertension Recommendations Include:: Reinforce compliance to risk factor modifications, Encouraged follow-up with Primary Care Physician Metabolic Syndrome Response Code:: Patient communicates acknowledgment Sedentary Patient Sedentary Risk Factors Are:: Lack of regular exercise Recommendations Include:: Aerobic exercise 5-7 times/week for 20-30 minutes continuously, Benefits of regular exercise, Discussed home walking program, Monitored Outpatient Cardiac Rehab Sedentary Response Code:: Patient communicates acknowledgment Stress Recommendations Include:: Identification of stressors, and assessment of coping skills, Stress management techniques Stress Response Code:: Patient communicates acknowledgment
[2021-11-25] MEDS: Nitroglycerin (INPATIENT USE) 0.4 MG TAB.SUBL SL (08:56)
--- NOTE | 2021-11-25 08:59 | EKG12_ITS ---
Test Reason : DYSRHYTHMIA Blood Pressure : / mmHG Vent. Rate : 070 BPM Atrial Rate : 070 BPM P-R Int : 176 ms QRS Dur : 088 ms QT Int : 414 ms P-R-T Axes : 066 -55 -57 degrees QTc Int : 447 ms Normal sinus rhythm Left axis deviation Septal infarct , age undetermined Inferior infarct , age undetermined Nonspecific T wave abnormality Abnormal ECG Confirmed by KAITLYN RM, RODERICK ([id number]), news assignment editor SILVIA GRADY ([id number]) on 11/27/2021 9:05:01 AM Referred By: Shanelle Puente Confirmed By:RODERICK SAHNI MD
--- NOTE | 2021-11-25 09:10 | ECHOD_ITS ---
Reason For Study: S/P NJ Procedure This was a 2D Doppler, Color Flow transthoracic echocardiogram. POOR PARASTERNAL VIEWS. Exam performed portable in ICU/CCU. Left Ventricle Normal LV size. The estimated ejection fraction is 55 %. No evidence for diastolic dysfunction. Infero-Basal: Mildly hypokinetic. Right Ventricle Normal RV size. Normal systolic function. Atria Normal left atrium. Normal right atrium. No doppler evidence for ASD. Mitral Valve There is no mitral valve stenosis. Trivial mitral valve insufficiency. Tricuspid Valve There is no tricuspid stenosis. Unable to estimate RV systolic pressure due to insufficient tricuspid regurgitant envelope. Trivial tricuspid valve insufficiency. Aortic Valve Trisinus/trileaflet aortic valve. There is no aortic stenosis. Trivial aortic valve insufficiency. Pulmonic Valve There is no pulmonic valvular stenosis. No pulmonic valve insufficiency. Great Vessels Normal aortic root. Pericardium/Pleural No pericardial effusion. MMode/2D Measurements & Calculations LVIDd: 4.7 cm IVSd: 1.1 cm LAV(MOD-sp2): 65.1 ml LVIDs: 3.1 cm LVPWd: 0.95 cm RVDd: 2.7 cm FS: 32.6 % LVAd ap4: 33.4 cm2 LVAd ap2: 32.7 cm2 SV(MOD-sp4): 61.3 ml LVLd ap4: 8.1 cm LVLd ap2: 8.5 cm EDV(MOD-sp4): 112.4 ml EDV(MOD-sp2): 109.1 ml EDV(sp4-el): 116.7 ml EDV(sp2-el): 107.0 ml LVAs ap4: 20.0 cm2 LVAs ap2: 20.5 cm2 LVLs ap4: 6.3 cm LVLs ap2: 7.1 cm ESV(MOD-sp4): 51.1 ml ESV(MOD-sp2): 51.4 ml ESV(sp4-el): 53.8 ml ESV(sp2-el): 50.4 ml EF(MOD-sp4): 54.5 % EF(MOD-sp2): 52.8 % EF(sp4-el): 53.9 % SV(MOD-sp2): 57.6 ml SV(sp4-el): 62.9 ml RA A4 area: 12.4 cm2 Doppler Measurements & Calculations MV E max blane: 75.0 cm/sec Lat Peak E' Blane: 8.6 cm/sec Med Peak E' Blane: 6.5 cm/sec MV A max blane: 70.6 cm/sec E/E' lat: 8.7 E/E' med: 11.6 MV E/A: 1.1 Ao V2 max: 119.4 cm/sec LV V1 max: 89.0 cm/sec Ao max P.7 mmHg LV V1 max P.2 mmHg ECHO/Echo Complete Interpretation Summary The estimated ejection fraction is 55 %. No evidence for diastolic dysfunction. Trivial mitral valve insufficiency. Trivial aortic valve insufficiency. Ordering Physician: Roxie Puente Referring Physician: Rojelio Puente Performed By: SUZIE
--- NOTE | 2021-11-25 09:25 | CASEMGMT ---
RN CM Face to Face with patient for initial transition planning/care coordination assessment. RN CM introduced self and role at [facility]. Patient lying in bed, alert and oriented. Patient willing to participate in assessment and is able to answer all questions appropriately. Care providers, pharmacy, and demographics verified. Patient wishes to discharge home, denies need for home health at this time. Patient states he has no further needs or concerns at this time. CM to follow for discharge planning needs that may arise. PCP: Danielito Dowd CAGE CLERK Specialists: none [facility]erred [facility]acy[facility] Insurance: etrigg Prescription Benefit: yes, Brilinta savings card provided to patient. Living Will/HPOA: none LNOK: daughter Living Arrangements: Patient lives alone in a 2nd floor apartment. Patient states he is independent at home and able to ambulate stairs. Transportation: self, daughter DME/HHC: Patient states he has cpap and pulse ox at home. No previous HHC or SNF Disposition Plan: Patient to discharge home with family support and follow-up plans in place. Abby KELLEY, RN, CM
--- NOTE | 2021-11-25 10:00 | EKG12_ITS ---
Test Reason : AM EKG Blood Pressure : / mmHG Vent. Rate : 065 BPM Atrial Rate : 065 BPM P-R Int : 188 ms QRS Dur : 086 ms QT Int : 414 ms P-R-T Axes : 071 -48 -55 degrees QTc Int : 430 ms Sinus rhythm with frequent Premature ventricular complexes Left axis deviation Septal infarct , age undetermined ST & T wave abnormality, consider inferior ischemia Abnormal ECG Confirmed by KAITLYN RM, RODERICK ([id number]), editor managing director SILVIA GRADY ([id number]) on 11/25/2021 12:59:58 PM Referred By: Shanelle Puente Confirmed By:RODERICK SAHNI MD
[2021-11-25] MEDS: CHLORHEXIDINE GLUC 2% CLOTH 1 EACH TOWELETTE TOPICAL (11:03)
[2021-11-25] MEDS: Senna/Docusate Sodium 1 Tablet 2 TABLET PO (11:09)
--- NOTE | 2021-11-25 15:34 | PN.CARD_ITS ---
Subjective Subjective Patient still has chest pain that is reproducible. In addition he has some burning component to his chest pain. He did receive CPR and was defibrillated twice in the emergency room. His 2D echo was reviewed and was unremarkable. He has preserved EF. Objective Data Vital Signs: Vital Signs Temp Pulse Resp BP Pulse Ox 98.0 F 63 17 125/91 H 98 11/25/21 12:00 11/25/21 15:00 11/25/21 15:00 11/25/21 15:00 11/25/21 15:00 Oxygen Flow Rate (L/min) 2 Oxygen Delivery Method Room Air Weight: 181 lb 3.52 oz Body Mass Index (BMI) 23.9 Intake & Output: Intake and Output for Last 24 Hours 11/23/21 11/24/21 11/25/21 23:59 23:59 23:59 Intake Total 694 / 694 Output Total 1335 / 1335 Balance -641 / -641 Lab / Micro Data Result Diagrams: 11/25/21 04:35 11/25/21 04:35 Labs: Laboratory Results - last 24 hr 11/24/21 22:30: WBC 15.6 H, RBC 4.51 L, Hgb 15.9, Hct 44.4, MCV 98.4 H, MCH 35.3 H, MCHC 35.8, RDW Std Deviation 46.4 H, RDW Coeff of Eva 12.8, Plt Count 255, MPV 9.2, Immature Gran % (Auto) 0.300, Neut % (Auto) 66.6, Lymph % (Auto) 23.8, [place] % (Auto) 7.7, Eos % (Auto) 1.3, Baso % (Auto) 0.3, Absolute Neuts (auto) 10.4 H, Absolute Lymphs (auto) 3.71, Nucleated RBC % 0 11/24/21 22:30: PT 13.1, INR 1.0, APTT 28.5 11/24/21 22:30: Sodium 136, Potassium 3.9, Chloride 106, Carbon Dioxide 21.0, Anion Gap 9, BUN 19 H, Creatinine 0.82, Estim Creat Clear Calc 98.79, Est GFR (MDRD) Af Amer 121, Est GFR (MDRD) Non-Af 100, BUN/Creatinine Ratio 23.3 H, Glucose 146 H, Calcium 9.0, Troponin I High Sens 12 11/25/21 01:15: WBC 11.5 H, RBC 4.22 L, Hgb 14.5, Hct 41.3, MCV 97.9 H, MCH 34.4 H, MCHC 35.1, RDW Std Deviation 46.2 H, RDW Coeff of Eva 13.0, Plt Count 236, MPV 8.9 11/25/21 04:35: WBC Cancelled, Corrected WBC Cancelled, RBC Cancelled, Hgb Cancelled, Hct Cancelled, MCV Cancelled, MCH Cancelled, MCHC Cancelled, RDW Std Deviation Cancelled, RDW Coeff of Eva Cancelled, Plt Count Cancelled, MPV Can celled, Diff Path Review Cancelled 11/25/21 04:35: Sodium 138, Potassium 3.9, Chloride 106, Carbon Dioxide 26.0, Anion Gap 6, BUN 14, Creatinine 0.74, Estim Creat Clear Calc 81.01, Est GFR (MDRD) Af Amer 136, Est GFR (MDRD) Non-Af 113, BUN/Creatinine Ratio 19.0, Gl ucose 117 H, Calcium 8.3 L, Total Bilirubin 0.60, AST 123 H, ALT 45, Alkaline Phosphatase 84, Total Protein 6.6, Albumin 3.5, Globulin 3.1, Albumin/Globulin Ratio 1.1 11/25/21 04:35: WBC 10.6, RBC 4.18 L, Hgb 14.2, Hct 41.0, MCV 98.1 H, MCH 34.0 H , MCHC 34.6, RDW Std Deviation 46.2 H, RDW Coeff of Eva 12.9, Plt Count 237, MPV 9.3, Immature Gran % (Auto) 0.400, Neut % (Auto) 75.1 H, Lymph % (Auto) 14.5 L, [place] % (Auto) 9.6, Eos % (Auto) 0.2, Baso % (Auto) 0.2, Absolute Neuts (auto) 8.0 H, Absolute Lymphs (auto) 1.54, Nucleated RBC % 0 11/25/21 04:35: Triglycerides 152, Cholesterol 131, LDL Cholesterol 57, VLDL Cholesterol 30, HDL Cholesterol 44 Cardiology Labs/Tests 11/24/21 22:30: WBC 15.6 H, RBC 4.51 L, Hgb 15.9, Hct 44.4, MCV 98.4 H, MCH 35.3 H, MCHC 35.8, Plt Count 255, MPV 9.2, Immature Gran % (Auto) 0.300, Neut % (Auto) 66.6, Lymph % (Auto) 23.8, [place] % (Auto) 7.7, Eos % (Auto) 1.3, Baso % (Auto) 0.3, Absolute Neuts (auto) 10.4 H, Nucleated RBC % 0 11/24/21 22:30: PT 13.1, INR 1.0, APTT 28.5 11/24/21 22:30: Sodium 136, Potassium 3.9, Chloride 106, Carbon Dioxide 21.0, Anion Gap 9, BUN 19 H, Creatinine 0.82, Est GFR (MDRD) Af Amer 121, Est GFR (MDRD) Non-Af 100, BUN/Creatinine Ratio 23.3 H, Glucose 146 H, Calcium 9.0 11/25/21 01:15: WBC 11.5 H, RBC 4.22 L, Hgb 14.5, Hct 41.3, MCV 97.9 H, MCH 34.4 H, MCHC 35.1, Plt Count 236, MPV 8.9 11/25/21 04:35: WBC Cancelled, Corrected WBC Cancelled, RBC Cancelled, Hgb Cancelled, Hct Cancelled, MCV Cancelled, MCH Cancelled, MCHC Cancelled, Plt Count Cancelled, MPV Cancelled 11/25/21 04:35: Sodium 138, Potassium 3.9, Chloride 106, Carbon Dioxide 26.0, Anion Gap 6, BUN 14, Creatinine 0.74, Est GFR (MDRD) Af Amer 136, Est GFR (MDRD) Non-Af 113, BUN/Creatinine Ratio 19.0, Glucose 117 H, Calcium 8.3 L, Total Bilirubin 0.60 11/25/21 04:35: WBC 10.6, RBC 4.18 L, Hgb 14.2, Hct 41.0, MCV 98.1 H, MCH 34.0 H , MCHC 34.6, Plt Count 237, MPV 9.3, Immature Gran % (Auto) 0.400, Neut % (Auto) 75.1 H, Lymph % (Auto) 14.5 L, [place] % (Auto) 9.6, Eos % (Auto) 0.2, Baso % (Auto) 0.2, Absolute Neuts (auto) 8.0 H, Nucleated RBC % 0 11/25/21 04:35: Triglycerides 152, Cholesterol 131, LDL Cholesterol 57, VLDL Cholesterol 30, HDL Cholesterol 44 Rhythm: EKG: ECHO: Stress Test: Cardiac Cath: PCI: CT Surgery: Holter monitor: EPS: PPM: CXR: Chest CT Scan: Radiography Diagnostic Testing: Radiology Impression Chest X-Ray 11/24/21 22:35 IMPRESSION: 1. No active cardiopulmonary disease. 2. No significant interval change since previous study of 09/23/2018 Electronically Signed: Celestino Myers MD at 0:18 EDT , Echocardiogram 11/25/21 09:10 Interpretation Summary The estimated ejection fraction is 55 %. No evidence for diastolic dysfunction. Trivial mitral valve insufficiency. Trivial aortic valve insufficiency. Ordering Physician: Roxie Puente Referring Physician: Rojelio Puente Performed By: SUZIE Physical Exam Const alert and oriented x3 Orientation / Consciousness: awake HEENT normocephalic Eyes no scleral icterus Cardio regular rate Psych mental status grossly normal Assessment & Plan Assessment/Plan (1) Acute ST elevation myocardial infarction (STEMI): QUALIFIERS: Involved coronary artery: right coronary artery Qualified Code(s): I21.11 - ST elevation (STEMI) myocardial infarction involving right coronary artery PLAN: Patient was treated with drug-eluting stents to the RCA. His chest pain is likely from his CPR and defibrillation. Continue current medications. He can be transferred to the PCU. (2) Cardiac arrest: PLAN: In the setting of an OK. He will be monitored in the CCU. Charges/Coding Visit Charges Inpatient E&M: 70036 Subs Hosp L2
--- NOTE | 2021-11-25 16:44 | NURSING ---
Valuables envelope from hospital safe delivered to this RN sealed, returned to patient at this time, in which this RN witnessed patient give to daughter, Luz Elena Cortes, with envelope remaining sealed.
[2021-11-25] MEDS: Atorvastatin Calcium 40 MG Tablet PO (21:37)
[2021-11-26 01:21] VITALS: BP 117/88; PULSE 71; RESP 16; TEMP 36.7; O2SAT 97
[2021-11-26] MEDS: Morphine 2 MG/ML Syringe IV (01:25)
[2021-11-26 04:00] VITALS: PULSE 63
[2021-11-26 04:33] LABS: Hematocrit 38.8 % (40-54); Hemoglobin 13.8 g/dL (13.0-16.5); Mean Corp Hgb Conc 35.6 g/dL (32-36); Mean Corpuscular Hgb 34.7 pg (27.0-32.0); Mean Corpuscular Volume 97.5 fL (80-94); Mean Platelet Vol. 9.1 fl (6.2-12.0); Platelet Count 213 K/mm3 (150-450); RBC Distribution Width SD 46.3 fl (35.1-43.9); Red Blood Count 3.98 M/mm3 (4.6-6.2); White Blood Count 10.5 K/mm3 (4.4-11.0)
--- NOTE | 2021-11-26 07:22 | PN.HOSP_ITS ---
Subjective Subjective Patient seen complains of some residual discomfort in the chest. Echo obtained the day prior demonstrated EF of 55%. Plan is for patient to be transferred from ICU to PCU. Case will be discussed with cardiology for possible discharge. Objective Data Objective Data Vital Signs: Vital Signs Temp Pulse Resp BP Pulse Ox 98.1 F 63 16 117/88 H 97 11/26/21 01:21 11/26/21 04:00 11/26/21 01:21 11/26/21 01:21 11/26/21 01:21 Oxygen Flow Rate (L/min) 2 Oxygen Delivery Method Room Air Weight: 79.4 kg Body Mass Index (BMI) 23.9 Intake & Output: Intake and Output for Last 24 Hours 11/24/21 11/25/21 11/26/21 23:59 23:59 23:59 Intake Total 1074 / 1074 Output Total 1935 / 1935 Balance -861 / -861 Lab / Micro Data Result Diagrams: 11/26/21 04:20 11/25/21 04:35 Labs: Laboratory Results - last 24 hr 11/26/21 04:20: WBC 10.5, RBC 3.98 L, Hgb 13.8, Hct 38.8 L, MCV 97.5 H, MCH 34.7 H, MCHC 35.6, RDW Std Deviation 46.3 H, RDW Coeff of Eva 13.0, Plt Count 213, MPV 9.1 Radiography Diagnostic Testing: Radiology Impression Echocardiogram 11/25/21 09:10 Interpretation Summary The estimated ejection fraction is 55 %. No evidence for diastolic dysfunction. Trivial mitral valve insufficiency. Trivial aortic valve insufficiency. Ordering Physician: Roxie Puente Referring Physician: Rojelio Puente Performed By: SUZIE Physical Exam Narrative GENERAL: cooperative HEENT: Atraumatic; EYES; Anicteric, Normal Conjunctiva NECK; supple, normal thyroid, RESPIRATORY: Diminished to auscultation CARDIOVASCULAR: Regular S1 S2, GI: soft, normoactive bowel sounds, : No Renal angle tenderness; EXTREMITIES: No edema, no clubbing, MUSCULOSKELETAL: no muscle wasting NEURO: Awake; no lateralizing signs. SKIN: No Rash PSYCH; Flat affect. Assessment & Plan Assessment/Plan (1) STEMI (ST elevation myocardial infarction): QUALIFIERS: Involved coronary artery: unspecified coronary artery Qualified Code(s): I21.3 - ST elevation (STEMI) myocardial infarction of unspecified site (2) Cardiac arrest: PLAN: Patient is a 65-year-old who presented with chest pain EKG in the ED demonstrated acute inferior ST segment elevation MA. Patient apparently went into V. fib arrest and did respond to defibrillation underwent emergency left catheterization with PCI with ROBERTO to the mid RCA lesion 1. Acute STEMI ? EKG demonstrated inferior ST segment elevation MA. Patient underwent emergency catheterization with PCI with ROBERTO to mid RCA lesion ? Patient currently on recommended medications including dual antiplatelet therapy beta-blockers, statin therapy with cardiology on consult -11/26/2021; Patient seen complains of some residual discomfort in the chest. Echo obtained the day prior demonstrated EF of 55%. Plan is for patient to be transferred from ICU to PCU. Case will be discussed with cardiology for possible discharge. 2. V. fib arrest ? Patient responded to defibrillation 3. Hypertension - Blood pressure controlled, home medications continued with dose adjustment as needed 4. Tobacco dependence - Counseled on cessation, offered nicotine patch for tobacco cravings 5. DVT prophylaxis ? SQ Lovenox Charges/Coding Visit Charges Inpatient E&M: 88608 Subs Hosp L2
[2021-11-26 07:26] VITALS: O2SAT 96
[2021-11-26 07:50] VITALS: BP 113/65; PULSE 72; RESP 18; TEMP 36.3; O2SAT 96
[2021-11-26 07:57] VITALS: PULSE 66
[2021-11-26 08:32] VITALS: PULSE 72
[2021-11-26] MEDS: Acetaminophen 325 MG Tablet 650 MG PO (08:32)
[2021-11-26] MEDS: Metoprolol Tartrate 25 MG Tablet 12.5 MG PO (08:32)
[2021-11-26] MEDS: Aspirin 81 MG TAB.CHEW PO (08:32)
[2021-11-26] MEDS: TICAGRELOR 90 MG TABLET PO (08:32)
[2021-11-26] MEDS: Losartan Potassium 25 MG Tablet PO (08:33)
--- NOTE | 2021-11-26 10:00 | EKG12_ITS ---
Test Reason : AM EKG Blood Pressure : / mmHG Vent. Rate : 060 BPM Atrial Rate : 060 BPM P-R Int : 186 ms QRS Dur : 092 ms QT Int : 466 ms P-R-T Axes : -03 -54 -68 degrees QTc Int : 466 ms Normal sinus rhythm Left axis deviation Septal infarct , age undetermined Inferior infarct , age undetermined T wave abnormality, consider lateral ischemia Abnormal ECG Confirmed by KAITLYN RM, RODERICK ([id number]), supervising film or videotape editor SILVIA GRADY ([id number]) on 11/27/2021 9:03:45 AM Referred By: Shanelle Puente Confirmed By:RODERICK SAHNI MD
--- NOTE | 2021-11-26 11:15 | DS.PCM_ITS ---
Providers Date of Admission: 11/24/21 Primary Care Physician: Danielito Dowd, HAFSA-C Consultations 11/25/21 01:05 Consult: Cardiology Routine Consulting Provider: Roxie Puente Reason for Consult: stemi EMERGENT Consult: Yes MD Notified: Yes Date Notified: 11/24/21 Time Notified: 22:44 Method of Notification: ED Physician Initiated Method of Consult:: In-Person Comments:: Notified by ED doctor Reason For Visit: STEMI Diagnosis Discharge Diagnosis (1) STEMI (ST elevation myocardial infarction): Status: Acute Code(s): I21.3 - ST elevation (STEMI) myocardial infarction of unspecified site Qualifiers: Involved coronary artery: unspecified coronary artery Qualified Code(s): I21.3 - ST elevation (STEMI) myocardial infarction of unspecified site (2) Cardiac arrest: Status: Acute Code(s): I46.9 - Cardiac arrest, cause unspecified Medications at Discharge Home Medications albuterol sulfate 90 mcg/actuation aerosol inhaler 2 puff INHALATION Q4H PRN g 10/27/18 varenicline 1 mg tablet 1 mg PO BID #56 tab 01/14/19 acetaminophen [Tylenol] 650 mg PO Q6H PRN PRN #0 tab 11/26/21 aspirin 81 mg PO DAILY@0800 #90 tab 11/26/21 atorvastatin 40 mg PO QHS #60 tab 11/26/21 losartan 25 mg PO DAILY #90 tab 11/26/21 metoprolol succinate 25 mg PO DAILY #90 tab 11/26/21 ticagrelor [Brilinta] 90 mg PO BID #180 tab 11/26/21 Hospital Course Summary of Care Provided Minutes Spent on Discharge: 35 Hospital Course: Patient is a 65-year-old who presented with chest pain EKG in the ED demonstrated acute inferior ST segment elevation [place]. Patient apparently went into V. fib arrest and did respond to defibrillation underwent emergency left catheterization with PCI with ROBERTO to the mid RCA lesion 1. Acute STEMI ? EKG demonstrated inferior ST segment elevation NJ. Patient underwent emergency catheterization with PCI with ROBERTO to mid RCA lesion ? Patient currently on recommended medications including dual antiplatelet therapy beta-blockers, statin therapy with cardiology on consult -11/26/2021; Patient seen complains of some residual discomfort in the chest. Echo obtained the day prior demonstrated EF of 55%. Plan is for patient to be transferred from ICU to PCU. Case will be discussed with cardiology for possible discharge. 2. V. fib arrest ? Patient responded to defibrillation 3. Hypertension - Blood pressure controlled, home medications continued with dose adjustment as needed 4. Tobacco dependence - Counseled on cessation, offered nicotine patch for tobacco cravings 5. DVT prophylaxis ? SQ Lovenox Physical Exam Narrative GENERAL: cooperative HEENT: Atraumatic; EYES; Anicteric, Normal Conjunctiva NECK; supple, normal thyroid, RESPIRATORY: Diminished to auscultation CARDIOVASCULAR: Regular S1 S2, GI: soft, normoactive bowel sounds, : No Renal angle tenderness; EXTREMITIES: No edema, no clubbing, MUSCULOSKELETAL: no muscle wasting NEURO: Awake; no lateralizing signs. SKIN: No Rash PSYCH; Flat affect. Weight / BMI Weight Weight: 79.4 kg Body Mass Index (BMI) 23.9 ABG / Lab / Microbiology Data Result Diagrams: 11/26/21 04:20 11/25/21 04:35 Laboratory: Laboratory Results - last 24 hr 11/26/21 04:20: WBC 10.5, RBC 3.98 L, Hgb 13.8, Hct 38.8 L, MCV 97.5 H, MCH 34.7 H, MCHC 35.6, RDW Std Deviation 46.3 H, RDW Coeff of Eva 13.0, Plt Count 213, MPV 9.1 Radiography Diagnostic Testing: Radiology Impression Echocardiogram 11/25/21 09:10 Interpretation Summary The estimated ejection fraction is 55 %. No evidence for diastolic dysfunction. Trivial mitral valve insufficiency. Trivial aortic valve insufficiency. Ordering Physician: Roxie Puente Referring Physician: Rojelio Puente Performed By: D/C Instructions Discharge Diet: No restrictions Discharge Activity: Return to Normal Activity Call your doctor if you observe: Fever of 101 or Higher, Shortness of breath, Fainting spells and Chest pain Meaningful Use Info Meaningful Use Diagnoses (Choose all that apply): AMI AMI/Post PCI/Angioplasty Aspirin given w/in 24hrs of arrival?: Yes ASA at discharge?: Yes Antiplatelet Therapy at Discharge:: Yes Statins at discharge?: Yes Jony/ARB at discharge?: Yes Beta Eufemia at discharge?: Yes Done w/ Acute NJ measure.: Yes Documented LVEF (%): 55 Discharge Plan Admission Admit Date/Time: 11/24/21 22:36 Attending Provider: Yeison Ogden Primary Care Provider: Danielito Dowd NP Consulting Providers: Roxie Puente Discharge Orders/Prescriptions Prescriptions: New aspirin 81 mg Tablet,Chewable 81 mg PO DAILY@0800 Qty: 90 RF: 0 atorvastatin 40 mg Tablet 40 mg PO QHS Qty: 60 RF: 0 acetaminophen [Tylenol] 325 mg Tablet 650 mg PO Q6H PRN PRN (Reason: Pain Score 1-10/Temp > 100.7 F) Qty: 0 RF: 0 Brilinta 90 mg Tablet 90 mg PO BID Qty: 180 RF: 0 Continued albuterol sulfate [Ventolin HFA] 90 mcg/actuation HFA aerosol inhaler 2 puff INHALATION Q4H PRNRF: 0 losartan 25 MG tablet 25 mg PO DAILY Qty: 90 RF: 0 Chantix 1 mg tablet 1 mg PO BID Qty: 56 RF: 0 Changed metoprolol succinate 25 MG tablet 25 mg PO DAILY Qty: 90 RF: 0 Referrals / Follow Up: Roxie Puente MD [STAFF PHYSICIAN] - Within 2 Weeks Danielito Dowd NP, [employer] [Primary Care Provider] - In 1 Week Disposition Disposition (needs filled in before D/C Order can be placed): Home, Self Care Charges/Coding Visit Charges Inpatient E&M: 25653 Disch Hosp
== END 2021-11-26 12:20 | disposition home or self-care (01) | DRG 246 ==
LOC: ED 23:06 → ICU 23:07
PROVIDERS: Admitting Provider Hospitalist; Emergency Provider Emergency Medicine; PCP Nurse Practitioner Family; Referring Provider Specialist; Visit Provider Internal Medicine
DX: I21.11 ST elevation (STEMI) myocardial infarction involving right coronary artery (principal); I49.01 Ventricular fibrillation; I46.2 Cardiac arrest due to underlying cardiac condition; J44.9 Chronic obstructive pulmonary disease, unspecified; E78.5 Hyperlipidemia, unspecified; I10 Essential (primary) hypertension; I44.0 Atrioventricular block, first degree; M19.90 Unspecified osteoarthritis, unspecified site; F17.210 Nicotine dependence, cigarettes, uncomplicated; M81.0 Age-related osteoporosis without current pathological fracture; Z79.82 Long term (current) use of aspirin; Z79.899 Other long term (current) drug therapy
CPT/HCPCS: 71045; 80048; 80053; 80061; 84484; 85025; 85027; 85610; 85730; 92941; 93005; 93306; 93454; 99285; 99406; C1874; J7030; Q9967; A4216; C1725; C1769; C1887; C1894; C9606; J1327; J2405

== ENCOUNTER 2021-12-14 18:23 | Emergency (ER) | payer MEDICARE, SELFPAY ==
[2021-12-14 18:24] VITALS: BP 166/89; PULSE 69; RESP 16; TEMP 36.6; O2SAT 98; BMI 24.4
--- NOTE | 2021-12-14 18:41 | RAD_ITS ---
STUDY: X-RAY CHEST REASON FOR EXAM: Male, 66 years old. chest pain TECHNIQUE: 1 view COMPARISON: 11/24/2021 FINDINGS: Cardiomediastinal silhouette is unremarkable. Costophrenic angles are sharp. Lungs are hyperinflated but clear. The trachea is midline. There is no pneumothorax. The bones are grossly intact. RAD/Chest 1 View (Portable) IMPRESSION: No acute cardiopulmonary process. Electronically Signed: Zak Glass MD at 19:24 EDT ,
--- NOTE | 2021-12-14 18:41 | EKG12_ITS ---
Test Reason : CP Blood Pressure : / mmHG Vent. Rate : 067 BPM Atrial Rate : 067 BPM P-R Int : 196 ms QRS Dur : 088 ms QT Int : 386 ms P-R-T Axes : -12 -38 -49 degrees QTc Int : 407 ms Normal sinus rhythm Left axis deviation Septal infarct , age undetermined Inferior infarct , age undetermined Abnormal ECG Confirmed by PILLO MR, JAKE ([id number]), make up editor SILVIA GRADY ([id number]) on 12/16/2021 1:30:25 PM Referred By: BB Confirmed By:JAKE FERRO MD
--- NOTE | 2021-12-14 18:51 | EDS_ITS ---
HPI History of Present Illness Chief Complaint: Chest Pain Informant: patient Onset/Context/Timing Onset: Today (For about the past 6 or 7 hours intermittently) Activity at onset: gradual, onset, activity on onset and rest Timing: Intermittent and Lasts (Several minutes only) Quality: Positive for Heaviness Location: Substernal Current Severity: Gone Maximum Severity: Moderate Worsened By: Nothing Associated Symptoms: Positive for Nausea, Diaphoresis, Dyspnea and Lightheadedness; Negative for Vomiting, Cough, Fever and Palpitations Narrative Narrative: Episodes of lightheadedness, sweating, nausea, dyspnea and chest heaviness throughout the day. About a month ago he had different symptoms that led to a heart cath and stents being placed and he was told he had a heart attack. No recent illness, he was feeling well earlier in the day and yesterday. No palpitations or syncope. No pleuritic symptoms. Compliant with his aspirin and Brilinta. [facility] Medical History Abnormal ECG Anxiety and depression Atherosclerotic heart disease of [place] coronary artery without angina pectoris Back pain Chest pain COPD (chronic obstructive pulmonary disease) Cutaneous abscess of left hand Depression Diverticulitis Dyspnea HLD (hyperlipidemia) HTN (hypertension) MRSA (methicillin resistant Staphylococcus aureus) Nephrolithiasis Osteoarthritis Osteoporosis Presence of stent in coronary artery (~11/25/21) Sleep apnea Smoker Smoking greater than 30 pack years tenosynovitis left hand Home Medications albuterol sulfate 90 mcg/actuation aerosol inhaler 2 puff INHALATION Q4H PRN g 10/27/18 [History Last Taken Unknown] acetaminophen [Tylenol] 650 mg PO Q6H PRN PRN #0 tab 11/26/21 [Rx Last Taken Unknown] aspirin 81 mg PO DAILY@0800 #90 tab 11/26/21 [Rx Last Taken Unknown] atorvastatin 40 mg PO QHS #60 tab 11/26/21 [Rx Last Taken Unknown] losartan 25 mg PO DAILY #90 tab 11/26/21 [Rx Last Taken Unknown] metoprolol succinate 25 mg PO DAILY #90 tab 11/26/21 [Rx Last Taken Unknown] ticagrelor 90 mg tablet 90 mg PO BID #180 tab 12/11/21 [Rx Last Taken Unknown] varenicline 1 mg tablet 1 mg PO BID 12/11/21 [History Last Taken Unknown] vitamin B complex 1 tab PO DAILY 12/11/21 [History Last Taken Unknown] Allergy/AdvReac Type Severity Reaction Status Date / Time Penicillins Allergy Shortness Verified 12/14/21 18:26 of breath Family History (Reviewed 12/11/21 @ 14:18 by Kirstie Velazquez [employer], [employer]) Father COPD (chronic obstructive pulmonary disease) Alcoholism Mother Cancer Surgical History History of cataract surgery History of gastrointestinal surgery Presence of coronary angioplasty implant and graft (~11/25/21) Social History Smoking Status: Current every day smoker tobacco type: cigarettes Tobacco: How many years used: 40 alcohol intake: never substance use type: does not use ROS ROS ED Constitutional Constitutional ED: Denies chills or fever(s) Eyes Eyes: Denies change in vision or diplopia ENT ENT ED: Denies rhinorrhea or sore throat Cardiovascular Cardiovascular: Reports as per HPI, chest pain, diaphoresis and lightheadedness; Denies palpitations Respiratory/Chest Respiratory/Chest: Reports dyspnea; Denies cough Gastrointestinal Gastrointestinal: Reports nausea; Denies abdominal pain, diarrhea or vomiting Genitourinary Genitourinary ED: Denies dysuria or hematuria Musculoskeletal Musculoskeletal: Denies back pain or neck pain Integumentary Denies abscess or rash Neurologic Neurologic: Denies headache(s), paresthesias or weakness Psychiatric Psychiatric: Denies anxiety or suicidal thoughts EXAM Physical Exam Const Vital Signs: 12/14/21 18:24 12/14/21 19:07 12/14/21 19:08 Temperature 97.9 F Temperature Source Oral Pulse Rate 69 65 Respiratory Rate 16 16 Blood Pressure 166/89 H 132/74 H Blood Pressure Mean 114 93 Pulse Ox 98 96 Oxygen Delivery Method Room Air Room Air Room Air 12/14/21 20:46 Temperature Temperature Source Pulse Rate 68 Respiratory Rate 17 Blood Pressure 142/79 H Blood Pressure Mean 100 Pulse Ox 97 Oxygen Delivery Method Room Air Positive well nourished and well developed General Appearance ED: well developed and NAD HEENT Reports moist mucous membranes normocephalic and atraumatic Eyes PERRL and EOMs intact bilaterally Neck full ROM and supple Resp normal respiratory effort and clear to auscultation bilaterally Cardio regular rate, regular rhythm and no murmurs GI non-tender and non-distended Auscultation: normoactive bowel sounds Palpation: soft Back/Spine no CVA tenderness General Back: other FROM Extremity normal to inspection, no calf tenderness and no pedal edema General Extremety ED: Negative for edema, pulses abnormal or tenderness General Extremity: Negative for edema or pulses abnormal Neuro oriented x3, CN's II-XII intact bilaterally and no sensory deficits noted Sensorium / Orientation: awake and alert Motor Exam: strength 5/5 throughout Skin no rashes or lesions noted and no wounds Heart Score History: Moderately Suspicious ECG: Normal Age: >/= 65 years Risk Factors: >/= 3 Risk Factors or History of CAD Troponin: </= Normal Limit Score: 5 MDM MDM MDM Narrative Medical decision making narrative: Patient's EKG is unchanged, his troponin is negative and BNP is normal, the rest of his labs are also unremarkable. Monitored the patient here, he had no recurrent episodes or telemetry events. His blood pressure went up and down, between 140 and 166. He was having no symptoms with that. Certainly transient dysrhythmias, ectopy, hypertensive episode are all the differential here but he does not appear to be having acute coronary syndrome. I discussed with his section leader screen printing Dr. Bradley, he agreed with allowing the patient to be discharged home and requested a Holter monitor to be placed but the hospital does not have any available for the weekend. In that c ase he recommended having the patient follow-up on Thursday to get 1 from the office which I relayed to him and we discussed reasons to return. Lab Data Attestation: I reviewed the patient's lab results. Labs: Laboratory Results - last 24 hr 12/14/21 12/14/21 12/14/21 19:00 19:00 19:00 WBC 7.8 RBC 3.94 L Hgb 13.3 Hct 39.0 L MCV 99.0 H MCH 33.8 H MCHC 34.1 RDW Std Deviation 44.0 H RDW Coeff of Eva 12.0 Plt Count 305 MPV 8.4 Immature Gran % (Auto) 0.300 Neut % (Auto) 57.7 Lymph % (Auto) 27.4 [place] % (Auto) 11.5 H Eos % (Auto) 2.6 Baso % (Auto) 0.5 Absolute Neuts (auto) 4.5 Absolute Lymphs (auto) 2.13 Nucleated RBC % 0 Sodium 138 Potassium 4.4 Chloride 105 Carbon Dioxide 26.0 Anion Gap 7 BUN 22 H Creatinine 0.96 Estim Creat Clear Calc 83.23 Est GFR (MDRD) Af Amer 101 Est GFR (MDRD) Non-Af 83 BUN/Creatinine Ratio 23.0 H Glucose 93 Calcium 9.4 Troponin I High Sens 11 B-Natriuretic Peptide 96.7 12/14/21 21:00 WBC RBC Hgb Hct MCV MCH MCHC RDW Std Deviation RDW Coeff of Eva Plt Count MPV Immature Gran % (Auto) Neut % (Auto) Lymph % (Auto) [place] % (Auto) Eos % (Auto) Baso % (Auto) Absolute Neuts (auto) Absolute Lymphs (auto) Nucleated RBC % Sodium Potassium Chloride Carbon Dioxide Anion Gap BUN Creatinine Estim Creat Clear Calc Est GFR (MDRD) Af Amer Est GFR (MDRD) Non-Af BUN/Creatinine Ratio Glucose Calcium Troponin I High Sens 10 B-Natriuretic Peptide Radiography Diagnostic Testing: Clinical Impression(s) from Imaging Studies Chest X-Ray 12/14/21 18:41 IMPRESSION: No acute cardiopulmonary process. Electronically Signed: Zak Glass MD at 19:24 EDT Reading Location ID and State: [facility] / [place] Tel , Service support , Rhythm Strip Rhythm Strip: Sinus Rhythm Rate: 65 Ectopy: None EKG Initial EKG: Attestation: I personally reviewed and interpreted this EKG as follows: Interpretation: Sinus Rhythm, No Acute Injury Pattern and LAFB Prior EKG tracings: available for review Prior: Unchanged Discharge Plan Triage Chief Complaint: Chest Pain ED Provider: Quan Kinsey Dx/Rx/DC Orders Clinical Impression: Intermittent chest pain, Episodic lightheadedness, Accelerated hypertension Instructions: ED Chest Pain, Uncertain Cause Prescriptions: No Action albuterol sulfate [Ventolin HFA] 90 mcg/actuation HFA aerosol inhaler 2 puff INHALATION Q4H PRN (Reason: sob) RF: 0 vitamin B complex Tablet 1 tab PO DAILY RF: 0 Brilinta 90 mg tablet 90 mg PO BID Qty: 180 RF: 3 varenicline [Chantix] 1 mg tablet 1 mg PO BID RF: 0 aspirin 81 mg Tablet,Chewable 81 mg PO DAILY@0800 Qty: 90 RF: 0 atorvastatin 40 mg Tablet 40 mg PO QHS Qty: 60 RF: 0 acetaminophen [Tylenol] 325 mg Tablet 650 mg PO Q6H PRN PRN (Reason: Pain Score 1-10/Temp > 100.7 F) Qty: 0 RF: 0 losartan 25 MG tablet 25 mg PO DAILY Qty: 90 RF: 0 metoprolol succinate 25 MG tablet 25 mg PO DAILY Qty: 90 RF: 0 Primary Care Provider: Danielito Dowd NP Referrals: Dawit Bradley MD [STAFF PHYSICIAN] - (Call the office on Thursday to get fitted for a Holter monitor) Danielito Dowd NP, [employer] [Primary Care Provider] - Disposition Disposition: Home, Self Care
[2021-12-14 19:08] VITALS: BP 132/74; PULSE 65; RESP 16; O2SAT 96
[2021-12-14 19:11] LABS: Absolute Lymphocyte Count 2.13 X10^3/uL (0.83-4.51); Absolute Neutrophil Count 4.5 X10^3/uL (2.0-7.7); Basophil# 0.04 X10^3/uL; Basophil% 0.5 % (0-1); Eosinophils% 2.6 % (0-5); Hemoglobin 13.3 g/dL (13.0-16.5); Lymphocyte # 2.13 X10^3/ul (0.83-4.51); Lymphocyte % 27.4 % (19-41); Mean Corp Hgb Conc 34.1 g/dL (32-36); Mean Corpuscular Hgb 33.8 pg (27.0-32.0); Mean Platelet Vol. 8.4 fl (6.2-12.0); Monocyte# 0.89 X10^3/uL; Monocyte% 11.5 % (0-10); NRBC Flagged by Analyzer 0 % (0-5); Neutrophil # 4.49 X10^3/uL (2.7-7.7); Neutrophil % 57.7 % (47-70); Platelet Count 305 K/mm3 (150-450); Red Blood Count 3.94 M/mm3 (4.6-6.2); White Blood Count 7.8 K/mm3 (4.4-11.0)
[2021-12-14] MEDS: 0.9% Normal Saline 1,000 ML 150 ML IV (19:27)
[2021-12-14] MEDS: Ondansetron 4 MG/2 ML Vial IV (19:27)
[2021-12-14 19:28] LABS: BNP,B-Type NATRIURETIC PEPTIDE 96.7 pg/mL (0-100)
[2021-12-14 19:29] LABS: Anion Gap 7 (5-15); BUN 22 mg/dL (7-18); Calcium,Total 9.4 mg/dL (8.5-10.1); Chloride 105 mmol/L (98-107); Creatinine, Serum 0.96 mg/dL (0.70-1.30); EST Glomerular Filtration Rate 83 mL/min (>60); Est Glom Filt Rate - Afr Amer 101 mL/min (>60); Estimated Creatinine Clearance 83.23 ml/min; Glucose 93 mg/dL (74-106); Potassium 4.4 mmol/L (3.5-5.1); Sodium Level 138 mmol/L (136-145); Troponin-I HS (w/2H Reflex) 11 pg/mL (3.0-78.0)
[2021-12-14 20:46] VITALS: BP 142/79; PULSE 68; RESP 17; O2SAT 97
[2021-12-14 21:08] LABS: Reflex Troponin-HS? (from REC) Y
[2021-12-14 21:28] LABS: Troponin-I HS 10 pg/mL (3.0-78.0)
[2021-12-14 22:05] VITALS: BP 153/81; PULSE 64; RESP 13; TEMP 36.9; O2SAT 96
[2021-12-14 22:06] VITALS: RESP 17
== END 2021-12-14 22:06 | disposition home or self-care (01) ==
PROVIDERS: Emergency Provider Emergency Medicine; PCP Nurse Practitioner Family; Visit Provider Emergency Medicine
DX: R07.9 Chest pain, unspecified (principal); J44.9 Chronic obstructive pulmonary disease, unspecified; R42 Dizziness and giddiness; R06.00 Dyspnea, unspecified; I10 Essential (primary) hypertension; F17.210 Nicotine dependence, cigarettes, uncomplicated; I25.10 Atherosclerotic heart disease of native coronary artery without angina pectoris; E78.5 Hyperlipidemia, unspecified; M81.0 Age-related osteoporosis without current pathological fracture; Z95.5 Presence of coronary angioplasty implant and graft; Z79.82 Long term (current) use of aspirin; Z79.899 Other long term (current) drug therapy
CPT/HCPCS: 71045; 80048; 83880; 84484; 85025; 93005; 96361; 96374; 99284; J7030; A4216; J2405

== ENCOUNTER → 2021-12-19 | Outpatient (CLI) | payer MEDICARE, SELFPAY | END | disposition home or self-care (01) | LOC: PSN 09:19 | PROVIDERS: PCP Nurse Practitioner Family; Visit Provider Internal Medicine Cardiovascular Disease | DX: R07.9 Chest pain, unspecified (principal); R00.2 Palpitations | CPT/HCPCS: 93225; 93226 ==

== ENCOUNTER 2022-01-16 05:36 | Emergency (ER) | payer MEDICARE, SELFPAY ==
[2022-01-16] VITALS (12 sets, daily range): BP systolic 73–146; BP diastolic 53–77; PULSE 51–65; RESP 12–21; TEMP 36.3; O2SAT 93–99; BMI 23.6
--- NOTE | 2022-01-16 05:41 | EKG12_ITS ---
Test Reason : CP REPEAT Blood Pressure : / mmHG Vent. Rate : 060 BPM Atrial Rate : 060 BPM P-R Int : 180 ms QRS Dur : 094 ms QT Int : 412 ms P-R-T Axes : -24 -24 -51 degrees QTc Int : 412 ms Normal sinus rhythm Inferior infarct , age undetermined Anterior infarct , age undetermined Abnormal ECG Confirmed by PILLO RM, JAEK ([id number]), communications editor SILVIA GRADY ([id number]) on 01/20/2022 10:16:02 AM Referred By: GELACIO Confirmed By:JAKE FERRO MD
--- NOTE | 2022-01-16 05:45 | EDS_ITS ---
HPI <Dr. Tremayne Irvin MD - Last Filed: 01/19/22 07:05> History of Present Illness Chief Complaint: Chest Pain Detail of Chief Complaint: Diaphoresis preceding chest tightness and syncopal episode Informant: patient and EMS Onset/Context/Timing Onset: Today and Hours Activity at onset: sleep Timing: Continuous Quality: Positive for Pressure and Tightness Location: Substernal Current Severity: 4/10 Maximum Severity: 4/10 Worsened By: Nothing Relieved By: Nothing Associated Symptoms: Positive for Diaphoresis and Dyspnea; Negative for Nausea, Vomiting, Cough, Fever, Lightheadedness, Acid Reflux and Palpitations Narrative Narrative: Patient is a 66-year-old male with known history of coronary disease who had an inferior ST elevation [place] November 24. He was taken emergently to the cardiac pathology laboratory director and had drug-eluting stent placed in the mid and distal RCA for a 99% and 80-99% stenosis of the mid and distal RCA respectively. Patient states he was awake from sleep diaphoretic. This was followed by midsternal chest pressure that he rated a 4. He had a syncopal episode after using the restroom. He states he had a bowel movement. He fell striking his chin sustained laceration. He is on Plavix. He is not on an anticoagulant. He denies black or maroon-colored stool. He denies bleeding of his gums. [place] blood in his urine. He does report bruising easily. He reported a 50% reduction after 1 nitroglycerin tablet sublingual. He is still having discomfort at this time. He denies radiation of the discomfort, nausea or vomiting. He denies leg pain, swelling discoloration. He denies history of VTE. Patient states he is presently smoking 1/4 pack/day. 5 years ago he was smoking 1.5 packs/day. Cardiac catheterization results at time of myocardial infarction in November 25, 2021 Left main: Mild luminal irregularities Left anterior descending artery: Mid LAD: 30% stenosis Circumflex artery: Mild luminal irregularities Right coronary artery: Mid RCA: 99% stenosis Distal RCA: 80% stenosis Prior Similar Symptoms: No CVD Risk Factors: Positive for Hypertension, Diabetes, Family History 1' </=55 and Smoking PE Risk Factors: Negative for Recent Travel/Surgery, Recent Immobilization, Prior DVT or PE, Cancer and OCP + Smoking + >/=35 TAD Risk Factors: Positive for Hypertension; Negative for Marfan's Syndrome and Family History [facility] <Dr. Tremayne Irvin MD - Last Filed: 01/19/22 07:05> [facility] Medical History Abnormal ECG Anxiety and depression Atherosclerotic heart disease of [place] coronary artery without angina pectoris Back pain Chest pain COPD (chronic obstructive pulmonary disease) Cutaneous abscess of left hand Depression Diverticulitis Dyspnea HLD (hyperlipidemia) HTN (hypertension) MRSA (methicillin resistant Staphylococcus aureus) Nephrolithiasis Osteoarthritis Osteoporosis Presence of stent in coronary artery (~11/25/21) Sleep apnea Smoker Smoking greater than 30 pack years tenosynovitis left hand Home Medications albuterol sulfate 90 mcg/actuation aerosol inhaler 2 puff INHALATION Q4H PRN g 10/27/18 [History Last Taken Unknown] acetaminophen [Tylenol] 650 mg PO Q6H PRN PRN #0 tab 11/26/21 [Rx Last Taken Unknown] aspirin 81 mg PO DAILY@0800 #90 tab 11/26/21 [Rx Last Taken Unknown] losartan 25 mg PO DAILY #90 tab 11/26/21 [Rx Last Taken Unknown] metoprolol succinate 25 mg PO DAILY #90 tab 11/26/21 [Rx Last Taken Unknown] varenicline 1 mg tablet 1 mg PO BID 12/11/21 [History Last Taken Unknown] vitamin B complex 1 tab PO DAILY 12/11/21 [History Last Taken Unknown] clopidogrel 75 mg tablet 75 mg PO DAILY #94 tab 12/27/21 [Rx Last Taken Unknown] Allergy/AdvReac Type Severity Reaction Status Date / Time Penicillins Allergy Shortness Verified 01/16/22 05:46 of breath Family History Father COPD (chronic obstructive pulmonary disease) Alcoholism Mother Cancer Surgical History History of cataract surgery History of gastrointestinal surgery Presence of coronary angioplasty implant and graft (~11/25/21) Social History (Updated 01/16/22 @ 05:[address] Tremayne Irvin MD) household members: none Smoking Status: Current every day smoker tobacco type: cigarettes Tobacco: How many years used: 40 alcohol intake: never substance use type: does not use ROS <Dr. 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 ; Denies cough, dyspnea on exertion or sputum Gastrointestinal Gastrointestinal: Denies abdominal pain, constipation, diarrhea, melena or vomiting Genitourinary Genitourinary ED: Denies dysuria, hematuria or urinary frequency Musculoskeletal Musculoskeletal: Denies arthralgias, back pain, myalgias or neck pain Integumentary Denies abscess, Abrasions or rash Neurologic Neurologic: Denies headache(s), paresthesias or weakness Endocrine Endocrinology: Denies heat intolerance, polydipsia, polyphagia or polyuria Hematologic/Lymphatic Hematologic/Lymphatic: Denies easy bleeding or easy bruising EXAM <Dr. Tremayne Irvin MD - Last Filed: 01/19/22 07:05> Physical Exam Const Vital Signs: 01/16/22 05:37 01/16/22 05:44 01/16/22 05:45 Temperature 97.4 F L Temperature Source Temporal Pulse Rate 60 Respiratory Rate 17 Respiratory Effort Normal Non-Labored Blood Pressure 132/74 H Blood Pressure Mean 93 Pulse Ox 96 Oxygen Delivery Method Room Air Room Air 01/16/22 05:56 01/16/22 05:59 01/16/22 06:04 Temperature Temperature Source Pulse Rate 60 65 56 L Respiratory Rate 16 21 H Respiratory Effort Blood Pressure 126/75 H 109/65 73/53 L Blood Pressure Mean 79 59 Pulse Ox 95 Oxygen Delivery Method Room Air 01/16/22 06:10 01/16/22 06:22 01/16/22 06:37 Temperature Temperature Source Pulse Rate 60 59 L 55 L Respiratory Rate 15 14 12 Respiratory Effort Blood Pressure 88/59 L 107/63 107/72 Blood Pressure Mean 68 77 83 Pulse Ox 93 97 98 Oxygen Delivery Method Room Air Room Air Room Air 01/16/22 07:00 01/16/22 08:00 Temperature Temperature Source Pulse Rate 51 L 53 L Respiratory Rate 12 12 Respiratory Effort Blood Pressure 113/60 121/69 H Blood Pressure Mean 77 86 Pulse Ox 97 97 Oxygen Delivery Method Room Air Room Air Positive well nourished and well developed General Appearance ED: well developed and NAD; Negative for pallor HEENT Reports moist mucous membranes HEENT Narrative: There is a submental laceration that is 3 to 4 cm in length. This will require repair. There is no pain ovation over the TMJ joints. There is no evidence of malocclusion. There is no dental trauma. There is no trauma to the forehead or head. There is no clinical findings of basilar skull fracture. normocephalic, trauma and tenderness Eyes PERRL and EOMs intact bilaterally General Eye ED: Negative for pale conjunctiva or scleral icterus Neck no lymphadenopathy, supple and no JVD Chest Wall inspection of chest normal and palpation of chest normal Resp normal respiratory effort and clear to auscultation bilaterally Effort and Inspection: respiratory distress Cardio regular rate, regular rhythm, S1 normal heart sound, S2 normal heart sound and no murmurs GI normal to inspection, nondistended, normoactive bowel sounds, soft to palpation, non-tender and non-distended Back/Spine no CVA tenderness and no thoracic nor lumbar tenderness Extremity normal to inspection General Extremety ED: Negative for edema, pulses abnormal or tenderness General Extremity: Negative for edema or pulses abnormal Neuro oriented x3 and CN's II-XII intact bilaterally Sensorium / Orientation: awake and alert Motor Exam: strength abnormal; Negative for general weakness Psych mental status grossly normal Skin no rashes or lesions noted and no wounds General Skin Exam: other Patient is slightly diaphoretic. ; Negative for jaundice or pallor <Dr. Quan Kinsey MD - Last Filed: 01/16/22 10:27> Physical Exam Const Vital Signs: 01/16/22 05:37 01/16/22 05:44 01/16/22 05:45 Temperature 97.4 F L Temperature Source Temporal Pulse Rate 60 Respiratory Rate 17 Respiratory Effort Normal Non-Labored Blood Pressure 132/74 H Blood Pressure Mean 93 Pulse Ox 96 Oxygen Delivery Method Room Air Room Air 01/16/22 05:56 01/16/22 05:59 01/16/22 06:04 Temperature Temperature Source Pulse Rate 60 65 56 L Respiratory Rate 16 21 H Respiratory Effort Blood Pressure 126/75 H 109/65 73/53 L Blood Pressure Mean 79 59 Pulse Ox 95 Oxygen Delivery Method Room Air 01/16/22 06:10 01/16/22 06:22 01/16/22 06:37 Temperature Temperature Source Pulse Rate 60 59 L 55 L Respiratory Rate 15 14 12 Respiratory Effort Blood Pressure 88/59 L 107/63 107/72 Blood Pressure Mean 68 77 83 Pulse Ox 93 97 98 Oxygen Delivery Method Room Air Room Air Room Air 01/16/22 07:00 01/16/22 08:00 Temperature Temperature Source Pulse Rate 51 L 53 L Respiratory Rate 12 12 Respiratory Effort Blood Pressure 113/60 121/69 H Blood Pressure Mean 77 86 Pulse Ox 97 97 Oxygen Delivery Method Room Air Room Air <Dr. Tremayne Irvin MD - Last Filed: 01/19/22 07:05> Heart Score History: Moderately Suspicious ECG: Nonspecific Repolarization Age: >/= 65 years Risk Factors: >/= 3 Risk Factors or History of CAD Score: 6 MDM <Dr. Tremayne Irvin MD - Last Filed: 01/19/22 07:05> MDM MDM Narrative Medical decision making narrative: Suspect patient had a vasovagal single episode that resulted in his fall and chin laceration. Since patient states the diaphoresis similar to when he had his [place] that was then followed by chest tightness that initially improved with nitro concerned this may represent cardiac ischemia. Will review patient's cath report. Prehospital EKG revealed a sinus rhythm with left axis and decreased anterior force. There was flipped T waves in lead III and aVF. Patient was treated with aspirin. Since he was still experiencing chest tightness and had improvement with nitro in the field nitro series was ordered in the emergency department. Patient is complaining of cold sweat and significant chest midsternal tightness. Monitor reveals ST depression in lead II. Repeat EKG was ordered. I was informed at 0607 the patient's blood pressure is 73 systolic. 500 cc bolus was ordered. Patient's blood pressure improved after the 500 cc of normal saline. Care was transferred to the a.m. physician Dr. Darci Sánchez to make disposition once repeat troponin has been drawn and resulted and second EKG. Lab Data Attestation: I reviewed the patient's lab results. Lab results narrative: CBC reveals elevated MCV otherwise unremarkable. Basic metabolic panel is unremarkable. Glucose is slightly elevated 124. First high- sensitivity troponin is 12. Repeat has been scheduled for 2 hours. Labs: Laboratory Results - last 24 hr 01/16/22 01/16/22 01/16/22 05:25 05:25 07:30 WBC 7.7 RBC 4.11 L Hgb 13.9 Hct 41.1 MCV 100.0 H MCH 33.8 H MCHC 33.8 RDW Std Deviation 47.1 H RDW Coeff of Eva 12.8 Plt Count 246 MPV 8.8 Immature Gran % (Auto) 0.300 Neut % (Auto) 47.0 Lymph % (Auto) 35.3 [place] % (Auto) 13.8 H Eos % (Auto) 3.1 Baso % (Auto) 0.5 Absolute Neuts (auto) 3.6 Absolute Lymphs (auto) 2.71 Nucleated RBC % 0 Sodium 137 Potassium 3.3 L Chloride 103 Carbon Dioxide 29.0 Anion Gap 5 BUN 16 Creatinine 0.79 Estim Creat Clear Calc 79.90 Est GFR (MDRD) Af Amer 126 Est GFR (MDRD) Non-Af 104 BUN/Creatinine Ratio 20.3 H Glucose 124 H Calcium 9.2 Troponin I High Sens 12 11 Radiography Diagnostic Testing: Clinical Impression(s) from Imaging Studies Chest X-Ray 01/16/22 05:51 IMPRESSION: Stable exam with no radiographic evidence of acute cardiopulmonary disease. Electronically Signed: Sonu Cardoza MD at 6:14 EDT , Brain CT 01/16/22 09:23 IMPRESSION: Normal unenhanced CT scan of the brain. Electronically Signed: Alex Salcedo MD at 10:04 EDT , Rhythm Strip Rhythm Strip: Sinus Rhythm Rate: 60 Ectopy: None EKG Initial EKG: Attestation: I personally reviewed and interpreted this EKG as follows: Interpretation: No Acute Injury Pattern and Sinus Bradycardia (Rate is 59. PA interval is 184 ms. QS duration 96 ms. QT duration 402 ms. [place] is to the left. There is decreased anterior force. There is a slightly inverted T wave in 2 and a symmetrically inverted T wave in 3 and aVF. We will need to compare to prior. This may be due to recent ST elevatio) Comments: The flipped T waves in lead III were seen at last EKG dated December 14, 2021. They were more prominent at that time. The decreased anterior force was noted at that time as well. Prior EKG tracings: available for review Prior: Unchanged Follow-up EKG: Attestation: I personally reviewed and interpreted this EKG as follows: Interpretation: Sinus Rhythm (Rate is 60. PA interval is 180 ms. QS duration 94 ms. QT duration 412 ms. There are more prominent inverted T waves in the inferior leads, lead II, lead III and lead aVF. There is decreased anterior force which is unchanged. There is no ST elevation noted.) Prior EKG tracings: available for review Prior: Changed (Slightly more prominent inverted T waves compared to EKG upon presentation. There is no ST depression noted. There is no ST elevation noted.) <Dr. Quan Kinsey MD - Last Filed: 01/16/22 10:27> MDM MDM Narrative Medical decision making narrative: Took over care of this patient. He did not have any recurrent symptoms or episodes of chest discomfort, remained hemodynamically stable for me in the ED. His repeat troponin came back slightly lower than the initial 1 at 11. I discussed his concerning history with cardiology who agrees to admit him on heparin, and suspects he may cath him today later for further evaluation and risk stratification. Discussed with hospitalist. Lab Data Labs: Laboratory Results - last 24 hr 01/16/22 01/16/22 01/16/22 05:25 05:25 07:30 WBC 7.7 RBC 4.11 L Hgb 13.9 Hct 41.1 MCV 100.0 H MCH 33.8 H MCHC 33.8 RDW Std Deviation 47.1 H RDW Coeff of Eva 12.8 Plt Count 246 MPV 8.8 Immature Gran % (Auto) 0.300 Neut % (Auto) 47.0 Lymph % (Auto) 35.3 [place] % (Auto) 13.8 H Eos % (Auto) 3.1 Baso % (Auto) 0.5 Absolute Neuts (auto) 3.6 Absolute Lymphs (auto) 2.71 Nucleated RBC % 0 Sodium 137 Potassium 3.3 L Chloride 103 Carbon Dioxide 29.0 Anion Gap 5 BUN 16 Creatinine 0.79 Estim Creat Clear Calc 79.90 Est GFR (MDRD) Af Amer 126 Est GFR (MDRD) Non-Af 104 BUN/Creatinine Ratio 20.3 H Glucose 124 H Calcium 9.2 Troponin I High Sens 12 11 Radiography Diagnostic Testing: Clinical Impression(s) from Imaging Studies Chest X-Ray 01/16/22 05:51 IMPRESSION: Stable exam with no radiographic evidence of acute cardiopulmonary disease. Electronically Signed: Sonu Cardoza MD at 6:14 EDT , Brain CT 01/16/22 09:23 IMPRESSION: Normal unenhanced CT scan of the brain. Electronically Signed: Alex Salcedo MD at 10:04 EDT , Procedures <Dr. Tremayne Irvin MD - Last Filed: 01/19/22 07:05> Other Procedures Procedure(s): Length of laceration 3.0 cm. The wound was Nestabs by local infiltration. Wound was irrigated with normal saline, 150 cc total. The wound was approximated using 6-0 Ethilon. 9 simple interrupted sutures was placed. Patient tolerated procedure well. <Dr. Tremayne Irvin MD - Last Filed: 01/19/22 07:05> Critical Care Time Critical Care Time: Yes Critical care time (excluding procedures): 30-74 minutes (34), Including time spent: (History, physical, documentation,Review of prior records and cath report. Initiation of therapy and treatment for hypotension), Discussing w/Patient &/or Family/Literature Teacher, Discussing w/Consultants and Arranging Admission or Transfer (Arrangements for admission performed by Dr. Sánchez) Discharge Plan Triage Chief Complaint: Chest Pain ED Provider: Quan Kinsey Dx/Rx/DC Orders Clinical Impression: Pressure in chest, Vasovagal syncope, Chin laceration, Hypotension due to medication Prescriptions: No Action albuterol sulfate [Ventolin HFA] 90 mcg/actuation HFA aerosol inhaler 2 puff INHALATION Q4H PRN (Reason: sob) RF: 0 vitamin B complex Tablet 1 tab PO DAILY RF: 0 varenicline [Chantix] 1 mg tablet 1 mg PO BID RF: 0 aspirin 81 mg Tablet,Chewable 81 mg PO DAILY@0800 Qty: 90 RF: 0 acetaminophen [Tylenol] 325 mg Tablet 650 mg PO Q6H PRN PRN (Reason: Pain Score 1-10/Temp > 100.7 F) Qty: 0 RF: 0 losartan 25 MG tablet 25 mg PO DAILY Qty: 90 RF: 0 metoprolol succinate 25 MG tablet 25 mg PO DAILY Qty: 90 RF: 0 clopidogrel [Plavix] 75 mg tablet 75 mg PO DAILY Qty: 94 RF: 3 Primary Care Provider: Danielito Dowd NP Referrals: Oli Ndiaye MD [STAFF PHYSICIAN] - (3-5 days or after the weekend -- call for appt) Danielito Dowd NP, JUNIOR ESTIMATOR-C [Primary Care Provider] - Disposition Disposition: Home, Self Care Discharge Date/Time: 01/16/22 10:47
--- NOTE | 2022-01-16 05:51 | RAD_ITS ---
INDICATION: chest pain EXAMINATION/TECHNIQUE: X-RAY - XR Chest 1 View COMPARISON: Chest x-ray from 12/14/2021 FINDINGS: LINES/DEVICES: None. LUNGS: No pulmonary edema or focal airspace consolidation. No sizable pleural effusion. No pneumothorax detected. Chronically elevated right hemidiaphragm. MEDIASTINUM AND CARDIOVASCULAR STRUCTURES: Heart size within normal limits. Mediastinal contours unremarkable. BONES AND SOFT TISSUES: No acute findings. RAD/Chest 1 View (Portable) IMPRESSION: Stable exam with no radiographic evidence of acute cardiopulmonary disease. Electronically Signed: Sonu Cardoza MD at 6:14 EDT ,
[2022-01-16 05:55] LABS: Absolute Lymphocyte Count 2.71 X10^3/uL (0.83-4.51); Absolute Neutrophil Count 3.6 X10^3/uL (2.0-7.7); Basophil# 0.04 X10^3/uL; Basophil% 0.5 % (0-1); Eosinophil# 0.24 X10^3/uL; Eosinophils% 3.1 % (0-5); Hematocrit 41.1 % (40-54); Hemoglobin 13.9 g/dL (13.0-16.5); Lymphocyte # 2.71 X10^3/ul (0.83-4.51); Lymphocyte % 35.3 % (19-41); Mean Corp Hgb Conc 33.8 g/dL (32-36); Mean Corpuscular Hgb 33.8 pg (27.0-32.0); Mean Platelet Vol. 8.8 fl (6.2-12.0); Monocyte# 1.06 X10^3/uL; Monocyte% 13.8 % (0-10); NRBC Flagged by Analyzer 0 % (0-5); Platelet Count 246 K/mm3 (150-450); RBC Distribution Width CV 12.8 % (11.6-14.6); RBC Distribution Width SD 47.1 fl (35.1-43.9); Red Blood Count 4.11 M/mm3 (4.6-6.2); White Blood Count 7.7 K/mm3 (4.4-11.0)
[2022-01-16] MEDS: Lidocaine 1% (20 ml mdv) 20 ML Vial INFILT (05:55)
[2022-01-16] MEDS: Nitroglycerin SL (ED/IMG/CATH) 0.4 MG TABLET SL (05:56)
--- NOTE | 2022-01-16 06:05 | EKG12_ITS ---
Test Reason : CP Blood Pressure : / mmHG Vent. Rate : 059 BPM Atrial Rate : 059 BPM P-R Int : 184 ms QRS Dur : 096 ms QT Int : 402 ms P-R-T Axes : -24 -31 -26 degrees QTc Int : 397 ms Sinus bradycardia Left axis deviation Septal infarct , age undetermined Abnormal ECG Confirmed by PILLO RM, JAKE ([id number]), editor map SILVIA GRADY ([id number]) on 01/20/2022 10:15:47 AM Referred By: Confirmed By:JAKE FERRO MD
[2022-01-16 06:12] LABS: BUN 16 mg/dL (7-18); Creatinine, Serum 0.79 mg/dL (0.70-1.30); Glucose 124 mg/dL (74-106)
[2022-01-16 06:13] LABS: Anion Gap 5 (5-15); BUN/Creat Ratio 20.3 RATIO (10-20); Calcium,Total 9.2 mg/dL (8.5-10.1); Chloride 103 mmol/L (98-107); EST Glomerular Filtration Rate 104 mL/min (>60); Est Glom Filt Rate - Afr Amer 126 mL/min (>60); Potassium 3.3 mmol/L (3.5-5.1); Sodium Level 137 mmol/L (136-145); Troponin-I HS (w/2H Reflex) 12 pg/mL (3.0-78.0)
[2022-01-16 07:53] LABS: Reflex Troponin-HS? (from REC) Y
[2022-01-16 08:14] LABS: Troponin-I HS 11 pg/mL (3.0-78.0)
[2022-01-16 09:16] LABS: International Normalized Ratio 1.1
[2022-01-16 09:17] LABS: Partial Thromboplast Time 28.6 Seconds (24.1-36.2)
--- NOTE | 2022-01-16 09:23 | CT_ITS ---
STUDY: CT BRAIN WITHOUT CONTRAST REASON FOR EXAM: Male, 66 years old. Injury, headache RADIATION DOSAGE (If Supplied By Facility): CTDIvol = ( 44.99 ) mGy, DLP = ( 812.98 ) mGycm TECHNIQUE: Transaxial CT imaging of the brain was performed without administration of intravenous contrast material. Individualized dose optimization techniques were used for this CT. COMPARISON: No relevant priors. FINDINGS: Normal soft tissue structures. Normal calvarium. Normal size ventricles and extra-axial spaces for the patient''s age. Normal white matter tracts of the cerebral hemispheres. Normal basal ganglia and thalami. Normal brainstem. Normal cerebellum. There is no intracranial hemorrhage. There are no findings of an acute ischemic infarction. Atherosclerotic plaque formation of the cavernous portions of the internal carotid arteries bilaterally. Minimal degree of mucosal thickening of the ethmoid sinus. CT/Brain/Head without Contrast IMPRESSION: Normal unenhanced CT scan of the brain. Electronically Signed: Alex Salcedo MD at 10:04 EDT ,
--- NOTE | 2022-01-16 10:11 | CON.PCM.CA_ITS ---
HPI Consult Data Date of Consult: 01/16/22 HPI Narrative HPI Narrative: YUNG VILA, is a 66 M who presented to the ER for syncope. [facility] Medical History Abnormal ECG Anxiety and depression Atherosclerotic heart disease of [place] coronary artery without angina pectoris Back pain Chest pain COPD (chronic obstructive pulmonary disease) Cutaneous abscess of left hand Depression Diverticulitis Dyspnea HLD (hyperlipidemia) HTN (hypertension) MRSA (methicillin resistant Staphylococcus aureus) Nephrolithiasis Osteoarthritis Osteoporosis Presence of stent in coronary artery (~11/25/21) Sleep apnea Smoker Smoking greater than 30 pack years tenosynovitis left hand Home Medications albuterol sulfate 90 mcg/actuation aerosol inhaler 2 puff INHALATION Q4H PRN g 10/27/18 [History Last Taken Unknown] acetaminophen [Tylenol] 650 mg PO Q6H PRN PRN #0 tab 11/26/21 [Rx Last Taken Unknown] aspirin 81 mg PO DAILY@0800 #90 tab 11/26/21 [Rx Last Taken Unknown] losartan 25 mg PO DAILY #90 tab 11/26/21 [Rx Last Taken Unknown] metoprolol succinate 25 mg PO DAILY #90 tab 11/26/21 [Rx Last Taken Unknown] varenicline 1 mg tablet 1 mg PO BID 12/11/21 [History Last Taken Unknown] vitamin B complex 1 tab PO DAILY 12/11/21 [History Last Taken Unknown] clopidogrel 75 mg tablet 75 mg PO DAILY #94 tab 12/27/21 [Rx Last Taken Unknown] Allergy/AdvReac Type Severity Reaction Status Date / Time Penicillins Allergy Shortness Verified 01/16/22 05:46 of breath Family History Father COPD (chronic obstructive pulmonary disease) Alcoholism Mother Cancer Surgical History History of cataract surgery History of gastrointestinal surgery Presence of coronary angioplasty implant and graft (~11/25/21) Social History (Updated 01/16/22 @ 05:[address] Tremayne Irvin MD) household members: none Smoking Status: Current every day smoker tobacco type: cigarettes Tobacco: How many years used: 40 alcohol intake: never substance use type: does not use Objective Data Vital Signs: Vital Signs Temp Pulse Resp BP Pulse Ox 97.4 F L 54 L 14 137/77 H 97 01/16/22 05:37 01/16/22 09:00 01/16/22 09:00 01/16/22 09:00 01/16/22 09:00 Oxygen Delivery Method Room Air Weight: 178 lb 9.191 oz Body Mass Index (BMI) 23.6 Intake & Output: Intake and Output for Last 24 Hours 01/14/22 01/15/22 01/16/22 23:59 23:59 23:59 Intake Total 500 / 500 Balance 500 / 500 Lab / Micro Data Result Diagrams: 01/16/22 05:25 01/16/22 05:25 Labs: Laboratory Results - last 24 hr 01/16/22 05:25: WBC 7.7, RBC 4.11 L, Hgb 13.9, Hct 41.1, MCV 100.0 H, MCH 33.8 H , MCHC 33.8, RDW Std Deviation 47.1 H, RDW Coeff of Eva 12.8, Plt Count 246, MPV 8.8, Immature Gran % (Auto) 0.300, Neut % (Auto) 47.0, Lymph % (Auto) 35.3, [place] % (Auto) 13.8 H, Eos % (Auto) 3.1, Baso % (Auto) 0.5, Absolute Neuts (auto) 3.6, Absolute Lymphs (auto) 2.71, Nucleated RBC % 0 01/16/22 05:25: Sodium 137, Potassium 3.3 L, Chloride 103, Carbon Dioxide 29.0, Anion Gap 5, BUN 16, Creatinine 0.79, Estim Creat Clear Calc 79.90, Est GFR (MDRD) Af Amer 126, Est GFR (MDRD) Non-Af 104, BUN/Creatinine Ratio 20.3 H, Glucose 124 H, Calcium 9.2, Troponin I High Sens 12 01/16/22 07:30: Troponin I High Sens 01/16/22 08:55: PT 14.0, INR 1.1, APTT 28.6 Rhythm Strip Rhythm Strip: Sinus Rhythm Rate: 60 Ectopy: None Cardiology Labs/Tests 01/16/22 05:25: WBC 7.7, RBC 4.11 L, Hgb 13.9, Hct 41.1, MCV 100.0 H, MCH 33.8 H , MCHC 33.8, Plt Count 246, MPV 8.8, Immature Gran % (Auto) 0.300, Neut % (Auto) 47.0, Lymph % (Auto) 35.3, [place] % (Auto) 13.8 H, Eos % (Auto) 3.1, Baso % (Auto) 0.5, Absolute Neuts (auto) 3.6, Nucleated RBC % 0 01/16/22 05:25: Sodium 137, Potassium 3.3 L, Chloride 103, Carbon Dioxide 29.0, Anion Gap 5, BUN 16, Creatinine 0.79, Est GFR (MDRD) Af Amer 126, Est GFR (MDRD) Non-Af 104, BUN/Creatinine Ratio 20.3 H, Glucose 124 H, Calcium 9.2 01/16/22 08:55: PT 14.0, INR 1.1, APTT 28.6 Rhythm: EKG: ECHO: Stress Test: Cardiac Cath: PCI: CT Surgery: Holter monitor: EPS: PPM: CXR: Chest CT Scan: Radiography Diagnostic Testing: Radiology Impression Chest X-Ray 01/16/22 05:51 IMPRESSION: Stable exam with no radiographic evidence of acute cardiopulmonary disease. Electronically Signed: Sonu Cardoza MD at 6:14 EDT , Brain CT 01/16/22 09:23 IMPRESSION: Normal unenhanced CT scan of the brain. Electronically Signed: Alex Salcedo MD at 10:04 EDT ,
[2022-01-16] MEDS: Acetaminophen 500 MG Tablet 1000 MG PO (10:44)
--- NOTE | 2022-01-16 11:07 | CON.PCM.CA_ITS ---
Assessment & Plan Assessment/Plan (1) Vasovagal syncope: (2) Presence of stent in coronary artery: PLAN: Patient did not have any chest discomfort. His main concern for his trip to the emergency room was syncope. This could likely be vasovagal however with his recent STEMI would like to place patient on a 30-day event monitor to evaluate for any arrhythmias. We will follow-up with patient closely in the office. HPI Consult Data Date of Consult: 01/16/22 HPI Narrative HPI Narrative: YUNG VILA, is a 66 M who presented to the ER for syncope. Patient states that he woke up this morning on his way to the bathroom, little lightheaded, he did go to the bathroom, he did have a bowel movement, on his way back from the bathroom he felt more lightheaded and had a syncopal event. He did hit his chin and require stitches. He may have had some shortness of breath during this time. He states that he did not have any chest discomfort at all during this time. He was concerned about the lightheadedness and syncopal event, this is never happened to him before. Troponins have been negative x2. He does have a history of a recent STEMI in which he required stenting to his RCA. He also has a history of hypertension hyperlipidemia and COPD. Patient states that he is fairly active at home. He has not had any discomfort since his recent myocardial infarction. He is not participating in cardiac rehab due to cost. However with any activity he has not had any concerning symptoms such as chest discomfort, worsening shortness of breath, lightheadedness, palpitations. [facility] Medical History Abnormal ECG Anxiety and depression Atherosclerotic heart disease of [place] coronary artery without angina pectoris Back pain Chest pain COPD (chronic obstructive pulmonary disease) Cutaneous abscess of left hand Depression Diverticulitis Dyspnea HLD (hyperlipidemia) HTN (hypertension) MRSA (methicillin resistant Staphylococcus aureus) Nephrolithiasis Osteoarthritis Osteoporosis Presence of stent in coronary artery (~11/25/21) Sleep apnea Smoker Smoking greater than 30 pack years tenosynovitis left hand Home Medications albuterol sulfate 90 mcg/actuation aerosol inhaler 2 puff INHALATION Q4H PRN g 10/27/18 [History Last Taken Unknown] acetaminophen [Tylenol] 650 mg PO Q6H PRN PRN #0 tab 11/26/21 [Rx Last Taken Unknown] aspirin 81 mg PO DAILY@0800 #90 tab 11/26/21 [Rx Last Taken Unknown] losartan 25 mg PO DAILY #90 tab 11/26/21 [Rx Last Taken Unknown] metoprolol succinate 25 mg PO DAILY #90 tab 11/26/21 [Rx Last Taken Unknown] varenicline 1 mg tablet 1 mg PO BID 12/11/21 [History Last Taken Unknown] vitamin B complex 1 tab PO DAILY 12/11/21 [History Last Taken Unknown] clopidogrel 75 mg tablet 75 mg PO DAILY #94 tab 12/27/21 [Rx Last Taken Unknown] Allergy/AdvReac Type Severity Reaction Status Date / Time Penicillins Allergy Shortness Verified 01/16/22 05:46 of breath Family History Father COPD (chronic obstructive pulmonary disease) Alcoholism Mother Cancer Surgical History History of cataract surgery History of gastrointestinal surgery Presence of coronary angioplasty implant and graft (~11/25/21) Social History (Updated 01/16/22 @ 05:[address] Tremayne Irvin MD) household members: none Smoking Status: Current every day smoker tobacco type: cigarettes Tobacco: How many years used: 40 alcohol intake: never substance use type: does not use ROS Constitutional Constitutional: Denies change in weight, chills, fatigue, frequent falls, headache(s) or lethargy Eyes Eyes: Denies acute decrease in peripheral vision, blurry vision or change in vision ENT HEENT: Reports dizziness; Denies dry mouth, epistaxis, headache(s), tinnitus or vertigo Cardiovascular Cardiovascular: Denies chest pain at rest, chest pain with activity, claudication, dyspnea at rest, dyspnea on exertion, edema, irregular heart rhythm, lightheadedness, orthopnea, orthostatic symptoms, palpitations or pedal edema Respiratory/Chest Respiratory/Chest: Denies cough, dyspnea, dyspnea on exertion, tachypnea or wheezing Gastrointestinal Gastrointestinal: Denies abdominal pain, bloating, coffee ground emesis, diarrhea, heartburn, hematemesis, hematochezia, melena or nausea Genitourinary Genitourinary: Denies hematuria Musculoskeletal Musculoskeletal: Denies myalgias, numbness or tingling Neurologic Neurologic: Reports dizziness and syncope; Denies abnormal gait, abnormal speech, memory loss, paresthesias or weakness Physical Exam Const alert, oriented x3, no apparent distress and healthy appearing HEENT normocephalic, head/scalp atraumatic, hearing grossly normal bilaterally, external ears normal, external nose normal and moist oral mucous membranes Eyes PERRL, EOMs intact bilaterally, conjunctivae normal and no scleral icterus Neck no lymphadenopathy, supple and no JVD Cardio regular rate, regular rhythm, S1 normal heart sound, S2 normal heart sound, no murmurs, no rub, no gallops, no clicks, no JVD and peripheral pulses 2+ throughout GI normal to inspection, nondistended, normoactive bowel sounds, soft to palpation, non-tender and non-distended Extremity normal to inspection, normal capillary refill, no clubbing, cyanosis or edema and no pedal edema Neuro oriented x3, CN's II-XII intact bilaterally, moves all extremities and no focal motor deficits Psych cooperative and affect normal Risk Stratification Risk Stratification Applicable: No Charges/Coding Visit Charges Office Visits / Consults: 53869 IP Consult L3 Objective Data Vital Signs: Vital Signs Temp Pulse Resp BP Pulse Ox 97.4 F L 55 L 14 146/72 H 99 01/16/22 05:37 01/16/22 10:25 01/16/22 10:25 01/16/22 10:25 01/16/22 10:25 Oxygen Delivery Method Room Air Weight: 178 lb 9.191 oz Body Mass Index (BMI) 23.6 Intake & Output: Intake and Output for Last 24 Hours 01/14/22 01/15/22 01/16/22 23:59 23:59 23:59 Intake Total 500 / 500 Balance 500 / 500 Lab / Micro Data Result Diagrams: 01/16/22 05:25 01/16/22 05:25 Labs: Laboratory Results - last 24 hr 01/16/22 05:25: WBC 7.7, RBC 4.11 L, Hgb 13.9, Hct 41.1, MCV 100.0 H, MCH 33.8 H , MCHC 33.8, RDW Std Deviation 47.1 H, RDW Coeff of Eva 12.8, Plt Count 246, MPV 8.8, Immature Gran % (Auto) 0.300, Neut % (Auto) 47.0, Lymph % (Auto) 35.3, [place] % (Auto) 13.8 H, Eos % (Auto) 3.1, Baso % (Auto) 0.5, Absolute Neuts (auto) 3.6, Absolute Lymphs (auto) 2.71, Nucleated RBC % 0 01/16/22 05:25: Sodium 137, Potassium 3.3 L, Chloride 103, Carbon Dioxide 29.0, Anion Gap 5, BUN 16, Creatinine 0.79, Estim Creat Clear Calc 79.90, Est GFR (M DRD) Af Amer 126, Est GFR (MDRD) Non-Af 104, BUN/Creatinine Ratio 20.3 H, Glucose 124 H, Calcium 9.2, Troponin I High Sens 12 01/16/22 07:30: Troponin I High Sens 11 01/16/22 08:55: PT 14.0, INR 1.1, APTT 28.6 Rhythm Strip Rhythm Strip: Sinus Rhythm Rate: 60 Ectopy: None Cardiology Labs/Tests 01/16/22 05:25: WBC 7.7, RBC 4.11 L, Hgb 13.9, Hct 41.1, MCV 100.0 H, MCH 33.8 H , MCHC 33.8, Plt Count 246, MPV 8.8, Immature Gran % (Auto) 0.300, Neut % (Auto) 47.0, Lymph % (Auto) 35.3, Edmun[place] % (Auto) 13.8 H, Eos % (Auto) 3.1, Baso % (Auto) 0.5, Absolute Neuts (auto) 3.6, Nucleated RBC % 0 01/16/22 05:25: Sodium 137, Potassium 3.3 L, Chloride 103, Carbon Dioxide 29.0, Anion Gap 5, BUN 16, Creatinine 0.79, Est GFR (MDRD) Af Amer 126, Est GFR (MDRD) Non-Af 104, BUN/Creatinine Ratio 20.3 H, Glucose 124 H, Calcium 9.2 01/16/22 08:55: PT 14.0, INR 1.1, APTT 28.6 Rhythm: SR Radiography Diagnostic Testing: Radiology Impression Chest X-Ray 01/16/22 05:51 IMPRESSION: Stable exam with no radiographic evidence of acute cardiopulmonary disease. Electronically Signed: Sonu Cardoza MD at 6:14 EDT , Brain CT 01/16/22 09:23 IMPRESSION: Normal unenhanced CT scan of the brain. Electronically Signed: Alex Salcedo MD at 10:04 EDT ,
== END 2022-01-16 10:47 | disposition home or self-care (01) ==
LOC: ED 08:45 → PCU 10:28
PROVIDERS: Emergency Medicine; Emergency Provider Emergency Medicine; PCP Nurse Practitioner Family; Visit Provider Emergency Medicine
DX: R07.89 Other chest pain (principal); J44.9 Chronic obstructive pulmonary disease, unspecified; R55 Syncope and collapse; S01.81XA Laceration without foreign body of other part of head, initial encounter; W18.39XA Other fall on same level, initial encounter; Y93.89 Activity, other specified; I10 Essential (primary) hypertension; I95.2 Hypotension due to drugs; E78.5 Hyperlipidemia, unspecified; I25.10 Atherosclerotic heart disease of native coronary artery without angina pectoris; I25.2 Old myocardial infarction; F17.210 Nicotine dependence, cigarettes, uncomplicated; Z95.5 Presence of coronary angioplasty implant and graft; Z79.02 Long term (current) use of antithrombotics/antiplatelets; Z79.82 Long term (current) use of aspirin; Z79.899 Other long term (current) drug therapy
CPT/HCPCS: 12013; 70450; 71045; 80048; 84484; 85025; 85610; 85730; 93005; 96360; 96361; 99285; J7030; A4216

== ENCOUNTER → 2022-01-29 | Outpatient (CLI) | payer MEDICARE, SELFPAY ==
[2022-01-29 10:33] LABS: Anion Gap 6 (5-15); BUN 20 mg/dL (7-18); BUN/Creat Ratio 24.7 RATIO (10-20); Chloride 109 mmol/L (98-107); Creatinine, Serum 0.81 mg/dL (0.70-1.30); EST Glomerular Filtration Rate 101 mL/min (>60); Est Glom Filt Rate - Afr Amer 122 mL/min (>60); Glucose 112 mg/dL (74-106); Potassium 3.9 mmol/L (3.5-5.1); Sodium Level 141 mmol/L (136-145)
== END | disposition home or self-care (01) ==
LOC: LAB 09:10
PROVIDERS: PCP Nurse Practitioner Family; Referring Provider Nurse Practitioner Family; Visit Provider Nurse Practitioner Family
DX: I47.2 Ventricular tachycardia (principal)
CPT/HCPCS: 36415; 80048

== ENCOUNTER → 2022-02-28 | Outpatient (CLI) | payer MEDICARE, SELFPAY ==
[2022-02-28 11:59] LABS: Anion Gap 6 (5-15); BUN 17 mg/dL (7-18); Calcium,Total 9.4 mg/dL (8.5-10.1); Chloride 105 mmol/L (98-107); Creatinine, Serum 0.77 mg/dL (0.70-1.30); EST Glomerular Filtration Rate 106 mL/min (>60); Est Glom Filt Rate - Afr Amer 128 mL/min (>60); Glucose 111 mg/dL (74-106); Magnesium 2.4 mg/dL (1.6-2.6); Potassium 3.7 mmol/L (3.5-5.1); Sodium Level 139 mmol/L (136-145); T4 Total, Thyroxin 8.9 ug/dL (4.5-12.1); Thyroid Stim Hormone (TSH) 0.92 uIU/mL (0.358-3.74)
== END | disposition home or self-care (01) ==
LOC: LAB 10:41
PROVIDERS: PCP Nurse Practitioner Family; Referring Provider Nurse Practitioner Family; Visit Provider Nurse Practitioner Family
DX: I47.2 Ventricular tachycardia (principal); I49.1 Atrial premature depolarization; I25.10 Atherosclerotic heart disease of native coronary artery without angina pectoris; R00.2 Palpitations; Z95.5 Presence of coronary angioplasty implant and graft
CPT/HCPCS: 36415; 80048; 83735; 84436; 84443

== ENCOUNTER → 2022-03-20 | Outpatient (CLI) | payer MEDICARE, SELFPAY ==
--- NOTE | 2022-03-20 06:57 | ECHOD_ITS ---
Reason For Study: NONSUSTAINED VTACH Procedure This was a 2D Doppler, Color Flow transthoracic echocardiogram. The study was technically difficult. Exam performed in department. Left Ventricle Normal LV size. Left ventricular systolic function is normal. The estimated ejection fraction is 55 %. No evidence for diastolic dysfunction. No regional wall motion abnormalities noted. Right Ventricle Normal RV size. Normal systolic function. Atria Normal left atrium. Normal right atrium. Hypermobile atrial septum. No doppler evidence for ASD. Bubble contrast study negative for right to left interatrial shunt. Mitral Valve There is no mitral annular calcification. The mitral valve chordae are thickened and/or calcified. Mild (1+) mitral valve insufficiency. Tricuspid Valve Normal tricuspid valve. Mild tricuspid valve insufficiency. Right ventricular systolic pressure estimated to be 29 mmHg. Aortic Valve Trisinus/trileaflet aortic valve. Normal aortic valve. Trivial aortic valve insufficiency. Pulmonic Valve The pulmonic valve is not well visualized. Great Vessels Normal sized aortic root. Pericardium/Pleural No pericardial effusion. Medication Performed a rapid injection of agitated mix of 9 cc saline and 1cc air to assess for atrial septal defect. MMode/2D Measurements & Calculations LVIDd: 4.3 cm IVSd: 0.91 cm Ao root diam: 3.6 cm LVIDs: 2.9 cm LVPWd: 0.88 cm RVDd: 3.5 cm FS: 32.1 % LAV(MOD-bp): 36.9 ml LVAd ap4: 31.8 cm2 SV(MOD-sp4): 63.4 ml LAV(MOD-bp) Indexed: 18.8 ml/m2 LVLd ap4: 8.0 cm LAV(MOD-sp2): 33.1 ml EDV(MOD-sp4): 102.0 ml LAV(MOD-sp4): 38.9 ml EDV(sp4-el): 107.4 ml LVAs ap4: 17.7 cm2 LVLs ap4: 6.6 cm ESV(MOD-sp4): 38.6 ml ESV(sp4-el): 40.1 ml EF(MOD-sp4): 62.1 % EF(sp4-el): 62.7 % SV(sp4-el): 67.3 ml LA A4 area: 14.6 cm2 LA dimension(2D): 2.6 cm RA A4 area: 13.6 cm2 Time Measurements MV dec time: 0.26 sec Doppler Measurements & Calculations MV E max blane: 65.6 cm/sec Lat Peak E' Blane: 10.9 cm/sec Med Peak E' Blane: 8.3 cm/sec MV A max blane: 64.1 cm/sec E/E' lat: 6.0 E/E' med: 7.9 MV E/A: 1.0 MV dec slope: 251.5 cm/sec2 Ao V2 max: 121.1 cm/sec AI max blane: 471.9 cm/sec Ao max P.9 mmHg AI max P.1 mmHg AI dec slope: 217.2 cm/sec2 AI P1/2t: 636.5 msec LV V1 max: 85.1 cm/sec PA V2 max: 75.4 cm/sec TR max blane: 252.6 cm/sec LV V1 max P.9 mmHg TR max P.5 mmHg ECHO/Echo Complete Interpretation Summary Left ventricular systolic function is normal. The estimated ejection fraction is 55 %. The mitral valve chordae are thickened and/or calcified. Mild (1+) mitral valve insufficiency. Mild tricuspid valve insufficiency. Trivial aortic valve insufficiency. Right ventricular systolic pressure estimated to be 29 mmHg. No evidence for diastolic dysfunction. Hypermobile atrial septum. Bubble contrast study negative for right to left interatrial shunt. Ordering Physician: Vidal Cameron/Oli Ndiaye Referring Physician: JUNE RAMOS Performed By: Christen Kline RDCS
--- NOTE | 2022-03-20 09:17 | STRESSREP_ITS ---
Stress Test Report Date: 03-20-2022 Procedure: Exercise tolerance test/imaging study Indications: CAD; status post MN; status post PCI; ventricular tachycardia; s yncope Consent: Per the patient Procedure: The patient exercised on a Octaviano protocol for 9 minutes completing Stage III achieving a peak heart rate of 125 bpm (82% predicted maximal heart rate) with a peak blood pressure 160/70 mmHg and a peak MET capacity of 10 METs. The baseline ECG demonstrated normal sinus rhythm; poor R wave progression; anterior MN of indeterminate age cannot be excluded. The peak exercise ECG demonstrated somatic/motion artifact with no obvious ECG changes. There was a rare PAC during recovery. The functional capacity was considered good. There was no complaint of chest discomfort during exercise or recovery. The examination was discontinued secondary to dyspnea. Impression: 1. Technically adequate (percent predicted maximal heart rate greater than 85%) exercise tolerance test 2. Peak exercise ECG with somatic/motion artifact with no obvious ECG changes 3. There was a rare PAC during recovery 4. Nuclear images pending Myocardial perfusion imaging study: Technique: The patient was injected with 11.9 mCi of technetium 99m Cardiolite and subsequently rest SPECT Cardiolite nuclear imaging was obtained in the horizontal long, vertical long, and short axis views. The patient exercised on a Octaviano protocol for 9 minutes completing Stage III achieving a peak heart rate of 125 bpm (82% predicted maximal heart rate) with a peak blood pressure 160/70 mmHg and a peak MET capacity of 10 METs. The patient was injected with 33.6 mCi of technetium 99m Cardiolite and subsequently stress SPECT Cardiolite nuclear imaging was obtained in the horizontal long, vertical long, and short axis views. A gated Cardiolite study at peak stress was obtained. Interpretation: Rest and stress SPECT Cardiolite nuclear imaging status post realignment, normalization, and attenuation correction, demonstrates the appearance of extracardiac/gastrointestinal tracer uptake near the inferior segments and otherwise relative uniform tracer uptake and myocardial perfusion appearing within normal limits. There is end systolic thickening and brightening. The gated Cardiolite study demonstrates myocardial thickening and inward wall motion. The reported LVEF is 67%. Impression: 1. Rest and stress SPECT Cardiolite nuclear imaging demonstrate the appearance of extracardiac/gastrointestinal tracer uptake near the inferior segments and otherwise relative uniform tracer uptake and myocardial perfusion appearing within normal limits. 2. The gated Cardiolite study reports an LVEF of 67%. This note was generated with Dragon dictation software. It may contain incorrect words, spelling, and punctuation that were not noted in checking the note before signing.
== END | disposition home or self-care (01) ==
PROVIDERS: PCP Nurse Practitioner Family; Visit Provider Nurse Practitioner Family
DX: I25.10 Atherosclerotic heart disease of native coronary artery without angina pectoris (principal); I47.2 Ventricular tachycardia; I10 Essential (primary) hypertension; R06.00 Dyspnea, unspecified; Z95.5 Presence of coronary angioplasty implant and graft
CPT/HCPCS: 78452; 93017; 93306; A9500; A4216

== ENCOUNTER → 2022-05-09 | Outpatient (CLI) | payer MEDICARE, SELFPAY ==
[2022-05-09 10:33] LABS: Hematocrit 46.5 % (40-54); Mean Corp Hgb Conc 34.4 g/dL (32-36); Mean Corpuscular Volume 98.7 fL (80-94); Mean Platelet Vol. 9.1 fl (6.2-12.0); Platelet Count 218 K/mm3 (150-450); RBC Distribution Width CV 12.5 % (11.6-14.6); RBC Distribution Width SD 45.5 fl (35.1-43.9); Red Blood Count 4.71 M/mm3 (4.6-6.2); White Blood Count 7.7 K/mm3 (4.4-11.0)
[2022-05-09 10:56] LABS: ALB/GLOB Ratio 1.1 RATIO (0.9-2.4); AST(SGOT) 39 U/L (15-37); Alanine Aminotransfer ALT/SGPT 91 U/L (16-61); Albumin, Serum 3.7 g/dL (3.2-5.0); Alkaline Phosphatase 111 U/L (45-117); Anion Gap 6 (5-15); BUN 16 mg/dL (7-18); BUN/Creat Ratio 20.5 RATIO (10-20); Calcium,Total 8.9 mg/dL (8.5-10.1); Chloride 105 mmol/L (98-107); Cholesterol 123 mg/dL (200); Creatinine, Serum 0.78 mg/dL (0.70-1.30); EST Glomerular Filtration Rate 105 mL/min (>60); Est Glom Filt Rate - Afr Amer 127 mL/min (>60); Globulin 3.5 g/dL (2.2-4.2); Glucose 98 mg/dL (74-106); High Density Lipoprotein 49 mg/dL; PSA,Total - Annual Screen 0.62 ng/mL (0.00-4.00); Potassium 4.1 mmol/L (3.5-5.1); Protein, Total 7.2 g/dL (6.4-8.2); Sodium Level 141 mmol/L (136-145); Triglycerides 150 mg/dL; Very Low Density Lipoprotein 30 mg/dL (5-40)
== END | disposition home or self-care (01) ==
PROVIDERS: PCP Nurse Practitioner Family; Referring Provider Nurse Practitioner Family; Visit Provider Nurse Practitioner Family
DX: D51.9 Vitamin B12 deficiency anemia, unspecified (principal); J43.9 Emphysema, unspecified; I10 Essential (primary) hypertension; E78.5 Hyperlipidemia, unspecified; Z12.5 Encounter for screening for malignant neoplasm of prostate
CPT/HCPCS: 36415; 80053; 80061; 84153; 85027; G0103

== ENCOUNTER 2022-05-28 03:20 | Emergency (ER) | payer MEDICARE, SELFPAY ==
[2022-05-28 03:24] VITALS: BP 109/78; PULSE 71; RESP 12; TEMP 36.4; O2SAT 95; BMI 21.5
--- NOTE | 2022-05-28 03:59 | EKG12_ITS ---
Test Reason : CHEST PAIN Blood Pressure : / mmHG Vent. Rate : 061 BPM Atrial Rate : 061 BPM P-R Int : 202 ms QRS Dur : 100 ms QT Int : 394 ms P-R-T Axes : 067 -20 057 degrees QTc Int : 396 ms Normal sinus rhythm Septal infarct , age undetermined Abnormal ECG Confirmed by KAITLYN RM, RODERICK ([id number]), features editor SILVIA GRADY ([id number]) on 05/29/2022 12:42:12 PM Referred By: HERMINIA Confirmed By:RODERICK SAHNI MD
--- NOTE | 2022-05-28 03:59 | RAD_ITS ---
STUDY: X-RAY CHEST REASON FOR EXAM: Male, 66 years old. CHEST PAIN TECHNIQUE: PA and lateral views of the chest. COMPARISON: 01/16/2022 FINDINGS: The lungs are clear and expanded. There is no demonstrated pleural abnormality. Normal size heart. Normal mediastinum and farooq. Normal visualized pulmonary arteries. Normal visualized aortic arch and descending thoracic aorta. There is no demonstrated abnormality of the visualized soft tissue structures of the upper abdomen. RAD/Chest PA and Lateral IMPRESSION: No acute abnormal cardiopulmonary finding. Electronically Signed: Oli Parikh MD at 4:38 EDT ,
[2022-05-28 04:37] LABS: Absolute Lymphocyte Count 3.13 X10^3/uL (0.83-4.51); Absolute Neutrophil Count 3.3 X10^3/uL (2.0-7.7); Basophil# 0.05 X10^3/uL; Basophil% 0.7 % (0-1); Eosinophil# 0.17 X10^3/uL; Eosinophils% 2.3 % (0-5); Hematocrit 44.5 % (40-54); Lymphocyte # 3.13 X10^3/ul (0.83-4.51); Lymphocyte % 41.7 % (19-41); Mean Corp Hgb Conc 33.7 g/dL (32-36); Mean Corpuscular Hgb 33.6 pg (27.0-32.0); Mean Corpuscular Volume 99.8 fL (80-94); Monocyte# 0.85 X10^3/uL; Monocyte% 11.3 % (0-10); NRBC Flagged by Analyzer 0 % (0-5); Neutrophil % 43.9 % (47-70); Platelet Count 217 K/mm3 (150-450); RBC Distribution Width CV 12.2 % (11.6-14.6); RBC Distribution Width SD 44.9 fl (35.1-43.9); Red Blood Count 4.46 M/mm3 (4.6-6.2); White Blood Count 7.5 K/mm3 (4.4-11.0)
[2022-05-28 04:51] LABS: Anion Gap 6 (5-15); BUN 21 mg/dL (7-18); BUN/Creat Ratio 26.4 RATIO (10-20); Calcium,Total 9.3 mg/dL (8.5-10.1); Chloride 104 mmol/L (98-107); EST Glomerular Filtration Rate 103 mL/min (>60); Est Glom Filt Rate - Afr Amer 124 mL/min (>60); Estimated Creatinine Clearance 92.63 ml/min; Glucose 114 mg/dL (74-106); Magnesium 2.2 mg/dL (1.6-2.6); Potassium 3.6 mmol/L (3.5-5.1); Sodium Level 139 mmol/L (136-145); Troponin-I HS 6 pg/mL (3.0-78.0)
[2022-05-28 05:20] VITALS: BP 121/104; PULSE 57; RESP 17; O2SAT 96
[2022-05-28 05:57] LABS: Troponin-I HS 8 pg/mL (3.0-78.0)
--- NOTE | 2022-05-28 06:47 | EDS_ITS ---
HPI History of Present Illness Chief Complaint: Chest Pain Narrative Narrative: Patient is a 66-year-old male with history of hypertension hyperlipidemia and CAD with stents placed approximately 6 months ago. He states that he was up this morning to use the restroom and doing his normal morning routine when he felt like his heart rate jumped from normal to a high value and therefore he put his home pulse ox on and states his heart rate was reading approximate 120-130. He states with this he noticed some mild chest discomfort and because of his history of heart attack called 911. He states when EMS arrived his symptoms had resolved but had concern for repeat heart damage because of his history and was brought in for evaluation. [facility] Medical History (Updated 05/28/22 @ 22:[address] Jun Colbert, DO) Abnormal ECG Anxiety and depression Atherosclerotic heart disease of [place] coronary artery without angina pectoris Back pain Chest pain COPD (chronic obstructive pulmonary disease) Cutaneous abscess of left hand Depression Diverticulitis Dyspnea HLD (hyperlipidemia) HTN (hypertension) MRSA (methicillin resistant Staphylococcus aureus) Nephrolithiasis Osteoarthritis Osteoporosis Presence of stent in coronary artery (~11/25/21) Sleep apnea Smoker Smoking greater than 30 pack years tenosynovitis left hand Home Medications albuterol sulfate 90 mcg/actuation aerosol inhaler (Ventolin HFA) 2 puff inhalation Q4H PRN sob 10/27/18 [History Last Taken Unknown] acetaminophen 325 mg tablet (Tylenol) 650 mg PO Q6H PRN PRN Pain Score 1-10/Temp > 100.7 F #0 tabs 11/26/21 [Rx Last Taken Unknown] aspirin 81 mg chewable tablet 81 mg PO DAILY@0800 #90 tabs 11/26/21 [Rx Last Taken Unknown] losartan 25 mg tablet 25 mg PO DAILY #90 tabs 11/26/21 [Rx Last Taken Unknown] varenicline 1 mg tablet (Chantix) 1 mg PO BID 12/11/21 [History Last Taken Unknown] vitamin B complex 1 tab PO DAILY 12/11/21 [History Last Taken Unknown] clopidogrel 75 mg tablet (Plavix) 75 mg PO DAILY #94 tabs 12/27/21 [Rx Last Taken Unknown] rosuvastatin 20 mg tablet (Crestor) 20 mg PO DAILY #30 tabs 01/28/22 [Rx Last Taken Unknown] metoprolol succinate 25 mg tablet,extended release 24 hr 37.5 mg PO BID 90 days #180 tabs 04/10/22 [Rx Last Taken Unknown] sertraline 50 mg tablet 50 mg PO DAILY 04/10/22 [History Last Taken Unknown] tramadol 50 mg tablet 50 mg PO BID PRN pain 04/10/22 [History Last Taken Unknown] Allergy/AdvReac Type Severity Reaction Status Date / Time Penicillins Allergy Shortness Verified 05/28/22 03:27 of breath Family History Father COPD (chronic obstructive pulmonary disease) Alcoholism Mother Cancer Surgical History History of cataract surgery History of gastrointestinal surgery Presence of coronary angioplasty implant and graft (~11/25/21) Social History household members: none Smoking Status: Current every day smoker tobacco type: cigarettes Tobacco: How many years used: 40 alcohol intake: never substance use type: does not use caffeine: Yes Type: coffee Number of servings: 3 ROS ROS ED Constitutional Constitutional ED: Denies chills or fever(s) ENT ENT ED: Denies sore throat Cardiovascular Cardiovascular: Reports chest pain, palpitations and racing heartbeat Respiratory/Chest Respiratory/Chest: Denies cough or dyspnea Gastrointestinal Gastrointestinal: Denies abdominal pain, diarrhea, nausea or vomiting Genitourinary Genitourinary ED: Denies dysuria Musculoskeletal Musculoskeletal: Denies myalgias Integumentary Denies rash Neurologic Neurologic: Denies headache(s) Hematologic/Lymphatic Hematologic/Lymphatic: Reports easy bleeding and easy bruising EXAM Physical Exam Const Vital Signs: 05/28/22 03:24 05/28/22 03:28 05/28/22 05:20 Temperature 97.6 F L Temperature Source Temporal Pulse Rate 71 57 L Respiratory Rate 12 17 Respiratory Effort Normal Blood Pressure 109/78 121/104 H Blood Pressure Mean 88 109 Pulse Ox 95 96 Oxygen Delivery Method Room Air Room Air Positive well nourished and well developed General Appearance ED: well developed HEENT Reports moist mucous membranes Eyes PERRL and EOMs intact bilaterally Neck supple and no JVD Chest Wall palpation of chest normal Resp normal respiratory effort and clear to auscultation bilaterally Cardio regular rate and regular rhythm Rate: other Other Details: Radial pulses are plus 2 out of 4 bilaterally are equal and symmetric Carotid pulses equal and symmetric as well GI normal to inspection, nondistended, normoactive bowel sounds, non-tender, non- distended and no masses GI Narrative: No voluntary guarding or rigidity no pulsatile mass Auscultation: normoactive bowel sounds Palpation: soft Extremity normal to inspection Extremity Narrative: No asymmetric edema no pitting edema negative Homans' sign bilaterally Neuro oriented x3 and CN's II-XII intact bilaterally Sensorium / Orientation: alert Psych Psych Narrative: Patient has a nervous/anxious affect Skin no rashes or lesions noted MDM MDM MDM Narrative Medical decision making narrative: Patient presented to the ER with stable vitals and resolution of his symptoms. He reported feeling some mild chest discomfort along with palpitations. He has known CAD and secondary to this a cardiac work-up was obtained. The patient's initial troponin was 6 the 2-hour delta only elevated by 2 points to a value of 8 which is not clinically significant. His EKG was sinus rhythm and on the monitor there is no ectopy or dysrhythmia changes noted. Therefore at this time the patient's had resolution of his chest symptoms we have caught no abnormal cardiac rhythm and his troponin is within normal limit. Therefore do not feel there is need for admission and patient is otherwise safe for discharge Lab Data Attestation: I reviewed the patient's lab results. Labs: Laboratory Results - last 24 hr 05/28/22 05/28/22 05/28/22 03:10 03:10 05:30 WBC 7.5 RBC 4.46 L Hgb 15.0 Hct 44.5 MCV 99.8 H MCH 33.6 H MCHC 33.7 RDW Std Deviation 44.9 H RDW Coeff of Eva 12.2 Plt Count 217 MPV 9.0 Immature Gran % (Auto) 0.100 Neut % (Auto) 43.9 L Lymph % (Auto) 41.7 H [place] % (Auto) 11.3 H Eos % (Auto) 2.3 Baso % (Auto) 0.7 Absolute Neuts (auto) 3.3 Absolute Lymphs (auto) 3.13 Nucleated RBC % 0 Sodium 139 Potassium 3.6 Chloride 104 Carbon Dioxide 29.0 Anion Gap 6 BUN 21 H Creatinine 0.80 Estim Creat Clear Calc 92.63 Est GFR (MDRD) Af Amer 124 Est GFR (MDRD) Non-Af 103 BUN/Creatinine Ratio 26.4 H Glucose 114 H Calcium 9.3 Magnesium 2.2 Troponin I High Sens 6 8 Radiography Diagnostic Testing: Clinical Impression(s) from Imaging Studies Chest X-Ray 05/28/22 03:59 IMPRESSION: No acute abnormal cardiopulmonary finding. Electronically Signed: Oli Parikh MD at 4:38 EDT , Chest x-ray as interpreted by the emergency medicine physician reveals no acute infiltrate pneumothorax or pleural effusion Discharge Plan Triage Chief Complaint: Chest Pain ED Provider: Jun Colbert Dx/Rx/DC Orders Clinical Impression: Nonspecific chest pain, HTN (hypertension), HLD (hyperlipidemia), Palpitations Instructions: ED Chest Pain, Uncertain Cause Prescriptions: No Action albuterol sulfate [Ventolin HFA] 90 mcg/actuation HFA aerosol inhaler 2 puff INHALATION Q4H PRN (Reason: sob) vitamin B complex Tablet 1 tab PO DAILY varenicline [Chantix] 1 mg tablet 1 mg PO BID sertraline 50 mg tablet 50 mg PO DAILY tramadol 50 mg tablet 50 mg PO BID PRN (Reason: pain) metoprolol succinate 25 mg tablet extended release 24 hr 37.5 mg PO BID 90 Days Qty: 180 3RF aspirin 81 mg Tablet,Chewable 81 mg PO DAILY@0800 Qty: 90 0RF acetaminophen [Tylenol] 325 mg Tablet 650 mg PO Q6H PRN PRN (Reason: Pain Score 1-10/Temp > 100.7 F) Qty: 0 0RF losartan 25 MG tablet 25 mg PO DAILY Qty: 90 0RF clopidogrel [Plavix] 75 mg tablet 75 mg PO DAILY Qty: 94 3RF Rx Instructions: Take 300mg (4 tablets) on day 1, and then 75mg ( 1tablet ) daily. rosuvastatin [Crestor] 20 mg tablet 20 mg PO DAILY Qty: 30 11RF Primary Care Provider: Danielito Dowd NP Referrals: Danielito Dowd STAFF COMMAND AND CONTROL OFFICER, STAFF COMMAND AND CONTROL OFFICER-C [Primary Care Provider] - Activity Restrictions/Additional Instructions: Please continue all of your previous medications as directed by your doctor. Your work-up today shows no abnormal heart rhythm or signs of heart damage. Because you had an elevated heart rate at home on your home pulse ox you may have went into an abnormal heart rhythm for short period of time which led to your symptoms. Please talk to your heart doctor or family doctor about a Holter monitor to further assess for a abnormal heart rhythm and return to the ER should you have any further concerns Disposition Disposition: Home, Self Care Discharge Date/Time: 05/28/22 07:10
== END 2022-05-28 07:10 | disposition home or self-care (01) ==
PROVIDERS: Emergency Provider Emergency Medicine; PCP Nurse Practitioner Family; Visit Provider Emergency Medicine
DX: R07.9 Chest pain, unspecified (principal); J44.9 Chronic obstructive pulmonary disease, unspecified; I25.10 Atherosclerotic heart disease of native coronary artery without angina pectoris; E78.5 Hyperlipidemia, unspecified; R00.2 Palpitations; I10 Essential (primary) hypertension; I25.2 Old myocardial infarction; F17.210 Nicotine dependence, cigarettes, uncomplicated; Z95.5 Presence of coronary angioplasty implant and graft; Z79.02 Long term (current) use of antithrombotics/antiplatelets; Z79.82 Long term (current) use of aspirin; Z79.899 Other long term (current) drug therapy
CPT/HCPCS: 71046; 80048; 83735; 84484; 85025; 93005; 99285; A4216

== ENCOUNTER 2022-08-12 19:00 | Emergency (ER) | payer MEDICARE, SELFPAY ==
[2022-08-12 19:01] VITALS: BP 141/85; PULSE 80; RESP 15; TEMP 36.4; O2SAT 96; BMI 21.1
--- NOTE | 2022-08-12 19:05 | EKG12_ITS ---
Test Reason : CP Blood Pressure : / mmHG Vent. Rate : 073 BPM Atrial Rate : 073 BPM P-R Int : 176 ms QRS Dur : 100 ms QT Int : 360 ms P-R-T Axes : 085 -34 072 degrees QTc Int : 396 ms Normal sinus rhythm Left axis deviation Abnormal ECG Confirmed by KAITLYN RM, RODERICK ([id number]), editor school photograph SILVIA GRADY ([id number]) on 08/14/2022 9:40:48 AM Referred By: Confirmed By:RODERICK SAHNI MD
[2022-08-12 19:22] VITALS: BP 151/90; PULSE 77; RESP 14; O2SAT 97
[2022-08-12 19:25] VITALS: O2SAT 96
--- NOTE | 2022-08-12 19:33 | EDS_ITS ---
HPI History of Present Illness Chief Complaint: Chest Pain Detail of Chief Complaint: Palpitations, chest pain Informant: patient Onset/Context/Timing Onset: Today Narrative Narrative: Patient present secondary to episodes of fluttering in his chest with some slight chest pressure. He had an GA and atrial fibrillation in November of last year. He has cardiac stents in place. He takes aspirin and Plavix. He states he will periodically get episodes of fluttering sensation in his chest with some slight chest pressure. He states he stopped coming to the emergency room when this would occur because the work-up was always unremarkable. He states this happens approximately once a month. He was seen by his PCP earlier today and he states when the nurse took his vital signs they thought he might be in atrial fibrillation. He states he has had the fluttering sensation in his chest all day today. He does not get lightheaded or dizzy. He does not feel as if he is going to pass out. [facility] Medical History Abnormal ECG Anxiety and depression Atherosclerotic heart disease of [place] coronary artery without angina pectoris Back pain Chest pain COPD (chronic obstructive pulmonary disease) Cutaneous abscess of left hand Depression Diverticulitis Dyspnea HLD (hyperlipidemia) HTN (hypertension) MRSA (methicillin resistant Staphylococcus aureus) Nephrolithiasis Osteoarthritis Osteoporosis Presence of stent in coronary artery (~11/25/21) Sleep apnea Smoker Smoking greater than 30 pack years tenosynovitis left hand Home Medications albuterol sulfate 90 mcg/actuation aerosol inhaler (Ventolin HFA) 2 puff inhalation Q4H PRN sob 10/27/18 [History Last Taken Unknown] acetaminophen 325 mg tablet (Tylenol) 650 mg PO Q6H PRN PRN Pain Score 1-10/Temp > 100.7 F #0 tabs 11/26/21 [Rx Last Taken Unknown] aspirin 81 mg chewable tablet 81 mg PO DAILY@0800 #90 tabs 11/26/21 [Rx Last Taken Unknown] losartan 25 mg tablet 25 mg PO DAILY #90 tabs 11/26/21 [Rx Last Taken Unknown] varenicline 1 mg tablet (Chantix) 1 mg PO BID 12/11/21 [History Last Taken Unknown] vitamin B complex 1 tab PO DAILY 12/11/21 [History Last Taken Unknown] clopidogrel 75 mg tablet (Plavix) 75 mg PO DAILY #94 tabs 12/27/21 [Rx Last Taken Unknown] rosuvastatin 20 mg tablet (Crestor) 20 mg PO DAILY #30 tabs 01/28/22 [Rx Last Taken Unknown] sertraline 50 mg tablet 50 mg PO DAILY 04/10/22 [History Last Taken Unknown] tramadol 50 mg tablet 50 mg PO BID PRN pain 04/10/22 [History Last Taken Unknown] metoprolol succinate 25 mg tablet,extended release 24 hr 37.5 mg PO BID 90 days #180 tabs 07/10/22 [Rx Last Taken Unknown] Allergy/AdvReac Type Severity Reaction Status Date / Time Penicillins Allergy Shortness Verified 08/12/22 19:05 of breath Family History Father COPD (chronic obstructive pulmonary disease) Alcoholism Mother Cancer Surgical History History of cataract surgery History of gastrointestinal surgery Presence of coronary angioplasty implant and graft (~11/25/21) Social History household members: none Smoking Status: Current every day smoker tobacco type: cigarettes Tobacco: How many years used: 40 alcohol intake: never substance use type: does not use caffeine: Yes Type: coffee Number of servings: 3 ROS ROS ED Constitutional Constitutional ED: Denies chills or fever(s) Eyes Eyes: Denies change in vision or discharge from eye(s) ENT ENT ED: Denies discharge from eye(s), rhinorrhea or sore throat Cardiovascular Cardiovascular: Reports chest pain and palpitations Respiratory/Chest Respiratory/Chest: Denies cough or dyspnea Gastrointestinal Gastrointestinal: Denies abdominal pain, diarrhea, nausea or vomiting Genitourinary Genitourinary ED: Denies dysuria Musculoskeletal Musculoskeletal: Denies back pain or extremity pain Integumentary Denies Abrasions or rash Neurologic Neurologic: Denies headache(s) or weakness Psychiatric Psychiatric: Denies anxiety or depression Allergic/Immunologic Allergic/Immunologic ED: Denies lip swelling or urticaria EXAM Physical Exam Const Vital Signs: 08/12/22 19:01 08/12/22 19:22 08/12/22 19:22 Temperature 97.5 F L Temperature Source Temporal Pulse Rate 80 77 Respiratory Rate 15 14 Respiratory Effort Normal Blood Pressure 141/85 H 151/90 H Blood Pressure Mean 103 110 Pulse Ox 96 97 Oxygen Delivery Method Room Air Room Air 08/12/22 19:25 08/12/22 20:12 Temperature Temperature Source Pulse Rate 67 Respiratory Rate 17 Respiratory Effort Blood Pressure 121/76 H Blood Pressure Mean 91 Pulse Ox 96 95 Oxygen Delivery Method Room Air Room Air Positive well nourished and well developed General Appearance ED: well developed HEENT Reports normocephalic and head/scalp atraumatic Eyes PERRL and EOMs intact bilaterally Neck supple Chest Wall inspection of chest normal and palpation of chest normal Resp normal respiratory effort and clear to auscultation bilaterally Cardio regular rate and regular rhythm GI normal to inspection, nondistended, normoactive bowel sounds Palpation: soft Extremity normal to inspection Neuro oriented x3 and no sensory deficits noted Sensorium / Orientation: alert Motor Exam: strength 5/5 throughout Psych mental status grossly normal Skin no rashes or lesions noted Heart Score History: Slightly/Non-Suspicious ECG: Normal Age: >/= 65 years Risk Factors: >/= 3 Risk Factors or History of CAD Troponin: </= Normal Limit Score: 4 MDM MDM MDM Narrative Medical decision making narrative: Patient placed on phototypesetting equipment monitor. EKG, chest x-ray, lab work obtained. Lab Data Attestation: I reviewed the patient's lab results. Labs: Laboratory Results - last 24 hr 08/12/22 08/12/22 08/12/22 19:20 19:20 19:20 WBC 9.8 RBC 4.55 L Hgb 15.3 Hct 45.5 MCV 100.0 H MCH 33.6 H MCHC 33.6 RDW Std Deviation 45.3 H RDW Coeff of Eva 12.3 Plt Count 239 MPV 8.9 Immature Gran % (Auto) 0.300 Neut % (Auto) 61.0 Lymph % (Auto) 28.3 [place] % (Auto) 8.5 Eos % (Auto) 1.4 Baso % (Auto) 0.5 Absolute Neuts (auto) 6.0 Absolute Lymphs (auto) 2.78 Nucleated RBC % 0 PT 13.5 INR 1.1 Sodium 141 Potassium 3.8 Chloride 109 H Carbon Dioxide 24.0 Anion Gap 8 BUN 23 H Creatinine 0.85 Estim Creat Clear Calc 85.38 Est GFR (MDRD) Af Amer 115 Est GFR (MDRD) Non-Af 95 BUN/Creatinine Ratio 27.1 H Glucose 149 H Calcium 9.3 Magnesium Troponin I High Sens 5 TSH 08/12/22 19:20 WBC RBC Hgb Hct MCV MCH MCHC RDW Std Deviation RDW Coeff of Eva Plt Count MPV Immature Gran % (Auto) Neut % (Auto) Lymph % (Auto) [place] % (Auto) Eos % (Auto) Baso % (Auto) Absolute Neuts (auto) Absolute Lymphs (auto) Nucleated RBC % PT INR Sodium Potassium Chloride Carbon Dioxide Anion Gap BUN Creatinine Estim Creat Clear Calc Est GFR (MDRD) Af Amer Est GFR (MDRD) Non-Af BUN/Creatinine Ratio Glucose Calcium Magnesium 2.0 Troponin I High Sens TSH 2.30 Radiography Chest X-Ray - ED: 1 View, Read by ED Physician and Chronic Changes Diagnostic Testing: Clinical Impression(s) from Imaging Studies Chest X-Ray 08/12/22 19:38 IMPRESSION: 1. No evidence of acute cardiopulmonary process Electronically Signed: Danielito Aburto MD at 19:57 EST , EKG Initial EKG: Attestation: I personally reviewed and interpreted this EKG as follows: Interpretation: Sinus Rhythm (Sinus at 73 with no acute ischemia.) Treatment and Re-Evaluation Narrative: While watching the patient's heart monitor during my exam, he does have occasional PACs or rare PVCs. Overall he maintains sinus rhythm. CBC and chemistry studies are unremarkable. Troponin is negative. TSH is normal. Chest x-ray per my interpretation reveals no acute findings. I reviewed the monitor alarms and patient's had no arrhythmias while in the emergency room. This is discussed with the patient. I did recommend follow-up with his certified professional midwife as he may be able to have some medication adjustments and will make him less aware of these palpitations and diminish the PACs that believe are causing the sensation. He voices understanding and agreement. Return instructions are given. Discharge Plan Triage Chief Complaint: Chest Pain ED Provider: Karli Dinero Dx/Rx/DC Orders Clinical Impression: Palpitations Instructions: ED Palpitations Prescriptions: No Action albuterol sulfate [Ventolin HFA] 90 mcg/actuation HFA aerosol inhaler 2 puff INHALATION Q4H PRN (Reason: sob) vitamin B complex Tablet 1 tab PO DAILY varenicline [Chantix] 1 mg tablet 1 mg PO BID sertraline 50 mg tablet 50 mg PO DAILY tramadol 50 mg tablet 50 mg PO BID PRN (Reason: pain) aspirin 81 mg Tablet,Chewable 81 mg PO DAILY@0800 Qty: 90 0RF acetaminophen [Tylenol] 325 mg Tablet 650 mg PO Q6H PRN PRN (Reason: Pain Score 1-10/Temp > 100.7 F) Qty: 0 0RF losartan 25 MG tablet 25 mg PO DAILY Qty: 90 0RF clopidogrel [Plavix] 75 mg tablet 75 mg PO DAILY Qty: 94 3RF Rx Instructions: Take 300mg (4 tablets) on day 1, and then 75mg ( 1tablet ) daily. rosuvastatin [Crestor] 20 mg tablet 20 mg PO DAILY Qty: 30 11RF metoprolol succinate 25 mg tablet extended release 24 hr 37.5 mg PO BID 90 Days Qty: 180 3RF Primary Care Provider: Danielito Dowd NP Referrals: Oli Ndiaye MD [Med Staff - Active Staff] - 1-2 Weeks Danielito Dowd NP, [employer] [Primary Care Provider] - Disposition Disposition: Home, Self Care
--- NOTE | 2022-08-12 19:38 | RAD_ITS ---
INDICATION: chest pain EXAMINATION/TECHNIQUE: X-RAY - XR Chest 1 View COMPARISON: 05/28/2022 FINDINGS: LIFE-SUPPORT AND LINES: 1. None HEART AND VESSELS: The cardiac silhouette, pulmonary vasculature have normal appearance. No evidence of congestive failure. LUNGS AND PLEURAL SPACES: Lungs are clear. No focal infiltrate, consolidation or effusions. No evidence of pneumothorax. No pulmonary mass is noted. MEDIASTINUM AND HILAR REGIONS: No masses adenopathy noted. No areas of calcification. Visualized upper airway is normal in position. BONY ELEMENTS: No acute bony changes noted. RAD/Chest 1 View (Portable) IMPRESSION: 1. No evidence of acute cardiopulmonary process Electronically Signed: Danielito Aburto MD at 19:57 EST ,
[2022-08-12 19:47] LABS: Absolute Lymphocyte Count 2.78 X10^3/uL (0.83-4.51); Basophil# 0.05 X10^3/uL; Basophil% 0.5 % (0-1); Eosinophil# 0.14 X10^3/uL; Eosinophils% 1.4 % (0-5); Hematocrit 45.5 % (40-54); Hemoglobin 15.3 g/dL (13.0-16.5); Lymphocyte # 2.78 X10^3/ul (0.83-4.51); Lymphocyte % 28.3 % (19-41); Mean Corp Hgb Conc 33.6 g/dL (32-36); Mean Corpuscular Hgb 33.6 pg (27.0-32.0); Mean Platelet Vol. 8.9 fl (6.2-12.0); Monocyte# 0.84 X10^3/uL; Monocyte% 8.5 % (0-10); NRBC Flagged by Analyzer 0 % (0-5); Platelet Count 239 K/mm3 (150-450); RBC Distribution Width CV 12.3 % (11.6-14.6); RBC Distribution Width SD 45.3 fl (35.1-43.9); Red Blood Count 4.55 M/mm3 (4.6-6.2); White Blood Count 9.8 K/mm3 (4.4-11.0)
[2022-08-12 19:51] LABS: International Normalized Ratio 1.1; Prothrombin Time (Protime)PT. 13.5 SECONDS (11.7-14.9)
[2022-08-12 20:04] LABS: Anion Gap 8 (5-15); BUN 23 mg/dL (7-18); BUN/Creat Ratio 27.1 RATIO (10-20); Calcium,Total 9.3 mg/dL (8.5-10.1); Chloride 109 mmol/L (98-107); Creatinine, Serum 0.85 mg/dL (0.70-1.30); EST Glomerular Filtration Rate 95 mL/min (>60); Est Glom Filt Rate - Afr Amer 115 mL/min (>60); Estimated Creatinine Clearance 85.38 ml/min; Glucose 149 mg/dL (74-106); Potassium 3.8 mmol/L (3.5-5.1); Sodium Level 141 mmol/L (136-145); Troponin-I HS 5 pg/mL (3.0-78.0)
[2022-08-12 20:12] VITALS: BP 121/76; PULSE 67; RESP 17; O2SAT 95
[2022-08-12 21:28] VITALS: BP 114/64; PULSE 67; RESP 15; O2SAT 97
== END 2022-08-12 21:28 | disposition home or self-care (01) ==
PROVIDERS: Emergency Provider Emergency Medicine; PCP Nurse Practitioner Family; Visit Provider Emergency Medicine
DX: R00.2 Palpitations (principal); J44.9 Chronic obstructive pulmonary disease, unspecified; I25.10 Atherosclerotic heart disease of native coronary artery without angina pectoris; E78.5 Hyperlipidemia, unspecified; I10 Essential (primary) hypertension; F17.210 Nicotine dependence, cigarettes, uncomplicated; Z95.5 Presence of coronary angioplasty implant and graft; Z79.02 Long term (current) use of antithrombotics/antiplatelets; Z79.82 Long term (current) use of aspirin; Z79.899 Other long term (current) drug therapy
CPT/HCPCS: 71045; 80048; 83735; 84443; 84484; 85025; 85610; 93005; 99284; A4216

== ENCOUNTER → 2022-10-14 | Outpatient (CLI) | payer MEDICARE, SELFPAY ==
[2022-10-14 10:56] LABS: T4 Free Direct 0.92 ng/dL (0.76-1.46); Thyroid Stim Hormone (TSH) 1.71 uIU/mL (0.358-3.74)
== END | disposition home or self-care (01) ==
PROVIDERS: PCP Nurse Practitioner Family; Referring Provider Nurse Practitioner Family; Visit Provider Nurse Practitioner Family
DX: E07.9 Disorder of thyroid, unspecified (principal)
CPT/HCPCS: 36415; 84439; 84443

== ENCOUNTER → 2023-01-19 | Outpatient (CLI) | payer MEDICARE, SELFPAY ==
[2023-01-19 08:36] LABS: Hematocrit 45.3 % (40-54); Hemoglobin 15.1 g/dL (13.0-16.5); Mean Corp Hgb Conc 33.3 g/dL (32-36); Mean Corpuscular Hgb 34.2 pg (27.0-32.0); Mean Corpuscular Volume 102.5 fL (80-94); Platelet Count 200 K/mm3 (150-450); RBC Distribution Width CV 11.9 % (11.6-14.6); RBC Distribution Width SD 45.1 fl (35.1-43.9); Red Blood Count 4.42 M/mm3 (4.6-6.2); White Blood Count 7.3 K/mm3 (4.4-11.0)
[2023-01-19 09:02] LABS: ALB/GLOB Ratio 1.1 RATIO (0.9-2.4); AST(SGOT) 24 U/L (15-37); Alanine Aminotransfer ALT/SGPT 40 U/L (16-61); Albumin, Serum 3.8 g/dL (3.2-5.0); Alkaline Phosphatase 98 U/L (45-117); Anion Gap 5 (5-15); BUN 14 mg/dL (7-18); BUN/Creat Ratio 20.4 RATIO (10-20); Calcium,Total 8.8 mg/dL (8.5-10.1); Chloride 107 mmol/L (98-107); Cholesterol 131 mg/dL (200); Creatinine, Serum 0.69 mg/dL (0.70-1.30); EST Glomerular Filtration Rate 122 mL/min (>60); Est Glom Filt Rate - Afr Amer 147 mL/min (>60); Globulin 3.4 g/dL (2.2-4.2); Glucose 96 mg/dL (74-106); High Density Lipoprotein 54 mg/dL; Potassium 4.4 mmol/L (3.5-5.1); Protein, Total 7.2 g/dL (6.4-8.2); Sodium Level 139 mmol/L (136-145); Triglycerides 116 mg/dL; Very Low Density Lipoprotein 23 mg/dL (5-40)
== END | disposition home or self-care (01) ==
LOC: LAB 07:40
PROVIDERS: PCP Nurse Practitioner Family; Referring Provider Nurse Practitioner Family; Visit Provider Nurse Practitioner Family
DX: I10 Essential (primary) hypertension (principal); E78.5 Hyperlipidemia, unspecified; R74.8 Abnormal levels of other serum enzymes; D51.9 Vitamin B12 deficiency anemia, unspecified; Z12.5 Encounter for screening for malignant neoplasm of prostate
CPT/HCPCS: 36415; 80053; 80061; 85027

== ENCOUNTER → 2023-01-20 | Outpatient (CLI) | payer MEDICARE, SELFPAY ==
[2023-01-20 09:08] LABS: Microalbumin,Random Urine 5.7 mg/L (NO RANGE EST.)
== END | disposition home or self-care (01) ==
LOC: LABSPEC 08:01
PROVIDERS: PCP Nurse Practitioner Family; Referring Provider Nurse Practitioner Family; Visit Provider Nurse Practitioner Family
DX: I10 Essential (primary) hypertension (principal)
CPT/HCPCS: 82043; 82570

== ENCOUNTER 2023-05-05 07:22 | Emergency (ER) | payer MEDICARE, SELFPAY ==
[2023-05-05 07:23] VITALS: BP 130/82; PULSE 62; RESP 18; TEMP 35.8; O2SAT 100
[2023-05-05 07:28] VITALS: BP 153/88; PULSE 65; RESP 14; O2SAT 99
--- NOTE | 2023-05-05 07:31 | ED.VIS.CHEST ---
HPI History of Present Illness Chief Complaint: Chest Pain Narrative Narrative: 67-year-old male past medical history of coronary artery disease, COPD, hypertension complains of approximately 1 week of chest tightness and dyspnea on exertion. He denies any nausea or vomiting. No diaphoresis but sometimes he is sweaty. He states he is constantly felt chest tightness and mild shortness of breath over the last week. He was post to have a stress test as an outpatient on his heart today by his medtronics technician, Dr. Bray. He states it does not necessarily feel similar to when he had his heart attack 2 years ago in November. He does have a rescue inhaler for COPD that he has not used and also uses an Advair disc. He continues to smoke cigarettes. He denies any leg swelling. He complains mainly of chest tightness and dyspnea on exertion with low exercise tolerance. [facility] Medical History Abnormal ECG Abscess of right thumb Anxiety and depression Atherosclerotic heart disease of [place] coronary artery without angina pectoris Back pain Chest pain COPD (chronic obstructive pulmonary disease) Cutaneous abscess of left hand Depression Diverticulitis Dyspnea HLD (hyperlipidemia) HTN (hypertension) Low back pain MRSA (methicillin resistant Staphylococcus aureus) Necrotizing soft tissue infection Nephrolithiasis Non-sustained ventricular tachycardia Open wound of right thumb SANDRITA (obstructive sleep apnea) Osteoarthritis Osteoporosis PAC (premature atrial contraction) Palpitations Presence of stent in coronary artery (~11/25/21) Skin necrosis Sleep apnea Smoker Smoking greater than 30 pack years tenosynovitis left hand Tenosynovitis of thumb Tobacco use Ventricular tachycardia Home Medications acetaminophen 325 mg tablet (Tylenol) 650 mg (2 x 325 mg) PO Q6H PRN PRN Pain Score 1-10/Temp > 100.7 F #0 tabs 11/26/21 [Rx Last Taken Unknown] aspirin 81 mg chewable tablet 81 mg PO DAILY@0800 #90 tabs 11/26/21 [Rx Last Taken Unknown] varenicline 1 mg tablet (Chantix) 1 mg PO BID 12/11/21 [History Last Taken Unknown] sertraline 50 mg tablet 50 mg PO DAILY 04/10/22 [History Last Taken Unknown] tramadol 50 mg tablet 50 mg PO BID PRN pain 04/10/22 [History Last Taken Unknown] losartan 25 mg tablet 25 mg PO DAILY #90 tabs 09/03/22 [Rx Last Taken Unknown] rosuvastatin 20 mg tablet (Crestor) 20 mg PO DAILY #90 tabs 01/06/23 [Rx Last Taken Unknown] clopidogrel 75 mg tablet (Plavix) 75 mg PO DAILY #90 tabs 02/06/23 [Rx Last Taken Unknown] celecoxib 200 mg capsule (Celebrex) 200 mg PO DAILY 04/08/23 [History Last Taken Unknown] metoprolol succinate 25 mg tablet,extended release 24 hr 25 mg PO BID 04/08/23 [History Last Taken Unknown] nitroglycerin 0.4 mg sublingual tablet 0.4 mg sublingual Q5-15M PRN chest pain 04/08/23 [History Last Taken Unknown] tizanidine 4 mg tablet 4 mg PO BID PRN Muscle relaxer 04/08/23 [History Last Taken Unknown] prednisone 20 mg tablet 40 mg (2 x 20 mg) PO DAILY #14 tabs 05/05/23 [Rx Last Taken Unknown] Allergy/AdvReac Type Severity Reaction Status Date / Time Penicillins Allergy Shortness Verified 04/08/23 14:31 of breath Family History Father COPD (chronic obstructive pulmonary disease) Alcoholism Mother Cancer Surgical History History of cataract surgery History of gastrointestinal surgery Presence of coronary angioplasty implant and graft (~11/25/21) Social History household members: none Smoking Status: Current every day smoker tobacco type: cigarettes Tobacco: How many years used: 40 alcohol intake: never substance use type: does not use caffeine: Yes Type: coffee Number of servings: 3 ROS ROS ED ROS Narrative Constitutional: No fever, no chills. No diaphoresis. HEENT: No sore throat. No neck pain. No loss of vision. No rhinorrhea. Cardiovascular: Positive constant chest tightness/chest pain. No palpitations. No pedal edema. Respiratory: No cough, positive dyspnea on exertion and shortness of breath. Abdominal: No abdominal pain. No nausea. No vomiting. Genitourinary: No dysuria. No hematuria. Musculoskeletal: No myalgias. No arthralgias. Neurologic: No headaches. No dizziness. No lightheadedness. Skin: No rash. No change in color. Psychiatric: No depression. No anxiety. EXAM Physical Exam Narrative Exam Narrative: Afebrile. Vital signs noted. HEENT: Normocephalic. Atraumatic. PERRL, EOMI. Neck soft and supple. No point tenderness or step off. Cardiovascular: Regular rate and rhythm. No murmurs, rubs, or gallops appreciated. Respiratory: No tachypnea. Lungs clear to auscultation bilaterally. Moving a good amount of air. Slightly prolonged expiratory phase. Speaking in full sentences. Gastrointestinal: Abdomen soft, nontender, with normoactive bowel sounds. No rebound or guarding. Neurological: Awake. Alert. Nonfocal, nonlateralizing. Skin: No rash. Normal color. No pallor. Musculoskeletal: No pedal edema. Full range of motion extremities. Const Vital Signs: 05/05/23 07:23 05/05/23 07:28 05/05/23 07:28 Temperature 96.4 F L Temperature Source Temporal Pulse Rate 62 65 Respiratory Rate 18 14 Respiratory Effort Short of Breath Respiratory Pattern Blood Pressure 130/82 H 153/88 H Blood Pressure Mean 98 109 Pulse Ox 100 99 Oxygen Delivery Method Room Air Room Air 05/05/23 07:42 05/05/23 09:43 Temperature Temperature Source Pulse Rate 81 Respiratory Rate 20 H Respiratory Effort Respiratory Pattern Normal Blood Pressure 129/64 H Blood Pressure Mean 85 Pulse Ox Oxygen Delivery Method Heart Score History: Slightly/Non-Suspicious ECG: Normal Age: >/= 65 years Risk Factors: >/= 3 Risk Factors or History of CAD Score: 4 MDM MDM MDM Narrative Medical decision making narrative: In the differential diagnosis is ACS versus COPD exacerbation versus bronchitis. I have lower suspicion for ACS because he states this does not feel the same, and his chest tightness has been more constant. Smoking cessation was discussed. I reviewed his prior records and he had a stress test last year in 2021 which showed an ejection fraction of approximately 65%. Chest pain work-up was pursued. I will order serial troponins, EKG, and chest x-ray to help rule out a pneumonia, however his history and physical is not suggestive of pneumonia as he has not had a fever or cough. EKG was obtained and interpreted by my self independently as normal sinus rhythm at 63 bpm without ectopy or acute ST changes. No STEMI. I reviewed his laboratory work from today and he has a normal white count of 7.2, hemoglobin normal at 15.3, platelet count normal at 212. I reviewed his electrolyte panel and he has normal sodium of 139, chloride slightly elevated at 109 which I think is nonspecific, BUN of 19 and creatinine low at 0.65, have no concern for dehydration, glucose is appropriately elevated at 106 with a normal anion gap of 5. His initial high-sensitivity troponin is 5 with repeat being 6 for a delta of 1. I individually interpreted his chest x-ray in 1 view which shows no evidence of an acute process, no pneumonia or pneumothorax. I do not feel antibiotics are indicated. I reviewed the radiology report which confirms my independent interpretation. At this point in time, I do feel that he can be discharged safely home with follow-up. He states he has seen a stock and station agent in the past. I recommended that he follow-up with pulmonology. He was given 40 mg of a steroid burst for the next 7 days here in the emergency department, and the remainder was written and prescription form. He will return with new or worsening symptoms and I do not feel that he requires observation at this time. He was told to also call his medtronics technician to reschedule his stress test as an outpatient. Disposition is discharged home in stable condition. History & Record Review Discussion w/independent historian: Patient Additional record(s) reviewed:: Prior ED visit and Prior labs Lab Data Attestation: I reviewed the patient's lab results. Labs: Laboratory Results - last 24 hr 05/05/23 05/05/23 07:33 09:40 WBC 7.2 RBC 4.58 L Hgb 15.3 Hct 46.0 MCV 100.4 H MCH 33.4 H MCHC 33.3 RDW Std Deviation 45.6 H RDW Coeff of Eva 12.2 Plt Count 212 MPV 8.8 Immature Gran % (Auto) 0.400 Neut % (Auto) 58.5 Lymph % (Auto) 29.1 [place] % (Auto) 10.1 H Eos % (Auto) 1.3 Baso % (Auto) 0.6 Absolute Neuts (auto) 4.2 Absolute Lymphs (auto) 2.08 Nucleated RBC % 0 Sodium 139 Potassium 4.0 Chloride 109 H Carbon Dioxide 25.0 Anion Gap 5 BUN 19 H Creatinine 0.65 L Estim Creat Clear Calc 73.36 Est GFR (MDRD) Af Amer 156 Est GFR (MDRD) Non-Af 129 BUN/Creatinine Ratio 29.1 H Glucose 106 Calcium 9.0 Troponin I High Sens 5 6 Radiography Diagnostic Testing: Clinical Impression(s) from Imaging Studies Chest X-Ray 05/05/23 07:45 IMPRESSION: No acute cardiopulmonary process identified. Electronically Signed: Cata Velásquez MD at 8:09 EDT , Discharge Plan Triage Chief Complaint: Chest Pain ED Provider: Theron Covarrubias Dx/Rx/DC Orders Clinical Impression: Dyspnea, Chest tightness, COPD (chronic obstructive pulmonary disease) Instructions: ED COPD Flare, ED Chest Pain, Uncertain Cause, ED Dyspnea Prescriptions: New prednisone 20 mg tablet 40 mg PO DAILY Qty: 14 0RF No Action varenicline [Chantix] 1 mg tablet 1 mg PO BID sertraline 50 mg tablet 50 mg PO DAILY tramadol 50 mg tablet 50 mg PO BID PRN (Reason: pain) metoprolol succinate 25 mg tablet extended release 24 hr 25 mg PO BID celecoxib [Celebrex] 200 mg capsule 200 mg PO DAILY tizanidine 4 mg tablet 4 mg PO BID PRN (Reason: Muscle relaxer) nitroglycerin 0.4 mg tablet, sublingual 0.4 mg sublingual Q5-15M PRN (Reason: chest pain) Rx Instructions: do not exceed 3 doses per episode aspirin 81 mg Tablet,Chewable 81 mg PO DAILY@0800 Qty: 90 0RF acetaminophen [Tylenol] 325 mg Tablet 650 mg PO Q6H PRN PRN (Reason: Pain Score 1-10/Temp > 100.7 F) Qty: 0 0RF losartan 25 mg tablet 25 mg PO DAILY Qty: 90 3RF rosuvastatin [Crestor] 20 mg tablet 20 mg PO DAILY Qty: 90 3RF clopidogrel [Plavix] 75 mg tablet 75 mg PO DAILY Qty: 90 3RF Primary Care Provider: Danielito Dowd NP Referrals: Danielito Dowd NP, [employer]GER[employer] [Primary Care Provider] - 3-5 Days if not improving Activity Restrictions/Additional Instructions: Use your albuterol inhaler 1 to 2 puffs inhaled every 4-6 hours as needed for shortness of breath. Start your prednisone burst of 7 days tomorrow. You were given a loading dose of 40 mg here in the emergency department. Disposition Disposition: Home, Self Care
[2023-05-05 07:34] VITALS: BMI 21.7
[2023-05-05] MEDS: Aspirin 81 MG TAB.CHEW 324 MG PO (07:35)
[2023-05-05 07:41] LABS: Absolute Lymphocyte Count 2.08 X10^3/uL (0.83-4.51); Absolute Neutrophil Count 4.2 X10^3/uL (2.0-7.7); Basophil# 0.04 X10^3/uL; Basophil% 0.6 % (0-1); Eosinophil# 0.09 X10^3/uL; Eosinophils% 1.3 % (0-5); Hemoglobin 15.3 g/dL (13.0-16.5); Lymphocyte # 2.08 X10^3/ul (0.83-4.51); Lymphocyte % 29.1 % (19-41); Mean Corp Hgb Conc 33.3 g/dL (32-36); Mean Corpuscular Hgb 33.4 pg (27.0-32.0); Mean Corpuscular Volume 100.4 fL (80-94); Mean Platelet Vol. 8.8 fl (6.2-12.0); Monocyte# 0.72 X10^3/uL; Monocyte% 10.1 % (0-10); NRBC Flagged by Analyzer 0 % (0-5); Neutrophil % 58.5 % (47-70); Platelet Count 212 K/mm3 (150-450); RBC Distribution Width CV 12.2 % (11.6-14.6); RBC Distribution Width SD 45.6 fl (35.1-43.9); Red Blood Count 4.58 M/mm3 (4.6-6.2); White Blood Count 7.2 K/mm3 (4.4-11.0)
[2023-05-05 07:42] VITALS: PULSE 81; RESP 20
[2023-05-05] MEDS: Ipratropium/Albuterol Sulfate 3 ML AMPUL.NEB INHALATION (07:42)
--- NOTE | 2023-05-05 07:45 | RAD_ITS ---
HISTORY: chest pain. TECHNIQUE: XR Chest 1 View. COMPARISON: 08/12/2022. FINDINGS: CARDIOMEDIASTINAL BORDERS: Cardiac silhouette within normal limits in size. Mediastinal contour unremarkable. LUNGS: Calcified left apical granuloma again seen. Hyperinflated, suggesting COPD. Chronic elevation of the right hemidiaphragm. PLEURA: No pleural effusion or pneumothorax seen. OSSEOUS STRUCTURES: Mild degenerative change. RAD/Chest 1 View (Portable) IMPRESSION: No acute cardiopulmonary process identified. Electronically Signed: Cata Velásquez MD at 8:09 EDT ,
[2023-05-05 08:05] LABS: Anion Gap 5 (5-15); BUN 19 mg/dL (7-18); BUN/Creat Ratio 29.1 RATIO (10-20); Chloride 109 mmol/L (98-107); Creatinine, Serum 0.65 mg/dL (0.70-1.30); EST Glomerular Filtration Rate 129 mL/min (>60); Est Glom Filt Rate - Afr Amer 156 mL/min (>60); Estimated Creatinine Clearance 73.36 ml/min; Glucose 106 mg/dL (74-106); Sodium Level 139 mmol/L (136-145); Troponin-I HS (w/2H Reflex) 5 pg/mL (3.0-78.0)
[2023-05-05 09:38] LABS: Reflex Troponin-HS? (from REC) Y
[2023-05-05 09:43] VITALS: BP 129/64
[2023-05-05 10:09] LABS: Troponin-I HS 6 pg/mL (3.0-78.0)
[2023-05-05 10:35] VITALS: BP 131/77; PULSE 62; RESP 15; O2SAT 96; O2SAT 98
[2023-05-05] MEDS: predniSONE 20 MG Tablet 40 MG PO (10:40)
== END 2023-05-05 10:35 | disposition home or self-care (01) ==
PROVIDERS: Emergency Provider Emergency Medicine; PCP Nurse Practitioner Family; Visit Provider Emergency Medicine
DX: R06.09 Other forms of dyspnea (principal); J44.9 Chronic obstructive pulmonary disease, unspecified; I47.20 Ventricular tachycardia, unspecified; R07.89 Other chest pain; F17.210 Nicotine dependence, cigarettes, uncomplicated; I10 Essential (primary) hypertension; E78.5 Hyperlipidemia, unspecified; I25.10 Atherosclerotic heart disease of native coronary artery without angina pectoris; G47.33 Obstructive sleep apnea (adult) (pediatric); F41.9 Anxiety disorder, unspecified; F32.A Depression, unspecified; R09.89 Other specified symptoms and signs involving the circulatory and respiratory systems; F17.200 Nicotine dependence, unspecified, uncomplicated; Z79.899 Other long term (current) drug therapy; Z95.5 Presence of coronary angioplasty implant and graft; Z79.82 Long term (current) use of aspirin; Z79.01 Long term (current) use of anticoagulants
CPT/HCPCS: 71045; 80048; 84484; 85025; 93005; 93306; 93880; 94640; 99285; A4216

== ENCOUNTER → 2023-05-05 | Outpatient (CLI) | payer MEDICARE, SELFPAY ==
--- NOTE | 2023-05-05 11:00 | CDU_ITS ---
Reason For Study: BILATERAL CAROTID STENOSIS Rt. Velocities/BP Lt. Velocities/BP Prox CCA 114.5/18.8 cm/sec. Prox CCA 113.1/21.7 cm/sec. Mid CCA 118.2/21.2 cm/sec. Mid CCA 114.8/27.2 cm/sec. Dist CCA 101.0/20.0 cm/sec. Dist CCA 109.4/34.5 cm/sec. Prox ICA 190.1/45.2 cm/sec. Prox ICA 185.7/38.6 cm/sec. Mid ICA 146.8/30.5 cm/sec. Mid ICA 150.6/25.5 cm/sec. Dist ICA 107.3/26.1 cm/sec. Dist ICA 101.6/24.8 cm/sec. Rt. ICA/CCA = 190.1/118.2=1.6. Lt. ICA/CCA = 185.7/114.8=1.6. Prox ECA 167.3/12.1 cm/sec. Prox ECA 351.4/53.3 cm/sec. Rt. Vert. 74.8/13.4 cm/sec. Lt. Vert. 71.4/15.7 cm/sec. Right Extracranial There is homogeneous, smooth atherosclerotic plaque noted in the right common carotid artery. There is homogeneous, irregular atherosclerotic plaque noted in the right internal carotid artery. There is homogeneous, irregular atherosclerotic plaque noted in the right external carotid artery. Antegrade flow is noted in the right vertebral artery. Left Extracranial There is homogeneous, smooth atherosclerotic plaque noted in the left common carotid artery. There is heterogeneous, irregular atherosclerotic plaque noted in the left internal carotid artery. There is homogeneous, irregular atherosclerotic plaque noted in the left external carotid artery. Antegrade flow is noted in the left vertebral artery. Procedure Carotid Duplex 30043. This is a Carotid Duplex examination using B-mode, color flow and specral Doppler. Exam performed in department. VL/Carotid Duplex Ultrasound Interpretation Summary Moderate (50-69%) stenosis right extracranial internal carotid. Moderate (50-69%) stenosis left extracranial internal carotid. Patent and antegrade vertebrals bilaterally. Ordering Physician: Chely Bray Referring Physician: Danielito Dowd Performed By: Sia Holloway RDCS, RVT
--- NOTE | 2023-05-05 11:00 | ECHOD_ITS ---
Reason For Study: CAD/ASHD Procedure This was a 2D Doppler, Color Flow transthoracic echocardiogram. Exam performed in department. Left Ventricle Normal LV size. Left ventricular systolic function is normal. The estimated ejection fraction is 65 %. No evidence for diastolic dysfunction. No regional wall motion abnormalities noted. Right Ventricle Normal RV size. Normal systolic function. Atria The left and right atria are normal. Aneurysmal atrial septum. Mitral Valve The mitral valve is structurally normal. No prolapse or stenosis seen. Trivial mitral valve insufficiency. Tricuspid Valve Normal tricuspid valve. Trivial tricuspid valve insufficiency. Right ventricular systolic pressure estimated to be 23 mmHg. Aortic Valve Trisinus/trileaflet aortic valve. Mild (1+) aortic valve insufficiency. Pulmonic Valve The pulmonic valve is not well visualized. Mild (1+) pulmonic valve insufficiency. Great Vessels Normal aortic root. Pericardium/Pleural No pericardial effusion. MMode/2D Measurements & Calculations LVIDd: 3.9 cm IVSd: 0.84 cm LAV(MOD-bp): 37.1 ml LVIDs: 2.7 cm LVPWd: 0.95 cm LAV(MOD-bp) Indexed: 18.4 ml/m2 RVDd: 3.0 cm FS: 30.7 % LAV(MOD-sp2): 44.9 ml LAV(MOD-sp4): 27.4 ml SV(MOD-sp4): 55.0 ml SV(sp4-el): 58.3 ml LVAd ap4: 27.4 cm2 LVLd ap4: 7.7 cm EDV(MOD-sp4): 79.0 ml EDV(sp4-el): 82.6 ml LVAs ap4: 12.9 cm2 LVLs ap4: 5.8 cm ESV(MOD-sp4): 23.9 ml ESV(sp4-el): 24.3 ml EF(MOD-sp4): 69.7 % EF(sp4-el): 70.6 % LA A4 area: 12.3 cm2 RA A4 area: 12.9 cm2 TAPSE: 1.8 cm Time Measurements MV dec time: 0.29 sec Doppler Measurements & Calculations MV E max blane: 60.8 cm/sec Lat Peak E' Blane: 14.3 cm/sec Med Peak E' Blane: 11.9 cm/sec MV A max blane: 67.0 cm/sec E/E' lat: 4.2 E/E' med: 5.1 MV E/A: 0.91 MV V2 max: 75.7 cm/sec MV dec slope: 221.8 cm/sec2 Ao V2 max: 157.5 cm/sec MV max P.3 mmHg Ao max P.0 mmHg MV V2 mean: 54.1 cm/sec Ao V2 mean: 102.1 cm/sec MV mean P.2 mmHg Ao mean P.8 mmHg MV V2 VTI: 32.0 cm Ao V2 VTI: 33.4 cm AV (velocity ratio): 0.71 LV V1 max: 116.0 cm/sec PA V2 max: 93.3 cm/sec TR max blane: 221.3 cm/sec LV V1 max P.4 mmHg PA V2 mean: 61.7 cm/sec TR max P.6 mmHg LV V1 mean P.7 mmHg LV V1 mean: 76.1 cm/sec LV V1 VTI: 23.7 cm ECHO/Echo Complete Interpretation Summary No evidence for diastolic dysfunction. The estimated ejection fraction is 65 %. Mild (1+) aortic valve insufficiency. Mild (1+) pulmonic valve insufficiency. Aneurysmal atrial septum. Ordering Physician: Chely Bray Referring Physician: Chely Bray Performed By: Mirna García RCS
== END | disposition home or self-care (01) ==
PROVIDERS: PCP Nurse Practitioner Family; Referring Provider Internal Medicine Cardiovascular Disease; Visit Provider Internal Medicine Cardiovascular Disease
DX: I25.10 Atherosclerotic heart disease of native coronary artery without angina pectoris (principal); I47.20 Ventricular tachycardia, unspecified; E78.5 Hyperlipidemia, unspecified; I10 Essential (primary) hypertension; F17.200 Nicotine dependence, unspecified, uncomplicated; R09.89 Other specified symptoms and signs involving the circulatory and respiratory systems
CPT/HCPCS: 93306; 93880; A4216

== ENCOUNTER → 2023-07-07 | Outpatient (CLI) | payer MEDICARE, SELFPAY ==
[2023-07-07 11:42] LABS: AST(SGOT) 25 U/L (15-37); Alanine Aminotransfer ALT/SGPT 62 U/L (16-61); CPK Total, Creatine Kinase 38 U/L (39-308); Cholesterol 149 mg/dL (200); High Density Lipoprotein 58 mg/dL; Triglycerides 112 mg/dL; Very Low Density Lipoprotein 22 mg/dL (5-40)
== END | disposition home or self-care (01) ==
LOC: LAB 10:55
PROVIDERS: PCP Nurse Practitioner Family; Referring Provider Internal Medicine Cardiovascular Disease; Visit Provider Internal Medicine Cardiovascular Disease
DX: R09.89 Other specified symptoms and signs involving the circulatory and respiratory systems (principal); E78.5 Hyperlipidemia, unspecified; I25.10 Atherosclerotic heart disease of native coronary artery without angina pectoris; I10 Essential (primary) hypertension; R00.2 Palpitations
CPT/HCPCS: 36415; 80061; 82550; 84450; 84460

== ENCOUNTER → 2023-07-24 | Outpatient (CLI) | payer MEDICARE, SELFPAY ==
[2023-07-24 10:42] LABS: PSA,Total - Annual Screen 0.62 ng/mL (0.00-4.00)
== END | disposition home or self-care (01) ==
PROVIDERS: PCP Nurse Practitioner Family; Referring Provider Nurse Practitioner Family; Visit Provider Nurse Practitioner Family
DX: Z12.5 Encounter for screening for malignant neoplasm of prostate (principal)
CPT/HCPCS: 36415; 84153; G0103

== ENCOUNTER 2023-08-11 14:03 | Emergency (ER) | payer MEDICARE, SELFPAY ==
[2023-08-11 14:04] VITALS: BP 137/83; PULSE 65; RESP 18; TEMP 36.3; O2SAT 98; BMI 22.8
--- NOTE | 2023-08-11 14:25 | RAD_ITS ---
STUDY: X-RAY CHEST REASON FOR EXAM: Male, 67 years old. Chest pain. TECHNIQUE: Single frontal view of the chest on 2 images. COMPARISON: May 05, 2023 FINDINGS: Slight hyperinflation. Elevation of the right hemidiaphragm unchanged. There is no demonstrated pleural abnormality. Stable borderline cardiomegaly. Normal mediastinum and farooq. Normal visualized pulmonary arteries. Normal visualized aortic arch and descending thoracic aorta. Normal visualized thoracic spine. Normal visualized ribs, clavicles, and shoulders. There is no demonstrated abnormality of the visualized soft tissue structures of the upper abdomen. RAD/Chest 1 View (Portable) IMPRESSION: Stable chest with no acute or active cardiopulmonary disease. Electronically Signed: Luigi Jacob MD at 14:49 EST ,
[2023-08-11 14:41] LABS: Absolute Lymphocyte Count 2.11 X10^3/uL (0.83-4.51); Absolute Neutrophil Count 4.1 X10^3/uL (2.0-7.7); Basophil# 0.04 X10^3/uL; Basophil% 0.6 % (0-1); Eosinophil# 0.15 X10^3/uL; Eosinophils% 2.1 % (0-5); Hematocrit 44.6 % (40-54); Hemoglobin 15.1 g/dL (13.0-16.5); Lymphocyte # 2.11 X10^3/ul (0.83-4.51); Lymphocyte % 29.2 % (19-41); Mean Corp Hgb Conc 33.9 g/dL (32-36); Mean Corpuscular Hgb 33.3 pg (27.0-32.0); Mean Corpuscular Volume 98.5 fL (80-94); Mean Platelet Vol. 8.8 fl (6.2-12.0); Monocyte# 0.81 X10^3/uL; Monocyte% 11.2 % (0-10); NRBC Flagged by Analyzer 0 % (0-5); Neutrophil % 56.6 % (47-70); Platelet Count 203 K/mm3 (150-450); RBC Distribution Width CV 12.2 % (11.6-14.6); RBC Distribution Width SD 43.9 fl (35.1-43.9); Red Blood Count 4.53 M/mm3 (4.6-6.2); White Blood Count 7.2 K/mm3 (4.4-11.0)
[2023-08-11 14:55] VITALS: O2SAT 98
[2023-08-11 14:59] LABS: Anion Gap 4 (5-15); BUN 23 mg/dL (7-18); BUN/Creat Ratio 31.5 RATIO (10-20); Calcium,Total 8.4 mg/dL (8.5-10.1); Chloride 111 mmol/L (98-107); Creatinine, Serum 0.73 mg/dL (0.70-1.30); EST Glomerular Filtration Rate 113 mL/min (>60); Est Glom Filt Rate - Afr Amer 137 mL/min (>60); Estimated Creatinine Clearance 77.29 ml/min; Glucose 130 mg/dL (74-106); Potassium 3.8 mmol/L (3.5-5.1); Sodium Level 142 mmol/L (136-145); Troponin-I HS (w/2H Reflex) 6 pg/mL (3.0-78.0)
[2023-08-11 15:04] VITALS: PULSE 56; RESP 13; O2SAT 97
--- NOTE | 2023-08-11 15:46 | EDS_ITS ---
HPI History of Present Illness Chief Complaint: Palpitations Narrative Narrative: 67-year-old male presenting with palpitations. Patient states has had these for about 2 weeks. These are intermittent. He has history of PACs and PVCs. Patient states that it feels like this. Patient denies feeling syncopal or presyncopal. Patient denies chest pain. Not short of breath. No fevers, chills, cough. Patient took his metoprolol today as he normally does and states that symptoms have cleared up. He sees Dr. Bray from cardiology. He states he had symptoms before and had a 30-day monitor which was negative for anything acute. 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 Back pain Bilateral carotid bruits Chest pain COPD (chronic obstructive pulmonary disease) Coronary artery disease Cutaneous abscess of left hand Depression Diverticulitis Dyslipidemia Dyspnea HLD (hyperlipidemia) HTN (hypertension) Low back pain MRSA (methicillin resistant Staphylococcus aureus) Necrotizing soft tissue infection Nephrolithiasis Nicotine dependence Non-sustained ventricular tachycardia Open wound of right thumb SANDRITA (obstructive sleep apnea) Osteoarthritis Osteoporosis PAC (premature atrial contraction) Palpitations Presence of stent in coronary artery (~11/25/21) Skin necrosis Sleep apnea Smoker Smoking greater than 30 pack years tenosynovitis left hand Tenosynovitis of thumb Tobacco use Ventricular tachycardia Home Medications acetaminophen 325 mg tablet (Tylenol) 650 mg (2 x 325 mg) PO Q6H PRN PRN Pain Score 1-10/Temp > 100.7 F #0 tabs 11/26/21 [Rx Last Taken Unknown] aspirin 81 mg chewable tablet 81 mg PO DAILY@0800 #90 tabs 11/26/21 [Rx Last Taken Unknown] varenicline 1 mg tablet (Chantix) 1 mg PO BID 12/11/21 [History Last Taken Unknown] tramadol 50 mg tablet 50 mg PO BID PRN pain 04/10/22 [History Last Taken Unknown] losartan 25 mg tablet 25 mg PO DAILY #90 tabs 09/03/22 [Rx Last Taken Unknown] rosuvastatin 20 mg tablet (Crestor) 20 mg PO DAILY #90 tabs 01/06/23 [Rx Last Taken Unknown] clopidogrel 75 mg tablet (Plavix) 75 mg PO DAILY #90 tabs 02/06/23 [Rx Last Taken Unknown] celecoxib 200 mg capsule (Celebrex) 200 mg PO DAILY 04/08/23 [History Last Taken Unknown] metoprolol succinate 25 mg tablet,extended release 24 hr 25 mg PO BID 04/08/23 [History Last Taken Unknown] nitroglycerin 0.4 mg sublingual tablet 0.4 mg sublingual Q5-15M PRN chest pain 04/08/23 [History Last Taken Unknown] tizanidine 4 mg tablet 4 mg PO BID PRN Muscle relaxer 04/08/23 [History Last Taken Unknown] sertraline 50 mg tablet 100 mg PO DAILY 07/28/23 [History Last Taken Unknown] Allergy/AdvReac Type Severity Reaction Status Date / Time Penicillins Allergy Severe Anaphylaxis Verified 08/11/23 14:04 Family History Father COPD (chronic obstructive pulmonary disease) Alcoholism Mother Cancer Surgical History History of cataract surgery History of gastrointestinal surgery Presence of coronary angioplasty implant and graft (~11/25/21) Social History household members: none Smoking Status: Current every day smoker tobacco type: cigarettes Tobacco: How many years used: 40 alcohol intake: never substance use type: does not use caffeine: Yes Type: coffee Number of servings: 3 ROS ROS ED Constitutional Constitutional ED: Denies chills, fever(s) or sweats Eyes Eyes: Denies blurry vision or change in vision ENT ENT ED: Denies ear pain or sore throat Cardiovascular Cardiovascular: Reports palpitations; Denies chest pain or racing heartbeat Respiratory/Chest Respiratory/Chest: Denies cough, dyspnea or sputum Gastrointestinal Gastrointestinal: Denies abdominal pain, constipation, diarrhea, nausea or vomiting Genitourinary Genitourinary ED: Denies dysuria, hematuria or urinary frequency Musculoskeletal Musculoskeletal: Denies arthralgias, myalgias or neck pain Integumentary Denies abscess, Abrasions or rash Neurologic Neurologic: Denies headache(s), paresthesias or weakness Psychiatric Psychiatric: Denies anxiety, depression, suicidal ideation or suicidal thoughts Endocrine Endocrinology: Denies polydipsia or polyuria EXAM Physical Exam Const Vital Signs: 08/11/23 14:04 08/11/23 14:55 08/11/23 14:55 Temperature 97.3 F L Temperature Source Temporal Pulse Rate 65 Respiratory Rate 18 Blood Pressure 137/83 H Blood Pressure Mean 101 Pulse Ox 98 98 Oxygen Delivery Method Room Air Room Air Positive well nourished General Appearance ED: NAD; Negative for pallor HEENT Reports moist mucous membranes Eyes PERRL and EOMs intact bilaterally Neck no lymphadenopathy and supple Chest Wall inspection of chest normal Resp normal respiratory effort and clear to auscultation bilaterally Auscultation: Negative for rales, rhonchi or wheezes Cardio regular rate and regular rhythm GI normal to inspection, nondistended, normoactive bowel sounds Neuro oriented x3 and CN's II-XII intact bilaterally Sensorium / Orientation: alert Motor Exam: strength 5/5 throughout Psych mental status grossly normal Skin no rashes or lesions noted General Skin Exam: Negative for jaundice or pallor MDM MDM MDM Narrative Medical decision making narrative: Patient presented with palpitations. He denies chest pain, shortness of breath. No fevers or chills. He states he feels well right now for take his metoprolol this morning. Differential includes dehydration, anemia, electrolyte abnormalities, dysrhythmia. Patient has not having no chest pain or shortness of breath but have low suspicion for ACS although it is in the differential. CBC was obtained to assess white blood cell count, hemoglobin and platelets. BMP to assess renal function, electrolytes, glucose. High-sensitivity troponin EKG to assess for ischemia/dysrhythmia. EKG on my interpretation shows sinus bradycardia with ventricular rate of 58 bpm without signs of ischemia or ectopy on my interpretation. Chest x-ray my interpretation shows no acute process. CBC/BMP unremarkable. High-sensitivity troponin is 6. Patient counseled on all findings. Recommended that he follow-up with cardiology. He is to continue take his metoprolol. Return precautions were discussed. Impression: 1. Palpitations Lab Data Attestation: I reviewed the patient's lab results. Labs: Laboratory Results - last 24 hr 08/11/23 14:35 WBC 7.2 RBC 4.53 L Hgb 15.1 Hct 44.6 MCV 98.5 H MCH 33.3 H MCHC 33.9 RDW Std Deviation 43.9 RDW Coeff of Eva 12.2 Plt Count 203 MPV 8.8 Immature Gran % (Auto) 0.300 Neut % (Auto) 56.6 Lymph % (Auto) 29.2 Banner % (Auto) 11.2 H Eos % (Auto) 2.1 Baso % (Auto) 0.6 Absolute Neuts (auto) 4.1 Absolute Lymphs (auto) 2.11 Nucleated RBC % 0 Sodium 142 Potassium 3.8 Chloride 111 H Carbon Dioxide 27.0 Anion Gap 4 L BUN 23 H Creatinine 0.73 Estim Creat Clear Calc 77.29 Est GFR (MDRD) Af Amer 137 Est GFR (MDRD) Non-Af 113 BUN/Creatinine Ratio 31.5 H Glucose 130 H Calcium 8.4 L Troponin I High Sens 6 Radiography Diagnostic Testing: Clinical Impression(s) from Imaging Studies Chest X-Ray 08/11/23 14:25 IMPRESSION: Stable chest with no acute or active cardiopulmonary disease. Electronically Signed: Luigi Jacob MD at 14:49 EST Reading Location ID and State: [id number] [facility] , Service support , Discharge Plan Triage Chief Complaint: Palpitations ED Provider: Stewart Gomez Dx/Rx/DC Orders Instructions: ED Palpitations Prescriptions: No Action varenicline [Chantix] 1 mg tablet 1 mg PO BID tramadol 50 mg tablet 50 mg PO BID PRN (Reason: pain) metoprolol succinate 25 mg tablet extended release 24 hr 25 mg PO BID celecoxib [Celebrex] 200 mg capsule 200 mg PO DAILY tizanidine 4 mg tablet 4 mg PO BID PRN (Reason: Muscle relaxer) nitroglycerin 0.4 mg tablet, sublingual 0.4 mg sublingual Q5-15M PRN (Reason: chest pain) Rx Instructions: do not exceed 3 doses per episode aspirin 81 mg Tablet,Chewable 81 mg PO DAILY@0800 Qty: 90 0RF acetaminophen [Tylenol] 325 mg Tablet 650 mg PO Q6H PRN PRN (Reason: Pain Score 1-10/Temp > 100.7 F) Qty: 0 0RF losartan 25 mg tablet 25 mg PO DAILY Qty: 90 3RF rosuvastatin [Crestor] 20 mg tablet 20 mg PO DAILY Qty: 90 3RF clopidogrel [Plavix] 75 mg tablet 75 mg PO DAILY Qty: 90 3RF Primary Care Provider: Danielito Dowd NP Referrals: Danielito Dowd BUS OR TRUCK GARAGE MECHANIC, BUS OR TRUCK GARAGE MECHANIC-C [Primary Care Provider] - Disposition Disposition: Home, Self Care
[2023-08-11 16:04] VITALS: BP 132/77; PULSE 58; RESP 12; O2SAT 97
[2023-08-11 16:38] LABS: Reflex Troponin-HS? (from REC) Y
--- OUTSIDE RECORDS SUMMARY | 2023-08-11 17:21 | XMS RPT_ITS | CCD ---
Author Name Unknown Address [address] [place] [address] Organization [facility] Care Team Providers Care Wharf Builder Name Role Phone JUNE RAMOS Unavailable Unavailable JUNE RAMOS Unavailable Unavailable Self Primary Care Provider Unavailabl e Allergies Allergy Classification Reported Allergen(s) Allergy Type Date of Onset Reaction(s) Facility (1 source) Penicillins Drug Allergy 04-27-2014 Anaphylaxis [facility] Medications Completed/Discontinued Medications Medication Drug Class(es) Dates Sig (Normalized) Sig (Original) [id number] 200 actuat albuterol 0.09 mg/actuat metered dose inhaler (1 source) beta2-Adrenergic Agonist take 1 puff(s) by inhalation every six hours as needed albuterol HFA (PROAIR HFA) 90 mcg/actuation inhaler Inhale 1 Puff as instructed every 6 hours as needed. 0 Active Results Test Name Value Interpretation Reference Range Facil ity Encounters Encounter Date Encounter Type Care Provider Facility Start: 12-30-2021 ambulatory Andria Choe [place] Navig e [facility] Plan of Treatment Date Care Activity Detail Author Start: 04-10-2022 Influenza vaccination INFLUENZA (Sea son Ended) [facility] Start: 08-10-2021 ADVANCE DIRECTIVE DISCUSSION ADVANCE DIRECTIVE DISCUSSION [facility] Start: 2018 PNEUMOVAX AGE 65 AND OVER WITH 5YR LOOKBACK (#1) PNEUMOVAX AGE 65 AND OVER WITH 5YR LOOKBACK (#1) [facility] Start: 03-02-2017 DIABETES SCREEN DIABETES SCREEN [facility] Start: 2008 PROSTATE CANCER SCRE ENING DISCUSSION PROSTATE CANCER SCREENING DISCUSSION [facility] Start: 12-01-2003 SHINGRIX VACCINE (1 of 2) SHINGRIX V ACCINE (1 of 2) [facility] Start: 1998 COLOGUARD (FIT-DNA) COLOGUARD (FIT-D NA) [facility] Start: 1998 Colonoscopy COLONOSCOPY [facility] Start: 1998 COLORECTAL CANCER SCREENING COLORECTAL CANCER SCREENING [facility] Start: [address] [facility] Start: 1998 FECAL OCCULT BLOOD FECAL OCCULT BLOO D [facility] Start: 1998 SIGMOIDOSCOPY SIGMOIDOSCOPY [facility] Start: 1988 LIPID SCREEN LIPID SCREEN [facility] Start: 1972 Urine microalbumin profile DTAP,TDAP ,TD (1 - Tdap) [facility] Start: 12-01-1971 HEPATITIS C SCREENING HEPATITIS C SC REENING [facility] Start: 1965 Adult depression scr eening assessment DEPRESSION SCREENING [facility] Start: 1958 COVID-19 VACCINE (#1) COVID-19 VACCI NE (#1) [facility] Payers Date Payer Category Payer Private Health Insurance [id number] 2014 Medicaid [facility] MEDICAID [employer] MED[employer] [id number] 2014-Present [phone] [address] [place] [address] Medicaid [id number] 1955 Unknown [id number] Social History Date Type Detail Facility Tobacco smoking stat [facility] Tobacco smoking consumption unknown [facility] Start: 1955 Sex Assigned At Not on file C [facility] Clinical Note 12-30-2021 Note Date & Type Note Facility 12-30-2021 Note Patient Outreach (XIMENA TNAV) GENE KIRKPATRICK ([id number]) 1955 M Date Time Provider Department 12/30/21 ANDRIA CHOE During your visit today, we recorded the following information about you: Andria Choe MA 12/30/2021 10:29 AM Addendum POPULATION HEALTH NAVIGATION OUTREACH Action/FYI unable to lm, letter sent to verify pcp and schedule wellness, colonoscopy, ad Mailed letter 12/30/2021 MM Pt identified by name and : NO Outreach Outcome/Action Unable to reach patient: Phone number not valid / voicemail full Letter mailed Reason for Outreach Care Gap or Scheduling/Wellness visits Payer: Payor: [facility] MEDICAID / Plan: [facility] [employer] MEDICAID / Product Type: Medicaid / Care Gap Reviewed:: Annual Wellness visit Colorectal Cancer Screening Reminder: Reminder note to check Health Maintenance for items below Health Maintenance items due: COVID-19 VACCINE(1) Never done DEPRESSION SCREENING Never done HEPATITIS C SCREENING Never done DTAP,TDAP,TD(1 - Tdap) Never done LIPID SCREEN Never done COLORECTAL CANCER SCREENING Never done SHINGRIX VACCINE(1 of 2) Never done PROSTATE CANCER SCREENING DISCUSSION Never done DIABETES SCREEN due on 03/02/2017 PNEUMOVAX AGE 65 AND OVER WITH 5YR LOOKBACK(1) Never done ADVANCE DIRECTIVE DISCUSSION Never done Message Sent to Practice: No Navigation Signature: Andria Choe MA December 30, 2021 10:28 AM Allergies As of Date: 12/30/2021 Noted Allergy Reaction PENICILLINS 04/27/2014 10 - Anaphylaxis Date Reviewed: 05/11/2014 Reviewed by: Paula Patel (Rn) LUIS Isabel - Fully Assessed Reason for Visit: Population Health Navigation Outreach [3910] Cmt: [employer] care gaps Prescriptions as of 12/30/2021 - diclofenac sodium (VOLTAREN) 1 % topical gel Apply 4 g to affected area four times daily. As needed - albuterol HFA (PROAIR HFA) 90 mcg/actuation inhaler Inhale 1 Puff as instructed every 6 hours as needed. - metoprolol tartrate, short acting, (LOPRESSOR) 25 mg tablet Take 25 mg by mouth twice daily. - traMADol (ULTRAM) 50 mg tablet Take 50 mg by mouth every 6 hours as needed. - FLUTICASONE/SALMETEROL (ADVAIR DISKUS INHALATION) Inhale as instructed twice daily. Problem List As Of Date: 12/30/2021 (None) Letter Text Encounter Status:Closed by ANDRIA CHOE on 12/30/21 [facility] Progress note 12-30-2021 Note Date & Type Note Facility 12-30-2021 Note HNO ID: [id number] Author: Andria Choe MA Service: ? Author Type: Motor Mechanic Type: Progress Notes Filed: 12/30/2021 3:32 PM Note Text: POPULATION HEALTH NAVIGATION OUTREACH Action/FYI unable to lm, letter sent to verify pcp and schedule wellness, colonoscopy, ad Mailed letter 12/30/2021 MM Pt identified by name and : NO Outreach Outcome/Action Unable to reach patient: Phone number not valid / voicemail full Letter mailed Reason for Outreach Care Gap or Scheduling/Wellness visits Payer: Payor: [facility] MEDICAID / Plan: [facility] [employer] MEDICAID / Product Type: Medicaid / Care Gap Reviewed:: Annual Wellness visit Colorectal Cancer Screening Reminder: Reminder note to check Health Maintenance for items below Health Maintenance items due: COVID-19 VACCINE(1) Never done DEPRESSION SCREENING Never done HEPATITIS C SCREENING Never done DTAP,TDAP,TD(1 - Tdap) Never done LIPID SCREEN Never done COLORECTAL CANCER SCREENING Never done SHINGRIX VACCINE(1 of 2) Never done PROSTATE CANCER SCREENING DISCUSSION Never done DIABETES SCREEN due on 03/02/2017 PNEUMOVAX AGE 65 AND OVER WITH 5YR LOOKBACK(1) Never done ADVANCE DIRECTIVE DISCUSSION Never done Message Sent to Practice: No Navigation Signature: Andria Choe MA December 30, 2021 10:28 AM [facility] History of Present illness Narrative 12-30-2021 Andria Choe MA - 12/30/2021 10:23 AM EDT Note Date & Type Note Facility 12-30-2021 History of Presen t illness Narrative POPULATION HEALTH NAVIGATION OUTREACH Action/FYI unable to lm, letter sent to verify pcp and schedule wellness, colonoscopy, ad Pt identified by name and : NO Outreach Outcome/Action Unable to reach patient: Phone number not valid / voicemail full Letter mailed Reason for Outreach Care Gap or Scheduling/Wellness visits Payer: Payor: [facility] MEDICAID / Plan: [facility] [employer] [employer] MEDICAID / Product Type: Medicaid / Care Gap Reviewed:: Annual Wellness visit Colorectal Cancer Screening Reminder: Reminder note to check Health Maintenance for items below Health Maintenance items due: COVID-19 VACCINE(1) Never done DEPRESSION SCREENING Never done HEPATITIS C SCREENING Never done DTAP,TDAP,TD(1 - Tdap) Never done LIPID SCREEN Never done COLORECTAL CANCER SCREENING Never done SHINGRIX VACCINE(1 of 2) Never done PROSTATE CANCER SCREENING DISCUSSION Never done DIABETES SCREEN due on 03/02/2017 PNEUMOVAX AGE 65 AND OVER WITH 5YR LOOKBACK(1) Never done ADVANCE DIRECTIVE DISCUSSION Never done Message Sent to Practice: No Navigation Signature: Andria Choe MA December 30, 2021 10:28 AM documented in this encounter [facility] Summary Purpose Family History No Family History Records FoundNo Family History Records Found Advance Directives No Advanced Directives Records FoundNo Advanced Directives Records Found Additional Source Comments (unrecognized sect ion and content) No Status Records FoundNo Status Records Found INFORMATION SOURCE (unrecogn ized section and content) DATE CREATED AUTHOR AUTHOR'S ORGANIZ ATION 12/30/2021 [facility] Source Comments (unrecognize d section and content) In the event this informatio n is protected by the Federal Confidentiality of Alcohol and Drug Abuse Patient Records regulations: The Federal rules restrict any use of the information to criminally investigate or prosecute any alcohol or drug abuse patient.[facility] Reason for Visit (unrecogniz ed section and content) Care Teams (unrecognized sec tion and content) FOR RECORDS PERTAINING TO PATIENTS WHO ARE OR HAVE BEEN ENROLLED IN A CHEMICAL DEPENDENCY/SUBSTANCEABUSE PROGRAM, SOME INFORMATION MAY BE OMITTED. This clinical summary was aggregated from multiple sources. Caution should be exercised in using it in the provision of clinical care. This summary normalizes information from multiple sources, and as a consequence, information in this document may materially change the coding, format and clinical context of patient data. In addition, data may be omitted in some cases. CLINICAL DECISIONS SHOULD BE BASED ON THE PRIMARY CLINICAL RECORDS. [facility]. provides no warranty or guarantee of the accuracy or completeness of information in this document.
== END 2023-08-11 16:33 | disposition home or self-care (01) ==
PROVIDERS: Emergency Provider Student in an Organized Health Care Education/Training Program; PCP Nurse Practitioner Family; Visit Provider Student in an Organized Health Care Education/Training Program
DX: R00.2 Palpitations (principal); J44.9 Chronic obstructive pulmonary disease, unspecified; I25.10 Atherosclerotic heart disease of native coronary artery without angina pectoris; I10 Essential (primary) hypertension; E78.5 Hyperlipidemia, unspecified; F17.210 Nicotine dependence, cigarettes, uncomplicated; Z95.5 Presence of coronary angioplasty implant and graft; Z79.02 Long term (current) use of antithrombotics/antiplatelets; Z79.899 Other long term (current) drug therapy
CPT/HCPCS: 71045; 80048; 84484; 85025; 93005; 99283

== ENCOUNTER → 2023-08-14 | Outpatient (CLI) | payer MEDICARE, SELFPAY ==
--- OUTSIDE RECORDS SUMMARY | 2023-08-14 06:22 | XMS RPT_ITS | CCD ---
Author Name Unknown Address [address] [place] [address] Organization [facility] Care Team Providers Care Health Informatics Instructor Name Role Phone JUNE RAMOS Unavailable Unavailable JUNE RAMOS Unavailable Unavailable Self Primary Care Provider Unavailabl e Allergies Allergy Classification Reported Allergen(s) Allergy Type Date of Onset Reaction(s) Facility (1 source) Penicillins Drug Allergy 04-27-[address] [facility] Medications Completed/Discontinued Medications Medication Drug Class(es) Dates Sig (Normalized) Sig (Original) [id number] 200 actuat albuterol 0.09 mg/actuat metered dose inhaler (1 source) beta2-Adrenergic Agonist take 1 puff(s) by inhalation every six hours as needed albuterol HFA (PROAIR HFA) 90 mcg/actuation inhaler Inhale 1 Puff as instructed every 6 hours as needed. 0 Active Results Test Name Value Interpretation Reference Range Facil ity Encounters Encounter Date Encounter Type Care Provider Facility Start: 12-30-2021 ambulatory Andria Choe [place] Navig e [facility] Plan of Treatment Date Care Activity Detail Author Start: 04-10-2022 Influenza vaccination INFLUENZA (Sea son Ended) [facility] Start: 08-10-2021 ADVANCE DIRECTIVE DISCUSSION ADVANCE DIRECTIVE DISCUSSION [facility] Start: 2018 PNEUMOVAX AGE 65 AND OVER WITH 5YR LOOKBACK (#1) PNEUMOVAX AGE 65 AND OVER WITH 5YR LOOKBACK (#1) [facility] Start: 03-02-2017 DIABETES SCREEN DIABETES SCREEN [facility] Start: 2008 PROSTATE CANCER SCRE ENING DISCUSSION PROSTATE CANCER SCREENING DISCUSSION [facility] Start: 12-01-2003 SHINGRIX VACCINE (1 of 2) SHINGRIX V ACCINE (1 of 2) [facility] Start: 1998 COLOGUARD (FIT-DNA) COLOGUARD (FIT-D NA) [facility] Start: [address] [facility] Start: 1998 COLORECTAL CANCER SCREENING COLORECTAL CANCER SCREENING [facility] Start: [address] [facility] Start: 1998 FECAL OCCULT BLOOD FECAL OCCULT BLOO D [facility] Start: 1998 SIGMOIDOSCOPY SIGMOIDOSCOPY Cledeniz calderon [facility] Start: 1988 LIPID SCREEN LIPID SCREEN [facility] Start: 1972 Urine microalbumin profile DTAP,TDAP ,TD (1 - Tdap) [facility] Start: 12-01-1971 HEPATITIS C SCREENING HEPATITIS C SC REENING [facility] Start: 1965 Adult depression scr eening assessment DEPRESSION SCREENING [facility] Start: 1958 COVID-19 VACCINE (#1) COVID-19 VACCI NE (#1) [facility] Payers Date Payer Category Payer Private Health Insurance [id number] 2014 Medicaid [facility] MEDICAID [facility] MEDICAID [id number] 2014-Present [phone] [address] [place] [address] Medicaid [id number] 1955 Unknown [id number] Social History Date Type Detail Facility Tobacco smoking stat [facility] Tobacco smoking consumption unknown [facility] Start: 1955 Sex Assigned At Not on file C [facility] Clinical Note 12-30-2021 Note Date & Type Note Facility 12-30-2021 Note Patient Outreach (XIMENA TNAV) GEEN KIRKPATRICK ([id number]) 1955 M Date Time Provider Department 12/30/21 [...] Care Gap or Scheduling/Wellness visits Payer: Payor: [facility] MEDICAID / Plan: [facility] COMMUNITY PLAN MEDICAID / Product Type: Medicaid [...] Encounter Status:Closed by ANDRIA CHOE on 12/30/21 [facility] Progress note 12-30-2021 Note Date & Type Note Facility 12-30-2021 Note HNO ID: [id number] Author: Andria Choe MA Service: ? Author Type: Superior [address] Justice Type: Progress Notes Filed: 12/30/2021 3:32 PM Note Text: POPULATION HEALTH NAVIGATION OUTREACH Action/FYI unable to lm, letter sent to verify pcp and schedule wellness, colonoscopy, ad Mailed letter 12/30/2021 MM Pt identified by name and : NO Outreach Outcome/Action Unable to reach patient: Phone number not valid / voicemail full Letter mailed Reason for Outreach Care Gap or Scheduling/Wellness visits Payer: Payor: [facility] MEDICAID / Plan: [facility] COMMUNITY PLAN MEDICAID / Product Type: Medicaid [...] Choe MA December 30, 2021 10:28 AM [facility] History of Present illness Narrative 12-30-2021 [...] Care Gap or Scheduling/Wellness visits Payer: Payor: [facility] MEDICAID / Plan: [facility] COMMUN[facility]AN MEDICAID / Product Type: Medicaid [...] 2021 10:28 AM documented in this encounter [facility] Summary Purpose Family History No Family History Records FoundNo Family History Records Found Advance Directives No Advanced Directives Records FoundNo Advanced Directives Records Found Additional Source Comments (unrecognized sect ion and content) No Status Records FoundNo Status Records Found INFORMATION SOURCE (unrecogn ized section and content) DATE CREATED AUTHOR AUTHOR'S ORGANIZ ATION 12/30/2021 [facility] Source Comments (unrecognize d section and content) In the event this informatio n is protected by the Federal Confidentiality of Alcohol and Drug Abuse Patient Records regulations: The Federal rules restrict any use of the information to criminally investigate or prosecute any alcohol or drug abuse patient.[facility] Reason for Visit (unrecogniz ed section and [...] BE BASED ON THE PRIMARY CLINICAL RECORDS. [facility]. provides no warranty or guarantee of the accuracy or completeness of information in this document.
--- NOTE | 2023-08-14 13:52 | STRESSREP_ITS ---
Stress Test Report Date: 08/14/2023 Procedure: Exercise tolerance test/imaging study Indications: History of CAD/dyspnea on exertion Consent: Per the patient Procedure: The patient exercised on a Octaviano protocol for 10 minutes and 26 achieving a peak heart rate of 117 bpm (77% predicted maximal heart rate) with a peak blood pressure 158/70 mmHg and a peak MET capacity of 13.4 METs. The baseline ECG demonstrated sinus rhythm. The peak exercise ECG demonstrated no ischemic changes. Rare PVC pretest. No significant arrhythmias during exercise and in recovery. The functional capacity was considered good. There was complaint of mild chest burning starting during the second stage of the exercise. Resolved in recovery. The examination was discontinued secondary to chest discomfort. The patient was injected with 12.0 mCi of technetium 99m Cardiolite and subsequently rest SPECT Cardiolite nuclear imaging was obtained in the horizontal long, vertical long, and short axis views. Post-exercise, the patient was injected with 34.9 mCi of technetium 99m Cardiolite and subsequently stress SPECT Cardiolite nuclear imaging was obtained in the horizontal long, vertical long, and short axis views. A gated Cardiolite study at peak stress was obtained. Rest and stress SPECT Cardiolite nuclear imaging status post realignment, normalization, and attenuation correction, demonstrates prominent bowel uptake. The poststress cardiac uptake appears uniform and better than rest images. There is end systolic thickening and brightening. The gated Cardiolite study demonstrates myocardial thickening and inward wall motion. The reported LVEF is 70%. Impression: 1. Technically adequate (percent predicted maximal heart rate greater than 85%) exercise tolerance test 2. Peak exercise ECG with no ischemic changes 3. Rare PVC on pretest ECG 4. Rest and stress SPECT Cardiolite nuclear imaging demonstrate relative uniform tracer uptake and myocardial perfusion appearing within normal limits. 5. The gated Cardiolite study reports an LVEF of 70%. 6. Patient complained of chest pain during exercise which resolved in recovery. This note was generated with [email or web address] software. It may contain incorrect words, spelling, and punctuation that were not noted in checking the note before signing.
== END | disposition home or self-care (01) ==
LOC: CVS 06:20
PROVIDERS: PCP Nurse Practitioner Family; Referring Provider Internal Medicine Cardiovascular Disease; Visit Provider Internal Medicine Cardiovascular Disease
DX: R06.00 Dyspnea, unspecified (principal); J44.9 Chronic obstructive pulmonary disease, unspecified; I47.20 Ventricular tachycardia, unspecified; I25.10 Atherosclerotic heart disease of native coronary artery without angina pectoris
CPT/HCPCS: 78452; 93017; A9500; A4216

== ENCOUNTER → 2023-08-18 | Outpatient (CLI) | payer MEDICARE, SELFPAY ==
--- OUTSIDE RECORDS SUMMARY | 2023-08-18 12:36 | XMS RPT_ITS | CCD ---
Author Name Unknown Address [address] [place] [address] Organization [facility] Care Team Providers Care Wedding Makeup Artist Name Role Phone JUNE RAMOS Unavailable Unavailable JUNE RAMOS Unavailable Unavailable Self Primary Care Provider Unavailabl e Allergies Allergy Classification Reported Allergen(s) Allergy Type Date of Onset Reaction(s) Facility (1 source) Penicillins Drug Allergy 04-27-2014 Anaphylaxis [facility] Medications Completed/Discontinued Medications Medication Drug Class(es) Dates Sig (Normalized) Sig (Original) [id number] 200 actuat albuterol 0.09 mg/actuat metered dose inhaler (1 source) beta2-Adrenergic Agonist take 1 puff(s) by inhalation every six hours as needed albuterol HFA (PROAIR HFA) 90 mcg/actuation inhaler Inhale 1 Puff as instructed every 6 hours as needed. 0 Active Results Test Name Value Interpretation Reference Range Facil ity Encounters Encounter Date Encounter Type Care Provider Facility Start: 12-30-2021 ambulatory Andria Choe [place] Navig e [facility] Plan of Treatment Date Care Activity Detail Author Start: 04-10-2022 Influenza vaccination INFLUENZA (Sea son Ended) [facility] Start: 08-10-2021 ADVANCE DIRECTIVE DISCUSSION ADVANCE DIRECTIVE DISCUSSION [facility] Start: 2018 PNEUMOVAX AGE 65 AND OVER WITH 5YR LOOKBACK (#1) PNEUMOVAX AGE 65 AND OVER WITH 5YR LOOKBACK (#1) [facility] Start: 03-02-2017 DIABETES SCREEN DIABETES SCREEN [facility] Start: 2008 PROSTATE CANCER SCRE ENING DISCUSSION PROSTATE CANCER SCREENING DISCUSSION [facility] Start: 12-01-2003 SHINGRIX VACCINE (1 of 2) SHINGRIX V ACCINE (1 of 2) [facility] Start: 1998 COLOGUARD (FIT-DNA) COLOGUARD (FIT-D NA) [facility] Start: 1998 Colonoscopy COLONOSCOPY [facility] Start: 1998 COLORECTAL CANCER SCREENING COLORECTAL CANCER SCREENING [facility] Start: [address] [facility] Start: 1998 FECAL OCCULT BLOOD FECAL OCCULT BLOO D [facility] Start: 1998 SIGMOIDOSCOPY SIGMOIDOSCOPY Cledeniz calderon [facility] Start: 1988 LIPID SCREEN LIPID SCREEN [facility] Start: 1972 Urine microalbumin profile DTAP,TDAP ,TD (1 - Tdap) [facility] Start: 12-01-1971 HEPATITIS C SCREENING HEPATITIS C SC REENING [facility] Start: 1965 Adult depression scr eening assessment DEPRESSION SCREENING [facility] Start: 1958 COVID-19 VACCINE (#1) COVID-19 VACCI NE (#1) [facility] Payers Date Payer Category Payer Private Health Insurance [id number] 2014 Medicaid [facility] MEDICAID [facility] MEDICAID [id number] 2014-Present [phone] [address] [place] [address] Medicaid [id number] 1955 Unknown [id number] Social History Date Type Detail Facility Tobacco smoking stat [facility] Tobacco smoking consumption unknown [facility] Start: 1955 Sex Assigned At Not on file C [facility] Clinical Note 12-30-2021 Note Date & Type Note Facility 12-30-2021 Note Patient Outreach (XIMENA TNAV) GENE KIRKPATRICK ([id number]) 1955 M Date Time Provider Department 12/30/21 [...] Care Gap or Scheduling/Wellness visits Payer: Payor: [facility] MEDICAID / Plan: [facility] COMMUNITY PLAN MEDICAID / Product Type: Medicaid [...] Encounter Status:Closed by ANDRIA CHOE on 12/30/21 [facility] Progress note 12-30-2021 Note Date & Type Note Facility 12-30-2021 Note HNO ID: [id number] Author: Andria Choe MA Service: ? Author Type: Revenue Enforcement Agent Type: Progress Notes Filed: 12/30/2021 3:32 PM Note Text: POPULATION HEALTH NAVIGATION OUTREACH Action/FYI unable to lm, letter sent to verify pcp and schedule wellness, colonoscopy, ad Mailed letter 12/30/2021 MM Pt identified by name and : NO Outreach Outcome/Action Unable to reach patient: Phone number not valid / voicemail full Letter mailed Reason for Outreach Care Gap or Scheduling/Wellness visits Payer: Payor: [facility] MEDICAID / Plan: [facility] COMMUNITY PLAN MEDICAID / Product Type: Medicaid [...] Choe MA December 30, 2021 10:28 AM [facility] History of Present illness Narrative 12-30-2021 Andria [...] Care Gap or Scheduling/Wellness visits Payer: Payor: [facility] MEDICAID / Plan: [facility] COMMUNITY PLAN MEDICAID / Product Type: Medicaid [...] 2021 10:28 AM documented in this encounter [facility] Summary Purpose Family History No Family History Records FoundNo Family History Records Found Advance Directives No Advanced Directives Records FoundNo Advanced Directives Records Found Additional Source Comments (unrecognized sect ion and content) No Status Records FoundNo Status Records Found INFORMATION SOURCE (unrecogn ized section and content) DATE CREATED AUTHOR AUTHOR'S ORGANIZ ATION 12/30/2021 [facility] Source Comments (unrecognize d section and content) In the event this informatio n is protected by the Federal Confidentiality of Alcohol and Drug Abuse Patient Records regulations: The Federal rules restrict any use of the information to criminally investigate or prosecute any alcohol or drug abuse patient.[facility] Reason for Visit (unrecogniz ed section [...] BE BASED ON THE PRIMARY CLINICAL RECORDS. [facility]. provides no warranty or guarantee of the accuracy or completeness of information in this document.
== END | disposition home or self-care (01) ==
LOC: PSN 12:14
PROVIDERS: PCP Nurse Practitioner Family; Referring Provider Nurse Practitioner Gerontology; Visit Provider Nurse Practitioner Gerontology
DX: R00.2 Palpitations (principal)
CPT/HCPCS: 93225; 93226

== ENCOUNTER → 2023-11-25 | Outpatient (CLI) | payer MEDICARE, SELFPAY ==
--- NOTE | 2023-11-25 09:06 | AAAS_ITS ---
Reason For Study: AAA screening Aorta Measurements Aorta Doppler Measurements Proximal aorta measures2.10 x 2.12cm. in cross- Peak systolic flow velocities within the proximal sectional axis. aorta measure 85 cm/sec. Proximal aorta measures2.09cm. in longitudinal Peak systolic flow velocities within the mid aorta axis. measure 81.4 cm/sec. Mid aorta measures1.74 x 1.74cm. in cross- Peak systolic flow velocities within the distal sectional axis. aorta measure 78.3 cm/sec. Mid aorta measures2.00cm. in longitudinal axis. Distal aorta measures2.71 x 2.74cm. in cross- sectional axis. Distal aorta measures2.74cm. in longitudinal axis. Left Iliac Artery Left iliac artery measures 0.89 x 0.97 cm. in the cross-sectional axis. Left iliac artery measures 0.82 cm. in the longitudinal axis. Peak systolic velocity in the left iliac artery measures 191.4 cm/sec. Right Iliac Artery Right iliac artery measures 0.70 x 0.71 cm. in the cross-sectional axis. Right iliac artery measures 0.81 cm. in the longitudinal axis. Peak systolic velocity in the right iliac artery measures 185 cm/sec. Procedure Aorta IVC Iliac vasculature or bypass grafts [id number]. Exam performed in department. VL/AAA Screening Interpretation Summary Aorta patent with ectasia to 2.74 cm Bilateral iliac arteries patent, normal caliber Ordering Physician: Lelo Love Referring Physician: Danielito Dowd Performed By: Abby Santos RVT and Student
--- NOTE | 2023-11-25 09:06 | CDU_ITS ---
Reason For Study: Bilateral carotid artery stenosis Rt. Velocities/BP Lt. Velocities/BP Prox CCA 94.9/18.8 cm/sec. Prox CCA 73.2/19.2 cm/sec. Mid CCA 70.7/17.9 cm/sec. Mid CCA 80.6/25.3 cm/sec. Dist CCA 70.7/17.9 cm/sec. Dist CCA 78.1/25.3 cm/sec. Prox ICA 150.3/38.9 cm/sec. Prox ICA 144/27.7 cm/sec. Mid ICA 94.9/24.9 cm/sec. Mid ICA 82/23.6 cm/sec. Dist ICA 80.2/22.5 cm/sec. Dist ICA 95.3/24.1 cm/sec. Rt. ICA/CCA = 2.13. Lt. ICA/CCA = 1.79. Prox ECA 164.9/18.8 cm/sec. Prox ECA 325.3/63.5 cm/sec. Rt. Vert. 41/8.2 cm/sec. Lt. Vert. 32.7/7.8 cm/sec. Right Extracranial There is homogeneous, smooth atherosclerotic plaque noted in the right common carotid artery. There is heterogeneous, irregular atherosclerotic plaque noted in the right internal carotid artery. There is heterogeneous, irregular atherosclerotic plaque noted in the right external carotid artery. Antegrade flow is noted in the right vertebral artery. Left Extracranial There is heterogeneous, irregular atherosclerotic plaque noted in the left common carotid artery. There is heterogeneous, irregular atherosclerotic plaque noted in the left internal carotid artery. There is heterogeneous, irregular atherosclerotic plaque noted in the left external carotid artery. Antegrade flow is noted in the left vertebral artery. Procedure Carotid Duplex [id number]. This is a Carotid Duplex examination using B-mode, color flow and specral Doppler. Exam performed in department. VL/Carotid Duplex Ultrasound Interpretation Summary Moderate (50-69%) stenosis right extracranial internal carotid. Moderate (50-69%) stenosis left extracranial internal carotid. Patent and antegrade vertebrals bilaterally. Ordering Physician: Lelo Love Referring Physician: Danielito Dowd Performed By: Abby Santos RVT and Student
== END | disposition home or self-care (01) ==
LOC: CVS 09:06
PROVIDERS: PCP Nurse Practitioner Family; Referring Provider Physician Assistant; Visit Provider Physician Assistant
DX: I25.10 Atherosclerotic heart disease of native coronary artery without angina pectoris (principal); I65.23 Occlusion and stenosis of bilateral carotid arteries; I10 Essential (primary) hypertension; R09.89 Other specified symptoms and signs involving the circulatory and respiratory systems; F17.200 Nicotine dependence, unspecified, uncomplicated
CPT/HCPCS: 76706; 93880

== ENCOUNTER → 2024-01-11 | Outpatient (CLI) | payer MEDICARE, SELFPAY ==
[2024-01-11 13:29] LABS: Hemoglobin 13.4 g/dL (13.0-16.5); Mean Corp Hgb Conc 33.5 g/dL (32-36); Mean Corpuscular Hgb 33.3 pg (27.0-32.0); Mean Corpuscular Volume 99.3 fL (80-94); Platelet Count 211 K/mm3 (150-450); RBC Distribution Width CV 13.2 % (11.6-14.6); RBC Distribution Width SD 47.8 fl (35.1-43.9); Red Blood Count 4.03 M/mm3 (4.6-6.2); White Blood Count 9.2 K/mm3 (4.4-11.0)
[2024-01-11 13:49] LABS: Vitamin B12 507 pg/mL (211-911)
[2024-01-11 14:04] LABS: ALB/GLOB Ratio 1.1 RATIO (0.9-2.4); AST(SGOT) 44 U/L (15-37); Alanine Aminotransfer ALT/SGPT 61 U/L (16-61); Albumin, Serum 3.7 g/dL (3.2-5.0); Alkaline Phosphatase 90 U/L (45-117); Anion Gap 6 (5-15); BUN 23 mg/dL (7-18); BUN/Creat Ratio 32.3 RATIO (10-20); Bilirubin, Direct 0.16 mg/dL (0.00-0.30); Calcium,Total 8.8 mg/dL (8.5-10.1); Chloride 105 mmol/L (98-107); Cholesterol 122 mg/dL (200); Creatinine, Serum 0.71 mg/dL (0.70-1.30); EST Glomerular Filtration Rate 116 mL/min (>60); Est Glom Filt Rate - Afr Amer 141 mL/min (>60); Globulin 3.3 g/dL (2.2-4.2); Glucose 119 mg/dL (74-106); High Density Lipoprotein 60 mg/dL; PSA,Total- Diagnostic 0.76 ng/mL (0.0-4.0); Potassium 4.3 mmol/L (3.5-5.1); Sodium Level 135 mmol/L (136-145); Triglycerides 92 mg/dL; Very Low Density Lipoprotein 18 mg/dL (5-40)
[2024-01-15 18:13] LABS: Microalbumin,Random Urine 15.2 mg/L (NO RANGE EST.)
== END | disposition home or self-care (01) ==
LOC: LAB 12:54
PROVIDERS: Nurse Practitioner Family; PCP Nurse Practitioner Family; Referring Provider Nurse Practitioner Family; Visit Provider Nurse Practitioner Family
DX: Z12.5 Encounter for screening for malignant neoplasm of prostate (principal); D51.9 Vitamin B12 deficiency anemia, unspecified; I10 Essential (primary) hypertension; E78.5 Hyperlipidemia, unspecified; R74.8 Abnormal levels of other serum enzymes
CPT/HCPCS: 36415; 80053; 80061; 82043; 82248; 82570; 82607; 84153; 85027

== ENCOUNTER 2024-05-08 16:17 | Emergency (ER) | payer MEDICARE, SELFPAY ==
[2024-05-08 16:17] VITALS: BP 145/91; PULSE 69; RESP 18; TEMP 36.2; O2SAT 95; BMI 23.1
--- NOTE | 2024-05-08 16:32 | EDS_ITS ---
HPI History of Present Illness HPI Narrative: Patient presents with pain and bruising to his left calf that has been getting worse over the past few days. Patient does not remember any specific trauma or injury. Patient states that he feels some lumps in his left calf. Patient is concerned that this could be a blood clot. Patient is on Plavix and aspirin. Patient states his pain gets better with walking. Patient admits to some tingling into his toes. Patient denies any weakness. Chief Complaint: Lower Extremity Injury Informant: patient Onset/Context/Timing Onset: Days Context: Gradual Onset Timing: Continuous Quality of Pain: Dull Location: Left calf Worsened by: Nothing Relieved by: Ambulation Associated Symptoms Associated Symptoms: Positive for Parasthesia (Tingling into his foot); Negative for Weakness or Loss of Funtion [facility] Medical History Bilateral carotid bruits Dyslipidemia Nicotine dependence Coronary artery disease Ventricular tachycardia PAC (premature atrial contraction) Non-sustained ventricular tachycardia Palpitations Tobacco use Presence of stent in coronary artery (~11/25/21) Atherosclerotic heart disease of [place] coronary artery without angina pectoris Low back pain Necrotizing soft tissue infection Open wound of right thumb Tenosynovitis of thumb Skin necrosis Abscess of right thumb SANDRITA (obstructive sleep apnea) Osteoporosis Osteoarthritis Diverticulitis Depression HTN (hypertension) Sleep apnea MRSA (methicillin resistant Staphylococcus aureus) Smoker tenosynovitis left hand Cutaneous abscess of left hand Dyspnea Chest pain Nephrolithiasis COPD (chronic obstructive pulmonary disease) Smoking greater than 30 pack years HLD (hyperlipidemia) Back pain Abnormal ECG Anxiety and depression Home Medications ?Medication ?Instructions ?Recorded ?Last Taken ?Type acetaminophen 325 mg tablet 650 mg (2 x 325 mg) PO Q6H PRN PRN 11/26/21 Unknown Rx (Tylenol) Pain Score 1-10/Temp > 100.7 F #0 tabs aspirin 81 mg chewable tablet 81 mg PO DAILY@0800 #90 tabs 11/26/21 Unknown Rx varenicline 1 mg tablet (Chantix) 1 mg PO BID 12/11/21 Unknown History tramadol 50 mg tablet 50 mg PO BID PRN pain 04/10/22 Unknown History celecoxib 200 mg capsule (Celebrex) 200 mg PO DAILY 04/08/23 Unknown History nitroglycerin 0.4 mg sublingual 0.4 mg sublingual Q5-15M PRN chest 04/08/23 Unknown History tablet pain tizanidine 4 mg tablet 4 mg PO BID PRN Muscle relaxer 04/08/23 Unknown History sertraline 50 mg tablet 100 mg PO DAILY 07/28/23 Unknown History losartan 25 mg tablet 25 mg PO DAILY #90 tabs 09/07/23 Unknown Rx metoprolol succinate 25 mg 75 mg (3 x 25 mg) PO DAILY #270 09/08/23 Unknown Rx tablet,extended release 24 hr tabs clopidogrel 75 mg tablet (Plavix) 75 mg PO DAILY #90 tabs 04/06/24 Unknown Rx rosuvastatin 20 mg tablet 20 mg PO DAILY #90 tabs 04/06/24 Unknown Rx Allergy/AdvReac Type Severity Reaction Status Date / Time Penicillins Allergy Severe Anaphylaxis Verified 05/08/24 16:21 Family History Father COPD (chronic obstructive pulmonary disease) Alcoholism Mother Cancer Surgical History Presence of coronary angioplasty implant and graft (~11/25/21) History of gastrointestinal surgery History of cataract surgery Social History household members: none Smoking Status: Current every day smoker tobacco type: cigarettes Tobacco: How many years used: 40 alcohol intake: never substance use type: does not use caffeine: Yes Type: coffee Number of servings: 3 ROS ROS ED Constitutional Constitutional ED: Denies chills or fever(s) Eyes Eyes: Denies blurry vision or change in vision ENT ENT ED: Denies rhinorrhea or sore throat Cardiovascular Cardiovascular: Reports palpitations; Denies chest pain Respiratory/Chest Respiratory/Chest: Denies cough or dyspnea Gastrointestinal Gastrointestinal: Denies nausea or vomiting Genitourinary Genitourinary ED: Denies dysuria or hematuria Musculoskeletal Musculoskeletal: Reports back pain; Denies neck pain Integumentary Denies abscess or rash Neurologic Neurologic: Denies headache(s) or weakness Hematologic/Lymphatic Hematologic/Lymphatic: Reports easy bruising Allergic/Immunologic Allergic/Immunologic ED: Denies mouth swelling or urticaria EXAM Physical Exam Const Vital Signs: 05/08/24 16:17 Temperature 97.1 F L Temperature Source Temporal Pulse Rate 69 Respiratory Rate 18 Blood Pressure 145/91 H Blood Pressure Mean 109 Pulse Ox 95 Positive well nourished and well developed General Appearance ED: well developed and NAD HEENT Reports moist mucous membranes Neck full ROM and supple Extremity Extremity Narrative: There is tenderness, edema, and ecchymosis over the posterior medial aspect of the left calf. There is no bony crepitance or step-off. There is no pain with dorsiflexion of the ankle. Lower leg compartments are soft. Pedal pulses are equal bilaterally. Sensation was intact to light touch in all digits. Capillary refill was less than 2 seconds in all digits. There is good range of motion. Neuro oriented x3, CN's II-XII intact bilaterally, moves all extremities and no sensory deficits noted Sensorium / Orientation: alert Motor Exam: strength 5/5 throughout Psych mental status grossly normal MDM MDM MDM Narrative Medical decision making narrative: Smoking cessation was discussed. Patient was advised that this is most likely some bruising in the subcutaneous tissues. I do not feel this is from a DVT. However, patient is concerned that this could be from a DVT. Therefore, an outpatient venous duplex will be ordered for tomorrow. Patient was instructed to come back tomorrow to get this done. Patient states he has an appoint with his luggage attendant in 2 days. Patient was instructed to follow-up with that. Patient was instructed to return if worse in any way. Patient understood and was agreeable with the plan. All questions were answered. Discharge Plan Triage Chief Complaint: Lower Extremity Injury ED Provider: Jalen Rios Dx/Rx/DC Orders Clinical Impression: Contusion of left calf, Smoker Instructions: ED Contusion, Lower Extremity Prescriptions: No Action varenicline [Chantix] 1 mg tablet 1 mg PO BID tramadol 50 mg tablet 50 mg PO BID PRN (Reason: pain) celecoxib [Celebrex] 200 mg capsule 200 mg PO DAILY tizanidine 4 mg tablet 4 mg PO BID PRN (Reason: Muscle relaxer) nitroglycerin 0.4 mg tablet, sublingual 0.4 mg sublingual Q5-15M PRN (Reason: chest pain) Rx Instructions: do not exceed 3 doses per episode aspirin 81 mg Tablet,Chewable 81 mg PO DAILY@0800 Qty: 90 0RF acetaminophen [Tylenol] 325 mg Tablet 650 mg PO Q6H PRN PRN (Reason: Pain Score 1-10/Temp > 100.7 F) Qty: 0 0RF losartan 25 mg tablet 25 mg PO DAILY Qty: 90 3RF metoprolol succinate 25 mg tablet extended release 24 hr 75 mg PO DAILY Qty: 270 3RF rosuvastatin 20 mg tablet 20 mg PO DAILY Qty: 90 3RF clopidogrel [Plavix] 75 mg tablet 75 mg PO DAILY Qty: 90 3RF Other Ambulatory Orders: Venous Duplex US, Unilateral (Stat) Facility: [facility] - Location: [facility] Ordered By: Dr. Jalen Rios Primary Care Provider: Danielito Dowd NP Referrals: Danielito Dowd NP, [employer] [Primary Care Provider] - 3-5 Days Print Language: [place] Citizen Disposition Disposition: Home, Self Care
[2024-05-08 16:44] VITALS: BP 145/91; PULSE 69; RESP 18; TEMP 36.2; O2SAT 95
== END 2024-05-08 16:49 | disposition home or self-care (01) ==
LOC: ED 16:42
PROVIDERS: Emergency Provider Emergency Medicine; PCP Nurse Practitioner Family; Visit Provider Emergency Medicine
DX: S80.12XA Contusion of left lower leg, initial encounter (principal); J44.9 Chronic obstructive pulmonary disease, unspecified; F17.210 Nicotine dependence, cigarettes, uncomplicated; I25.10 Atherosclerotic heart disease of native coronary artery without angina pectoris; G47.33 Obstructive sleep apnea (adult) (pediatric); Z79.02 Long term (current) use of antithrombotics/antiplatelets; Z79.82 Long term (current) use of aspirin; X58.XXXA Exposure to other specified factors, initial encounter
CPT/HCPCS: 99282

== ENCOUNTER → 2024-05-09 | Outpatient (CLI) | payer MEDICARE, SELFPAY ==
--- NOTE | 2024-05-09 11:00 | VDLE_ITS ---
Reason For Study: LLE Pain RIGHT LEFT CFV is compressible, spontaneous, phasic, GSV is normal. competent and demonstrates normal CFV is compressible, spontaneous, phasic, augmentation. competent, and demonstrates normal Procedure augmentation. This is a venous duplex using B-mode, color FV is compressible, spontaneous, phasic, flow and spectral Doppler. competent and demonstrates normal Exam performed in department. augmentation. The exam was diagnostic. POP V is compressible, spontaneous, phasic, competent and demonstrates normal augmentation. T/P Trunk is compressible. PTV is compressible. LT PerV is compressible. VL/Venous Duplex US, Unilateral Interpretation Summary Deep veins of the left lower extremity are patent and compressible segmentally. There is no evidence of left lower extremity deep vein thrombosis. Valvular competence appears intac t within the proximal deep venous system on the left . The left great saphenous vein appears patent a nd compressible segmentally. The right common femoral vein is patent and compressible . Ordering Physician: Jalen Rios Referring Physician: Jalen Rios Performed By: Roderick Trent RVT
== END | disposition home or self-care (01) ==
PROVIDERS: PCP Nurse Practitioner Family; Referring Provider Emergency Medicine; Visit Provider Emergency Medicine
DX: M79.662 Pain in left lower leg (principal)
CPT/HCPCS: 93971

== ENCOUNTER → 2024-10-05 | Outpatient (CLI) | payer MEDICARE, SELFPAY ==
[2024-10-05 08:44] LABS: Hemoglobin 15.3 g/dL (13.0-16.5); Mean Corpuscular Hgb 33.2 pg (27.0-32.0); Mean Corpuscular Volume 97.6 fL (80-94); Mean Platelet Vol. 9.4 fl (6.2-12.0); Platelet Count 219 K/mm3 (150-450); RBC Distribution Width CV 12.6 % (11.6-14.6); RBC Distribution Width SD 45.1 fl (35.1-43.9); Red Blood Count 4.61 M/mm3 (4.6-6.2); White Blood Count 11.5 K/mm3 (4.4-11.0)
[2024-10-05 09:50] LABS: Cholesterol 147 mg/dL (<=200); High Density Lipoprotein 58 mg/dL; Low Density Lipoprotein Calc. 68 mg/dL; Triglycerides 105 mg/dL; Very Low Density Lipoprotein 21 mg/dL (5-40); cholesterol:hdl ratio screen 2.53
[2024-10-05 10:11] LABS: ALB/GLOB Ratio 1.7 RATIO (0.9-2.4); AST(SGOT) 33 U/L (<=37); Alanine Aminotransfer ALT/SGPT 50 U/L (<=46); Albumin, Serum 4.6 g/dL (3.4-4.8); Alkaline Phosphatase 99 U/L (40-129); Anion Gap 12 (5-15); BUN 20 mg/dL (4-19); BUN/Creat Ratio 31.7 RATIO (10-20); Calcium 9.5 mg/dL (7.6-11.0); Carbon Dioxide 23.2 mmol/L (22.0-29.0); Chloride 103 mmol/L (96-108); Creatinine, Serum 0.6 mg/dL (0.8-1.3); EST Glomerular Filtration Rate 103 (>60); Globulin 2.8 g/dL (2.2-4.2); Glucose 110 mg/dL (70-99); Potassium 4.3 mmol/L (3.3-5.1); Protein, Total 7.4 g/dL (5.9-8.4); Sodium Level 138 mmol/L (133-145); Total Bilirubin 0.46 mg/dL (0.00-1.30)
[2024-10-05 18:29] LABS: Hemoglobin A1c 5.7 % (<=5.6)
[2024-10-07 02:17] LABS: Microalbumin,Random Urine 14.8 mg/L (NO RANGE EST.)
== END | disposition home or self-care (01) ==
PROVIDERS: PCP Nurse Practitioner Family; Referring Provider Nurse Practitioner Family; Visit Provider Nurse Practitioner Family
DX: E78.5 Hyperlipidemia, unspecified (principal); R73.01 Impaired fasting glucose; R74.8 Abnormal levels of other serum enzymes; I10 Essential (primary) hypertension; D51.9 Vitamin B12 deficiency anemia, unspecified
CPT/HCPCS: 36415; 80053; 80061; 82043; 82570; 83036; 85027

== ENCOUNTER → 2024-12-01 | Outpatient (CLI) | payer MEDICARE, SELFPAY ==
--- NOTE | 2024-12-01 09:46 | CDU_ITS ---
Reason For Study Reason For Study: Carotid Artery Disease Rt. Velocities/BP Lt. Velocities/BP Prox CCA 94.2/15.7 cm/sec. Prox CCA 108.8/31.4 cm/sec. Mid CCA 94.2/24.8 cm/sec. Mid CCA 62.1/17.9 cm/sec. Dist CCA 76.5/19.3 cm/sec. Dist CCA 65.8/15.5 cm/sec. Prox ICA 148.4/34.2 cm/sec. Prox ICA 172.5/36.4 cm/sec. Mid ICA 128.9/30.3 cm/sec. Mid ICA 116.2/35.8 cm/sec. Dist ICA 106.3/35.1 cm/sec. Dist ICA 97.9/30.3 cm/sec. Rt. ICA/CCA = 1.6. Lt. ICA/CCA = 2.8. Prox ECA 120.5/11.8 cm/sec. Prox ECA 439.9/106.5 cm/sec. Rt. Vert. 47.4/10.4 cm/sec. Lt. Vert. 42.5/13.0 cm/sec. Right Extracranial There is heterogeneous, irregular atherosclerotic plaque noted in the right common carotid artery. There is heterogeneous, irregular atherosclerotic plaque noted in the right internal carotid artery. There is heterogeneous, irregular atherosclerotic plaque noted in the right external carotid artery. Antegrade flow is noted in the right vertebral artery. Left Extracranial There is heterogeneous, irregular atherosclerotic plaque noted in the left common carotid artery. There is heterogeneous, irregular atherosclerotic plaque noted in the left internal carotid artery. There is heterogeneous, irregular atherosclerotic plaque noted in the left external carotid artery. Antegrade flow is noted in the left vertebral artery. Procedure Carotid Duplex 68031. This is a Carotid Duplex examination using B-mode, color flow and specral Doppler. The exam was diagnostic. Exam performed in department. VL/Carotid Duplex Ultrasound Interpretation Summary Moderate (50-69%) stenosis right extracranial internal carotid. Moderate (50-69%) stenosis left extracranial internal carotid. Patent and antegrade vertebrals bilaterally. Ordering Physician: Lelo Love Referring Physician: Danielito Dowd Performed By: Roderick Trent RVT
== END | disposition home or self-care (01) ==
PROVIDERS: PCP Nurse Practitioner Family; Referring Provider Physician Assistant; Visit Provider Physician Assistant
DX: I65.23 Occlusion and stenosis of bilateral carotid arteries (principal)
CPT/HCPCS: 93880

== ENCOUNTER → 2025-04-14 | Outpatient (CLI) | payer MEDICARE, SELFPAY ==
[2025-04-14 09:20] LABS: Hematocrit 41.6 % (40-54); Hemoglobin 14.1 g/dL (13.0-16.5); Mean Corp Hgb Conc 33.9 g/dL (32-36); Mean Corpuscular Volume 98.6 fL (80-94); Mean Platelet Vol. 9.0 fl (6.2-12.0); Platelet Count 181 K/mm3 (150-450); RBC Distribution Width CV 13.2 % (11.6-14.6); RBC Distribution Width SD 47.8 fl (35.1-43.9); Red Blood Count 4.22 M/mm3 (4.6-6.2); White Blood Count 8.1 K/mm3 (4.4-11.0)
[2025-04-14 09:56] LABS: AST(SGOT) 29 U/L (<=37); Alanine Aminotransfer ALT/SGPT 52 U/L (<=46); Albumin, Serum 3.8 g/dL (3.4-4.8); Alkaline Phosphatase 105 U/L (40-129); Anion Gap 10 (5-15); BUN 20 mg/dL (4-19); BUN/Creat Ratio 24.9 RATIO (10-20); Calcium,Total 9.1 mg/dL (7.6-11.0); Carbon Dioxide 25.0 mmol/L (21.0-32.0); Chloride 104 mmol/L (98-108); Cholesterol 150 mg/dL (<=200); Globulin 3.0 g/dL (2.2-4.2); Glucose 95 mg/dL (70-99); Low Density Lipoprotein Calc. 71 mg/dL; PSA,Total - Annual Screen 0.57 ng/mL (0.02-4.00); Potassium 4.3 mmol/L (3.3-5.1); Triglycerides 131 mg/dL; Very Low Density Lipoprotein 26 mg/dL (5-40); Vitamin B12 672 pg/mL (180-914); cholesterol:hdl ratio screen 2.81
[2025-04-14 13:36] LABS: Creatinine, Urine (random) 91.00 mg/dL (39.00-259.00); Microalbumin,Random Urine < 12.0 mg/L (<20 mg/L)
== END | disposition home or self-care (01) ==
LOC: LAB 07:57
PROVIDERS: PCP Nurse Practitioner Family; Referring Provider Nurse Practitioner Family; Visit Provider Nurse Practitioner Family
DX: I10 Essential (primary) hypertension (principal); E78.5 Hyperlipidemia, unspecified; R73.01 Impaired fasting glucose; R74.8 Abnormal levels of other serum enzymes; D51.9 Vitamin B12 deficiency anemia, unspecified; Z12.5 Encounter for screening for malignant neoplasm of prostate
CPT/HCPCS: 36415; 80053; 80061; 82043; 82570; 82607; 83036; 84153; 85027; G0103

== ENCOUNTER 2025-04-25 07:16 | Emergency (ER) | payer MEDICARE, SELFPAY ==
[2025-04-25] VITALS (7 sets, daily range): BP systolic 121–160; BP diastolic 75–97; PULSE 60–80; RESP 16–23; TEMP 36.6–37.1; O2SAT 95–98; BMI 24.9
--- NOTE | 2025-04-25 07:47 | EKG12_ITS ---
Test Reason : CP Blood Pressure : */* mmHG Vent. Rate : 68 BPM Atrial Rate : 68 BPM P-R Int : 196 ms QRS Dur : 98 ms QT Int : 384 ms P-R-T Axes : 67 -41 58 degrees QTcB Int : 408 ms Normal sinus rhythm Left axis deviation Septal infarct (cited on or before 05-May-2023) Abnormal ECG Confirmed by PILLO RM, JAKE ([id number]), visual effects editor MITCH MAYES ([id number]) on 04/26/2025 9:38:33 AM Referred By: RIZWAN Confirmed By: JAKE FERRO MD
--- NOTE | 2025-04-25 07:48 | RAD_ITS ---
PROCEDURE: CHEST PA AND LATERAL 04/25/2025 REASON FOR EXAM: COUGH TECHNIQUE: Procedure Code: RADCXR Modality: DX Procedure: CHEST PA AND LATERAL COMPARISON: Chest x-ray 08/11/2023 FINDINGS: Hardware: Monitoring electrodes overlying chest wall. Heart: The heart size is normal. Mediastinum: The mediastinal contour is unremarkable. Lungs: Bibasilar atelectasis. Stable elevated right hemidiaphragm. Bones: The bones are unremarkable. RAD/Chest PA and Lateral IMPRESSION: No acute cardiopulmonary abnormality Reading Location: [id number]
[2025-04-25] MEDS: 0.9% Normal Saline (1000mL) 1,000 ML 1000 ML IV (07:59)
[2025-04-25 08:03] LABS: Hematocrit 43.3 % (40-54); Hemoglobin 15.1 g/dL (13.0-16.5); Immature Granulocytes Count 0.030 X10^3/uL (0.0-0.0); Mean Corp Hgb Conc 34.9 g/dL (32-36); Mean Corpuscular Volume 97.1 fL (80-94); Mean Platelet Vol. 8.8 fl (6.2-12.0); NRBC Flagged by Analyzer 0 % (0-5); Platelet Count 249 K/mm3 (150-450); RBC Distribution Width CV 12.9 % (11.6-14.6); RBC Distribution Width SD 46.2 fl (35.1-43.9); Red Blood Count 4.46 M/mm3 (4.6-6.2); White Blood Count 5.5 K/mm3 (4.4-11.0)
--- NOTE | 2025-04-25 08:15 | EX.ED.DYSGE1 ---
HPI History of Present Illness Chief Complaint: General Illness Informant: patient Narrative Narrative: Patient is a 69-year-old male with history of COPD, tobacco use, coronary disease status post stents in 2021, hyperlipidemia and anxiety/depression presenting with generalized weakness and shortness of breath. He states his been feeling more short of breath for past 3 to 4 days. He states he has felt heavy in his arms and his legs and he gets exhausted and tried to do his basic activities. He states has not been eating or drinking much and he is concerned for dehydration. Reports decreased urine output. Denies any dysuria. Notes that he has had discomfort in his chest for the past 3 to 4 days. He states it is there more often than it does not but seems to come in waves. Denies any associated aggravating alleviating factors. Denies sharp chest pain. Denies any associate diaphoresis. Notes that he was on a 10-day course of antibiotics for sinus infection that he finished about a week ago. Denies any new URI symptoms since then. States he does have a mild infrequent cough that is not productive. Denies any swelling of his legs. Denies any GI symptoms including abdominal pain, nausea vomiting or diarrhea. Denies any melena. Denies any recent medication changes. Denies history of DVT or PE. [facility] Medical History Bilateral carotid bruits Dyslipidemia Nicotine dependence Coronary artery disease Ventricular tachycardia PAC (premature atrial contraction) Non-sustained ventricular tachycardia Palpitations Tobacco use Presence of stent in coronary artery (~11/25/21) Atherosclerotic heart disease of [place] coronary artery without angina pectoris Low back pain Necrotizing soft tissue infection Open wound of right thumb Tenosynovitis of thumb Skin necrosis Abscess of right thumb SANDRITA (obstructive sleep apnea) Osteoporosis Osteoarthritis Diverticulitis Depression HTN (hypertension) Sleep apnea MRSA (methicillin resistant Staphylococcus aureus) Smoker tenosynovitis left hand Cutaneous abscess of left hand Dyspnea Chest pain Nephrolithiasis COPD (chronic obstructive pulmonary disease) Smoking greater than 30 pack years HLD (hyperlipidemia) Back pain Abnormal ECG Anxiety and depression Home Medications ?Medication ?Instructions ?Recorded ?Last Taken ?Type acetaminophen 325 mg tablet 650 mg (2 x 325 mg) PO Q6H PRN PRN 11/26/21 Unknown Rx (Tylenol) Pain Score 1-10/Temp > 100.7 F #0 tabs aspirin 81 mg chewable tablet 81 mg PO DAILY@0800 #90 tabs 11/26/21 Unknown Rx varenicline tartrate 1 mg tablet 1 mg PO BID 12/11/21 Unknown History (Chantix) tramadol 50 mg tablet 50 mg PO BID PRN pain 04/10/22 Unknown History celecoxib 200 mg capsule (Celebrex) 200 mg PO DAILY 04/08/23 Unknown History nitroglycerin 0.4 mg sublingual 0.4 mg sublingual Q5-15M PRN chest 04/08/23 Unknown History tablet pain tizanidine 4 mg tablet 4 mg PO BID PRN Muscle relaxer 04/08/23 Unknown History losartan 25 mg tablet 25 mg PO DAILY #90 tabs 09/29/24 Unknown Rx metoprolol succinate 25 mg 75 mg (3 x 25 mg) PO DAILY #270 09/30/24 Unknown Rx tablet,extended release 24 hr tabs albuterol sulfate 2.5 mg/3 mL 2.5 mg continuous nebulization Q8 11/08/24 Unknown History (0.083 %) solution for nebulization PRN copd albuterol sulfate 90 mcg/actuation 2 puff inhalation Q4 PRN dyspnea 11/08/24 Unknown History aerosol inhaler buspirone 10 mg tablet 10 mg PO TID PRN anxiety 11/08/24 Unknown History fluticasone 250 mcg-salmeterol 50 1 ea inhalation BID 11/08/24 Unknown History mcg/dose blistr powdr for inhalation sertraline 100 mg tablet 100 mg PO QDAY 11/08/24 Unknown History clopidogrel 75 mg tablet (Plavix) 75 mg PO DAILY #90 tabs 03/27/25 Unknown Rx rosuvastatin 20 mg tablet 20 mg PO DAILY #90 tabs 03/27/25 Unknown Rx prednisone 20 mg tablet 40 mg (2 x 20 mg) PO DAILY #8 tabs 04/25/25 Unknown Rx Allergy/AdvReac Type Severity Reaction Status Date / Time Penicillins Allergy Severe Anaphylaxis Verified 04/25/25 07:19 Family History Father COPD (chronic obstructive pulmonary disease) Alcoholism Mother Cancer Surgical History Presence of coronary angioplasty implant and graft (~11/25/21) History of gastrointestinal surgery History of cataract surgery Social History household members: none Smoking Status: Current every day smoker tobacco type: cigarettes Tobacco: How many years used: 40 alcohol intake: never substance use type: does not use caffeine: Yes Type: coffee Number of servings: 3 ROS ROS ED Constitutional Constitutional ED: Reports other Details: Generalized weakness, poor appetite ; Denies chills or fever(s) ENT ENT ED: Denies rhinorrhea or sore throat Cardiovascular Cardiovascular: Reports chest pain Respiratory/Chest Respiratory/Chest: Reports cough, dyspnea and dyspnea on exertion Gastrointestinal Gastrointestinal: Denies abdominal pain, diarrhea, melena, nausea or vomiting Genitourinary Genitourinary ED: Reports other Details: Decreased urination Musculoskeletal Musculoskeletal: Reports myalgias and other Details: States arms and legs feel heavy Integumentary Denies rash Neurologic Neurologic: Reports weakness; Denies paresthesias Psychiatric Psychiatric: Reports anxiety Hematologic/Lymphatic Hematologic/Lymphatic: Denies easy bleeding or easy bruising EXAM Physical Exam Const Vital Signs: 04/25/25 07:19 04/25/25 07:21 04/25/25 07:27 Temperature 97.8 F 97.8 F Temperature Source Oral Oral Pulse Rate 69 63 Respiratory Rate 18 23 H Respiratory Effort Normal Short of Breath Labored Respiratory Pattern Normal Blood Pressure 129/91 H 146/83 H Blood Pressure Mean 103 104 Pulse Ox 96 97 Oxygen Delivery Method Room Air Room Air 04/25/25 08:19 04/25/25 09:00 04/25/25 10:00 Temperature 98.7 F 98.1 F Temperature Source Oral Oral Pulse Rate 64 60 69 Respiratory Rate 16 20 H 19 H Respiratory Effort Respiratory Pattern Blood Pressure 121/78 H 145/75 H 143/97 H Blood Pressure Mean 92 98 112 Pulse Ox 95 98 97 Oxygen Delivery Method Room Air Room Air Room Air 04/25/25 11:00 04/25/25 11:50 Temperature 98.2 F Temperature Source Pulse Rate 80 80 Respiratory Rate 16 16 Respiratory Effort Respiratory Pattern Blood Pressure 160/81 H 133/76 H Blood Pressure Mean 107 95 Pulse Ox 98 98 Oxygen Delivery Method Positive well nourished and well developed General Appearance ED: well developed and NAD HEENT Reports dry mucous membranes HEENT Narrative: Normal oropharynx. No sinus congestion present Mouth ED: Yes dry mucous membranes Mouth: dry mucous membranes Neck no lymphadenopathy, supple and no JVD Chest Wall inspection of chest normal and palpation of chest normal Resp Resp Narrative: Scattered wheezing present. mildly diminished breath sounds at the bases Cardio regular rate, regular rhythm and no murmurs GI normal to inspection, nondistended, normoactive bowel sounds and non-tender Extremity normal to inspection General Extremety ED: Negative for edema General Extremity: Negative for edema Neuro oriented x3 Neuro Narrative: Muscle tone normal throughout. Moving all extremity Sensorium / Orientation: alert Motor Exam: Negative for general weakness Psych mental status grossly normal MDM MDM MDM Narrative Medical decision making narrative: Patient Biba for generalized weakness, malaise and chest tightness. Does report some mild shortness of breath. Differential is broad including viral syndrome, pneumonia, ACS, pulmonary emboli, electrolyte derangement, UTI and ERIN. Patient is given IV fluids. Does have some mild rhonchorous breath sounds on exam and is given a DuoNeb with some improvement of his chest discomfort and work of breathing. Workup including CBC, CMP, delta high-sensitivity troponin, urinalysis and D-dimer are largely negative. EKG does not show any acute ischemic changes. Suspect he has some type of viral syndrome possibly COPD exacerbation is causing his symptoms. He might have some mild dehydration and is given IV fluids in the emergency room. On repeat evaluation he is feeling better. He is ambulated without any hypoxia. At this time is comfortable with outpatient help with PCP. Will be placed on a course of prednisone and instructed to use albuterol inhaler as needed. Given return precautions. Is given first dose of prednisone in the emergency room. Patient and family agreeable to plan of care. Patient discharged home in stable can improved condition. Lab Data Attestation: I reviewed the patient's lab results. Labs: Laboratory Results - last 24 hr 04/25/25 04/25/25 04/25/25 07:55 08:22 09:50 WBC 5.5 RBC 4.46 L Hgb 15.1 Hct 43.3 MCV 97.1 H MCH 33.9 H MCHC 34.9 RDW Std Deviation 46.2 H RDW Coeff of Eva 12.9 Plt Count 249 MPV 8.8 Immature Gran % (Auto) 0.500 Neut % (Auto) 53.2 Lymph % (Auto) 30.3 [place] % (Auto) 13.9 H Eos % (Auto) 1.6 Baso % (Auto) 0.5 Absolute Neuts (auto) 2.9 Absolute Lymphs (auto) 1.68 Nucleated RBC % 0 D-Dimer Quant (PE/DVT) 0.45 Sodium 141 Potassium 4.0 Chloride 108 Carbon Dioxide 21.7 Anion Gap 12 BUN 18 Creatinine 0.90 Estim Creat Clear Calc 85.08 Est GFR (MDRD) Non-Af 91 BUN/Creatinine Ratio 20.2 H Glucose 112 H Calcium 9.3 Total Bilirubin 0.38 AST 30 ALT 45 Alkaline Phosphatase 105 Total Creatine Kinase 58 Troponin T High Sens 10 Troponin T Hi Sens 2 Hr 9 Total Protein 7.0 Albumin 4.2 Globulin 2.7 Albumin/Globulin Ratio 1.5 Urine Color Yellow Urine Clarity Clear Urine pH 5.0 Ur Specific [place] 1.020 Urine Protein 30 H Urine Glucose (UA) Normal Urine Ketones Negative Urine Occult Blood 10 H Urine Nitrite Negative Urine Bilirubin Negative Urine Urobilinogen Normal Ur Leukocyte Esterase Negative Urine RBC 0-5 SEEN Urine WBC 0-5 SEEN Ur Squamous Epith Cells 0 SEEN Urine Bacteria 0 SEEN Hyaline Casts 0-5 SEEN Urine Mucus 0 SEEN Radiography Diagnostic Testing: Clinical Impression(s) from Imaging Studies Chest X-Ray 04/25/25 07:48 IMPRESSION: No acute cardiopulmonary abnormality Reading Location: [facility] Rhythm Strip Rhythm Strip: Sinus Rhythm Rate: 68 Ectopy: None EKG Initial EKG: Attestation: I personally reviewed and interpreted this EKG as follows: Interpretation: Sinus Rhythm Comments: Normal sinus rhythm rate of 68 bpm Left axis deviation Normal intervals Normal ST segments Compared to prior EKG on 08/11/2023 patient now has a more distinct left axis deviation but no acute ST segment changes Discharge Plan Triage Chief Complaint: General Illness ED Provider: Nava Norton Dx/Rx/DC Orders Clinical Impression: Chest pressure, Generalized weakness, Expiratory wheezing Instructions: ED Chest Pain, Noncardiac, ED URI, Viral W/ Wheezing (Adult), ED Weakness Uncertain Cause Prescriptions: New prednisone 20 mg tablet 40 mg PO DAILY Qty: 8 0RF No Action varenicline tartrate [Chantix] 1 mg tablet 1 mg PO BID tramadol 50 mg tablet 50 mg PO BID PRN (Reason: pain) celecoxib [Celebrex] 200 mg capsule 200 mg PO DAILY tizanidine 4 mg tablet 4 mg PO BID PRN (Reason: Muscle relaxer) nitroglycerin 0.4 mg tablet, sublingual 0.4 mg sublingual Q5-15M PRN (Reason: chest pain) Rx Instructions: do not exceed 3 doses per episode sertraline 100 mg tablet 100 mg PO QDAY buspirone 10 mg tablet 10 mg PO TID PRN (Reason: anxiety) fluticasone propion-salmeterol 250-50 mcg/dose blister with device 1 ea inhalation BID albuterol sulfate 90 mcg/actuation HFA aerosol inhaler 2 puff inhalation Q4 PRN (Reason: dyspnea) albuterol sulfate 2.5 mg /3 mL (0.083 %) solution for nebulization 2.5 mg continuous nebulization Q8 PRN (Reason: copd) aspirin 81 mg Tablet,Chewable 81 mg PO DAILY@0800 Qty: 90 0RF acetaminophen [Tylenol] 325 mg Tablet 650 mg PO Q6H PRN PRN (Reason: Pain Score 1-10/Temp > 100.7 F) Qty: 0 0RF losartan 25 mg tablet 25 mg PO DAILY Qty: 90 3RF metoprolol succinate 25 mg tablet extended release 24 hr 75 mg PO DAILY Qty: 270 3RF rosuvastatin 20 mg tablet 20 mg PO DAILY Qty: 90 3RF clopidogrel [Plavix] 75 mg tablet 75 mg PO DAILY Qty: 90 3RF Primary Care Provider: Danielito Dowd NP Referrals: Danielito Dowd NP, [employer] [Primary Care Provider] - Activity Restrictions/Additional Instructions: Your workup today was largely normal and reassuring. No signs of acute heart attack, stress on the heart, blood clots in the lungs or pneumonia. They did have some wheezing on your exam and have been placed on a course of steroids. Is possible you could have a mild viral illness that is irritating your lungs and cause you to feel weak. If your symptoms worsen or progress please return the emergency room. Make sure you are drinking plenty of fluids. Print Language: Kinyar[place] Disposition Disposition: Home, Self Care Discharge Date/Time: 04/25/25 11:56
[2025-04-25 08:35] LABS: Mucous, Urine 0 SEEN /hpf (<or=2+); Squamous Epithelial Cells - UA 0 SEEN /hpf (0-5)
[2025-04-25 08:46] LABS: Color, Urine Yellow (Yellow); Glucose, Dipstick Normal (Normal); Ketone-Dipstick Negative (Negative); Leukocyte Esterase-Dipstick Negative /ul (Negative); Nitrite-Dipstick Negative (Negative); Occult Blood-Urine 10 /ul (Negative); Protein-Dipstick 30 mg/dl (Negative); Specific Gravity, Urine 1.020 (1.002-1.030); Urine Bilirubin Dipstick Negative (Negative)
[2025-04-25 08:48] LABS: Troponin T High Sensitivity 10 ng/L (<=22)
[2025-04-25 08:49] LABS: AST(SGOT) 30 U/L (<=37); Alanine Aminotransfer ALT/SGPT 45 U/L (<=46); Albumin, Serum 4.2 g/dL (3.4-4.8); Alkaline Phosphatase 105 U/L (40-129); Anion Gap 12 (5-15); BUN 18 mg/dL (4-19); BUN/Creat Ratio 20.2 RATIO (10-20); CPK Total, Creatine Kinase 58 U/L (24-195); Calcium,Total 9.3 mg/dL (7.6-11.0); Carbon Dioxide 21.7 mmol/L (21.0-32.0); Chloride 108 mmol/L (98-108); Estimated Creatinine Clearance 85.08 ml/min (50-250); Globulin 2.7 g/dL (2.2-4.2); Glucose 112 mg/dL (70-99); Potassium 4.0 mmol/L (3.3-5.1)
[2025-04-25 08:59] LABS: Red Blood Cells-Urine 0-5 SEEN /hpf (0-5)
[2025-04-25 09:22] LABS: D-Dimer Quantitative (DVT/PE) 0.45 FEU/ug/m (0.27-0.49)
[2025-04-25 11:28] LABS: Troponin T High Sens 2 HR 9 ng/L (<=22)
== END 2025-04-25 11:56 | disposition home or self-care (01) ==
PROVIDERS: Emergency Provider Emergency Medicine; PCP Nurse Practitioner Family; Visit Provider Emergency Medicine
DX: R07.89 Other chest pain (principal); J44.9 Chronic obstructive pulmonary disease, unspecified; R53.1 Weakness; R06.2 Wheezing; I10 Essential (primary) hypertension; E78.5 Hyperlipidemia, unspecified; F41.9 Anxiety disorder, unspecified; F32.A Depression, unspecified; I25.10 Atherosclerotic heart disease of native coronary artery without angina pectoris; G47.33 Obstructive sleep apnea (adult) (pediatric); F17.210 Nicotine dependence, cigarettes, uncomplicated; Z95.1 Presence of aortocoronary bypass graft; Z87.19 Personal history of other diseases of the digestive system; Z79.82 Long term (current) use of aspirin; Z79.51 Long term (current) use of inhaled steroids; Z79.02 Long term (current) use of antithrombotics/antiplatelets; Z79.899 Other long term (current) drug therapy
CPT/HCPCS: 71046; 80053; 81001; 82550; 84484; 85025; 85379; 93005; 96360; 96361; 99285; A4216

== ENCOUNTER → 2025-07-26 | Outpatient (CLI) | payer MEDICARE, SELFPAY ==
--- NOTE | 2025-07-26 11:35 | RAD_ITS ---
PROCEDURE: L/S SPINE MIN 4 VIEWS 07/26/2025 REASON FOR EXAM: PAIN TECHNIQUE: Procedure Code: [id number] Modality: DX Procedure: L/S SPINE MIN 4 VIEWS FINDINGS: No evidence of acute fracture or dislocation. Xvtyypfe-[id number] degenerative changes of the visualized spine. Grade 1 anterolisthesis of L2 on L3 and L3 on L4. No visualized pars defects. RAD/L/S Spine Min 4 Views IMPRESSION: Spondylosis. Spondylolisthesis. Reading [facility]
== END | disposition home or self-care (01) ==
LOC: RAD 11:29
PROVIDERS: PCP Nurse Practitioner Family; Referring Provider Nurse Practitioner Family; Visit Provider Nurse Practitioner Family
DX: M54.50 Low back pain, unspecified (principal); M50.30 Other cervical disc degeneration, unspecified cervical region
CPT/HCPCS: 72110